=== PATIENT | male | born 1940 | race Caucasian/White ===

== ENCOUNTER 2022-09-10 19:20 | Emergency (ER) | payer OTHER, SELFPAY ==
[2022-09-10 19:28] VITALS: BP 169/88; PULSE 61; RESP 22; TEMP 37.2; O2SAT 75; BMI 25.7
--- NOTE | 2022-09-10 19:49 | ED.NURSE ---
250cc saline wound rinse per MD Taylor verbal.
--- NOTE | 2022-09-10 19:50 | ED.WOUNDLAC ---
HPI - Wound/Laceration General Chief Complaint: Laceration/Wound Stated Complaint: Laceration Time Seen by Provider: 09/10/22 19:34 History of Present Illness HPI narrative: This 82-year-old male comes in by ambulance because of an injury to his right lower extremity. He was getting out of the shower and lost his balance. He hit his leg into a pole and has a laceration on the anterior surface his right leg between the knee in ankle. He did not hit his head or have loss of consciousness. He has chronic neuropathy and large pedal edema bilaterally. He has a skin tear on his anterior right lower leg. There is a small amount of bleeding on the dressing but a fair amount of serous fluid from drainage of the edema in his lower extremity. Related Data Previous Rx's Medication Instructions Recorded furosemide 40 mg tablet 20 mg PO DAILY #30 tabs 09/10/22 Allergies Allergy/AdvReac Type Severity Reaction Status Date / Time No Known Drug Allergies Allergy Verified 09/10/22 19:35 Review of Systems Status of ROS: Reports: 10 or more systems reviewed and unremarkable except as noted in History and below Narrative: Constitutional: No fevers, no weight gain or loss. Eyes: No discharge. No vision changes. HENT: No congestion, no sore throat, no ear pain. Cardiovascular: No chest pain, no palpitations. Respiratory: No shortness of breath, no wheezes, no cough. Gastrointestinal: No abdominal pain, no vomiting, no diarrhea. Genitourinary: No dysuria, no hematuria. Musculoskeletal: Normal range of motion. Skin: No rashes, no pruritis. Large pedal edema bilaterally with skin discoloration. Neurological: No dizziness, weakness, sensory change, speech change. Endo/Heme/Allergies: No bruising or bleeding. No polydipsia. Pysch: no suicidality, no anxiety, no insomnia. All other systems reviewed and are negative. [facility] Medical History (Updated 09/10/22 @ 20:13 by Jose Ramon Taylor MD) Acute on chronic diastolic (congestive) heart failure Acute on chronic heart failure with preserved ejection fraction Bilateral edema of lower extremity Chronic diarrhea DDD (degenerative disc disease), lumbar Diabetic peripheral neuropathy Generalized weakness GERD (gastroesophageal reflux disease) Hypertension Lymphedema Morbid obesity Polymyalgia rheumatica Type 2 diabetes mellitus Surgical History (Updated 09/10/22 @ 20:06 by Robert Hay RN) History of lumbar laminectomy History of tonsillectomy and adenoidectomy Social History Smoking Status: Unknown if ever smoked How often do you have a drink containing alcohol: never AUDIT-C Alcohol total score: 0 Non-prescribed substance use: denies use Exam Narrative: Exam Narrative: Constitutional: Well-developed, well-nourished, no acute distress. HEENT: Normocephalic, atraumatic. Neck: Normal range of motion. Nontender. Supple. Heart: Intact distal pulses. Lungs: No chest discomfort. No wheezes, rhonchi, or rales. Abdomen: Nontender. Back: Normal range of motion. Extremities: Normal range of motion. Skin tear on the anterior surface of the right lower extremity about nursing home between the knee and the ankle. There is very large pedal edema bilaterally with some drainage of serous fluid from the wound. Skin: Intact. No rash. Warm. No erythema or pallor. Neurologic: No altered sensation. No weakness. Alert and oriented. Psychiatric: No suicidality. No anxiety or depression. No insomnia. Nursing notes and vitals signs are reviewed. Const: Vital Signs, click to edit/add: Vital Signs - 24 hr 09/10/22 19:28 Temperature 99.0 F Pulse Rate [Right Pulse Oximeter] 61 Respiratory Rate 22 Blood Pressure [Ri ght Upper Arm] 169/88 H Pulse Oximetry 75 L Oxygen Delivery Me thod Room Air Course Vital Signs Vital signs: Initial Vital Signs Temperature 99.0 F 09/10/22 19:28 Temperature Source Temporal Artery Scan 09/10/22 19:28 Pulse Rate 61 09/10/22 19:28 Respiratory Rate 22 09/10/22 19:28 Blood Pressure 169/88 H 09/10/22 19:28 Blood Pressure Mean 115 09/10/22 19:28 Blood Pressure Position Sitting 09/10/22 19:28 Pulse Oximetry 75 L 09/10/22 19:28 Oxygen Delivery Method 09/10/22 19:28 Vital Signs Temperature 99.0 F 09/10/22 19:28 Pulse Rate 61 09/10/22 19:28 Respiratory Rate 22 09/10/22 19:28 Blood Pressure 169/88 H 09/10/22 19:28 Pulse Oximetry 75 L 09/10/22 19:28 Oxygen Delivery Method 12/24/22 19:28 Temperature 99.0 F 09/10/22 19:28 Pulse Rate 61 09/10/22 19:28 Respiratory Rate 22 09/10/22 19:28 Blood Pressure 169/88 H 09/10/22 19:28 Pulse Oximetry 75 L 09/10/22 19:28 Oxygen Delivery Method 09/10/22 19:28 MDM - Wound/Laceration MDM Narrative Medical decision making narrative: This patient comes in for treatment of a wound to his right lower extremity. It really is more characteristic of a skin tear. There is not sufficient tissue to do a suture repair. The wound was cleansed and Dermabond was applied. A nonstick dressing was applied over this with gauze wrap around the lower extremity. Instructions were given regarding wound care. He has a follow-up appointment with his primary physician in about 1 week. The patient did arrive with oximetry decreased into the 70s% upon arrival when making a transition from the gurney to the bed. He received nasal cannula oxygen which brought immediate improvement to the low 90s%. When oxygen was removed he desaturated into the mid 80s%. He states that he does not feel short of breath. I recommended a workup in this regard and stated that the oximetry itself would typically be something where we bring a person into the hospital and make arrangements the next day for home oxygen. He states that he has plans for [place] and declines any such plans today. He has very large pedal edema bilaterally and it is noted that he is not on any kind of diuretic. I did prescribe Lasix 20 mg and encouraged him to follow-up with his primary physician. If he becomes short of breath he should return to the emergency department. I also advised him to get access to home oxygen even if not feeling short of breath because his oximetry is indicating such in need. Discharge Plan Discharge Clinical Impression: Laceration, Congestive heart failure, Pedal edema Patient Disposition: Home, Self-Care Condition: Stable Additional Instructions: Keep wound clean and dry. Change dressing every 1-2 days. Follow up with MD for further evaluation and treatment regarding the chronic pedal edema. Return if worsening. Prescriptions: New furosemide 40 mg tablet 20 mg PO DAILY Qty: 30 2RF Stand Alone Forms: Food and Beverage Info Instructions
[2022-09-10 20:22] LABS: PCR FLU A Negative PCR FLU A (Negative); PCR FLU B Negative PCR FLU B (Negative); PCR RSV Negative PCR RSV (Negative); SARS PCR* Negative SARS-CoV-2 (Negative)
[2022-09-10 20:28] VITALS: BP 154/81; PULSE 62; RESP 20; TEMP 36.7; O2SAT 86
[2022-09-10 20:30] VITALS: O2SAT 92
[2022-09-10 20:34] VITALS: O2SAT 87
--- NOTE | 2022-09-10 21:13 | ED.NURSE ---
patient oxygen saturation 81-87% throughout shift on room air, 2Lnc 92%, MD updated. pt refused admission and states he will go home regardless of breathing as long as the leg gets checked out - non stick dressing and gauze with kerlix applied.
== END 2022-09-10 21:15 | disposition home or self-care (01) ==
LOC: ED 20:13
PROVIDERS: Emergency Provider Emergency Medicine Emergency Medical Services; PCP Family Medicine
DX: S81.811A Laceration without foreign body, right lower leg, initial encounter (principal); W26.9XXA Contact with unspecified sharp object(s), initial encounter; I50.9 Heart failure, unspecified; R60.0 Localized edema
CPT/HCPCS: 12001; 87502; 87634; 87635; 94761; 99284

== ENCOUNTER 2022-09-13 10:59 | Inpatient (IN) | payer OTHER, SELFPAY ==
[2022-09-13] VITALS (28 sets, daily range): BP systolic 126–178; BP diastolic 52–111; PULSE 54–67; RESP 18–24; TEMP 36.4–36.7; O2SAT 77–99; BMI 42.4; BMI 47.8
--- NOTE | 2022-09-13 11:26 | ED.NURSE ---
patient changed to O2 at 2 liters via NC from a nonrebreather mask. patient was seen by RT and nurse suggested a neb for the audible wheezing.
--- NOTE | 2022-09-13 11:34 | CRLHL7_ITS ---
For Patients: As a result of the Cures Act, medical imaging exams and procedure reports are released immediately into your electronic medical record. You may view this report before your referring provider. If you have questions, please contact your health care provider. INDICATION: Shortness of breath TECHNIQUE: Chest 1 view. COMPARISON: 11/22/2011 FINDINGS: Cardiovascular and mediastinum: Cardiomegaly with pulmonary vascular congestive changes. Mediastinum is within normal limits. Lungs and pleural space: Lungs are clear. No sign of infiltrate or mass. No sign of pleural effusion. No pneumothorax. Bones and soft tissues: No significant findings. IMPRESSION: Cardiomegaly with pulmonary vascular congestive changes. Dictated by Srinivasa Valdes MD @ 09/13/2022 12:19:31 PM Dictated by: Srinivasa Valdes MD @ 09/13/2022 12:19:37 (Electronically Signed)
[2022-09-13] MEDS: IPRAT-ALBUT 0.5-2.5 MG/3 ML NEB 1 NEB IH ×2 (11:37→21:17)
--- NOTE | 2022-09-13 11:37 | ED.SOB ---
HPI - SOB/Dyspnea General Date Seen: 09/13/22 Chief Complaint: Shortness of Breath/Dyspnea Stated Complaint: Shortness of breath Time Seen by Provider: 09/13/22 11:03 Source: patient, RN notes reviewed and old records reviewed Mode of arrival: wheelchair History of Present Illness HPI Narrative: Patient is the 82-year-old gentleman who is seen in room 1, he comes in cousin shortness of breath, he was here in the emergency department 3 days ago, and offered admission but declined at that time because of low oxygen saturations. He does not have a history of home oxygen, he tells me that the shortness of breath his gradual over time. . 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 Sees a local physician for a primary care, history of leg swelling bilaterally with marked venous stasis changes on the legs. Pertinent past history: congestive heart failure Onset (ago): week(s) Timing: progressively worsening Severity: moderate Exacerbating factors: lying flat and movement Relieving factors: nothing Known history of: congestive heart failure Associated symptoms: denies other symptoms Treatment prior to arrival: none Related Data Home oxygen amount: none Home Medications Medication Instructions Recorded Confirmed acetaminophen 650 mg 1,300 mg PO HS 09/10/22 09/13/22 tablet,extended release (Arthritis Pain Reliever) allopurinol 100 mg tablet 100 mg PO DAILY 09/10/22 09/13/22 ammonium lactate 12 % topical cream 1 applic topical BID 09/10/22 09/13/22 aspirin 81 mg tablet,delayed 81 mg PO DAILY 09/10/22 09/13/22 release (Ecotrin Low Strength) atorvastatin 20 mg tablet 20 mg PO HS 09/10/22 09/13/22 diphenhydramine 25 1 tab PO QHS PRN 09/10/22 09/13/22 mg-acetaminophen 500 mg tablet (Tylenol PM Extra Strength) gabapentin 300 mg capsule 600 mg PO HS 09/10/22 09/13/22 insulin NPH isoph U-100 human 100 10 - 15 unit subcut BID 09/10/22 09/13/22 unit/mL subcutaneous suspension (Novolin N NPH U-100 Insulin isophane) insulin regular human 100 unit/mL 10 unit subcut BID 09/10/22 09/13/22 injection solution (Novolin R Regular U-100 Insulin) insulin syringe-needle U-100 0.3 09/10/22 09/10/22 mL 30 gauge x 1/2 (UltiCare) metoprolol succinate 100 mg 100 mg PO DAILY 09/10/22 09/13/22 tablet,extended release 24 hr nitroglycerin 0.4 mg sublingual 0.4 mg sublingual Q5-15M PRN 09/10/22 09/13/22 tablet (Nitrostat) sennosides 8.6 mg capsule (senna) 8.6 mg PO DAILY 09/10/22 09/13/22 Previous Rx's Medication Instructions Recorded furosemide 40 mg tablet 20 mg PO DAILY #30 tabs 09/10/22 Allergies Allergy/AdvReac Type Severity Reaction Status Date / Time No Known Drug Allergies Allergy Verified 09/13/22 13:31 Review of Systems Status of ROS: Reports: 10 or more systems reviewed and unremarkable except as noted in History and below [facility] [place] Medical History Acute on chronic diastolic (congestive) heart failure Acute on chronic heart failure with preserved ejection fraction Bilateral edema of lower extremity Chronic diarrhea DDD (degenerative disc disease), lumbar Diabetic peripheral neuropathy Generalized weakness GERD (gastroesophageal reflux disease) Hypertension Lymphedema Morbid obesity Polymyalgia rheumatica Type 2 diabetes mellitus Surgical History History of lumbar laminectomy History of tonsillectomy and adenoidectomy Social History Smoking Status: Never smoker Second hand tobacco smoke exposure: No How often do you have a drink containing alcohol: never AUDIT-C Alcohol total score: 0 Non-prescribed substance use: denies use service: No Exam Narrative: Exam Narrative: On examination in room 1 he is on 3 L of oxygen currently saturating 91% after a DuoNeb. He is speaking to me, appears slightly winded and short of breath. Pupils are equal round reactive to light there is no scleral icterus redness noted, TMs are normal, there is some yellowish around his harris but he swears that he does not smoke. JVP impossible see due to the size of his neck, he is audibly wheezing, respiratory to slightly increase, crackles and wheezes are noted throughout his lungs, worse on the left than the right, has a hard time sitting up for me, holding himself up, large barrel shaped chest along a large abdomen, make examination tough, he has heart sounds no clicks murmurs or gallops normal S1-S2, abdomen is soft there is no guarding there is bruising from insulin injections noted. Lower extremity shows severe lymphedema bilaterally with the redness bilaterally which seems chronic with venous stasis disease, and also xerosis. Moves all extremities independently and equal bilaterally. Const: Vital Signs, click to edit/add: Vital Signs - 24 hr 09/13/22 11:19 09/13/22 11:33 09/13/22 11:34 Temperature 98.1 F Pulse Rate 61 67 Pulse Rate [Right Pulse Oximeter] 62 Respiratory Rate 24 Blood Pressure 157/85 H Blood Pressure [Le ft Upper Arm] 156/81 H Pulse Oximetry 99 91 88 Oxygen Delivery Me thod High Flow Nasal Ca nnula Nasal Cannula Oxygen Flow Rate 2 09/13/22 11:30 09/13/22 12:19 09/13/22 12:19 Temperature Pulse Rate Pulse Rate [Right Pulse Oximeter] Respiratory Rate 22 22 Blood Pressure Blood Pressure [Le ft Upper Arm] Pulse Oximetry 94 91 91 Oxygen Delivery Me thod Nasal Cannula Nasal Cannula Nasal Cannula Oxygen Flow Rate 2 5 3 09/13/22 11:40 09/13/22 12:00 09/13/22 12:02 Temperature Pulse Rate 62 59 L 59 L Pulse Rate [Right Pulse Oximeter] Respiratory Rate Blood Pressure 126/86 Blood Pressure [Le ft Upper Arm] Pulse Oximetry 90 77 L 78 L Oxygen Delivery Me thod Oxygen Flow Rate 09/13/22 12:20 09/13/22 12:40 09/13/22 13:00 Temperature Pulse Rate 58 L 60 60 Pulse Rate [Right Pulse Oximeter] Respiratory Rate Blood Pressure Blood Pressure [Le ft Upper Arm] Pulse Oximetry 91 80 L 94 Oxygen Delivery Me thod Nasal Cannula Oxygen Flow Rate 3 09/13/22 13:03 09/13/22 13:32 09/13/22 13:40 Temperature Pulse Rate 58 L 62 58 L Pulse Rate [Right Pulse Oximeter] Respiratory Rate Blood Pressure 144/78 H Blood Pressure [Le ft Upper Arm] Pulse Oximetry 95 90 94 Oxygen Delivery Me thod Oxygen Flow Rate 09/13/22 14:00 09/13/22 14:20 09/13/22 14:32 Temperature Pulse Rate 57 L 55 L 57 L Pulse Rate [Right Pulse Oximeter] Respiratory Rate Blood Pressure 135/94 H Blood Pressure [Le ft Upper Arm] Pulse Oximetry 93 91 94 Oxygen Delivery Me thod Nasal Cannula Oxygen Flow Rate 2 09/13/22 14:40 09/13/22 15:00 Temperature Pulse Rate 58 L 54 L Pulse Rate [Right Pulse Oximeter] Respiratory Rate Blood Pressure Blood Pressure [Le ft Upper Arm] Pulse Oximetry 92 92 Oxygen Delivery Me thod Oxygen Flow Rate Documenting provider has reviewed patient's vital signs: yes Course Course Hospital Course: Patient has been stabilized on oxygen he is now on 2-3 L, feels much more comfortable, CT did not reveal any evidence of the pulmonary embolism, I do see right-sided ventricular enlargement, I believe is likely that he has pulmonary hypertension, along with likely COPD. There probably is a little bit of a component also of congestive heart failure for that reason we will try to get an echo of his heart. I spoken to Dr. Clark, she accepted him to the hospital medicine service, with the above diagnosis. Vital Signs Vital signs: Initial Vital Signs Temperature 98.1 F 09/13/22 11:19 Temperature Source Temporal Artery Scan 09/13/22 11:19 Pulse Rate 62 09/13/22 11:19 Respiratory Rate 24 09/13/22 11:19 Blood Pressure 156/81 H 09/13/22 11:19 Blood Pressure Mean 106 09/13/22 11:19 Blood Pressure Position Sitting 09/13/22 11:19 Pulse Oximetry 99 09/13/22 11:19 Oxygen Delivery Method 09/13/22 11:19 Vital Signs Temperature 98.1 F 09/13/22 11:19 Pulse Rate 62 09/13/22 11:19 Respiratory Rate 24 09/13/22 11:19 Blood Pressure 156/81 H 09/13/22 11:19 Pulse Oximetry 99 09/13/22 11:19 Oxygen Delivery Method 09/13/22 11:19 Temperature 98.1 F 09/13/22 11:19 Pulse Rate 54 L 09/13/22 15:00 Respiratory Rate 22 09/13/22 12:19 Blood Pressure 135/94 H 09/13/22 14:32 Pulse Oximetry 92 09/13/22 15:00 Oxygen Delivery Method 09/13/22 14:20 Oxygen Flow Rate 2 09/13/22 14:20 MDM - SOB/Dyspnea MDM Narrative Medical decision making narrative: Life-threatening differential diagnosis includes occluded COPD exacerbation, pulmonary edema, acute coronary syndromes, pulmonary embolism, pneumonia, and pneumothorax. Other differential diagnosis considerations include asthma, bronchitis as well as other etiologies Differential Diagnosis Differential diagnosis: Likely acute exacerbation of chronic obstructive airways disease, congestive heart failure, community acquired pneumonia, asthma with exacerbation and pulmonary embolism Medical Records Attestation: I reviewed the patient's medical records. Lab Data Attestation: I reviewed the patient's lab results. Labs: Lab Results 09/13/22 09/13/22 09/13/22 Range/Units 11:33 11:36 11:45 WBC 6.05 (4.50-11.00) K/uL RBC 5.22 (4.30-5.90) m/uL Hgb 15.1 (13.5-17.5) gm/dL Hct 51.4 (37.0-53.0) % MCV 99 (80-100) fL MCH 29 (26-34) pg MCHC 29 L (32-36) gm/dL RDW Coeff of Mindy 13.9 (11.5-15.5) % Plt Count 176 (140-440) K/uL Neut % (Auto) 79.8 H (42.0-72.0) % Lymph % (Auto) 10.4 L (20-44) % [place] % (Auto) 9.3 (0.0-11.0) % Eos % (Auto) 0.2 (0.0-7.0) % Baso % (Auto) 0.0 (0.0-3.0) % Neut # (Auto) 4.80 (1.7-7.0) K/uL Lymph # (Auto) 0.60 L (0.90-2.90) K/uL [place] # (Auto) 0.60 (0.00-0.90) K/UL Eos # (Auto) 0.01 (0.00-0.50) K/uL Baso # (Auto) 0.00 (0.00-0.30) K/uL Diff Slide Review Acceptable Review (Acceptable) INR (0.91-1.10) APTT (23-33) Seconds D-Dimer Quant (PE/DVT) (0.00-0.50) ug/ml VBG pH (7.32-7.43) VBG pCO2 (40-50) mmHG VBG pO2 (25-47) mmHG VBG HCO3 (21-28) mmol/L Sodium (135-149) mmol/L Potassium (3.6-5.1) mmol/L Chloride (96-114) mmol/L Carbon Dioxide (20-32) mmol/L BUN (7-30) mg/dL Creatinine (0.5-1.5) mg/dL Estimated Creat Clear Estimated GFR ml/min Glucose (60-115) mg/dL Calcium (8.4-10.6) mg/dL NT-Pro-B Natriuret Pep pg/mL SARS-CoV-2 (PCR) Negative SARS-CoV-2 (Negative) Influenza Type A (PCR) Negative PCR FLU A (Negative) Influenza Type B (PCR) Negative PCR FLU B (Negative) RSV (PCR) Negative PCR RSV (Negative) POC Troponin I 0.09 H (0.01-0.04) ng/ml 09/13/22 09/13/22 09/13/22 Range/Units 11:45 11:45 12:44 WBC (4.50-11.00) K/uL RBC (4.30-5.90) m/uL Hgb (13.5-17.5) gm/dL Hct (37.0-53.0) % MCV (80-100) fL MCH (26-34) pg MCHC (32-36) gm/dL RDW Coeff of Mindy (11.5-15.5) % Plt Count (140-440) K/uL Neut % (Auto) (42.0-72.0) % Lymph % (Auto) (20-44) % [place] % (Auto) (0.0-11.0) % Eos % (Auto) (0.0-7.0) % Baso % (Auto) (0.0-3.0) % Neut # (Auto) (1.7-7.0) K/uL Lymph # (Auto) (0.90-2.90) K/uL [place] # (Auto) (0.00-0.90) K/UL Eos # (Auto) (0.00-0.50) K/uL Baso # (Auto) (0.00-0.30) K/uL Diff Slide Review (Acceptable) INR 1.02 (0.91-1.10) APTT 36 H (23-33) Seconds D-Dimer Quant (PE/DVT) 1.02 H (0.00-0.50) ug/ml VBG pH 7.426 (7.32-7.43) VBG pCO2 47 (40-50) mmHG VBG pO2 51.1 H (25-47) mmHG VBG HCO3 31 H (21-28) mmol/L Sodium 141 (135-149) mmol/L Potassium 5.1 (3.6-5.1) mmol/L Chloride 102 (96-114) mmol/L Carbon Dioxide 36 H (20-32) mmol/L BUN 21 (7-30) mg/dL Creatinine 1.1 (0.5-1.5) mg/dL Estimated Creat Clear 62.27 Estimated GFR 68 ml/min Glucose 186 H (60-115) mg/dL Calcium 8.5 (8.4-10.6) mg/dL NT-Pro-B Natriuret Pep 7880 pg/mL SARS-CoV-2 (PCR) (Negative) Influenza Type A (PCR) (Negative) Influenza Type B (PCR) (Negative) RSV (PCR) (Negative) POC Troponin I (0.01-0.04) ng/ml Imaging Data CT scan - chest: Attestation: I have reviewed the pertinent imaging results. Radiologist's impression: Patient: ELYSSA DE Facility:?[facility] Patient ID:?[id number] Site Patient ID:?[id number]. Site :?[id number] Study:?CT Chest Angio W/ 95CC ISOVUE-370 PE PROTOCOL-09/13/2022 1:32:28 PM Ordering Physician:Milena Zuleta Final Report: Indication: Shortness of breath and hypoxia Technique: Volumetric multidetector CT images of the chest were obtained after the administration of IV contrast. 95 cc Isovue 370 low osmolar intravenous contrast Comparison: None available. Findings: The thoracic inlet and thyroid gland are unremarkable. The thoracic aorta is nonaneurysmal. There is no central filling defect to suggest pulmonary embolism. There are enlarged mediastinal and hilar lymph nodes. There is no axillary adenopathy. There is moderate central bronchial thickening with minimal mucoid impaction of the lower lobe bronchi. There is narrowing of the AP diameter of the proximal bronchi which may represent superimposed bronchomalacia. There is mild central bronchial thickening with minimal airspace opacity in the bilateral hemithoraces with mild interstitial thickening consistent with minimal pulmonary edema. There is no pneumothorax or pleural effusion. There is no evidence of pulmonary mass or suspicious pulmonary nodule. The partially visualized upper abdominal viscera are within normal limits. The thoracic vertebral body heights are grossly maintained with minimal endplate Schmorl`s defect. There is mild straightening of the normal thoracic kyphosis without evidence of significant spondylolisthesis. Impression: Mild central bronchial thickening and narrowing of the bronchial diameter which may represent a component of superimposed bronchomalacia. There is minimal mucoid impaction and interstitial prominence of the bilateral hemithoraces which may represent bronchitis and/or mild pulmonary edema changes. No evidence of pulmonary embolus. Please note that all CT scans at this facility use dose modulation, iterative reconstruction, and/or weight-based dosing when appropriate to reduce radiation dose to as low as reasonably achievable. Dictated by Yong Noriega MD @ 09/13/2022 2:26:28 PM (Electronic Signature) ECG Data Attestation: I personally reviewed and interpreted this ECG as follows: ECG interpretation date: 09/13/22 Interpretation: Normal sinus rhythm with no acute changes Critical Care Time Critical Care Time Critical Care Time: Yes Attestation: The patient required my highest level preparedness to intervene emergently and I personally spent this critical care time directly and personally managing the patient. This critical care time included: Obtaining a history; Examining the patient; Pulse oximetry; Ordering and reviewing of studies; Arranging urgent treatment with development of a management plan; Evaluation of patients response to treatment; Frequent reassessment discussions with other providers. This critical care time was performed to assess and manage the high probability of imminent life-threatening deterioration that could result in multiorgan failure. It was exclusive of separate billable procedures and treating other patients and teaching time. Total Critical Care Time in Minutes: 45 Discharge Plan Discharge Clinical Impression: Acute infective exacerbation of chronic obstructive airway disease, Heart failure, Congestive heart failure, Hypoxia Patient Disposition: Admitted As Inpatient Prescriptions: No Action allopurinol 100 mg tablet 100 mg PO DAILY Label Comments: TAKE ONE TABLET BY MOUTH ONCE DAILY ammonium lactate 12 % cream 1 applic topical BID atorvastatin 20 mg tablet 20 mg PO HS Label Comments: TAKE 1 TABLET (20 MG) BY MOUTH AT BEDTIME. gabapentin 300 mg capsule 600 mg PO HS Label Comments: TAKE TWO CAPSULES BY MOUTH AT BEDTIME MAY TAKE ADDITIONAL 2-3 CAPS SPACED OUT THROUGHOUT THE DAY NEEDED Novolin N NPH U-100 Insulin 100 unit/mL suspension 10 - 15 unit SUBCUT BID Label Comments: INJECT 15 UNITS UNDER THE SKIN IN THE MORNING & 10 UNITS IN THE EVENING. Novolin R Regular U-100 Insuln 100 unit/mL solution 10 unit subcut BID Label Comments: INJECT 10 UNITS SUBCUTANEOUSLY TWICE DAILY WITH MEALS metoprolol succinate 100 mg tablet extended release 24 hr 100 mg PO DAILY Label Comments: TAKE ONE TABLET BY MOUTH ONCE DAILY (DME) insulin syringe-needle U-100 [UltiCare] 0.3 mL 30 gauge x 1/2 syringe MISCELLANEOUS senna 8.6 mg capsule 8.6 mg PO DAILY nitroglycerin [Nitrostat] 0.4 mg tablet, sublingual 0.4 mg sublingual Q5-15M PRN Rx Instructions: do not exceed 3 doses per episode furosemide 40 mg tablet 20 mg PO DAILY Qty: 30 2RF acetaminophen [Arthritis Pain Reliever] 650 mg tablet extended release 1,300 mg PO HS aspirin [Ecotrin Low Strength] 81 mg tablet,delayed release (DR/EC) 81 mg PO DAILY diphenhydramine-acetaminophen [Tylenol PM Extra Strength] 25-500 mg tablet 1 tab PO QHS PRN Follow Up/Referrals: Dilcia Castorena MD [Primary Care Provider] -
--- NOTE | 2022-09-13 11:52 | RESP.RT ---
Patient found at home with SaO2 mid 60's%, was placed on non-rebreather and brought to ED, by EMS. After patient settled was placed on Nasal Cannula 2 Lpm, SaO2 92-94%. Bilateral breath sounds very diminished with expiratory wheeze. DuoNeb given with mouth piece, small volume nebulizer, and Oxygen flow meter at 8 Lpm. Post treatment BBS with improved air movement, wheeze is more prominate with more air movement, patient is able to take lareger breath.
[2022-09-13 12:02] LABS: Eosinophils Absolute Auto 0.01 K/uL (0.00-0.50); Eosinophils Percent Auto 0.2 % (0.0-7.0); Hematocrit 51.4 % (37.0-53.0); Hemoglobin* 15.1 gm/dL (13.5-17.5); Immature Granulocytes Abs Auto 0.02 K/uL (0.00-0.30); Immature Granulocytes Pct Auto 0.3 %; Lymphocytes Percent Auto 10.4 % (20-44); Mean Corpuscular HGB Conc 29 gm/dL (32-36); Mean Corpuscular Hemoglobin 29 pg (26-34); Mean Corpuscular Volume 99 fL (80-100); Monocytes Percent Auto 9.3 % (0.0-11.0); Neutrophils Percent Auto 79.8 % (42.0-72.0); Platelet Count* 176 K/uL (140-440); RDW Coefficient of Variation % 13.9 % (11.5-15.5); Red Blood Count 5.22 m/uL (4.30-5.90); White Blood Count* 6.05 K/uL (4.50-11.00)
[2022-09-13 12:03] LABS: Troponin, Point-of-Care* 0.09 ng/ml (0.01-0.04)
[2022-09-13] MEDS: ALBUTEROL SULFATE 2.5 MG/3 ML VIAL.NEB NEB (12:12)
[2022-09-13 12:17] LABS: Chloride* 102 mmol/L (96-114); Sodium* 141 mmol/L (135-149)
[2022-09-13 12:18] LABS: Potassium* 5.1 mmol/L (3.6-5.1)
[2022-09-13 12:21] LABS: Blood Urea Nitrogen* 21 mg/dL (7-30); Calcium* 8.5 mg/dL (8.4-10.6); Carbon Dioxide* 36 mmol/L (20-32); Creatinine* 1.1 mg/dL (0.5-1.5); Est. Creatinine Clearance* 62.27; Estimated Glomerular Filt Rate 68 ml/min; Glucose* 186 mg/dL (60-115)
[2022-09-13 12:22] LABS: INR 1.02 (0.91-1.10)
[2022-09-13 12:23] LABS: Partial Thromboplastin Time* 36 Seconds (23-33)
[2022-09-13 12:25] LABS: D Dimer Quantitative* 1.02 ug/ml (0.00-0.50)
[2022-09-13 12:31] LABS: PCR FLU A Negative PCR FLU A (Negative); PCR FLU B Negative PCR FLU B (Negative); PCR RSV Negative PCR RSV (Negative); SARS PCR* Negative SARS-CoV-2 (Negative)
[2022-09-13 12:32] LABS: NT Pro B Type NatriureticPept* 7880 pg/mL
--- NOTE | 2022-09-13 12:34 | RESP.RT ---
Nurse placed second nebulizer treatment of Albuterol on patient, used well. Post treatment no wheeze noted, patient able to take larger breath. Patient placed on Nasal cannula 2 Lpm, SaO2 decreased to 81%, increased to 3 Lpm, SaO2 82%,
[2022-09-13 12:42] LABS: Slide Review Reflex Yes
[2022-09-13 12:43] LABS: Slide Review Acceptable Review (Acceptable)
[2022-09-13 12:48] LABS: HCO3 VBG 31 mmol/L (21-28); PCO2 VBG 47 mmHG (40-50); PO2 VBG 51.1 mmHG (25-47); pH VBG 7.426 (7.32-7.43)
--- NOTE | 2022-09-13 12:48 | CRLHL7_ITS ---
For Patients: As a result of the Century Cures Act, medical imaging exams and procedure reports are released immediately into your electronic medical record. You may view this report before your referring provider. If you have questions, please contact your health care provider. Indication: Shortness of breath and hypoxia Technique: Volumetric multidetector CT images of the chest were obtained after the administration of IV contrast. 95 cc Isovue 370 low osmolar intravenous contrast Comparison: None available. Findings: The thoracic inlet and thyroid gland are unremarkable. The thoracic aorta is nonaneurysmal. There is no central filling defect to suggest pulmonary embolism. There are enlarged mediastinal and hilar lymph nodes. There is no axillary adenopathy. There is moderate central bronchial thickening with minimal mucoid impaction of the lower lobe bronchi. There is narrowing of the AP diameter of the proximal bronchi which may represent superimposed bronchomalacia. There is mild central bronchial thickening with minimal airspace opacity in the bilateral hemithoraces with mild interstitial thickening consistent with minimal pulmonary edema. There is no pneumothorax or pleural effusion. There is no evidence of pulmonary mass or suspicious pulmonary nodule. The partially visualized upper abdominal viscera are within normal limits. The thoracic vertebral body heights are grossly maintained with minimal endplate Schmorl`s defect. There is mild straightening of the normal thoracic kyphosis without evidence of significant spondylolisthesis. Impression: Mild central bronchial thickening and narrowing of the bronchial diameter which may represent a component of superimposed bronchomalacia. There is minimal mucoid impaction and interstitial prominence of the bilateral hemithoraces which may represent bronchitis and/or mild pulmonary edema changes. No evidence of pulmonary embolus. Please note that all CT scans at this facility use dose modulation, iterative reconstruction, and/or weight-based dosing when appropriate to reduce radiation dose to as low as reasonably achievable. Dictated by Yong Noriega MD @ 09/13/2022 2:26:28 PM (Electronically Signed)
--- NOTE | 2022-09-13 13:07 | RESP.RT ---
Oxymizer Nasal Cannula; Patient SaO2 82% on 5 Lpm Nasal Cannula, placed patient on Oxymizer Nasal Cannula and titrated Lpm to 2 Lpm keeping SaO2 >85%
--- NOTE | 2022-09-13 14:00 | ED.NURSE ---
wounds on right lower extremities were cleaned and dressed with telfa, ABD and kerlix.
[2022-09-13] MEDS: FUROSEMIDE 10 MG/ML inj 80 MG IVP (14:07)
--- NOTE | 2022-09-13 14:10 | PC.NURSE ---
placed 16fr pérez catheter. Some difficulty inserting catheter and a little blood at first. Clearing now. notified.
--- NOTE | 2022-09-13 14:56 | PC.NURSE ---
Emptied 1000cc of dark, clear, red tinged urine from pérez.
[2022-09-13] MEDS: METHYLPREDNISOLONE SOD SUCC 62.5 MG/ML (125) 125 MG IVP ×2 (15:14→21:19)
[2022-09-13] MEDS: cefTRIAXone 1 GM in 0.9 % SODIUM CHLORIDE Mini-bag 100 ML IVPB ×2 (15:14→21:16)
--- NOTE | 2022-09-13 15:56 | PC.NURSE ---
Patient was taken up to med surg room 256. All belongings sent with. Report given to VICKIE Tipton. All questions answered. Emptied a total of 1825cc out of catheter. patient was also incontinent when catheter was placed.
--- NOTE | 2022-09-13 16:05 | RESP.RT ---
Goal tonight to keep patient SaO2 >85%, adjusting Oxymizer as needed.
[2022-09-13] MEDS: PERFLUTREN LIPID MICROSPHERES 2 ML VIAL IV (16:30)
--- NOTE | 2022-09-13 17:48 | PC.NURSE ---
Shift Summary: Patient arrived to room 256 around 1600. O2 @ 2L/oxymizer to maintain o2 sats >86%. Extremities cool which patient and state is baseline. Left lower extremity red and dry with edema. Right leg weeping with lesion on sol, covered in gauze and kirlex, absorbant pad under right leg as well. Denies pain. SOB with movement from stretcher to bed. Partida cath in place and patent draining clear yellow urine. Blood glucose @ 1745 was 142. Lung sounds with expiratory wheeze.
[2022-09-13 19:20] LABS: HCO3 VBG 38 mmol/L (21-28); PO2 VBG 38.6 mmHG (25-47); pH VBG 7.345 (7.32-7.43)
[2022-09-13 19:22] LABS: PCO2 VBG 70 mmHG (40-50)
--- NOTE | 2022-09-13 19:44 | PM.IMHP1 ---
Hospitalist- H&P: HPI History of Present Illness Time Seen by Provider: 18:20 Date Seen: 09/13/22 Chief complaint: Shortness of breath Narrative: Adriano Ball is a 82 year old male with a history of heart failure who is here for weakness and confusion. His , Shayy, is here with him and gives history because Adriano got short of breath just saying 1 or 2 words. Shayy tells me that Adriano's legs have been getting larger. His legs have also been getting more wobbly and feeling weaker. Fell about a month and half ago and then again on [place]. When he fell on [place], it was as he was coming out of the shower and he slipped and cut his right leg. He could not get up and so his called the EMS and they brought him to the emergency department where the laceration was glued; his legs were to edematous to suture. It was recommended that he come in for admission for probable heart failure, but he declined at the time. He was given a prescription for furosemide, which he filled a day ago but did not start taking until today. He has had a great deal of difficulty moving over the last few days. On [place] his helped him into the car so that they could go for a drive and see [employer] lights. He had a great deal of difficulty getting into the car which is unusual for him. He wanted pizza, but nothing was open so they ended up eating [employer]. When they got home he felt very weak getting out of the car and his helped him lower himself to the ground and he sat down on the garage floor. This morning his noticed that he seemed confused and dumped orange juice all over. His took his blood pressure which seemed okay, but called EMS because she was worried there is something more going on. Shayy tells me that when EMS arrived his oxygen level was 63% on room air. According to his chart he has a history of heart failure with preserved ejection fraction. He has no history of COPD. He has never smoked or used tobacco. 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 He notes that even with a great deal of ventilation in the sheds, he ?knew he would have to pay for it some day. ? He has had profuse watery diarrhea for the last 1-2 months. He spoke with his doctor about this mid month and she ordered stool samples and a probiotic. He has not quite finished all the probiotic so he has not yet done the stool samples. The diarrhea has been so bad at times that he has been incontinent of stool. Review of Systems Status of ROS: Reports: 10 or more systems reviewed and unremarkable except as noted in History and below [facility] Medical History (Updated 09/13/22 @ 20:14 by Socorro Clark MD) Acute on chronic diastolic (congestive) heart failure Acute on chronic heart failure with preserved ejection fraction Bilateral edema of lower extremity Chronic diarrhea DDD (degenerative disc disease), lumbar Diabetic peripheral neuropathy Generalized weakness GERD (gastroesophageal reflux disease) Hypertension Lymphedema Morbid obesity Polymyalgia rheumatica Type 2 diabetes mellitus Surgical History (Updated 09/13/22 @ 20:00 by Socorro Clark MD) H/O cataract removal with insertion of prosthetic lens History of lumbar laminectomy History of tonsillectomy and adenoidectomy Hx of colonoscopy Family History Mother Lymph node cancer Father Colon cancer Brother High cholesterol High blood pressure Brother High blood pressure Sister High blood pressure Social History (Updated 09/13/22 @ 20:02 by Socorro Clark MD) Narrative: . Lives with . Denies tobacco use, lifelong nonsmoker. Alcohol use 1 drink per month. Denies recreational drug use. DNI. Smoking Status: Never smoker Second hand tobacco smoke exposure: No How often do you have a drink containing alcohol: never AUDIT-C Alcohol total score: 0 Non-prescribed substance use: denies use service: No Meds Home Medications and Allergies Home Medications Medication Instructions Recorded Confirmed Type acetaminophen 650 mg 1,300 mg PO HS 09/10/22 09/13/22 History tablet,extended release (Arthritis Pain Reliever) allopurinol 100 mg tablet 100 mg PO DAILY 09/10/22 09/13/22 History ammonium lactate 12 % topical cream 1 applic topical BID 09/10/22 09/13/22 History aspirin 81 mg tablet,delayed 81 mg PO DAILY 09/10/22 09/13/22 History release (Ecotrin Low Strength) atorvastatin 20 mg tablet 20 mg PO HS 09/10/22 09/13/22 History diphenhydramine 25 1 tab PO QHS PRN 09/10/22 09/13/22 History mg-acetaminophen 500 mg tablet (Tylenol PM Extra Strength) gabapentin 300 mg capsule 600 mg PO HS 09/10/22 09/13/22 History insulin NPH isoph U-100 human 100 10 - 15 unit subcut BID 09/10/22 09/13/22 History unit/mL subcutaneous suspension (Novolin N NPH U-100 Insulin isophane) insulin regular human 100 unit/mL 10 unit subcut BID 09/10/22 09/13/22 History injection solution (Novolin R Regular U-100 Insulin) insulin syringe-needle U-100 0.3 09/10/22 09/10/22 History mL 30 gauge x 1/2 (UltiCare) metoprolol succinate 100 mg 100 mg PO DAILY 09/10/22 09/13/22 History tablet,extended release 24 hr nitroglycerin 0.4 mg sublingual 0.4 mg sublingual Q5-15M PRN 09/10/22 09/13/22 History tablet (Nitrostat) sennosides 8.6 mg capsule (senna) 8.6 mg PO DAILY 09/10/22 09/13/22 History Allergies Allergy/AdvReac Type Severity Reaction Status Date / Time No Known Drug Allergies Allergy Verified 09/13/22 13:31 Exam Narrative: Exam Narrative: General: Moderate respiratory distress. Speaking just 1 or 2 words causes worsening dyspnea. Awake alert oriented x3. HEENT: Normocephalic atraumatic, pupils equally round and reactive to light and accommodation. Oropharynx clear. Mucous membranes are moist. No cervical lymphadenopathy, thyromegaly or carotid bruits. JVD present with head of bed at 70?. Cardiovascular: Regular rate and rhythm. No murmurs, gallops, or rubs. Chest: Not using accessory muscles. Tight. Crackles throughout. No wheezes. Abdomen: Bowel sounds present. Obese. Soft, nondistended, nontender. No hepatosplenomegaly or masses. No erythema of skin folds. Genitourinary: Edema of foreskin and scrotum with some mild erythema and candidiasis of scrotum. Partida catheter in place draining to gravity. Extremities: Massive bilateral lower extremity edema to hips and buttocks. Both lower extremities have chronically thickened purplish skin consistent with chronic massive edema, elephantitis. Right lower extremity was wrapped with Kerlix which I removed. Multiple quarter to a 50 cent sized superficial ulcers on the lateral and posterior right lower leg. These are draining serosanguineous fluid, no purulence. There is a large superficial hemostatic cut on his upper sol. There is no drainage from this. Skin: No jaundice, no pallor, rashes and ulcers as above. Neuro: Grossly intact. No focal deficits. Const: Vital Signs, click to edit/add: Vital Signs - 24 hr 09/13/22 11:19 09/13/22 11:33 09/13/22 11:34 Temperature 98.1 F Pulse Rate 61 67 Pulse Rate [Left P ulse Oximeter] Pulse Rate [Right Pulse Oximeter] 62 Respiratory Rate 24 Blood Pressure 157/85 H Blood Pressure [Le ft Arm] Blood Pressure [Le ft Upper Arm] 156/81 H Pulse Oximetry 99 91 88 Oxygen Delivery Me thod High Flow Nasal Ca nnula Nasal Cannula Oxygen Flow Rate 2 09/13/22 11:30 09/13/22 12:19 09/13/22 12:19 Temperature Pulse Rate Pulse Rate [Left P ulse Oximeter] Pulse Rate [Right Pulse Oximeter] Respiratory Rate 22 22 Blood Pressure Blood Pressure [Le ft Arm] Blood Pressure [Le ft Upper Arm] Pulse Oximetry 94 91 91 Oxygen Delivery Me thod Nasal Cannula Nasal Cannula Nasal Cannula Oxygen Flow Rate 2 5 3 09/13/22 11:40 09/13/22 12:00 09/13/22 12:02 Temperature Pulse Rate 62 59 L 59 L Pulse Rate [Left P ulse Oximeter] Pulse Rate [Right Pulse Oximeter] Respiratory Rate Blood Pressure 126/86 Blood Pressure [Le ft Arm] Blood Pressure [Le ft Upper Arm] Pulse Oximetry 90 77 L 78 L Oxygen Delivery Me thod Oxygen Flow Rate 09/13/22 12:20 09/13/22 12:40 09/13/22 13:00 Temperature Pulse Rate 58 L 60 60 Pulse Rate [Left P ulse Oximeter] Pulse Rate [Right Pulse Oximeter] Respiratory Rate Blood Pressure Blood Pressure [Le ft Arm] Blood Pressure [Le ft Upper Arm] Pulse Oximetry 91 80 L 94 Oxygen Delivery Me thod Nasal Cannula Oxygen Flow Rate 3 09/13/22 13:03 09/13/22 13:32 09/13/22 13:40 Temperature Pulse Rate 58 L 62 58 L Pulse Rate [Left P ulse Oximeter] Pulse Rate [Right Pulse Oximeter] Respiratory Rate Blood Pressure 144/78 H Blood Pressure [Le ft Arm] Blood Pressure [Le ft Upper Arm] Pulse Oximetry 95 90 94 Oxygen Delivery Me thod Oxygen Flow Rate 09/13/22 14:00 09/13/22 14:20 09/13/22 14:32 Temperature Pulse Rate 57 L 55 L 57 L Pulse Rate [Left P ulse Oximeter] Pulse Rate [Right Pulse Oximeter] Respiratory Rate Blood Pressure 135/94 H Blood Pressure [Le ft Arm] Blood Pressure [Le ft Upper Arm] Pulse Oximetry 93 91 94 Oxygen Delivery Me thod Nasal Cannula Oxygen Flow Rate 2 09/13/22 14:40 09/13/22 15:00 09/13/22 15:02 Temperature 97.8 F Pulse Rate 58 L 54 L 55 L Pulse Rate [Left P ulse Oximeter] Pulse Rate [Right Pulse Oximeter] Respiratory Rate 20 Blood Pressure 130/111 H Blood Pressure [Le ft Arm] Blood Pressure [Le ft Upper Arm] Pulse Oximetry 92 92 93 Oxygen Delivery Me thod OxyMask Oxygen Flow Rate 2 09/13/22 15:20 09/13/22 16:06 09/13/22 16:41 Temperature 97.6 F Pulse Rate 55 L Pulse Rate [Left P ulse Oximeter] 56 L Pulse Rate [Right Pulse Oximeter] Respiratory Rate 20 20 Blood Pressure Blood Pressure [Le ft Arm] 178/96 H Blood Pressure [Le ft Upper Arm] Pulse Oximetry 93 91 93 Oxygen Delivery Me thod Nasal Cannula Nasal Cannula Oxygen Flow Rate 2 2 Hospitalist - H&P: Result Labs Labs: Short CBC 09/13/22 Range/Units 11:45 WBC 6.05 (4.50-11.00) K/uL Hgb 15.1 (13.5-17.5) gm/dL Hct 51.4 (37.0-53.0) % Plt Count 176 (140-440) K/uL BMP 09/13/22 11:45 Sodium 141 Potassium 5.1 Chloride 102 Carbon Dioxide 36 H BUN 21 Creatinine 1.1 Glucose 186 H Calcium 8.5 Ordering Physician: Song Foster M.D. Date of Service: 09/13/22 Procedure(s): XR chest 1V portable Accession Number(s): [id number] cc: Dilcia Castorena M.D.; Song Foster M.D.~ For Patients: As a result of the Cures Act, medical imaging exams and procedure reports are released immediately into your electronic medical record. You may view this report before your referring provider. If you have questions, please contact your health care provider. INDICATION: Shortness of breath TECHNIQUE: Chest 1 view. COMPARISON: 11/22/2011 FINDINGS: Cardiovascular and mediastinum: Cardiomegaly with pulmonary vascular congestive changes. Mediastinum is within normal limits. Lungs and pleural space: Lungs are clear. No sign of infiltrate or mass. No sign of pleural effusion. No pneumothorax. Bones and soft tissues: No significant findings. IMPRESSION: Cardiomegaly with pulmonary vascular congestive changes. Dictated by Srinivasa Valdes MD @ 09/13/2022 12:19:31 PM Dictated by: Srinivasa Valdes MD @ 09/13/2022 12:19:37 (Electronically Signed) Ordering Physician: Song Foster M.D. Date of Service: 09/13/22 Procedure(s): CT angio chest PE protocol Accession Number(s): [id number] cc: Dilcia Castorena M.D.; Song Foster M.D.~ For Patients: As a result of the Cures Act, medical imaging exams and procedure reports are released immediately into your electronic medical record. You may view this report before your referring provider. If you have questions, please contact your health care provider. Indication: Shortness of breath and hypoxia Technique: Volumetric multidetector CT images of the chest were obtained after the administration of IV contrast. 95 cc Isovue 370 low osmolar intravenous contrast Comparison: None available. Findings: The thoracic inlet and thyroid gland are unremarkable. The thoracic aorta is nonaneurysmal. There is no central filling defect to suggest pulmonary embolism. There are enlarged mediastinal and hilar lymph nodes. There is no axillary adenopathy. There is moderate central bronchial thickening with minimal mucoid impaction of the lower lobe bronchi. There is narrowing of the AP diameter of the proximal bronchi which may represent superimposed bronchomalacia. There is mild central bronchial thickening with minimal airspace opacity in the bilateral hemithoraces with mild interstitial thickening consistent with minimal pulmonary edema. There is no pneumothorax or pleural effusion. There is no evidence of pulmonary mass or suspicious pulmonary nodule. The partially visualized upper abdominal viscera are within normal limits. The thoracic vertebral body heights are grossly maintained with minimal endplate Schmorl`s defect. There is mild straightening of the normal thoracic kyphosis without evidence of significant spondylolisthesis. Impression: Mild central bronchial thickening and narrowing of the bronchial diameter which may represent a component of superimposed bronchomalacia. There is minimal mucoid impaction and interstitial prominence of the bilateral hemithoraces which may represent bronchitis and/or mild pulmonary edema changes. No evidence of pulmonary embolus. Please note that all CT scans at this facility use dose modulation, iterative reconstruction, and/or weight-based dosing when appropriate to reduce radiation dose to as low as reasonably achievable. Dictated by Yong Noriega MD @ 09/13/2022 2:26:28 PM (Electronically Signed) 09/13/2022 12:36 p.m. EKG: Sinus rhythm with first-degree AV block. Heart rate 61 beats per minute. Nonspecific T-wave abnormality. Assessment and Plan Assessment and plan (1) Acute respiratory failure: Status: Acute (2) Hypoxia: Status: Acute (3) Hypercapnia: Status: Acute (4) Acute on chronic heart failure with preserved ejection fraction: Problem comment: Echocardiogram 09/13/2022 EF 55%. Status: Acute (5) Elevated troponin: Status: Acute (6) Laceration: Problem comment: Right lower extremity, just below anterior knee Status: Chronic (7) Dilatation of aortic sinus of Valsalva: Problem comment: 4.7 cm on echo 09/13/2022 Status: Acute (8) Ascending aorta dilation: Problem comment: 5 cm on echo 09/13/2022 Status: Acute (9) Left ventricular hypertrophy: Problem comment: On echo 09/13/2022 Status: Acute (10) Hypertension: Status: Acute Plan This is an 82-year-old male with a history of heart failure with preserved ejection fraction and worsening lower extremity edema who now developed weakness and has been falling frequently. His proBNP is elevated as is his troponin. CT was negative for PE and showed bronchial thickening, probable pulmonary edema. He is in acute respiratory failure with hypercapnia which I suspect is secondary to CHF exacerbation. He was given IV furosemide in the emergency department and I will continue diuresis with furosemide. Will be obtaining daily weights and strict I's and O's; he has a Partida that was placed in the emergency department. Due to worsening hypercapnia despite starting diuresis, I will start him on BiPAP. His troponin is also rising for which I will obtain another EKG and talk with Cardiology at [facility]. He is not having any chest pain. Echo done today did not show any wall motion abnormalities. Is suspect elevated troponin is secondary to heart failure. He is currently on aspirin, metoprolol, and atorvastatin. Due to left ventricular hypertrophy and elevated blood pressures, I will also start him on lisinopril. For diabetes so continue him on his usual insulin dosing and add an insulin sliding scale. Due to month long diarrhea, check stool for C difficile. Today I spent 70 minutes critical care time interviewing and examining patient, reviewing labs, radiology studies, [facility] medical record, discussion with patient and , starting BiPAP.
[2022-09-13 20:13] LABS: Troponin I* 0.45 ng/mL (0.01-0.04)
[2022-09-13] MEDS: ATORVASTATIN 10 MG TABLET 20 MG PO (21:19)
[2022-09-13] MEDS: GABAPENTIN 300 MG CAPSULE 600 MG PO (21:19)
[2022-09-13] MEDS: ENOXAPARIN 40 MG/0.4 ML INJ SUBCUT (21:19)
[2022-09-13 21:24] LABS: HCO3 VBG 37 mmol/L (21-28); PO2 VBG 47.4 mmHG (25-47); pH VBG 7.387 (7.32-7.43)
[2022-09-13 21:28] LABS: PCO2 VBG 62 mmHG (40-50)
[2022-09-13] MEDS: SODIUM CHLORIDE 0.9 % (FLUSH) 10 ML SYRINGE 5 ML IVF (21:28)
[2022-09-13 22:11] LABS: Troponin I* 0.44 ng/mL (0.01-0.04)
[2022-09-13] MEDS: INSULIN NPH 100 UNIT/ML 10 UNIT SUBCUT (23:56)
[2022-09-14] VITALS (13 sets, daily range): BP systolic 144–168; BP diastolic 48–84; PULSE 61–77; RESP 16–24; TEMP 36.4–37.1; O2SAT 86–90
[2022-09-14] MEDS: ACETAMINOPHEN 325 MG TABLET 650 MG PO ×2 (00:08→20:03)
[2022-09-14] MEDS: METHYLPREDNISOLONE SOD SUCC 62.5 MG/ML (125) 125 MG IVP ×2 (02:47→10:08)
--- NOTE | 2022-09-14 05:25 | PC.NURSE ---
Addendum entered by Noelle Donovan RN 09/14/22 06:12: wound on LE dressed per order, bilateral LE elevated on pillows, patient 2 assist to repo in bed, has not been out of the bed this shift. no stools this shift, tele has shown 1st degree AV block rate in 60s occasional yecenia to low 50s. some redness noted on patient face from BIPAP mask, skin care done and aloe applied, breaks from BIPAP given to alleviate skin pressure, when off BIPAP 2L Oxymizer used and patient tolerates well. Original Note: [id number]: patient moved from 256 to CCU2, placed on BIPAP at begining of the shiftt, patent tolerates well, sats 87-89%.. patient sleeps soundly between cares.
[2022-09-14 06:47] LABS: Basophils Absolute Auto 0.01 K/uL (0.00-0.30); Basophils Percent Auto 0.2 % (0.0-3.0); Hematocrit 50.1 % (37.0-53.0); Hemoglobin* 15.2 gm/dL (13.5-17.5); Immature Granulocytes Abs Auto 0.02 K/uL (0.00-0.30); Immature Granulocytes Pct Auto 0.4 %; Lymphocytes Percent Auto 9.9 % (20-44); Mean Corpuscular HGB Conc 30 gm/dL (32-36); Mean Corpuscular Hemoglobin 29 pg (26-34); Mean Corpuscular Volume 96 fL (80-100); Monocytes Percent Auto 2.3 % (0.0-11.0); Neutrophils Percent Auto 87.2 % (42.0-72.0); Platelet Count* 194 K/uL (140-440); Red Blood Count 5.23 m/uL (4.30-5.90); White Blood Count* 5.13 K/uL (4.50-11.00)
[2022-09-14 06:58] LABS: Slide Review Reflex No
[2022-09-14 07:04] LABS: Chloride* 100 mmol/L (96-114); Potassium* 4.6 mmol/L (3.6-5.1); Sodium* 141 mmol/L (135-149)
[2022-09-14 07:07] LABS: Blood Urea Nitrogen* 24 mg/dL (7-30); Carbon Dioxide* 37 mmol/L (20-32); Estimated Glomerular Filt Rate 76 ml/min; Glucose* 238 mg/dL (60-115)
[2022-09-14 07:08] LABS: Calcium* 8.6 mg/dL (8.4-10.6)
[2022-09-14 07:18] LABS: Troponin I* 0.32 ng/mL (0.01-0.04)
--- NOTE | 2022-09-14 07:33 | P.IMPN_ITS ---
Progress Note: A&P Assessment and plan (1) Acute respiratory failure with hypoxia and hypercapnia: Problem details: CHF - diastolic. Acute on chronic. Preserved EF, 55%. Echo reviewed from yesterday. 09/13/2022. reviewed CT chest - pulmonary edema. less COPD. Continue IV diuresis with 40 of Lasix IV b.i.d. Partida placed. Trend labs, oxygen requirement and daily weights Likely a component Pickwickian, restrictive lung disease from undiagnosed or untreated REGIS Chronic hypercapnia given normal pH. RT involved. [place] nasal O2 with BiPAP while sleeping. Keep oxygen saturations between 88 and 90%. Status: Acute (2) Acute on chronic heart failure with preserved ejection fraction: Problem details: Echocardiogram 09/13/2022 EF 55%. diastolic. LVH with normal global systolic function. Status: Acute (3) Cellulitis of right leg: Problem details: Wound care consult. Lymphedema pumps are likely needed. 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 Likely is cellulitis on the right side. Patient will need lymphedema pumps - edema wear. Status: Acute (5) Elevated troponin: Problem details: peaked and downtrending. Status: Acute (6) Ascending aorta dilation: Problem details: 5 cm on echo 09/13/2022 CT aortogram is reassuring Status: Deleted (7) Hypertension: Problem details: continue home lisinopril 20mg and metoprolol xl 100mg daily Status: Acute (8) Type 2 diabetes mellitus: Problem details: SSI/accuchecks [phone] - takes NPH 15 am, 10 pm - increasing to 20 am, 15 pm. stopping iv s teroid. Status: Chronic Subjective Date Seen: 09/14/22 Interval history: Daily Progress Note - Hospital Medicine Day #: 2 CC: Acute hypoxic and hypercapnic respiratory failure secondary to acute on chronic diastolic heart failure OVERNIGHT UPDATES FROM STAFF & MED, LAB, IMAGING UPDATES Weight is down to 167.4 kilos from 168.7, delta is 1.3 kilos Blood pressure 155/76, 142/52 Pulses in the 60s Respiratory rate 18 Pulse ox high 80s - patient has been BiPAP throughout the night. 2 L by OxyMask CBC remains unremarkable I need update the VBG this morning however, it went from 70-60 to with the initiation of BiPAP at approximately 7:00 p.m. BMP is unremarkable, in fact the creatinine is actually down despite IV diuresis Troponin has peaked at 0.45, this morning is 0.3 BNP was 7800 upon arrival to the ED yesterday CT dissection protocol IMPRESSION : 1. Dilated ascending aorta measuring up to 5.8 x 5.1 cm, stable or minimally increased from the examination in 2019. No dissection. No mediastinal hematoma. 2. The aortic arch, descending thoracic aorta, and abdominal aorta are normal in caliber. Review of Systems: See subjective Cardiac: No new chest pain/pressure/palpitations. Respiratory: no new dyspnea. GI: No abdominal bloating Objective: Obese, deconditioned. BMI 47. Mild respiratory distress. Vitals: see above Lungs: Poor inspiratory effort. No obvious wheezes. Cardiac: No harsh murmurs. Extremities, lower: Bilateral lymphedema, severe. Severe venous stasis changes. Weeping and abrasion noted on the right anterior tibia. Disposition/Potential discharge - 2-3 days for acute heart failure and IV diuresis, likely will need assisted Secondary to need for BiPAP and hypercapnia, fragile status in regards to his pH and deconditioning we will keep him CCU status. Total time is 35 minutes with greater than 50% spent in counseling and coordination of care. Exam Const: Vital Signs, click to edit/add: Vital Signs - 24 hr 09/13/22 11:19 09/13/22 11:33 09/13/22 11:34 Temperature 98.1 F Pulse Rate 61 67 Pulse Rate [Left P ulse Oximeter] Pulse Rate [Right Pulse Oximeter] 62 Respiratory Rate 24 Blood Pressure 157/85 H Blood Pressure [Le ft Arm] Blood Pressure [Le ft Upper Arm] 156/81 H Pulse Oximetry 99 91 88 Oxygen Delivery Me thod High Flow Nasal Ca nnula Nasal Cannula Oxygen Flow Rate 2 Fraction of Inspir ed Oxygen 09/13/22 11:30 09/13/22 12:19 09/13/22 12:19 Temperature Pulse Rate Pulse Rate [Left P ulse Oximeter] Pulse Rate [Right Pulse Oximeter] Respiratory Rate 22 22 Blood Pressure Blood Pressure [Le ft Arm] Blood Pressure [Le ft Upper Arm] Pulse Oximetry 94 91 91 Oxygen Delivery Me thod Nasal Cannula Nasal Cannula Nasal Cannula Oxygen Flow Rate 2 5 3 Fraction of Inspir ed Oxygen 09/13/22 11:40 09/13/22 12:00 09/13/22 12:02 Temperature Pulse Rate 62 59 L 59 L Pulse Rate [Left P ulse Oximeter] Pulse Rate [Right Pulse Oximeter] Respiratory Rate Blood Pressure 126/86 Blood Pressure [Le ft Arm] Blood Pressure [Le ft Upper Arm] Pulse Oximetry 90 77 L 78 L Oxygen Delivery Me thod Oxygen Flow Rate Fraction of Inspir ed Oxygen 09/13/22 12:20 09/13/22 12:40 09/13/22 13:00 Temperature Pulse Rate 58 L 60 60 Pulse Rate [Left P ulse Oximeter] Pulse Rate [Right Pulse Oximeter] Respiratory Rate Blood Pressure Blood Pressure [Le ft Arm] Blood Pressure [Le ft Upper Arm] Pulse Oximetry 91 80 L 94 Oxygen Delivery Me thod Nasal Cannula Oxygen Flow Rate 3 Fraction of Inspir ed Oxygen 09/13/22 13:03 09/13/22 13:32 09/13/22 13:40 Temperature Pulse Rate 58 L 62 58 L Pulse Rate [Left P ulse Oximeter] Pulse Rate [Right Pulse Oximeter] Respiratory Rate Blood Pressure 144/78 H Blood Pressure [Le ft Arm] Blood Pressure [Le ft Upper Arm] Pulse Oximetry 95 90 94 Oxygen Delivery Me thod Oxygen Flow Rate Fraction of Inspir ed Oxygen 09/13/22 14:00 09/13/22 14:20 09/13/22 14:32 Temperature Pulse Rate 57 L 55 L 57 L Pulse Rate [Left P ulse Oximeter] Pulse Rate [Right Pulse Oximeter] Respiratory Rate Blood Pressure 135/94 H Blood Pressure [Le ft Arm] Blood Pressure [Le ft Upper Arm] Pulse Oximetry 93 91 94 Oxygen Delivery Me thod Nasal Cannula Oxygen Flow Rate 2 Fraction of Inspir ed Oxygen 09/13/22 14:40 09/13/22 15:00 09/13/22 15:02 Temperature 97.8 F Pulse Rate 58 L 54 L 55 L Pulse Rate [Left P ulse Oximeter] Pulse Rate [Right Pulse Oximeter] Respiratory Rate 20 Blood Pressure 130/111 H Blood Pressure [Le ft Arm] Blood Pressure [Le ft Upper Arm] Pulse Oximetry 92 92 93 Oxygen Delivery Me thod OxyMask Oxygen Flow Rate 2 Fraction of Inspir ed Oxygen 09/13/22 15:20 09/13/22 16:06 09/13/22 16:41 Temperature 97.6 F Pulse Rate 55 L Pulse Rate [Left P ulse Oximeter] 56 L Pulse Rate [Right Pulse Oximeter] Respiratory Rate 20 20 Blood Pressure Blood Pressure [Le ft Arm] 178/96 H Blood Pressure [Le ft Upper Arm] Pulse Oximetry 93 91 93 Oxygen Delivery Me thod Nasal Cannula Nasal Cannula Oxygen Flow Rate 2 2 Fraction of Inspir ed Oxygen 09/13/22 19:23 09/13/22 22:43 09/13/22 22:52 Temperature Pulse Rate 63 63 Pulse Rate [Left P ulse Oximeter] Pulse Rate [Right Pulse Oximeter] Respiratory Rate Blood Pressure Blood Pressure [Le ft Arm] Blood Pressure [Le ft Upper Arm] Pulse Oximetry 87 L Oxygen Delivery Me thod Oxygen Flow Rate Fraction of Inspir ed Oxygen 09/13/22 22:56 09/13/22 23:00 09/13/22 23:00 Temperature 97.6 F Pulse Rate Pulse Rate [Left P ulse Oximeter] 61 61 Pulse Rate [Right Pulse Oximeter] Respiratory Rate 18 18 18 Blood Pressure Blood Pressure [Le ft Arm] 142/52 H Blood Pressure [Le ft Upper Arm] Pulse Oximetry 88 88 Oxygen Delivery Me thod BiPAP BiPAP Oxygen Flow Rate Fraction of Inspir ed Oxygen 35 35 09/14/22 02:50 Temperature 97.6 F Pulse Rate Pulse Rate [Left P ulse Oximeter] 63 Pulse Rate [Right Pulse Oximeter] Respiratory Rate 18 Blood Pressure Blood Pressure [Le ft Arm] 155/76 H Blood Pressure [Le ft Upper Arm] Pulse Oximetry 87 L Oxygen Delivery Me thod Nasal Cannula Oxygen Flow Rate 2 Fraction of Inspir ed Oxygen Labs Labs: Laboratory Results - last 24 hr 09/13/22 09/13/22 09/13/22 11:33 11:36 11:45 WBC 6.05 RBC 5.22 Hgb 15.1 Hct 51.4 MCV 99 MCH 29 MCHC 29 L RDW Coeff of Mindy 13.9 Plt Count 176 Neut % (Auto) 79.8 H Lymph % (Auto) 10.4 L [place] % (Auto) 9.3 Eos % (Auto) 0.2 Baso % (Auto) 0.0 Neut # (Auto) 4.80 Lymph # (Auto) 0.60 L [place] # (Auto) 0.60 Eos # (Auto) 0.01 Baso # (Auto) 0.00 Diff Slide Review Acceptable Review INR APTT D-Dimer Quant (PE/DVT) VBG pH VBG pCO2 VBG pO2 VBG HCO3 Sodium Potassium Chloride Carbon Dioxide BUN Creatinine Estimated Creat Clear Estimated GFR Glucose Calcium Troponin I NT-Pro-B Natriuret Pep SARS-CoV-2 (PCR) Negative SARS-CoV-2 Influenza Type A (PCR) Negative PCR FLU A Influenza Type B (PCR) Negative PCR FLU B RSV (PCR) Negative PCR RSV POC Troponin I 0.09 H 09/13/22 09/13/22 09/13/22 11:45 11:45 12:44 WBC RBC Hgb Hct MCV MCH MCHC RDW Coeff of Mindy Plt Count Neut % (Auto) Lymph % (Auto) [place] % (Auto) Eos % (Auto) Baso % (Auto) Neut # (Auto) Lymph # (Auto) [place] # (Auto) Eos # (Auto) Baso # (Auto) Diff Slide Review INR 1.02 APTT 36 H D-Dimer Quant (PE/DVT) 1.02 H VBG pH 7.426 VBG pCO2 47 VBG pO2 51.1 H VBG HCO3 31 H Sodium 141 Potassium 5.1 Chloride 102 Carbon Dioxide 36 H BUN 21 Creatinine 1.1 Estimated Creat Clear 62.27 Estimated GFR 68 Glucose 186 H Calcium 8.5 Troponin I NT-Pro-B Natriuret Pep 7880 SARS-CoV-2 (PCR) Influenza Type A (PCR) Influenza Type B (PCR) RSV (PCR) POC Troponin I 09/13/22 09/13/22 09/13/22 19:16 19:17 21:23 WBC RBC Hgb Hct MCV MCH MCHC RDW Coeff of Mindy Plt Count Neut % (Auto) Lymph % (Auto) [place] % (Auto) Eos % (Auto) Baso % (Auto) Neut # (Auto) Lymph # (Auto) [place] # (Auto) Eos # (Auto) Baso # (Auto) Diff Slide Review INR APTT D-Dimer Quant (PE/DVT) VBG pH 7.345 VBG pCO2 70 H* VBG pO2 38.6 VBG HCO3 38 H Sodium Potassium Chloride Carbon Dioxide BUN Creatinine Estimated Creat Clear Estimated GFR Glucose Calcium Troponin I 0.45 H* 0.44 H* NT-Pro-B Natriuret Pep SARS-CoV-2 (PCR) Influenza Type A (PCR) Influenza Type B (PCR) RSV (PCR) POC Troponin I 09/13/22 09/14/22 09/14/22 21:23 05:54 05:54 WBC 5.13 RBC 5.23 Hgb 15.2 Hct 50.1 MCV 96 MCH 29 MCHC 30 L RDW Coeff of Mindy 14.0 Plt Count 194 Neut % (Auto) 87.2 H Lymph % (Auto) 9.9 L [place] % (Auto) 2.3 Eos % (Auto) 0.0 Baso % (Auto) 0.2 Neut # (Auto) 4.50 Lymph # (Auto) 0.50 L [place] # (Auto) 0.10 Eos # (Auto) 0.00 Baso # (Auto) 0.01 Diff Slide Review INR APTT D-Dimer Quant (PE/DVT) VBG pH 7.387 VBG pCO2 62 H* VBG pO2 47.4 H VBG HCO3 37 H Sodium 141 Potassium 4.6 Chloride 100 Carbon Dioxide 37 H BUN 24 Creatinine 1.0 Estimated Creat Clear 68.50 Estimated GFR 76 Glucose 238 H Calcium 8.6 Troponin I 0.32 H* NT-Pro-B Natriuret Pep SARS-CoV-2 (PCR) Influenza Type A (PCR) Influenza Type B (PCR) RSV (PCR) POC Troponin I
[2022-09-14 07:55] LABS: Albumin* 3.8 g/dL (3.3-5.0)
[2022-09-14 07:58] LABS: Alanine Aminotransferase* 12 U/L (4-50); Alkaline Phosphatase* 94 U/L (40-150); Aspartate Amino Transferase* 20 U/L (12-35); Bilirubin Direct* 0.3 mg/dL (0.0-0.5); Bilirubin Total* 0.6 mg/dL (0.1-1.5); Magnesium* 2.3 mg/dL (1.5-2.6); Total Protein* 7.2 g/dL (6.0-8.3)
[2022-09-14 07:59] LABS: Hemoglobin A1C* 6.64 % (0-5.6)
--- NOTE | 2022-09-14 08:00 | CRLHL7_ITS ---
For Patients: As a result of the 21st Century Cures Act, medical imaging exams and procedure reports are released immediately into your electronic medical record. You may view this report before your referring provider. If you have questions, please contact your health care provider. INDICATION: Aortic aneurysm. TECHNIQUE: CTA chest/abdomen/pelvis with coronal and sagittal reformations. 95 mL [id number]. Coronal and sagittal reformations. DLP = 2351 mGy centimeter. COMPARISON: CT 09/13/2022, 04/23/2019. FINDINGS: Difficult exam due to body habitus and inability to hold breath. Difficulty assessing timing bolus. Images obtained in venous phase rather than arterial. Aortic dimensions are acquired using double angle technique in 3D software and the aorta is remeasured on the prior exam using similar angles to eliminate interobserver variability. At the sinotubular junction, the ascending aorta measures 5.2 x 4.8 cm (previously 5.1 x 4.6 cm in 2019). At the level of the mid ascending aorta, right pulmonary artery the aorta measures up to 5.8 x 5.1 cm (previously 5.7 x 5.0 cm). It measures 4.4 x 4.1 cm in the aortic arch just before the origin of the innominate artery, unchanged. The descending thoracic aorta is normal in caliber. Proximal aspect of carotid and subclavian arteries are patent. The celiac trunk, SMA, and GIANNA are patent. There is some atherosclerosis without significant stenosis of bilateral renal artery origins. No abdominal aortic aneurysm. Common, internal, and external iliac arteries demonstrate no aneurysm. Normal heart size with mild coronary artery calcification. Normal caliber of the main pulmonary artery. The thyroid is normal. No pericardial effusion. Normal esophagus. Assessment of lung parenchyma limited by poor inspiratory volume and respiratory motion artifact. Scattered patchy atelectasis. No additional pulmonary opacity. No definite pulmonary nodules. Pleural spaces clear. No liver lesion. No biliary dilation. Normal gallbladder. Spleen, adrenal glands, pancreas are unremarkable. Symmetric renal enhancement without hydronephrosis. There are dependent densities in the right kidney which likely represent excreted contrast rather than stones. No hydronephrosis bilaterally. Due to body habitus, some portions of the abdominal wall or in contact with the gantry which created streak artifact and limits evaluation, primarily of the left flank and left anterior abdominal wall. Visualized bowel is unremarkable with no wall thickening or evidence of obstruction/ileus. Normal appendix. Urinary bladder is decompressed by Partida catheter. Prostate size is within normal limits. There are no acute or aggressive osseous abnormalities identified. Multilevel degenerative changes of the lumbar spine. IMPRESSION : 1. Dilated ascending aorta measuring up to 5.8 x 5.1 cm, stable or minimally increased from the examination in 2019. No dissection. No mediastinal hematoma. 2. The aortic arch, descending thoracic aorta, and abdominal aorta are normal in caliber. Please note that all CT scans at this facility use dose modulation, iterative reconstruction, and/or weight-based dosing when appropriate to reduce radiation dose to as low as reasonably achievable. Dictated by Sung Barnes MD @ 09/14/2022 11:10:14 AM (Electronically Signed)
[2022-09-14 08:01] LABS: C Reactive Protein* 5.2 mg/dL (0.5-1.0)
[2022-09-14 08:18] LABS: NT Pro B Type NatriureticPept* 9030 pg/mL; Procalcitonin* 0.12 ng/mL (<0.50)
[2022-09-14 09:23] LABS: HCO3 VBG 38 mmol/L (21-28); Ionized Calcium* 1.08 mmol/L (1.11-1.30); PO2 VBG 47.5 mmHG (25-47); pH VBG 7.389 (7.32-7.43)
[2022-09-14 09:27] LABS: PCO2 VBG 63 mmHG (40-50)
[2022-09-14 09:42] LABS: C.Difficile Negative (Negative); CDIFFEPI 027 PRESUMPTIVE NEGATIVE (Negative)
[2022-09-14] MEDS: lisinopriL 10 MG TABLET 20 MG PO (10:07)
[2022-09-14] MEDS: ASPIRIN 81 MG TABLET EC PO (10:07)
[2022-09-14] MEDS: IPRAT-ALBUT 0.5-2.5 MG/3 ML NEB 1 NEB IH ×3 (10:07→22:03)
[2022-09-14] MEDS: allopurinoL 100 MG TABLET PO (10:07)
[2022-09-14] MEDS: METOPROLOL SUCCINATE (XL) 100 MG TAB PO (10:08)
[2022-09-14] MEDS: SODIUM CHLORIDE 0.9 % (FLUSH) 10 ML SYRINGE 5 ML IVF ×2 (10:09→22:09)
[2022-09-14 10:29] LABS: Carboxyhemoglobin* 1.8 % (0.0-5.0); HCO3 ABG 38 mmol/L (21-28); Oxygen Saturation ABG 92 % (92-100); PO2 ABG 62.3 mmHG (80-105); TCO2 ABG 34 mmol/l (21-30); pH ABG 7.37 (7.35-7.45)
[2022-09-14 10:32] LABS: ABG PCO2 66 mmHG (35-45)
[2022-09-14] MEDS: FUROSEMIDE 10 MG/ML inj 40 MG IVP ×2 (10:37→16:04)
[2022-09-14] MEDS: NYSTATIN POWDER 1 APPLIC TOPICAL ×2 (12:09→22:03)
[2022-09-14] MEDS: INSULIN NPH 100 UNIT/ML 15 UNIT SUBCUT ×2 (12:10→23:45)
[2022-09-14] MEDS: BACITRACIN OINTMENT BULK TUBE 1 APPLIC TOPICAL (13:39)
[2022-09-14] MEDS: cefTRIAXone 1 GM in 0.9 % SODIUM CHLORIDE Mini-bag 100 ML IVPB (16:04)
[2022-09-14 16:54] LABS: HCO3 VBG 38 mmol/L (21-28); PCO2 VBG 57 mmHG (40-50); PO2 VBG 75.1 mmHG (25-47); pH VBG 7.436 (7.32-7.43)
--- NOTE | 2022-09-14 20:00 | PC.NURSE ---
End of shift-- Very pleasant and cooperative, alert and oriented patient. VSS, though mildly hypertensive and pt is afebrile. SPO2 maintained >87% on 2L per oxygen reservoir cannula. Pt becomes dusky in color quickly while lying flat. He denied pain today. Telemetry shows NSR with occasional PACs. [place] edema noted in bilateral LE. Wound on right sol was redressed with bacitracin, Telfa and Kerlix and is C/D/I. Crackles auscultated in bilateral bases of lungs and an occasional expiratory wheeze noted as well. No coughing noted. He denied nausea and ate 75-100% of a heart healthy diet today without difficulty. BS+ x4 and pt had a large incontinent BM this morning. Sample was sent to lab and was negative for c.diff. He was up to the chair via ceiling lift and tolerated it well. Backside was purple and cream and mepilex were applied to protect. Partida is patent and drained approximately 1900ml of clear, dark claudia urine today. was at bedside and appears loving and supportive. Report to VICKIE Zamora.
[2022-09-14] MEDS: ENOXAPARIN 40 MG/0.4 ML INJ SUBCUT (20:01)
[2022-09-14] MEDS: ATORVASTATIN 10 MG TABLET 20 MG PO (20:02)
[2022-09-14] MEDS: GABAPENTIN 300 MG CAPSULE 600 MG PO ×2 (20:03→22:02)
[2022-09-15] VITALS (13 sets, daily range): BP systolic 133–169; BP diastolic 64–88; PULSE 52–62; RESP 13–22; TEMP 36.4–37.1; O2SAT 85–95
[2022-09-15] MEDS: FUROSEMIDE 10 MG/ML inj 40 MG IVP ×2 (03:54→16:15)
--- NOTE | 2022-09-15 05:37 | PC.NURSE ---
[id number]: patient on BIPAP overnight per RT recommendation, patient reports no pain and tolerates BIPAP well, appears to have slept soundly all night, LE elevated on pillows, dressing done per order instruction, meds per EMAR, Partida patent and draining. assist of 2 staff for repo with ceiling lift.
--- NOTE | 2022-09-15 05:46 | PC.NURSE ---
pateint weened to room air
[2022-09-15 08:03] LABS: Hematocrit 49.8 % (37.0-53.0); Mean Corpuscular HGB Conc 30 gm/dL (32-36); Mean Corpuscular Hemoglobin 28 pg (26-34); Mean Corpuscular Volume 94 fL (80-100); Platelet Count* 228 K/uL (140-440); Red Blood Count 5.28 m/uL (4.30-5.90); White Blood Count* 9.48 K/uL (4.50-11.00)
[2022-09-15 08:08] LABS: Slide Review Reflex No
[2022-09-15 08:09] LABS: HCO3 VBG 40 mmol/L (21-28); Ionized Calcium* 1.03 mmol/L (1.11-1.30); PO2 VBG 74.2 mmHG (25-47)
[2022-09-15 08:13] LABS: PCO2 VBG 61 mmHG (40-50)
[2022-09-15 08:30] LABS: Hemoglobin A1C* 6.66 % (0-5.6)
[2022-09-15 08:40] LABS: Chloride* 97 mmol/L (96-114)
[2022-09-15 08:41] LABS: Albumin* 3.7 g/dL (3.3-5.0); Sodium* 139 mmol/L (135-149)
[2022-09-15 08:42] LABS: Potassium* 4.7 mmol/L (3.6-5.1)
[2022-09-15 08:44] LABS: Alkaline Phosphatase* 68 U/L (40-150); Aspartate Amino Transferase* 36 U/L (12-35); Bilirubin Total* 0.8 mg/dL (0.1-1.5); Blood Urea Nitrogen* 32 mg/dL (7-30); Carbon Dioxide* 37 mmol/L (20-32); Cholesterol* 111 mg/dL (90-199); Creatinine* 0.9 mg/dL (0.5-1.5); Estimated Glomerular Filt Rate 86 ml/min; Total Protein* 7.2 g/dL (6.0-8.3)
[2022-09-15 08:45] LABS: Alanine Aminotransferase* 13 U/L (4-50); Calcium* 8.5 mg/dL (8.4-10.6); Glucose* 237 mg/dL (60-115); HDL Cholesterol* 43 mg/dL (>=40); LDL Cholesterol Calculated 48 mg/dL (<100); Magnesium* 2.1 mg/dL (1.5-2.6); Triglycerides* 101 mg/dL (40-149); Uric Acid* 6.8 mg/dL (2.2-8.4)
[2022-09-15 08:47] LABS: C Reactive Protein* 3.3 mg/dL (0.5-1.0)
[2022-09-15 09:01] LABS: Procalcitonin* 0.07 ng/mL (<0.50)
[2022-09-15] MEDS: SODIUM CHLORIDE 0.9 % (FLUSH) 10 ML SYRINGE 5 ML IVF ×2 (09:07→21:08)
[2022-09-15] MEDS: METOPROLOL SUCCINATE (XL) 100 MG TAB PO (09:08)
[2022-09-15] MEDS: allopurinoL 100 MG TABLET PO (09:08)
[2022-09-15] MEDS: lisinopriL 10 MG TABLET 20 MG PO (09:08)
[2022-09-15] MEDS: ASPIRIN 81 MG TABLET EC PO (09:08)
[2022-09-15 09:13] LABS: NT Pro B Type NatriureticPept* 3770 pg/mL; Troponin I* 0.17 ng/mL (0.01-0.04)
[2022-09-15 09:16] LABS: Thyroid Stimulating Hormone* 0.394 uIU/mL (0.270-4.20)
[2022-09-15] MEDS: NYSTATIN POWDER 1 APPLIC TOPICAL ×2 (09:27→21:08)
[2022-09-15] MEDS: INSULIN NPH 100 UNIT/ML 20 UNIT SUBCUT (12:27)
[2022-09-15] MEDS: IPRAT-ALBUT 0.5-2.5 MG/3 ML NEB 1 NEB IH ×2 (13:13→21:06)
--- NOTE | 2022-09-15 14:19 | PM.IMPN1 ---
Progress Note: A&P Assessment and plan (1) Acute respiratory failure with hypoxia and hypercapnia: Problem details: CHF - diastolic. Acute on chronic. Preserved EF, 55%. Echo reviewed from yesterday. 09/13/2022. reviewed CT chest - pulmonary edema. less COPD. has pérez - change to torsemide in am Trend labs, oxygen requirement and daily weights. bipap while sleeping. Likely a component [place], restrictive lung disease from undiagnosed or untreated REGIS Chronic hypercapnia given normal pH. RT involved. [place] nasal O2 with BiPAP while sleeping. Keep oxygen saturations between 88 and 90%. would like to try a few hours (maybe the entire night) off bipap and see if this effects his CO2 on his gas. Status: Acute (2) Acute on chronic heart failure with preserved ejection fraction: Problem details: Echocardiogram 09/13/2022 EF 55%. diastolic. LVH with normal global systolic function. Status: Acute (3) Cellulitis of right leg: Problem details: Wound care consult. Lymphedema pumps are likely needed. Compression wraps, diuretics, antibiotics. going to oral abx tomorrow (KEFLEX 1 GRAM TID). crp and procalcitonin normal. 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 Likely is cellulitis on the right side. Patient will need lymphedema pumps - edema wear. Status: Acute (5) Elevated troponin: Problem details: peaked and downtrending. Status: Acute (6) Hypertension: Problem details: continue home lisinopril 20mg and metoprolol xl 100mg daily (INCREASING TO 150MG TODAY) Status: Acute (7) Type 2 diabetes mellitus: Problem details: SSI/accuchecks [phone] - takes NPH 15 am, 10 pm - increasing to 20 am, 15 pm. stopping iv steroid. Status: Chronic Subjective Date Seen: 09/15/22 Interval history: Daily Progress Note - Hospital Medicine Day #: 4 CC: Acute hypoxic and hypercapnic respiratory failure secondary to acute on chronic diastolic heart failure - lymphedema with mild cellulitis Patient is a little grouchy this morning. He has had people are always bothering him and he can not sleep here. He did not tolerate the BiPAP as well as he had previously. Otherwise he is eating well and appears motivated to get up and walk and get stronger. I appreciate Jazmin from wound clinic helping me manage his legs. She is happy with how they have decreased in size and will increase the compression tomorrow. Vitals reviewed Overnight he was on BiPAP. Has been mildly hypertensive over the last 24 hours. Afebrile. His weight is down to 162 kg from 168.7 kilos - DELTA IS 14.5 LB CBC unremarkable today. Blood gas shows he has a persistent elevation is CO2, normal pH. This is most particular blood gas showed a pCO2 of 72 and this was in the morning after being on BiPAP most of the night. CMP reflects hypochloremia with retained carbon dioxide, mixed acid-base balance. Troponin has been down trending, CRP down trending BNP is down from 9000 - 1700 Procalcitonin is reassuring Review of Systems: See subjective Cardiac: No new chest pain/pressure/palpitations. Respiratory: no new dyspnea. GI: No abdominal bloating Objective: Obese, deconditioned. BMI 47. dyspneic with any movement Vitals: see above Lungs: Poor inspiratory effort. No obvious wheezes. Cardiac: No harsh murmurs. Extremities, lower: Bilateral lymphedema, severe. Severe venous stasis changes. Weeping and abrasion noted on the right anterior tibia. Disposition/Potential discharge - not sure how he would manage currently at home given his weight Total time is 35 minutes with greater than 50% spent in counseling and coordination of care. Exam Const: Vital Signs, click to edit/add: Vital Signs - 24 hr 09/14/22 15:00 09/14/22 16:10 09/14/22 17:20 Temperature 98.0 F Pulse Rate 66 Pulse Rate [Left P ulse Oximeter] 68 Respiratory Rate 18 24 Blood Pressure [Le ft Arm] 168/84 H Blood Pressure [Ri ght Arm] Pulse Oximetry 89 90 Oxygen Delivery Me thod [place] Nasal Ca nnula [place] Nasal Ca nnula Oxygen Flow Rate 2 2 Fraction of Inspir ed Oxygen 0.30 09/14/22 17:00 09/14/22 20:31 09/14/22 20:31 Temperature 98.7 F Pulse Rate Pulse Rate [Left P ulse Oximeter] 68 65 Respiratory Rate 18 20 Blood Pressure [Le ft Arm] Blood Pressure [Ri ght Arm] 144/48 H Pulse Oximetry 90 90 Oxygen Delivery Me thod [place] Nasal Ca nnula Oxygen Flow Rate 2 Fraction of Inspir ed Oxygen 09/14/22 21:00 09/14/22 23:00 09/14/22 23:00 Temperature 98.7 F Pulse Rate Pulse Rate [Left P ulse Oximeter] 65 61 Respiratory Rate 20 16 16 Blood Pressure [Le ft Arm] Blood Pressure [Ri ght Arm] 145/78 H Pulse Oximetry 88 88 Oxygen Delivery Me thod BiPAP BiPAP Oxygen Flow Rate Fraction of Inspir ed Oxygen 30 30 09/15/22 02:55 09/15/22 03:00 09/15/22 01:00 Temperature Pulse Rate 52 L Pulse Rate [Left P ulse Oximeter] 54 L 60 Respiratory Rate 16 13 Blood Pressure [Le ft Arm] Blood Pressure [Ri ght Arm] 133/64 133/64 Pulse Oximetry 89 89 Oxygen Delivery Me thod BiPAP BiPAP Oxygen Flow Rate Fraction of Inspir ed Oxygen 30 30 09/15/22 04:09 09/15/22 08:02 09/15/22 08:00 Temperature 98.2 F Pulse Rate Pulse Rate [Left P ulse Oximeter] 52 L Respiratory Rate 14 16 Blood Pressure [Le ft Arm] Blood Pressure [Ri ght Arm] 150/78 H Pulse Oximetry 88 85 L Oxygen Delivery Me thod BiPAP Nasal Cannula Oxygen Flow Rate 1 Fraction of Inspir ed Oxygen 30 0.30 09/15/22 08:00 Temperature 97.6 F Pulse Rate Pulse Rate [Left P ulse Oximeter] 60 Respiratory Rate 16 Blood Pressure [Le ft Arm] 153/75 H Blood Pressure [Ri ght Arm] Pulse Oximetry 85 L Oxygen Delivery Me thod Nasal Cannula Oxygen Flow Rate 1 Fraction of Inspir ed Oxygen Labs Labs: Laboratory Results - last 24 hr 09/14/22 09/15/22 09/15/22 16:48 07:07 07:07 WBC 9.48 RBC 5.28 Hgb 15.0 Hct 49.8 MCV 94 MCH 28 MCHC 30 L Plt Count 228 VBG pH 7.436 H VBG pCO2 57 H VBG pO2 75.1 H VBG HCO3 38 H Sodium 139 Potassium 4.7 Chloride 97 Carbon Dioxide 37 H BUN 32 H Creatinine 0.9 Estimated Creat Clear 68.50 Estimated GFR 86 Glucose 237 H Hemoglobin A1c Uric Acid 6.8 Calcium 8.5 Ionized Calcium Laura Magnesium 2.1 Total Bilirubin 0.8 AST 36 H ALT 13 Alkaline Phosphatase 68 Troponin I 0.17 H* C-Reactive Protein 3.3 H NT-Pro-B Natriuret Pep 3770 Total Protein 7.2 Albumin 3.7 Triglycerides 101 Cholesterol 111 LDL Cholesterol, Calc 48 HDL Cholesterol 43 Procalcitonin 0.07 TSH 09/15/22 09/15/22 09/15/22 07:07 07:07 07:07 WBC RBC Hgb Hct MCV MCH MCHC Plt Count VBG pH 7.430 VBG pCO2 61 H* VBG pO2 74.2 H VBG HCO3 40 H Sodium Potassium Chloride Carbon Dioxide BUN Creatinine Estimated Creat Clear Estimated GFR Glucose Hemoglobin A1c 6.66 H Uric Acid Calcium Ionized Calcium Laura 1.03 L Magnesium Total Bilirubin AST ALT Alkaline Phosphatase Troponin I C-Reactive Protein NT-Pro-B Natriuret Pep Total Protein Albumin Triglycerides Cholesterol LDL Cholesterol, Calc HDL Cholesterol Procalcitonin TSH 0.394
--- NOTE | 2022-09-15 14:47 | PC.NURSE ---
Pt up to chair from bed with assist of 2 and walker. 1L nc to maintain sat's in mid 80's per Dr. Chaidez.
--- NOTE | 2022-09-15 15:44 | PC.NURSE ---
PATIENT PLEASANT AND COOPERATIVE, UP WITH A1/A2, IS TOLERATING MARCHING IN PLACE/PIVOT ASSIST ALTHOUGH SATURATIONS DO DROP WITH ACTIVITY TO HIGH 70S/LOW 80S, PATIENT EXPRESSES ONLY A LITTLE BIT OF SOB WITH ACTIVITY, DECLINES SOB AT REST, ON 1L OF VIA NC, TOLERATING DIET ALTHOUGH DOES NOT ADHERE TO DIABETIC ORDERING PIZZA AND DIET COKE FOR LUNCH, JUDITH PRESENT THIS AFTERNOON FOR A WOUND DRESSING CHANGED, PRESENT FOR DRESSING CHANGE WELL.
[2022-09-15] MEDS: cefTRIAXone 1 GM in 0.9 % SODIUM CHLORIDE Mini-bag 100 ML IVPB (16:14)
[2022-09-15] MEDS: 0.9 % SODIUM CHLORIDE 250 ml IV (16:27)
[2022-09-15] MEDS: ACETAMINOPHEN 325 MG TABLET 650 MG PO (17:47)
--- NOTE | 2022-09-15 19:20 | PC.NURSE ---
Shift note: Pt is doing well, able move from bed to recliner with assist of 2, walker and GB. Pt able to maintain standing position independently but not able get up without assist. Complained of pain in the feet and Tylenol was given. Insisted on Gabapentin which was scheduled for 2100 but accepted Tylenol after explanation. O2 has been between 85 and 90% with the NC. Dressing to the right leg changed by the wound care nurse.
[2022-09-15] MEDS: ENOXAPARIN 40 MG/0.4 ML INJ SUBCUT (21:06)
[2022-09-15] MEDS: ATORVASTATIN 10 MG TABLET 20 MG PO (21:07)
[2022-09-15] MEDS: GABAPENTIN 300 MG CAPSULE 600 MG PO (21:07)
--- NOTE | 2022-09-15 22:18 | PC.NURSE ---
Pt up in chair this afternoon and tolerated well. Back to bed with assist of 2 and walker a nd gait belt. He did well. VSS. Maintaining sats on on 1L O2 with O2 reserve NC.
[2022-09-16] VITALS (11 sets, daily range): BP systolic 148–186; BP diastolic 70–112; PULSE 48–62; RESP 16–18; TEMP 36.2–36.9; O2SAT 90–94
[2022-09-16] MEDS: INSULIN NPH 100 UNIT/ML 15 UNIT SUBCUT ×2 (01:15→23:30)
[2022-09-16] MEDS: IPRAT-ALBUT 0.5-2.5 MG/3 ML NEB 1 NEB IH ×4 (01:20→19:52)
[2022-09-16 07:33] LABS: Hematocrit 50.1 % (37.0-53.0); Hemoglobin* 15.2 gm/dL (13.5-17.5); Mean Corpuscular HGB Conc 30 gm/dL (32-36); Mean Corpuscular Hemoglobin 29 pg (26-34); Mean Corpuscular Volume 94 fL (80-100); Platelet Count* 218 K/uL (140-440); Red Blood Count 5.32 m/uL (4.30-5.90); White Blood Count* 8.48 K/uL (4.50-11.00)
[2022-09-16 07:34] LABS: HCO3 VBG 43 mmol/L (21-28); Ionized Calcium* 1.13 mmol/L (1.11-1.30); PO2 VBG 52.5 mmHG (25-47); pH VBG 7.385 (7.32-7.43)
[2022-09-16 07:37] LABS: PCO2 VBG 72 mmHG (40-50)
[2022-09-16 07:38] LABS: Slide Review Reflex No
--- NOTE | 2022-09-16 07:38 | PC.NURSE ---
Addendum entered by Katie Morillo 09/16/22 07:43: Pt has Telfa dressing applied to open sores, wound care nurse providing dressing changes. Original Note: Pt is alert and oriented x3, denies pain, N/V, SOB, or chest pain. Pt on Bipap at 30 Fi02 on 10L while pt is sleeping, while awake pt is on 1L with nasal oximizer. Pt made comments of being frustrated with lack of sleep due to cares being preformed at night. Provided education on why cares need to be done. Pt is up with A2 with walker and gait belt.
[2022-09-16 07:53] LABS: Chloride* 95 mmol/L (96-114); Sodium* 140 mmol/L (135-149)
[2022-09-16 07:54] LABS: Potassium* 3.8 mmol/L (3.6-5.1)
[2022-09-16 07:56] LABS: Creatinine* 0.8 mg/dL (0.5-1.5); Estimated Glomerular Filt Rate 89 ml/min
[2022-09-16 07:57] LABS: Blood Urea Nitrogen* 34 mg/dL (7-30); Calcium* 8.8 mg/dL (8.4-10.6); Glucose* 138 mg/dL (60-115)
[2022-09-16 08:00] LABS: C Reactive Protein* 2.6 mg/dL (0.5-1.0)
[2022-09-16 08:12] LABS: Carbon Dioxide* 42 mmol/L (20-32); NT Pro B Type NatriureticPept* 1710 pg/mL; Procalcitonin* 0.07 ng/mL (<0.50)
[2022-09-16] MEDS: TORSEMIDE 20 MG TABLET 40 MG PO (08:16)
[2022-09-16] MEDS: allopurinoL 100 MG TABLET PO (08:40)
[2022-09-16] MEDS: lisinopriL 10 MG TABLET 20 MG PO (08:40)
[2022-09-16] MEDS: ASPIRIN 81 MG TABLET EC PO (08:41)
[2022-09-16] MEDS: METOPROLOL SUCCINATE (XL) 100 MG TAB 150 MG PO (08:41)
[2022-09-16] MEDS: cephALEXin 500 MG CAPSULE 1000 MG PO ×2 (08:41→20:09)
[2022-09-16] MEDS: NYSTATIN POWDER 1 APPLIC TOPICAL ×2 (08:45→20:06)
[2022-09-16] MEDS: SODIUM CHLORIDE 0.9 % (FLUSH) 10 ML SYRINGE 5 ML IVF ×2 (08:52→21:15)
--- NOTE | 2022-09-16 10:01 | CRLHL7_ITS ---
For Patients: As a result of the Century Cures Act, medical imaging exams and procedure reports are released immediately into your electronic medical record. You may view this report before your referring provider. If you have questions, please contact your health care provider. INDICATION: Follow up congestive failure. COMPARISON: CT 14 September 2022 and plain film 13 September 2022. IMPRESSION: One view chest. Significantly improved pulmonary vascular congestion with persistent upper normal caliber. Mild cardiomegaly. No pleural effusion. Dictated by Jesse Hollis MD @ 09/16/2022 11:59:48 AM (Electronically Signed)
--- NOTE | 2022-09-16 10:36 | P.IMCN_ITS ---
Date of Consult Consult date: 09/15/22 Requesting Physician: Hospitalist Primary Care Provider: Dilcia Castorena MD Consult Narrative Reason for consult: BLE lymphedema and open wound to RLE. Narrative: Adriano Ball is a 82 year old male in critical care being seen by wound services. PMH significant for chronic lymphedema, right greater than left, type 2 diabetes, morbid obesity, seen in ER on 09/10/22 after a fall occurred in shower. During ER visit laceration to RLE anterior proximal pre-tibal area was noted, d/t lower extremity edema glue was utilized as sutures likely would not hold. Current admission suspected cellulitis to RLE, currently managed with IV abx- medical plans to transition to PO abx in the next few days. reports frequent bouts of cellulits to RLE, likely d/t chronic poorly managed lymphedema. and reported patients legs have been getting larger, he has become more unsteady in his gait and feeling weaker for the past 3ish months. He also fell about 1.5 months ago. while in ER SOB noted d/t acute on chronic CHF exacerbation, but patient declined admission to hospital at that time. Presented again to ER on 09/13/22 with worsening SOB and low oxygen sats, elevated trop. Admitted to med/surg when it was noted patient had open ulceration to RLE and severe lymphedema. Currently awake, alert, sitting comfortably in chair with reservoir nasal cannula in use. Using BiPAP overnight. Patient reports he does not regularly check his blood glucose levels as he knows when my numbers are high. I can feel it. Patient and share they recently bought a RV and have hopes to travel soon. Patient overindulges in carbohydrates, lives a relatively sedentary life. In the past when patient would have venous ulcers open or experience worsening lymphedema would apply compression short term to get the wound to heal, but then patient would forgo compression. He have never consistently used compression in the past. ? 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 Lives with . Denies tobacco use, lifelong nonsmoker. Alcohol use 1 drink per month. Denies recreational drug use. DNI. Smoking Status: Never smoker Second hand tobacco smoke exposure: No How often do you have a drink containing alcohol: never AUDIT-C Alcohol total score: 0 Non-prescribed substance use: denies use service: No Meds Home Medications and Allergies Home Medications Medication Instructions Recorded Confirmed Type acetaminophen 650 mg 1,300 mg PO HS 09/10/22 09/13/22 History tablet,extended release (Arthritis Pain Reliever) allopurinol 100 mg tablet 100 mg PO DAILY 09/10/22 09/13/22 History ammonium lactate 12 % topical cream 1 applic topical BID 09/10/22 09/13/22 History aspirin 81 mg tablet,delayed 81 mg PO DAILY 09/10/22 09/13/22 History release (Ecotrin Low Strength) atorvastatin 20 mg tablet 20 mg PO HS 09/10/22 09/13/22 History diphenhydramine 25 1 tab PO QHS PRN 09/10/22 09/13/22 History mg-acetaminophen 500 mg tablet (Tylenol PM Extra Strength) gabapentin 300 mg capsule 600 mg PO HS 09/10/22 09/13/22 History insulin NPH isoph U-100 human 100 10 - 15 unit subcut BID 09/10/22 09/13/22 History unit/mL subcutaneous suspension (Novolin N NPH U-100 Insulin isophane) insulin regular human 100 unit/mL 10 unit subcut BID 09/10/22 09/13/22 History injection solution (Novolin R Regular U-100 Insulin) insulin syringe-needle U-100 0.3 09/10/22 09/10/22 History mL 30 gauge x 1/2 (UltiCare) metoprolol succinate 100 mg 100 mg PO DAILY 09/10/22 09/13/22 History tablet,extended release 24 hr nitroglycerin 0.4 mg sublingual 0.4 mg sublingual Q5-15M PRN 09/10/22 09/13/22 History tablet (Nitrostat) sennosides 8.6 mg capsule (senna) 8.6 mg PO DAILY 09/10/22 09/13/22 History Allergies Allergy/AdvReac Type Severity Reaction Status Date / Time No Known Drug Allergies Allergy Verified 09/13/22 13:31 Exam Narrative: Exam Narrative: General: NAD, sitting comfortable in recliner, alert HEENT: atraumatic, conjunctiva clear without drainage, well fitted reservoir nasal cannula Respiratory: symmetrical rise, unlabored, speaking in full sentences Cardiac: Pedal pulses diminished, but easily palpable. Cap refill less than 4 seconds, Feet warm. BLE: stage 3+ lymphedema right greater than left. hemosiderin staining, positive stemmers sign, hyperkeratosis, lymphangiectasia, and papillomatosis. Skin: right proximal anterior pre-tibal open ulceration. full-thickness. Friable. 25%eschar 25% friable hypergranulation 50% slough and biofilm Measuring [id number]. No surrounding erythema or induration. Psych: normal affect Const: Vital Signs, click to edit/add: Vital Signs - 24 hr 09/15/22 12:00 09/15/22 11:00 09/15/22 15:00 Temperature 97.6 F Pulse Rate Pulse Rate [Left A pical] Pulse Rate [Left P ulse Oximeter] 59 L Respiratory Rate 16 16 16 Blood Pressure [Ri ght Arm] Pulse Oximetry 95 88 Oxygen Delivery Me thod Nasal Cannula Nasal Cannula Oxygen Flow Rate 1 1 Fraction of Inspir ed Oxygen 0.30 09/15/22 15:00 09/15/22 15:00 09/15/22 17:00 Temperature 98 F Pulse Rate 54 L Pulse Rate [Left A pical] 62 Pulse Rate [Left P ulse Oximeter] Respiratory Rate 16 16 Blood Pressure [Ri ght Arm] 150/77 H Pulse Oximetry 86 L 86 L Oxygen Delivery Me thod Nasal Cannula Nasal Cannula Oxygen Flow Rate 1 1 Fraction of Inspir ed Oxygen 09/15/22 19:00 09/15/22 20:00 09/15/22 23:00 Temperature 97.6 F Pulse Rate Pulse Rate [Left A pical] 56 L Pulse Rate [Left P ulse Oximeter] Respiratory Rate 20 22 Blood Pressure [Ri ght Arm] 150/79 H Pulse Oximetry 91 91 Oxygen Delivery Me thod [place] Nasal Ca nnula Oxygen Flow Rate 1 Fraction of Inspir ed Oxygen 09/15/22 23:00 09/15/22 23:00 09/16/22 05:00 Temperature 98.7 F 98.5 F Pulse Rate Pulse Rate [Left A pical] Pulse Rate [Left P ulse Oximeter] 53 L 55 L Respiratory Rate 20 20 18 Blood Pressure [Ri ght Arm] 169/88 H 186/87 H Pulse Oximetry 90 90 92 Oxygen Delivery Me thod [place] Nasal Ca nnula [place] Nasal Ca nnula BiPAP Oxygen Flow Rate 1 1 10 Fraction of Inspir ed Oxygen 0.30 0.30 30 09/16/22 05:30 09/16/22 09:17 09/16/22 07:00 Temperature Pulse Rate 54 L Pulse Rate [Left A pical] Pulse Rate [Left P ulse Oximeter] 58 L Respiratory Rate 18 Blood Pressure [Ri ght Arm] Pulse Oximetry Oxygen Delivery Me thod Oxygen Flow Rate Fraction of Inspir ed Oxygen 30 09/16/22 07:00 09/16/22 07:00 Temperature 97.9 F Pulse Rate Pulse Rate [Left A pical] Pulse Rate [Left P ulse Oximeter] 58 L Respiratory Rate 18 18 Blood Pressure [Ri ght Arm] 178/112 H Pulse Oximetry 93 94 Oxygen Delivery Me thod Nasal Cannula BiPA P Nasal Cannula BiPA P Oxygen Flow Rate 10 10 Fraction of Inspir ed Oxygen 30 30 Skin: Skin images (male): 1. wound Labs Labs: Short CBC 09/16/22 Range/Units 07:19 WBC 8.48 (4.50-11.00) K/uL Hgb 15.2 (13.5-17.5) gm/dL Hct 50.1 (37.0-53.0) % Plt Count 218 (140-440) K/uL BMP 09/16/22 07:19 Sodium 140 Potassium 3.8 Chloride 95 L Carbon Dioxide 42 H* BUN 34 H Creatinine 0.8 Glucose 138 H Calcium 8.8 Assessment and Plan Assessment and plan (1) Cellulitis of right leg: Problem comment: Wound care consult. Lymphedema pumps are likely needed. Compression wraps, diuretics, antibiotics. going to oral abx tomorrow. crp and procalcitonin normal. Status: Acute (2) Type 2 diabetes mellitus: Problem comment: SSI/accuchecks [id number] - takes NPH 15 am, 10 pm - increasing to 20 am, 15 pm. stopping iv steroid. Status: Chronic (3) Acute on chronic heart failure with preserved ejection fraction: Problem comment: Echocardiogram 09/13/2022 EF 55%. diastolic. LVH with normal global systolic function. Status: Acute (4) Hypoxia: Problem comment: Currently on nasal cannula with reservoir at 2 liters/minute FiO2 30% with sats in the high 80s. This is our goal. As he is a CO2 retainer. Status: Acute (5) Acute respiratory failure with hypoxia and hypercapnia: Problem comment: CHF - diastolic. Acute on chronic. Preserved EF, 55%. Echo reviewed from yesterday. 09/13/2022. reviewed CT chest - pulmonary edema. less COPD. has pérez - change to torsemide in am Trend labs, oxygen requirement and daily weights. bipap while sleeping. Likely a component Pickwickian, restrictive lung disease from undiagnosed or untreated REGIS Chronic hypercapnia given normal pH. RT involved. [place] nasal O2 with BiPAP while sleeping. Keep oxygen saturations between 88 and 90%. 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 Likely is cellulitis on the right side. Patient will need lymphedema pumps - edema wear. 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 DM2 & Morbid Obesity: Keep blood sugars below 170 at all times, ideally 150 to help with wound healing. Increase dietary lean protein consumption. Start multi- vitamin with iron and zinc. Will order for Nutritionals consult as would like help in planning patients meals to help him with losing weight and keeping his blood sugars well controlled. Focus will be on sustainable weightloss while supporting his nutritional needs. Recommended patient speak with his medical provider to see if he is eligible to start mounjaro to help with management of his diabetes and facilitate weightloss. CHF: Managed by hospitalist team Lyhmphedema: coban 2-layer lite wraps applied to BLE. These can remain in place for 2 days, wearing 24/7. Nursing to check cap refill to exposed toes to ensure compression is not patient to keep legs elevated when sitting up in chair. Advised he needs to walk minimum of 4x a day for 5-10min. Continue with hospitalist plan for diuresis RLE wound: cleanse with vashe, apply medihoney to xeroform and place on RLE wo und. Cover with ABD-secure with the 2-layer wrap. Change EOD & PRN Referral to wound center upon hospital discharge to assist patient in getting velcro wraps and lymphedema pumps. and verbalized an understanding, were open and receptive to our discussion topics and care plan. Procedures Additional Procedures Additional Procedure Details: verbal consent obtained Application of multi-layer compression system; leg (below knee), including ankle and foot performed to BLE. Wound dressing performed to RLE wound. mechanical debridement performed, patient tolerated well.
[2022-09-16] MEDS: INSULIN NPH 100 UNIT/ML 20 UNIT SUBCUT (11:34)
--- NOTE | 2022-09-16 13:04 | PM.WSPN ---
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 Wound dressing orders to remain the same. Continue to work with PT and nursing to get scheduled walks. Wound services to continue to follow patient while in hospital. Time Spent With Patient Total time spent: 20 Subjective Date Seen: 09/16/22 Interval history: f/u to yesterdays wound care initial consult. RLE venous ulcer dressed with xeroform. Initial application of 2-layer coban lite yesterday. walking with nursing following with wheelchair. Patient motivated. BLE edema improved. Today measured LLE 50.5cm RLE 52cm circumferentially. Coban 2-layer lite intact, no drainage shadowing noted. CMS checked WNL. Exam Narrative: Exam Narrative: General: NAD, alert, sitting comfortably in recliner. Cardiac: pedal pulses palable. Respiratory: unabored. BLE: coban-2 layer wraps CDI. Const: Vital Signs, click to edit/add: Vital Signs - 24 hr 09/15/22 15:00 09/15/22 15:00 09/15/22 15:00 Temperature 98 F Pulse Rate Pulse Rate [Left A pical] 62 Pulse Rate [Left P ulse Oximeter] Respiratory Rate 16 16 16 Blood Pressure [Ri ght Arm] 150/77 H Pulse Oximetry 86 L 86 L Oxygen Delivery Me thod Nasal Cannula Nasal Cannula Oxygen Flow Rate 1 1 Fraction of Inspir ed Oxygen 09/15/22 17:00 09/15/22 19:00 09/15/22 20:00 Temperature 97.6 F Pulse Rate 54 L Pulse Rate [Left A pical] 56 L Pulse Rate [Left P ulse Oximeter] Respiratory Rate 20 Blood Pressure [Ri ght Arm] 150/79 H Pulse Oximetry 91 91 Oxygen Delivery Me thod [place] Nasal Ca nnula Oxygen Flow Rate 1 Fraction of Inspir ed Oxygen 12/29/22 23:00 09/15/22 23:00 09/15/22 23:00 Temperature 98.7 F Pulse Rate Pulse Rate [Left A pical] Pulse Rate [Left P ulse Oximeter] 53 L Respiratory Rate 22 20 20 Blood Pressure [Ri ght Arm] 169/88 H Pulse Oximetry 90 90 Oxygen Delivery Me thod [place] Nasal Ca nnula [place] Nasal Ca nnula Oxygen Flow Rate 1 1 Fraction of Inspir ed Oxygen 0.30 0.30 09/16/22 05:00 09/16/22 05:30 09/16/22 09:17 Temperature 98.5 F Pulse Rate 54 L Pulse Rate [Left A pical] Pulse Rate [Left P ulse Oximeter] 55 L Respiratory Rate 18 Blood Pressure [Ri ght Arm] 186/87 H Pulse Oximetry 92 Oxygen Delivery Me thod BiPAP Oxygen Flow Rate 10 Fraction of Inspir ed Oxygen 30 30 09/16/22 07:00 09/16/22 07:00 09/16/22 07:00 Temperature 97.9 F Pulse Rate Pulse Rate [Left A pical] Pulse Rate [Left P ulse Oximeter] 58 L 58 L Respiratory Rate 18 18 18 Blood Pressure [Ri ght Arm] 178/112 H Pulse Oximetry 93 94 Oxygen Delivery Me thod Nasal Cannula BiPA P Nasal Cannula BiPA P Oxygen Flow Rate 10 10 Fraction of Inspir ed Oxygen 30 30 09/16/22 11:00 Temperature 97.9 F Pulse Rate Pulse Rate [Left A pical] Pulse Rate [Left P ulse Oximeter] 62 Respiratory Rate 18 Blood Pressure [Ri ght Arm] 167/81 H Pulse Oximetry 92 Oxygen Delivery Me thod Nasal Cannula BiPA P Oxygen Flow Rate 10 Fraction of Inspir ed Oxygen 30 Labs Labs: Laboratory Results - last 24 hr 09/16/22 09/16/22 09/16/22 07:19 07:19 07:19 WBC 8.48 RBC 5.32 Hgb 15.2 Hct 50.1 MCV 94 MCH 29 MCHC 30 L Plt Count 218 VBG pH 7.385 VBG pCO2 72 H* VBG pO2 52.5 H VBG HCO3 43 H Sodium 140 Potassium 3.8 Chloride 95 L Carbon Dioxide 42 H* BUN 34 H Creatinine 0.8 Estimated Creat Clear 68.50 Estimated GFR 89 Glucose 138 H Calcium 8.8 Ionized Calcium Laura 1.13 C-Reactive Protein 2.6 H NT-Pro-B Natriuret Pep 1710 Procalcitonin 0.07
--- NOTE | 2022-09-16 14:11 | PC.SOCIAL ---
Discharge planning: Met with pt and regarding d/c plan. Pt and are hoping he can return home. states pt had a negative experience at [facility] years ago and does not want to got there again. tension worker shared the list of [employer] Contracted facilities with pt and . Pt states he will not go as far as [place] or [facility] and refused for social services specialist to contact those facilities. After further discussion, requested social services specialist contact [facility] to find out if they are [employer] Contracted. They are not on the resource list as contracted but remembers they were last time pt was placed. states that if [place] is not an option, then [facility] is their first choice. tension worker to follow up as needed. Called [facility] and left message with public information coordinator. Called [facility] and spoke with admission coordinator, Kylah, who states they can evaluate pt for admission next week. Shared with Kylah, that pt has [employer] insurance, weight is 357 pounds and that pt is currently on a bipap. Kylah states none of these needs would prevent them from accepting pt. Faxed information to [facility] and awaiting call back with decision on admit. If [facility] is [employer] contracted and able to meet pt's needs, inforamtion will also be faxed to that facility for evaluation for admission.
--- NOTE | 2022-09-16 18:19 | PC.NURSE ---
End of shift: Pt is alert and oriented x3, denies pain, N/V, SOB, or chest pain. Pt. is on 1L with nasal oximizer. Pt is up with heavy A2 with walker and gait belt, pt. ambulated in hallway and tolerated well, needed wheelchair breaks. Pt. pérez is patent and pt. tolerates reg. diet. Pt. on tele, Bradycardic. Wound dressing completed by wound care nurse today. Dressing will be changed tomorrow with 2 layers of regular Coban. Pt. needs to walk 4x 5-10 min per day per Wound care nurse.
[2022-09-16] MEDS: ATORVASTATIN 10 MG TABLET 20 MG PO (20:05)
[2022-09-16] MEDS: ENOXAPARIN 40 MG/0.4 ML INJ SUBCUT (20:06)
[2022-09-16] MEDS: GABAPENTIN 300 MG CAPSULE 600 MG PO (20:06)
[2022-09-16] MEDS: ACETAMINOPHEN 325 MG TABLET 650 MG PO (22:44)
[2022-09-17] VITALS (12 sets, daily range): BP systolic 112–153; BP diastolic 69–81; PULSE 52–98; RESP 16–30; TEMP 36.2–37.2; O2SAT 88–94
[2022-09-17 06:53] LABS: HCO3 VBG 47 mmol/L (21-28); PO2 VBG 31.8 mmHG (25-47); pH VBG 7.375 (7.32-7.43)
[2022-09-17 06:58] LABS: PCO2 VBG 81 mmHG (40-50)
[2022-09-17 07:20] LABS: Chloride* 94 mmol/L (96-114); Sodium* 142 mmol/L (135-149)
[2022-09-17 07:21] LABS: Potassium* 3.9 mmol/L (3.6-5.1)
[2022-09-17 07:23] LABS: Estimated Glomerular Filt Rate 76 ml/min
[2022-09-17 07:24] LABS: Blood Urea Nitrogen* 31 mg/dL (7-30); Calcium* 8.7 mg/dL (8.4-10.6); Glucose* 96 mg/dL (60-115)
--- NOTE | 2022-09-17 07:24 | PC.NURSE ---
19-: walks halls with 2 Assist, gb, and walker. ? Per MD note and Charge ? pt to sleep without BiPAP to assess blood gases in the am. Pt O2 dropped into 70s while sleeping & on 1L O2, titrated to 2L, and then to 3L O2 to maintain O2 sats >88% (pt mouth breather). HR 50s-60s. BLE wrapped in Coban, CDI. Partida patent and draining red/pink urine. ?
[2022-09-17 07:37] LABS: Carbon Dioxide* 45 mmol/L (20-32)
[2022-09-17] MEDS: IPRAT-ALBUT 0.5-2.5 MG/3 ML NEB 1 NEB IH ×3 (10:21→19:44)
[2022-09-17] MEDS: NYSTATIN POWDER 1 APPLIC TOPICAL ×2 (10:22→20:28)
[2022-09-17] MEDS: lisinopriL 10 MG TABLET 20 MG PO (10:23)
[2022-09-17] MEDS: cephALEXin 500 MG CAPSULE 1000 MG PO ×2 (10:24→20:27)
[2022-09-17] MEDS: allopurinoL 100 MG TABLET PO (10:24)
[2022-09-17] MEDS: ASPIRIN 81 MG TABLET EC PO (10:24)
[2022-09-17] MEDS: METOPROLOL SUCCINATE (XL) 100 MG TAB 150 MG PO (10:25)
[2022-09-17] MEDS: SODIUM CHLORIDE 0.9 % (FLUSH) 10 ML SYRINGE 5 ML IVF ×2 (10:26→20:29)
[2022-09-17] MEDS: TORSEMIDE 20 MG TABLET 40 MG PO (10:26)
[2022-09-17] MEDS: ACETAMINOPHEN 325 MG TABLET 650 MG PO (10:28)
--- NOTE | 2022-09-17 11:37 | RESP.RT ---
BiPAP not used last night, remained on Oxymizer Nasal cannula titrating Lpm to keep SaO2 >85%.
[2022-09-17] MEDS: INSULIN NPH 100 UNIT/ML 20 UNIT SUBCUT (12:37)
--- NOTE | 2022-09-17 14:05 | P.IMPN_ITS ---
Progress Note: A&P Assessment and plan (1) Acute respiratory failure with hypoxia and hypercapnia: Problem details: CHF - diastolic. Acute on chronic. Preserved EF, 55%. Echo reviewed from yesterday. 09/13/2022. reviewed CT chest - pulmonary edema. less COPD. has pérez - change to torsemide in am Trend labs, oxygen requirement and daily weights. bipap while sleeping. Likely a component Pickwickian, restrictive lung disease from undiagnosed or untreated REGIS Chronic hypercapnia given normal pH. RT involved. [place] nasal O2 with BiPAP while sleeping. Keep oxygen saturations between 88 and 90%. would like to try a few hours (maybe the entire night) off bipap and see if this effects his CO2 on his gas. Status: Acute (2) Acute on chronic heart failure with preserved ejection fraction: Problem details: Echocardiogram 09/13/2022 EF 55%. diastolic. LVH with normal global systolic function. Status: Acute (3) Cellulitis of right leg: Problem details: Wound care consult. Lymphedema pumps are likely needed. Compression wraps, diuretics, antibiotics. going to oral abx tomorrow (KEFLEX 1 GRAM TID). crp and procalcitonin normal. 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 Likely is cellulitis on the right side. Patient will need lymphedema pumps - edema wear. Status: Acute (5) Elevated troponin: Problem details: peaked and downtrending. Status: Acute (6) Hypertension: Problem details: continue home lisinopril 20mg and metoprolol xl 100mg daily (INCREASING TO 150MG TODAY) Status: Acute (7) Type 2 diabetes mellitus: Problem details: SSI/accuchecks [phone] - takes NPH 15 am, 10 pm - increasing to 20 am, 15 pm. stopping iv steroid. Status: Chronic Subjective Date Seen: 09/16/22 Interval history: improving. stronger. weight is decreasing. CO2 is high. Exam Const: Vital Signs, click to edit/add: Vital Signs - 24 hr 09/16/22 15:00 09/16/22 15:00 09/16/22 15:00 Temperature 97.8 F Pulse Rate Pulse Rate [Left P ulse Oximeter] 61 61 Respiratory Rate 18 18 18 Blood Pressure [Le ft Arm] 149/84 H Blood Pressure [Ri ght Arm] Pulse Oximetry 93 93 Oxygen Delivery Me thod Nasal Cannula Nasal Cannula Oxygen Flow Rate 1.5 1.5 Fraction of Inspir ed Oxygen 30 30 09/16/22 19:00 09/16/22 20:00 09/16/22 21:00 Temperature 97.7 F Pulse Rate 58 L Pulse Rate [Left P ulse Oximeter] 62 Respiratory Rate 16 Blood Pressure [Le ft Arm] Blood Pressure [Ri ght Arm] 164/86 H Pulse Oximetry 92 92 Oxygen Delivery Me thod Nasal Cannula Oxygen Flow Rate 1 Fraction of Inspir ed Oxygen 09/16/22 23:00 09/16/22 23:00 09/16/22 23:00 Temperature 97.2 F L Pulse Rate Pulse Rate [Left P ulse Oximeter] 48 L 48 L Respiratory Rate 18 18 Blood Pressure [Le ft Arm] Blood Pressure [Ri ght Arm] 148/70 H Pulse Oximetry 91 91 Oxygen Delivery Me thod Nasal Cannula Nasal Cannula Oxygen Flow Rate 1 1 Fraction of Inspir ed Oxygen 09/17/22 03:00 09/17/22 07:20 09/17/22 11:27 Temperature 97.1 F L Pulse Rate 53 L Pulse Rate [Left P ulse Oximeter] 52 L Respiratory Rate 16 30 H Blood Pressure [Le ft Arm] Blood Pressure [Ri ght Arm] Pulse Oximetry 88 91 Oxygen Delivery Me thod Nasal Cannula Nasal Cannula Oxygen Flow Rate 1 1.5 Fraction of Inspir ed Oxygen Labs Labs: Laboratory Results - last 24 hr 09/17/22 09/17/22 06:35 06:35 VBG pH 7.375 VBG pCO2 81 H* VBG pO2 31.8 VBG HCO3 47 H Sodium 142 Potassium 3.9 Chloride 94 L Carbon Dioxide 45 H* BUN 31 H Creatinine 1.0 Estimated Creat Clear 68.50 Estimated GFR 76 Glucose 96 Calcium 8.7
--- NOTE | 2022-09-17 14:06 | P.IMPN_ITS ---
Progress Note: A&P Assessment and plan (1) Acute respiratory failure with hypoxia and hypercapnia: Problem details: CHF - diastolic. Acute on chronic. Preserved EF, 55%. Echo reviewed from 09/13/2022. reviewed CT chest from admission pulmonary edema. less COPD. cxr yesterday significantly better d/c pérez. now on oral diuretics. we tried no bipap last night and there was a significant jump in his CO2. will return to using this at night. Trend labs, oxygen requirement and daily weights. bipap while sleeping. Likely a component [place], restrictive lung disease from undiagnosed or untreated REGIS Chronic hypercapnia given normal pH. RT involved. [place] nasal O2 with BiPAP while sleeping. Keep oxygen saturations between 88 and 90%. Status: Acute (2) Acute on chronic heart failure with preserved ejection fraction: Problem details: Echocardiogram 09/13/2022 EF 55%. diastolic. LVH with normal global systolic function. Status: Acute (3) Cellulitis of right leg: Problem details: Wound care consult. Lymphedema pumps are likely needed. Compression wraps, diuretics, antibiotics. going to oral abx tomorrow (KEFLEX 1 GRAM TID). crp and procalcitonin normal. 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 Likely is cellulitis on the right side. Patient will need lymphedema pumps - edema wear. Status: Acute (5) Elevated troponin: Problem details: peaked and downtrending. Status: Acute (6) Hypertension: Problem details: continue home lisinopril 20mg and metoprolol xl 100mg daily (INCREASING TO 150MG 09/16/22) Status: Acute (7) Type 2 diabetes mellitus: Problem details: SSI/accuchecks [id number] - takes NPH 15 am, 10 pm - increasing to 20 am, 15 pm. stopping iv steroid. Status: Chronic Subjective Date Seen: 09/17/22 Interval history: Daily Progress Note - Hospital Medicine Day #: 5 CC:? Acute hypoxic and hypercapnic respiratory failure secondary to acute on chronic diastolic heart failure - lymphedema with mild cellulitis OVERNIGHT UPDATES FROM STAFF & MED, LAB, IMAGING UPDATES Remains afebrile and mildly hypertensive. We increased his metoprolol to 150 mg yesterday. Holding his sats with oxygen reservoir at 1.5 L. His weight continues to go down 161.7 kilos down to 158.9 overnight. This morning his CO2 was as high as it has been despite he has not normal pH. He remains hypochloremic with an elevated carbon dioxide and BUN. His creatinine is 1.0 single view chest xray done yesterday: One view chest. Significantly improved pulmonary vascular congestion with persistent upper normal caliber. Mild cardiomegaly. No pleural effusion. Review of Systems: See subjective Cardiac: No new chest pain/pressure/palpitations. Respiratory: no new dyspnea. GI: No abdominal bloating Objective: alert. Vitals: see above I observed his gait and he was walking fairly steady with walker and standby assist. Lungs: diminished bases but much improved. Cardiac: S1S2. legs continue to improve: diameter; weepiness Disposition/Potential discharge - short term rehab likely Total time is 35 minutes with greater than 50% spent in counseling and coordination of care. Exam Const: Vital Signs, click to edit/add: Vital Signs - 24 hr 09/16/22 15:00 09/16/22 15:00 09/16/22 15:00 Temperature 97.8 F Pulse Rate Pulse Rate [Left P ulse Oximeter] 61 61 Respiratory Rate 18 18 18 Blood Pressure [Le ft Arm] 149/84 H Blood Pressure [Ri ght Arm] Pulse Oximetry 93 93 Oxygen Delivery Me thod Nasal Cannula Nasal Cannula Oxygen Flow Rate 1.5 1.5 Fraction of Inspir ed Oxygen 30 30 09/16/22 19:00 09/16/22 20:00 09/16/22 21:00 Temperature 97.7 F Pulse Rate 58 L Pulse Rate [Left P ulse Oximeter] 62 Respiratory Rate 16 Blood Pressure [Le ft Arm] Blood Pressure [Ri ght Arm] 164/86 H Pulse Oximetry 92 92 Oxygen Delivery Me thod Nasal Cannula Oxygen Flow Rate 1 Fraction of Inspir ed Oxygen 09/16/22 23:00 09/16/22 23:00 09/16/22 23:00 Temperature 97.2 F L Pulse Rate Pulse Rate [Left P ulse Oximeter] 48 L 48 L Respiratory Rate 18 18 Blood Pressure [Le ft Arm] Blood Pressure [Ri ght Arm] 148/70 H Pulse Oximetry 91 91 Oxygen Delivery Me thod Nasal Cannula Nasal Cannula Oxygen Flow Rate 1 1 Fraction of Inspir ed Oxygen 09/17/22 03:00 09/17/22 07:20 09/17/22 11:27 Temperature 97.1 F L Pulse Rate 53 L Pulse Rate [Left P ulse Oximeter] 52 L Respiratory Rate 16 30 H Blood Pressure [Le ft Arm] Blood Pressure [Ri ght Arm] Pulse Oximetry 88 91 Oxygen Delivery Me thod Nasal Cannula Nasal Cannula Oxygen Flow Rate 1 1.5 Fraction of Inspir ed Oxygen Labs Labs: Laboratory Results - last 24 hr 09/17/22 09/17/22 06:35 06:35 VBG pH 7.375 VBG pCO2 81 H* VBG pO2 31.8 VBG HCO3 47 H Sodium 142 Potassium 3.9 Chloride 94 L Carbon Dioxide 45 H* BUN 31 H Creatinine 1.0 Estimated Creat Clear 68.50 Estimated GFR 76 Glucose 96 Calcium 8.7
--- NOTE | 2022-09-17 19:38 | PC.NURSE ---
Oxygen sats maintained on 1.5 to 2 L/oximizer. Shayy present for drsg change to RLE. Please see eMar for meds provided, BG results and SS insulin given. Pt walked 3 times in hallway w/oxygen and 2 assist. Excellent intake and output. [place] catheter discontinued at 1412 pm. Light pink urine 1725 cc emptied from catheter on day shift. Pt has voided once since catheter d/c'ed in his brief. Report to oncoming shift VICKIE White. Pt to wear BIPAP overnight at current settings.
[2022-09-17] MEDS: GABAPENTIN 300 MG CAPSULE 600 MG PO (20:26)
[2022-09-17] MEDS: ATORVASTATIN 10 MG TABLET 20 MG PO (20:26)
[2022-09-17] MEDS: ENOXAPARIN 40 MG/0.4 ML INJ SUBCUT (20:27)
[2022-09-17] MEDS: INSULIN NPH 100 UNIT/ML 15 UNIT SUBCUT (23:50)
[2022-09-18] VITALS (14 sets, daily range): BP systolic 112–158; BP diastolic 59–80; PULSE 50–67; RESP 18–20; TEMP 36.7–37.2; O2SAT 90–95
[2022-09-18] MEDS: IPRAT-ALBUT 0.5-2.5 MG/3 ML NEB 1 NEB IH ×4 (01:38→20:16)
--- NOTE | 2022-09-18 07:00 | PC.NURSE ---
VSS on 2L of O2 via NC. Patient is alert and oriented x 3, able to verbalize needs to staff. Patient denies pain on assessment. Pt is incontinent of bladder, bladder scanned with small amount, voiding adequately. Wound dressing changed per order. Patient is stable, call light within reach.
[2022-09-18 07:16] LABS: HCO3 VBG 44 mmol/L (21-28); PO2 VBG 63.1 mmHG (25-47); pH VBG 7.465 (7.32-7.43)
[2022-09-18 07:19] LABS: PCO2 VBG 62 mmHG (40-50)
[2022-09-18 08:05] LABS: Chloride* 95 mmol/L (96-114); Potassium* 3.6 mmol/L (3.6-5.1); Sodium* 140 mmol/L (135-149)
[2022-09-18 08:08] LABS: Blood Urea Nitrogen* 30 mg/dL (7-30); Estimated Glomerular Filt Rate 76 ml/min
[2022-09-18 08:09] LABS: Calcium* 8.8 mg/dL (8.4-10.6); Glucose* 118 mg/dL (60-115)
[2022-09-18 08:17] LABS: Carbon Dioxide* 41 mmol/L (20-32)
[2022-09-18] MEDS: TORSEMIDE 20 MG TABLET 40 MG PO (08:40)
[2022-09-18] MEDS: cephALEXin 500 MG CAPSULE 1000 MG PO ×2 (09:58→20:16)
[2022-09-18] MEDS: ASPIRIN 81 MG TABLET EC PO (09:59)
[2022-09-18] MEDS: METOPROLOL SUCCINATE (XL) 100 MG TAB 150 MG PO (09:59)
[2022-09-18] MEDS: ACETAMINOPHEN 325 MG TABLET 650 MG PO (10:00)
[2022-09-18] MEDS: allopurinoL 100 MG TABLET PO (10:00)
[2022-09-18] MEDS: lisinopriL 10 MG TABLET 20 MG PO (10:00)
[2022-09-18] MEDS: NYSTATIN POWDER 1 APPLIC TOPICAL ×2 (10:04→20:19)
[2022-09-18] MEDS: SODIUM CHLORIDE 0.9 % (FLUSH) 10 ML SYRINGE 5 ML IVF ×2 (10:04→23:59)
--- NOTE | 2022-09-18 10:25 | P.IMPN_ITS ---
Progress Note: A&P Assessment and plan (1) Acute respiratory failure with hypoxia and hypercapnia: Problem details: CHF - diastolic. Acute on chronic. Preserved EF, 55%. Echo reviewed from 09/13/2022. reviewed CT chest from admission pulmonary edema. less COPD. cxr 09/16 significantly better d/c pérez. now on oral diuretics. incontinent we tried no bipap last night and there was a significant jump in his CO2. will return to using this at night. Trend labs, oxygen requirement and daily weights. bipap while sleeping. Likely a component [place], restrictive lung disease from undiagnosed or untreated REGIS Chronic hypercapnia given normal pH. RT involved. [place] nasal O2 with Bi PAP while sleeping. Keep oxygen saturations between 88 and 90%. Status: Acute (2) Acute on chronic heart failure with preserved ejection fraction: Problem details: Echocardiogram 09/13/2022 EF 55%. diastolic. LVH with normal global systolic function. Status: Acute (3) Cellulitis of right leg: Problem details: Wound care consult. Lymphedema pumps are likely needed. Compression wraps, diuretics, antibiotics. going to oral abx tomorrow (KEFLEX 1 GRAM TID). crp and procalcitonin normal. 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 Likely is cellulitis on the right side. Patient will need lymphedema pumps - edema wear. Status: Acute (5) Elevated troponin: Problem details: peaked and downtrending. Status: Acute (6) Hypertension: Problem details: continue home lisinopril 20mg and metoprolol xl 100mg daily (INCREASING TO 150MG 09/16/22) Status: Acute (7) Type 2 diabetes mellitus: Problem details: SSI/accuchecks [id number] - takes NPH 15 am, 10 pm - increasing to 20 am, 15 pm. stopping iv steroid. Status: Chronic Subjective Date Seen: 09/18/22 Interval history: Daily Progress Note - Hospital Medicine #: 6 CC:? Acute hypoxic and hypercapnic respiratory failure secondary to acute on chronic diastolic heart failure - lymphedema with mild cellulitis OVERNIGHT UPDATES FROM STAFF & MED, LAB, IMAGING UPDATES Remains afebrile and hypertension improved. We increased his metoprolol to 150 mg yesterday. Holding his sats with oxygen reservoir at 1.5 L. His weight continues to go down! total delta loss: 21.5 lbs After wearing BiPAP last night as compared to the night before his CO2 was 62. Yesterday morning it was 81. BMP looks good, mild increase in the carbon dioxide which is expected. single view chest xray done 08/20- One view chest. Significantly improved pulmonary vascular congestion with persistent upper normal caliber. Mild cardiomegaly. No pleural effusion. Review of Systems: See subjective Cardiac: No new chest pain/pressure/palpitations. Respiratory: chronic dyspnea with exertion GI: No abdominal bloating Objective: alert. making jokes, trying hard with therapy. Vitals: see above I observed his gait and he was walking fairly steady with walker and standby assist. Lungs: diminished bases but much improved. Cardiac: S1S2. legs continue to improve: diameter; weepiness Disposition/Potential discharge - short term rehab likely - will need PT/OT and bipap with no adjusting needed (auto) at discharge to SNF Total time is 35 minutes with greater than 50% spent in counseling and coordination of care. Exam Const: Vital Signs, click to edit/add: Vital Signs - 24 hr 09/17/22 11:27 09/17/22 11:57 09/17/22 12:00 Temperature 99 F Pulse Rate Pulse Rate [Left A pical] 70 Pulse Rate [Left P ulse Oximeter] Respiratory Rate 30 H 20 20 Blood Pressure [Ri ght Arm] 144/73 H Pulse Oximetry 91 90 90 Oxygen Delivery Me thod Nasal Cannula [place] Nasal Ca nnula [place] Nasal Ca nnula Oxygen Flow Rate 1.5 2 2.0 Fraction of Inspir ed Oxygen 09/17/22 15:00 09/17/22 16:45 09/17/22 18:55 Temperature 98 F Pulse Rate 61 Pulse Rate [Left A pical] 92 Pulse Rate [Left P ulse Oximeter] 98 Respiratory Rate 20 18 Blood Pressure [Ri ght Arm] 112/71 Pulse Oximetry 92 94 Oxygen Delivery Me thod Room Air [place] Nasal Cannula [place] Nasal Ca nnula Oxygen Flow Rate 2.0 Fraction of Inspir ed Oxygen 09/17/22 19:00 09/17/22 23:00 09/17/22 23:00 Temperature 98.8 F Pulse Rate Pulse Rate [Left A pical] 62 60 Pulse Rate [Left P ulse Oximeter] 60 Respiratory Rate 18 18 18 Blood Pressure [Ri ght Arm] 130/70 Pulse Oximetry 90 90 Oxygen Delivery Me thod Room Air High Flow Nasal Ca nnula Oxygen Flow Rate 2.0 Fraction of Inspir ed Oxygen 30 09/17/22 23:00 09/18/22 03:00 09/18/22 02:00 Temperature 97.6 F 98.1 F Pulse Rate 50 L Pulse Rate [Left A pical] 60 Pulse Rate [Left P ulse Oximeter] 60 Respiratory Rate 18 18 Blood Pressure [Ri t Arm] 153/81 H 122/65 Pulse Oximetry 92 92 Oxygen Delivery Me thod Nasal Cannula High Flow Nasal Ca nnula Oxygen Flow Rate 2 2 Fraction of Inspir ed Oxygen 09/18/22 08:27 09/18/22 09:51 09/18/22 10:00 Temperature 99 F Pulse Rate Pulse Rate [Left A pical] Pulse Rate [Left P ulse Oximeter] Respiratory Rate 20 Blood Pressure [[facility] Arm] Pulse Oximetry 92 Oxygen Delivery Me thod [place] Nasal Ca nnula Oxygen Flow Rate Fraction of Inspir ed Oxygen 0.30 Labs Labs: Laboratory Results - last 24 hr 09/18/22 09/18/22 06:58 06:58 VBG pH 7.465 H VBG pCO2 62 H* VBG pO2 63.1 H VBG HCO3 44 H Sodium 140 Potassium 3.6 Chloride 95 L Carbon Dioxide 41 H* BUN 30 Creatinine 1.0 Estimated Creat Clear 68.50 Estimated GFR 76 Glucose 118 H Calcium 8.8
[2022-09-18] MEDS: INSULIN NPH 100 UNIT/ML 20 UNIT SUBCUT (13:41)
--- NOTE | 2022-09-18 19:50 | PC.NURSE ---
PT IRRITABLE WITH NURSING INTERVENTIONS. WALKED ONCE WITH OT/PT, AND TWICE WITH RN & LABORER [employer], NEEDS GB, LARGE WALKER, OXYGEN VIA OXIMIZER. STRENGTH/STAMINA IMPROVING SINCE ADMISSION. PLEASE SEE EMAR FOR MEDS GIVEN ON DAY SHIFT, BLOOD SUGARS AND INSULIN COVERAGE. BILATERAL LE DRESSINGS CHANGED. PT TOLERATED WELL. REPORT TO FÁTIMA JOHNSTON FOR [employer].
[2022-09-18] MEDS: ENOXAPARIN 40 MG/0.4 ML INJ SUBCUT (20:14)
[2022-09-18] MEDS: ATORVASTATIN 10 MG TABLET 20 MG PO (20:15)
[2022-09-18] MEDS: GABAPENTIN 300 MG CAPSULE 600 MG PO (20:18)
[2022-09-18] MEDS: TRIAMCINOLONE ACETONIDE CREAM 0.1 % 1 APPLIC TOPICAL (20:19)
[2022-09-19] VITALS (9 sets, daily range): BP systolic 134–195; BP diastolic 68–104; PULSE 60–67; RESP 18–24; TEMP 36.2–37.2; O2SAT 89–94
[2022-09-19] MEDS: IPRAT-ALBUT 0.5-2.5 MG/3 ML NEB 1 NEB IH ×4 (06:27→19:39)
--- NOTE | 2022-09-19 07:19 | PC.NURSE ---
Patient is alert and oriented x3. Denies pain on assessment. Ambulated in [place] with 2 staff assist. VSS on 2L of O2 via NC. Patient changed and repo. Wound dressing completed.
[2022-09-19] MEDS: TORSEMIDE 20 MG TABLET 40 MG PO (07:36)
[2022-09-19 08:31] LABS: HCO3 VBG 45 mmol/L (21-28); Ionized Calcium* 1.13 mmol/L (1.11-1.30); PO2 VBG 51.9 mmHG (25-47); pH VBG 7.423 (7.32-7.43)
[2022-09-19 08:34] LABS: Hematocrit 51.4 % (37.0-53.0); Hemoglobin* 15.6 gm/dL (13.5-17.5); Mean Corpuscular HGB Conc 30 gm/dL (32-36); Mean Corpuscular Hemoglobin 29 pg (26-34); Mean Corpuscular Volume 94 fL (80-100); Platelet Count* 194 K/uL (140-440); Red Blood Count 5.48 m/uL (4.30-5.90); White Blood Count* 9.67 K/uL (4.50-11.00)
[2022-09-19 08:37] LABS: PCO2 VBG 69 mmHG (40-50)
[2022-09-19 08:38] LABS: Slide Review Reflex No
[2022-09-19 08:45] LABS: Albumin* 3.6 g/dL (3.3-5.0); Chloride* 95 mmol/L (96-114)
[2022-09-19 08:46] LABS: Potassium* 3.9 mmol/L (3.6-5.1); Sodium* 140 mmol/L (135-149)
[2022-09-19 08:48] LABS: Bilirubin Total* 1.2 mg/dL (0.1-1.5); Estimated Glomerular Filt Rate 76 ml/min
[2022-09-19 08:49] LABS: Alanine Aminotransferase* 16 U/L (4-50); Alkaline Phosphatase* 73 U/L (40-150); Aspartate Amino Transferase* 18 U/L (12-35); Blood Urea Nitrogen* 35 mg/dL (7-30); Glucose* 135 mg/dL (60-115); Total Protein* 6.8 g/dL (6.0-8.3)
[2022-09-19 08:50] LABS: Magnesium* 2.3 mg/dL (1.5-2.6)
[2022-09-19 08:52] LABS: C Reactive Protein* 4.4 mg/dL (0.5-1.0)
[2022-09-19] MEDS: cephALEXin 500 MG CAPSULE 1000 MG PO (08:53)
[2022-09-19] MEDS: lisinopriL 10 MG TABLET 20 MG PO (08:53)
[2022-09-19] MEDS: METOPROLOL SUCCINATE (XL) 100 MG TAB 150 MG PO (08:53)
[2022-09-19] MEDS: ASPIRIN 81 MG TABLET EC PO (08:53)
[2022-09-19] MEDS: allopurinoL 100 MG TABLET PO (08:54)
[2022-09-19] MEDS: NYSTATIN POWDER 1 APPLIC TOPICAL ×2 (08:55→20:58)
[2022-09-19] MEDS: TRIAMCINOLONE ACETONIDE CREAM 0.1 % 1 APPLIC TOPICAL ×2 (08:55→20:58)
[2022-09-19 08:56] LABS: Carbon Dioxide* 40 mmol/L (20-32)
[2022-09-19] MEDS: SODIUM CHLORIDE 0.9 % (FLUSH) 10 ML SYRINGE 5 ML IVF ×2 (08:56→20:58)
[2022-09-19 09:01] LABS: NT Pro B Type NatriureticPept* 882 pg/mL
[2022-09-19] MEDS: ACETAMINOPHEN 325 MG TABLET 650 MG PO ×2 (09:38→20:56)
--- NOTE | 2022-09-19 11:01 | P.IMPN_ITS ---
Progress Note: A&P Assessment and plan (1) Acute respiratory failure with hypoxia and hypercapnia: Problem details: - multifactorial: diastolic CHF, acute on chronic, OHS, restrictive lung disease - CT chest from admission: pulmonary edema, improved on 09/16 CXR - tolerating Torsemide 40mg daily (on 20mg Furosemide as an outpatient), pérez d/c'd 09/16 - Appreciate input from RT. Continue reservoir nasal O2 with BiPAP while sleeping, keep oxygen saturations between 88 and 90% - will need BIPAP upon d/c given severe Co2 retention Status: Acute (2) Acute on chronic heart failure with preserved ejection fraction: Problem details: - TTE obtained 09/13 Final Impressions: 1. Mildly increased LV size, severely increased wall thickness, normal global systolic function with an estimated EF of 55%. 2. Moderately enlarged left atrium. 3. Right ventricular cavity size is not well visualized, global systolic RV function is not well visualized. 4. Echo contrast was administrered to rule out left ventricular mass. 5. The ascending aorta is dilated with a maximal diameter of 5.0 cm. 6. The aortic sinus is dilated with a maximal diameter of 4.7 cm. 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: Problem details: - Acute on chronic with concern for RLE cellulitis Status: Acute (5) Elevated troponin: Problem details: - peaked at 0.45, downtrending - no chest pain Status: Acute (6) Hypertension: Problem details: - continue home lisinopril 20mg and metoprolol xl 100mg daily (increased to 150mg 09/16/22) Status: Acute (7) Type 2 diabetes mellitus: Problem details: - SSI/accuchecks, increased home NPH from 15U Qam and 10U pm to 20U Qam, 15U Qpm - blood sugars 122-251 over past 24 hours Status: Chronic (8) Rash: Problem details: - ddx: Drug reaction vs heat/positional related - mild elevation of eosinophils, no pruritus. No GI symptoms - for now, will hold Keflex monitor closely. Kathyryl available if needed, follow CBC with diff - consider restarting antibiotics tomorrow pending clinical course Status: Acute Plan - per above - Lovenox for prophylaxis - Appreciate input from RT, PT, OT, and social work for discharge planning Subjective Date Seen: 09/19/22 Interval history: 82-year-old male, admitted to the hospital for acute on chronic hypoxic and hypercapnic respiratory failure, acute on chronic diastolic heart failure. Patient also has venous stasis with current cellulitis, currently on Keflex. Patient is being followed by wound care, respiratory therapy, OT, and PT. He is an appropriate SNF candidate, but is hoping to go home when medically stable. Adriano continues to require BiPAP at night, + Co2 retention. Today, patient notes feeling tired. He also notes persistent dysuria since removal of the Pérez catheter 2 days ago. UA and culture have been ordered. He has no GI distress, no tongue swelling, no wheezing, no pruritus. Exam Narrative: Exam Narrative: GEN: Alert and oriented, laying comfortably in bed HEENT: Normal external ears, EOMIs bilaterally CV: RRR, No concerning murmurs, rubs, or gallops R: Decreased bilateral bases Ext: Edema of lower extremities, not formally examined as patient is wearing Dmitriy hose Skin: Confluent, blanching erythema over trunk Neuro: No focal deficits Psych: Appropriate, mildly frustrated regarding hospital stay Const: Vital Signs, click to edit/add: Vital Signs - 24 hr 09/18/22 12:00 09/18/22 15:00 09/18/22 15:20 Temperature Pulse Rate 65 Pulse Rate [Left A pical] Pulse Rate [Left P ulse Oximeter] Respiratory Rate 20 20 Blood Pressure [Le ft Arm] Blood Pressure [Ri ght Arm] Pulse Oximetry 93 93 Oxygen Delivery Me thod [place] Nasal Ca nnula [place] Nasal Ca nnula Oxygen Flow Rate 2 2 Fraction of Inspir ed Oxygen 09/18/22 16:30 09/18/22 19:00 09/18/22 20:00 Temperature 98.2 F Pulse Rate Pulse Rate [Left A pical] 67 Pulse Rate [Left P ulse Oximeter] 64 Respiratory Rate 20 18 Blood Pressure [Le ft Arm] Blood Pressure [Ri ght Arm] 148/76 H Pulse Oximetry 92 95 95 Oxygen Delivery Me thod [place] Nasal Ca nnula Nasal Cannula Oxygen Flow Rate Fraction of Inspir ed Oxygen 09/18/22 23:00 09/18/22 23:00 09/18/22 23:00 Temperature 98.1 F Pulse Rate Pulse Rate [Left A pical] 67 62 Pulse Rate [Left P ulse Oximeter] 64 Respiratory Rate 18 18 18 Blood Pressure [Le ft Arm] Blood Pressure [Ri ght Arm] 158/80 H Pulse Oximetry 94 Oxygen Delivery Me thod Nasal Cannula Nasal Cannula Oxygen Flow Rate 2 2 Fraction of Inspir ed Oxygen 09/19/22 03:38 09/19/22 03:00 09/19/22 07:00 Temperature 98 F 97.7 F Pulse Rate 67 Pulse Rate [Left A pical] 65 Pulse Rate [Left P ulse Oximeter] 61 Respiratory Rate 18 18 Blood Pressure [Le ft Arm] 134/70 Blood Pressure [Ri ght Arm] 136/73 Pulse Oximetry 93 89 Oxygen Delivery Me thod Nasal Cannula Nasal Cannula Oxygen Flow Rate 2 2.5 Fraction of Inspir ed Oxygen 09/19/22 07:00 09/19/22 07:00 09/19/22 07:00 Temperature Pulse Rate 62 Pulse Rate [Left A pical] Pulse Rate [Left P ulse Oximeter] 61 Respiratory Rate 18 18 Blood Pressure [Le ft Arm] Blood Pressure [Ri ght Arm] Pulse Oximetry 89 Oxygen Delivery Me thod Nasal Cannula Oxygen Flow Rate 2.5 Fraction of Inspir ed Oxygen 09/19/22 10:14 Temperature Pulse Rate Pulse Rate [Left A pical] Pulse Rate [Left P ulse Oximeter] Respiratory Rate Blood Pressure [Le ft Arm] Blood Pressure [Ri ght Arm] Pulse Oximetry Oxygen Delivery Me thod Oxygen Flow Rate Fraction of Inspir ed Oxygen 0.30 Labs Labs: Laboratory Results - last 24 hr 09/19/22 09/19/22 09/19/22 04:00 04:00 07:57 WBC 9.67 RBC 5.48 Hgb 15.6 Hct 51.4 MCV 94 MCH 29 MCHC 30 L Plt Count 194 VBG pH 7.423 VBG pCO2 69 H* VBG pO2 51.9 H VBG HCO3 45 H Sodium 140 Potassium 3.9 Chloride 95 L Carbon Dioxide 40 H BUN 35 H Creatinine 1.0 Estimated Creat Clear 68.50 Estimated GFR 76 Glucose 135 H Calcium 9.0 Ionized Calcium Laura 1.13 Magnesium 2.3 Total Bilirubin 1.2 AST 18 ALT 16 Alkaline Phosphatase 73 C-Reactive Protein 4.4 H NT-Pro-B Natriuret Pep 882 Total Protein 6.8 Albumin 3.6
[2022-09-19] MEDS: INSULIN NPH 100 UNIT/ML 20 UNIT SUBCUT (11:25)
--- NOTE | 2022-09-19 12:43 | CRLHL7_ITS ---
For Patients: As a result of the Century Cures Act, medical imaging exams and procedure reports are released immediately into your electronic medical record. You may view this report before your referring provider. If you have questions, please contact your health care provider. INDICATION: Illness TECHNIQUE: Single-view chest. FINDINGS: Enlarged cardiac silhouette. Low lung volumes. Lungs appear clear. Dictated by Sunita oKenig MD @ 09/19/2022 1:18:56 PM (Electronically Signed)
[2022-09-19 13:00] LABS: Basophils Absolute Auto 0.02 K/uL (0.00-0.30); Basophils Percent Auto 0.2 % (0.0-3.0); Eosinophils Absolute Auto 0.59 K/uL (0.00-0.50); Eosinophils Percent Auto 5.9 % (0.0-7.0); Immature Granulocytes Abs Auto 0.01 K/uL (0.00-0.30); Immature Granulocytes Pct Auto 0.1 %; Lymphocytes Percent Auto 7.7 % (20-44); Monocytes Percent Auto 10.4 % (0.0-11.0); Neutrophils Percent Auto 75.7 % (42.0-72.0); RDW Coefficient of Variation % 13.6 % (11.5-15.5)
[2022-09-19 13:24] LABS: Appearance Urine Cloudy (Clear); Bilirubin Urine Negative (Negative); Blood Urine 3+ (Negative); Color Urine Yellow (Yellow); Glucose Urine Negative (Negative); Ketones Urine Negative (Negative); Leukocyte Esterase Urine Trace (Negative); Nitrite Urine Negative (Negative); Protein Urine Negative (Negative); Specific Gravity Urine 1.015 (1.000-1.030); Urobilinogen Urine 0.2 (0.2-1.0); pH Urine 7.5 (5.0-8.5)
[2022-09-19 14:15] LABS: RBC Urine 50-100 (0-2); Squamous Epithelial Cell Urine Few (None-Few); WBC Urine 0-2 (0-5)
--- NOTE | 2022-09-19 14:29 | PC.SOCIAL ---
SW followed up today with facility conversation from Monday. SNF at [place] reported that they do not accept [employer] insurance. [facility] [place] stated that they will have beds available this week and will know more tomorrow after management returns. SW to continue d/c planning tomorrow and will follow up with [facility] admissions at that time. RN and OT aware of this update.
[2022-09-19] MEDS: BACITRACIN OINTMENT BULK TUBE 1 APPLIC TOPICAL (17:05)
--- NOTE | 2022-09-19 18:18 | PC.NURSE ---
Addendum entered by Tisha Hills RN 09/19/22 18:40: Wound care completed. Original Note: End of Shift: Patient pleasant and cooperative. Patient hypertensive with later vitals but vitally stable, lungs clear, BS WNL, IV intact. Patient reports pain with urination, MD notified, urinalysis and labs ordered. With one brief change patient hand bloody clots, charge nurse notified. Patient incontinent of urine and used toilet once to attempted to have BM, no success. Patient reports back pain at most /10, tylenol given. Patient 1-2 assist, walker, gb. Patient tolerating regular diet but not with much appetite today, patient reported not feeling as well as he did yesterday. Patient BS's 149, 251, and 129.
[2022-09-19] MEDS: ENOXAPARIN 40 MG/0.4 ML INJ SUBCUT (20:56)
[2022-09-19] MEDS: GABAPENTIN 300 MG CAPSULE 600 MG PO (20:56)
[2022-09-19] MEDS: ATORVASTATIN 10 MG TABLET 20 MG PO (20:57)
--- NOTE | 2022-09-19 22:07 | PC.NURSE ---
Per primary nurse patient has had several pencil sized or smaller clots in amongst urine in incontinent pad. Dr. Lozano notified. No new orders.
[2022-09-19] MEDS: INSULIN NPH 100 UNIT/ML 15 UNIT SUBCUT ×2 (22:45)
[2022-09-20] VITALS (8 sets, daily range): BP systolic 118–139; BP diastolic 53–107; PULSE 65–79; RESP 18–22; TEMP 36.6–37.3; O2SAT 88–93
[2022-09-20 07:00] LABS: Basophils Percent Auto 0.1 % (0.0-3.0); Eosinophils Percent Auto 0.4 % (0.0-7.0); Hematocrit 55.5 % (37.0-53.0); Hemoglobin* 16.9 gm/dL (13.5-17.5); Immature Granulocytes Pct Auto 0.3 %; Lymphocytes Percent Auto 2.2 % (20-44); Mean Corpuscular HGB Conc 31 gm/dL (32-36); Mean Corpuscular Hemoglobin 28 pg (26-34); Mean Corpuscular Volume 92 fL (80-100); Monocytes Percent Auto 9.6 % (0.0-11.0); Neutrophils Percent Auto 87.4 % (42.0-72.0); Platelet Count* 202 K/uL (140-440); RDW Coefficient of Variation % 13.5 % (11.5-15.5); Red Blood Count 6.01 m/uL (4.30-5.90)
[2022-09-20 07:03] LABS: Slide Review Reflex No
[2022-09-20 07:15] LABS: Albumin* 3.9 g/dL (3.3-5.0); Chloride* 94 mmol/L (96-114)
[2022-09-20 07:16] LABS: Potassium* 4.1 mmol/L (3.6-5.1); Sodium* 141 mmol/L (135-149)
[2022-09-20 07:18] LABS: Alkaline Phosphatase* 88 U/L (40-150); Aspartate Amino Transferase* 20 U/L (12-35); Bilirubin Total* 1.4 mg/dL (0.1-1.5); Blood Urea Nitrogen* 49 mg/dL (7-30); Creatinine* 1.9 mg/dL (0.5-1.5); Est. Creatinine Clearance* 36.05; Estimated Glomerular Filt Rate 35 ml/min; Total Protein* 7.4 g/dL (6.0-8.3)
[2022-09-20 07:19] LABS: Alanine Aminotransferase* 17 U/L (4-50); Calcium* 9.7 mg/dL (8.4-10.6); Glucose* 170 mg/dL (60-115)
--- NOTE | 2022-09-20 07:23 | PC.NURSE ---
: A x 1-2 with gb and walker. 2x wet briefs. c/o achy back, Tylenol given with relief. ? BiPAP on , 0-end of shift. When not on BiPAP pt on 1-1.5L Oxymizer to maintain >88%. O2 fell off when pt was sleeping and he desated into the 70s, quickly rebounded by reapplying O2 and waking the pt. ? Dressing change to BLE completed this AM. Reddened rash to back, no c/o itching or any discomfort.
[2022-09-20 07:25] LABS: Carbon Dioxide* 37 mmol/L (20-32)
[2022-09-20 07:25] LABS: HCO3 VBG 43 mmol/L (21-28); PO2 VBG 42.9 mmHG (25-47); pH VBG 7.428 (7.32-7.43)
[2022-09-20 07:27] LABS: PCO2 VBG 65 mmHG (40-50)
[2022-09-20 07:33] LABS: Procalcitonin* 0.25 ng/mL (<0.50)
[2022-09-20] MEDS: IPRAT-ALBUT 0.5-2.5 MG/3 ML NEB 1 NEB IH ×3 (08:24→19:42)
--- NOTE | 2022-09-20 09:09 | CRLHL7_ITS ---
For Patients: As a result of the Century Cures Act, medical imaging exams and procedure reports are released immediately into your electronic medical record. You may view this report before your referring provider. If you have questions, please contact your health care provider. INDICATION: Follow-up evaluation. COMPARISON: September 19, 2022 TECHNIQUE: Portable supine single view study FINDINGS: TUBES AND LINES: None. HEART AND MEDIASTINUM: Enlarged heart. LUNGS AND PLEURAL SPACES: The lungs appear normal.The pleural spaces are unremarkable. OSSEOUS STRUCTURES: Age-appropriate appearance. No acute focal finding. IMPRESSION: Enlarged heart. Lungs and pleural spaces appear normal. Dictated by Bull Powell MD @ 09/20/2022 11:01:03 AM (Electronically Signed)
--- NOTE | 2022-09-20 09:09 | CRLHL7_ITS ---
For Patients: As a result of the Century Cures Act, medical imaging exams and procedure reports are released immediately into your electronic medical record. You may view this report before your referring provider. If you have questions, please contact your health care provider. INDICATION: Hematuria COMPARISON: Portions of a September 14, 2022 examination TECHNIQUE: CT examination of the abdomen and pelvis was performed without intravenous contrast. Thin section axial images were obtained from the lung bases through the pubic symphysis. Oral contrast was not administered. Please note that all CT scans at this facility use dose modulation, iterative reconstruction, and/or weight-based dosing when appropriate to reduce radiation dose to as low as reasonably achievable. FINDINGS: LUNG BASES: Bibasal airspace process probably atelectasis.Enlarged heart at the lung bases. Incidental gynecomastia. LIVER/BILIARY SYSTEM:The liver is normal in size and configuration given the lack of intravenous contrast. There is no visible focal mass and there is no intra- or extra hepatic biliary ductal dilatation.The gall bladder appears normal. ADRENALS: Normal non-contrast appearance KIDNEYS, URETERS and BLADDER:The kidneys are normal in size. There is perinephric stranding and periureteric stranding. There are also moderately dilated ureters, a very significantly distended bladder and an enlarged prostate. There are also perivesicular inflammatory changes. All the above mentioned findings are new other than the enlarged prostate. The findings are probably all due to obstructive uropathy at the level of the bladder outlet and probably due to an enlarged prostate. The possibility that the urinary tract being infected should also be considered clinically. There are no stones or visible mechanical obstruction although the prostate SPLEEN:Normal non-contrast appearance. PANCREAS: Normal non-contrast appearance. RETROPERITONEUM and MESENTERY: There is no mass, adenopathy or aortic aneurysm. Atherosclerotic vascular calcifications GASTROINTESTINAL SYSTEM: There is no evidence of diverticulitis, colitis, mechanical obstruction, or appendicitis. The small bowel as visualized appears normal.Thick retention. Scattered diverticulosis. PELVIS: No adenopathy.. OSSEOUS STRUCTURES and ABDOMINAL WALL: Demineralization, degenerative changes and scoliosis. No acute osseous findings.No significant abdominal wall defect. OTHER: No free fluid or free air. IMPRESSION: 1. Perinephric, periureteric and perivesicular inflammatory change and mildly dilated ureters. Although these findings are new when compared to September 14, 2022 and are likely due to bladder outlet obstruction at the level of the enlarged prostate. Infection of the urinary system should also be considered. 2. Other incidental nonacute appearing findings as above Please note that all CT scans at this facility use dose modulation, iterative reconstruction, and/or weight-based dosing when appropriate to reduce radiation dose to as low as reasonably achievable. Dictated by Bull Powell MD @ 09/20/2022 10:52:20 AM (Electronically Signed)
--- NOTE | 2022-09-20 09:13 | PM.IMPN1 ---
Progress Note: A&P Assessment and plan (1) Acute respiratory failure with hypoxia and hypercapnia: Problem details: - multifactorial: diastolic CHF, acute on chronic, OHS, restrictive lung disease - CT chest from admission: pulmonary edema, improved on 09/16 CXR - tolerating Torsemide 40mg daily (on 20mg Furosemide as an outpatient), pérez d/c'd 09/16 - Appreciate input from RT. Continue reservoir nasal O2 with BiPAP while sleeping, keep oxygen saturations between 88 and 90% - will need BIPAP upon d/c given severe Co2 retention Status: Acute (2) Acute on chronic heart failure with preserved ejection fraction: Problem details: - TTE obtained 09/13 Final Impressions: 1. Mildly increased LV size, severely increased wall thickness, normal global systolic function with an estimated EF of 55%. 2. Moderately enlarged left atrium. 3. Right ventricular cavity size is not well visualized, global systolic RV function is not well visualized. 4. Echo contrast was administrered to rule out left ventricular mass. 5. The ascending aorta is dilated with a maximal diameter of 5.0 cm. 6. The aortic sinus is dilated with a maximal diameter of 4.7 cm. Status: Acute (3) Leukocytosis: Problem details: - WBC increased from 9-19 09/20. Cellulitis (LE and/or back) vs UTI vs PNA - patient afebrile - urine culture growing Gram-positive mixed aries (was on Keflex when this was obtained) - chest x-ray reassuring, CT scan results noted above - blood cultures obtained (09/20) - initiate Ertapenem 09/20, close clinical followup Status: Acute (4) Acute kidney injury: Problem details: - creatinine from 1.0 --> 1.9 on 09/20 - decrease dose of Lovenox, hold Lisinopril (add Amlodipine) - source: iatrogenic vs obstructive (recent pérez with hematuria post removal), less likely prerenal but will monitor closely with gentle IVF boluses if needed Status: Acute (5) Cellulitis of right leg: Problem details: - appreciate wound care input - compression wraps, diuretics, antibiotics - crp and procalcitonin reassuring - transitioned to oral Keflex 09/16, this was stopped 09/19, transitioned to Ertapenem 09/20 Status: Acute (6) 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: Problem details: - Acute on chronic with concern for RLE cellulitis Status: Acute (7) Elevated troponin: Problem details: - peaked at 0.45, downtrending - no chest pain Status: Acute (8) Hypertension: Problem details: - continue home lisinopril 20mg and metoprolol xl 100mg daily (increased to 150mg 09/16/22) - add Amlodipine 1/3 for suboptimal control of BP (stopping Lisinopril 1/3 for SHANE) Status: Acute (9) Type 2 diabetes mellitus: Problem details: - SSI/accuchecks, increased home NPH from 15U Qam and 10U pm to 20U Qam, 15U Qpm - blood sugars 129-251 over past 24 hours Status: Chronic (10) Rash: Problem details: - ddx: Drug reaction vs heat/positional related vs infectious - mild elevation of eosinophils, no pruritus Status: Acute Plan - follow urinary symptoms closely - initiate Ertapenem 1/3 - hold Lisinopril, decrase dose of Lovenox for SHANE - continue treatments for CHF, OHS, hypoxic + hypercarbic respiratory failure - Shayy updated by phone, questions answered Subjective Date Seen: 09/20/22 Interval history: 82-year-old male, admitted to the hospital 09/13 for weakness and falls in the setting of acute on chronic hypoxic and hypercapnic respiratory failure, in addition to acute on chronic diastolic heart failure and chronic venous stasis with RLE cellulitis. Adriano continues to work with wound care, respiratory therapy, OT, and PT. He requires BiPAP at night, + Co2 retention. Today, patient notes feeling weak, thinks he'll feel better after eating breakfast. His dysuria from 09/19 has improved (noted to pass quite a few clots overnight, still having mild hematuria). Specifically denies back pain, abdominal pain, and chest pain. Urine culture is growing >100,000 mixed G+ aries. This morning his WBC increased from 9 --> 19 and his Cr increased from 1 --> 1.9 CT obtained with findings below: FINDINGS: LUNG BASES: Bibasal airspace process probably atelectasis.Enlarged heart at the lung bases. Incidental gynecomastia. LIVER/BILIARY SYSTEM:The liver is normal in size and configuration given the lack of intravenous contrast. There is no visible focal mass and there is no intra- or extra hepatic biliary ductal dilatation.The gall bladder appears normal. ADRENALS: Normal non-contrast appearance KIDNEYS, URETERS and BLADDER:The kidneys are normal in size. There is perinephric stranding and periureteric stranding. There are also moderately dilated ureters, a very significantly distended bladder and an enlarged prostate. There are also perivesicular inflammatory changes. All the above mentioned findings are new other than the enlarged prostate. The findings are probably all due to obstructive uropathy at the level of the bladder outlet and probably due to an enlarged prostate. The possibility that the urinary tract being infected should also be considered clinically. There are no stones or visible mechanical obstruction although the prostate SPLEEN:Normal non-contrast appearance. PANCREAS: Normal non-contrast appearance. RETROPERITONEUM and MESENTERY: There is no mass, adenopathy or aortic aneurysm. Atherosclerotic vascular calcifications GASTROINTESTINAL SYSTEM: There is no evidence of diverticulitis, colitis, mechanical obstruction, or appendicitis. The small bowel as visualized appears normal.Thick retention. Scattered diverticulosis. PELVIS: No adenopathy.. OSSEOUS STRUCTURES and ABDOMINAL WALL: Demineralization, degenerative changes and scoliosis. No acute osseous findings.No significant abdominal wall defect. OTHER: No free fluid or free air. IMPRESSION: 1. Perinephric, periureteric and perivesicular inflammatory change and mildly dilated ureters. Although these findings are new when compared to September 14, 2022 and are likely due to bladder outlet obstruction at the level of the enlarged prostate. Infection of the urinary system should also be considered. 2. Other incidental nonacute appearing findings as above Exam Narrative: Exam Narrative: GEN: Alert and sitting comfortably in bedside chair, answering questions appropriately HEENT: Normal external ears, EOMIs bilaterally CV: RRR, No concerning murmurs, rubs, or gallops R: Fine rales bilateral bases, air movement adequate Ext: Wearing Dmitriy hose bilateral lower extremities. RLE wound not formally examined (seen by Wound Care and nursing earlier today with noted improvement) Skin: Blanching confluent erythema over trunk persists, stable Neuro: Intermittent coarse tremor of bilateral upper extremities, R>L Psych: Appropriate Const: Vital Signs, click to edit/add: Vital Signs - 24 hr 09/19/22 10:14 09/19/22 11:00 09/19/22 12:00 Temperature 98.9 F Pulse Rate Pulse Rate [Left P ulse Oximeter] 64 Respiratory Rate 24 24 Blood Pressure [Le ft Arm] 167/83 H Pulse Oximetry 89 89 Oxygen Delivery Me thod Nasal Cannula Nasal Cannula Oxygen Flow Rate 2 2 Fraction of Inspir ed Oxygen 0.30 09/19/22 15:00 09/19/22 15:00 09/19/22 15:00 Temperature 98.8 F Pulse Rate Pulse Rate [Left P ulse Oximeter] 63 63 Respiratory Rate 20 20 20 Blood Pressure [Le ft Arm] 188/87 H Pulse Oximetry 90 90 Oxygen Delivery Me thod Nasal Cannula Nasal Cannula Oxygen Flow Rate 1.5 1.5 Fraction of Inspir ed Oxygen 09/19/22 15:00 09/19/22 19:00 09/19/22 20:00 Temperature 98.1 F Pulse Rate 61 Pulse Rate [Left P ulse Oximeter] 63 Respiratory Rate 18 Blood Pressure [Le ft Arm] 151/68 H Pulse Oximetry 94 93 Oxygen Delivery Me thod Nasal Cannula Oxygen Flow Rate 1.5 Fraction of Inspir ed Oxygen 09/19/22 23:00 09/19/22 23:00 09/19/22 23:00 Temperature 97.1 F L Pulse Rate Pulse Rate [Left P ulse Oximeter] 63 64 Respiratory Rate 18 18 Blood Pressure [Le ft Arm] 195/104 H Pulse Oximetry 93 94 Oxygen Delivery Me thod BiPAP BiPAP Oxygen Flow Rate Fraction of Inspir ed Oxygen 09/19/22 23:00 09/20/22 02:43 09/20/22 07:00 Temperature Pulse Rate 60 70 Pulse Rate [Left P ulse Oximeter] 68 Respiratory Rate 18 Blood Pressure [Le ft Arm] Pulse Oximetry 90 Oxygen Delivery Me thod Nasal Cannula Oxygen Flow Rate 1.5 Fraction of Inspir ed Oxygen Labs Labs: Laboratory Results - last 24 hr 09/19/22 09/19/22 09/20/22 04:00 11:06 06:29 WBC 19.80 H RBC 6.01 H Hgb 16.9 Hct 55.5 H MCV 92 MCH 28 MCHC 31 L RDW Coeff of Mindy 13.6 13.5 Plt Count 202 Neut % (Auto) 75.7 H 87.4 H Lymph % (Auto) 7.7 L 2.2 L Bertie % (Auto) 10.4 9.6 Eos % (Auto) 5.9 0.4 Baso % (Auto) 0.2 0.1 Neut # (Auto) 7.30 H 17.30 H Lymph # (Auto) 0.70 L 0.40 L Bertie # (Auto) 1.00 H 1.90 H Eos # (Auto) 0.59 H 0.10 Baso # (Auto) 0.02 0.00 VBG pH VBG pCO2 VBG pO2 VBG HCO3 Sodium Potassium Chloride Carbon Dioxide BUN Creatinine Estimated Creat Clear Estimated GFR Glucose Calcium Total Bilirubin AST ALT Alkaline Phosphatase Total Protein Albumin Procalcitonin Urine Color Yellow Urine Appearance Cloudy A Urine pH 7.5 Ur Specific [place] 1.015 Urine Protein Negative Urine Glucose (UA) Negative Urine Ketones Negative Urine Blood 3+ A Urine Nitrite Negative Urine Bilirubin Negative Urine Urobilinogen 0.2 Ur Leukocyte Esterase Trace A Urine RBC 50-100 A Urine WBC 0-2 Ur Squamous Epith Cells Few Urine Bacteria None 09/20/22 09/20/22 06:29 07:19 WBC RBC Hgb Hct MCV MCH MCHC RDW Coeff of Mindy Plt Count Neut % (Auto) Lymph % (Auto) Bertie % (Auto) Eos % (Auto) Baso % (Auto) Neut # (Auto) Lymph # (Auto) Bertie # (Auto) Eos # (Auto) Baso # (Auto) VBG pH 7.428 VBG pCO2 65 H* VBG pO2 42.9 VBG HCO3 43 H Sodium 141 Potassium 4.1 Chloride 94 L Carbon Dioxide 37 H BUN 49 H Creatinine 1.9 H Estimated Creat Clear 36.05 Estimated GFR 35 Glucose 170 H Calcium 9.7 Total Bilirubin 1.4 AST 20 ALT 17 Alkaline Phosphatase 88 Total Protein 7.4 Albumin 3.9 Procalcitonin 0.25 Urine Color Urine Appearance Urine pH Ur Specific [place] Urine Protein Urine Glucose (UA) Urine Ketones Urine Blood Urine Nitrite Urine Bilirubin Urine Urobilinogen Ur Leukocyte Esterase Urine RBC Urine WBC Ur Squamous Epith Cells Urine Bacteria
[2022-09-20] MEDS: TRIAMCINOLONE ACETONIDE CREAM 0.1 % 1 APPLIC TOPICAL ×2 (09:14→20:58)
[2022-09-20] MEDS: NYSTATIN POWDER 1 APPLIC TOPICAL ×2 (09:14→20:58)
[2022-09-20] MEDS: TORSEMIDE 20 MG TABLET 40 MG PO (09:17)
[2022-09-20] MEDS: METOPROLOL SUCCINATE (XL) 100 MG TAB 150 MG PO (09:17)
[2022-09-20] MEDS: allopurinoL 100 MG TABLET PO (09:17)
[2022-09-20] MEDS: ASPIRIN 81 MG TABLET EC PO (09:17)
[2022-09-20] MEDS: lisinopriL 10 MG TABLET 20 MG PO (09:17)
[2022-09-20] MEDS: SODIUM CHLORIDE 0.9 % (FLUSH) 10 ML SYRINGE 5 ML IVF ×3 (09:18→21:04)
[2022-09-20] MEDS: AMLODIPINE 10 MG TABLET PO (09:27)
--- NOTE | 2022-09-20 09:34 | P.IMPN_ITS ---
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 Wounds stable, minimal eschar noted to RLE wound. No concerns for infection to BLE. wound care orders: cleanse wound with wound cleanser. Cover with cut-to-fit wound xeroform and abd. Secure with 2-layer coban compression system change EOD and PRN. Next change to occur 09/22/22 by wound services. See previous recommendations regarding physical activity and nutrition recommendations as they pertain to wound care. Time Spent With Patient Total time spent: 25 Subjective Date Seen: 09/20/22 Interval history: f/u. on BLE lymphedema, venous insufficiency ulcerations to BLE. Wounds impr jose antonio, no concern for infection. Edema improved. Exam Narrative: Exam Narrative: General: awake. NAD. Laying in bed comfortably. HEENT: bipap mask on, patient appears comfortable. Respiratory: symmetrical rise, unlabored. Cardiac: pedal pulses palpable. Feet warm. Cap refill less than 5 seconds. BLE: chronic uncontrolled lymphedema cutaneous manifestations as previously mentioned. 2+ non-pitting edema. Skin: RLE wound measuring 10% eschar 15% healthy granulation 75% slough and biofilm. Moderate serosang drainage. Measuring 3cmX8.5cmX0.3. Tejal-wound WNL and free of s/s of infection. LLE wound measuring 1.5cmX1.5cmX0.1cm 50% healthy red/pink granulation 50% slough. Small serosang drainage. Tejal-wound WNL, no concern for infection. Psych: normal affect Const: Vital Signs, click to edit/add: Vital Signs - 24 hr 09/19/22 10:14 09/19/22 11:00 09/19/22 12:00 Temperature 98.9 F Pulse Rate Pulse Rate [Left P ulse Oximeter] 64 Respiratory Rate 24 24 Blood Pressure [Le ft Arm] 167/83 H Pulse Oximetry 89 89 Oxygen Delivery Me thod Nasal Cannula Nasal Cannula Oxygen Flow Rate 2 2 Fraction of Inspir ed Oxygen 0.30 09/19/22 15:00 09/19/22 15:00 09/19/22 15:00 Temperature 98.8 F Pulse Rate Pulse Rate [Left P ulse Oximeter] 63 63 Respiratory Rate 20 20 20 Blood Pressure [Le ft Arm] 188/87 H Pulse Oximetry 90 90 Oxygen Delivery Me thod Nasal Cannula Nasal Cannula Oxygen Flow Rate 1.5 1.5 Fraction of Inspir ed Oxygen 09/19/22 15:00 09/19/22 19:00 09/19/22 20:00 Temperature 98.1 F Pulse Rate 61 Pulse Rate [Left P ulse Oximeter] 63 Respiratory Rate 18 Blood Pressure [Le ft Arm] 151/68 H Pulse Oximetry 94 93 Oxygen Delivery Me thod Nasal Cannula Oxygen Flow Rate 1.5 Fraction of Inspir ed Oxygen 09/19/22 23:00 09/19/22 23:00 09/19/22 23:00 Temperature 97.1 F L Pulse Rate Pulse Rate [Left P ulse Oximeter] 63 64 Respiratory Rate 18 18 Blood Pressure [Le ft Arm] 195/104 H Pulse Oximetry 93 94 Oxygen Delivery Me thod BiPAP BiPAP Oxygen Flow Rate Fraction of Inspir ed Oxygen 09/19/22 23:00 09/20/22 02:43 09/20/22 07:00 Temperature Pulse Rate 60 70 Pulse Rate [Left P ulse Oximeter] 68 Respiratory Rate 18 Blood Pressure [Le ft Arm] Pulse Oximetry 90 Oxygen Delivery Me thod Nasal Cannula Oxygen Flow Rate 1.5 Fraction of Inspir ed Oxygen Documenting provider has reviewed patient's vital signs: yes Skin: Skin images (male): 1. RLE wound-etiology venous. see narrative for wound description/examination. 2. LLE wound etiology venous. see narrative for wound description/examination. Labs Labs: Laboratory Results - last 24 hr 09/19/22 09/19/22 09/20/22 04:00 11:06 06:29 WBC 19.80 H RBC 6.01 H Hgb 16.9 Hct 55.5 H MCV 92 MCH 28 MCHC 31 L RDW Coeff of Mindy 13.6 13.5 Plt Count 202 Neut % (Auto) 75.7 H 87.4 H Lymph % (Auto) 7.7 L 2.2 L Morgan % (Auto) 10.4 9.6 Eos % (Auto) 5.9 0.4 Baso % (Auto) 0.2 0.1 Neut # (Auto) 7.30 H 17.30 H Lymph # (Auto) 0.70 L 0.40 L Morgan # (Auto) 1.00 H 1.90 H Eos # (Auto) 0.59 H 0.10 Baso # (Auto) 0.02 0.00 VBG pH VBG pCO2 VBG pO2 VBG HCO3 Sodium Potassium Chloride Carbon Dioxide BUN Creatinine Estimated Creat Clear Estimated GFR Glucose Calcium Total Bilirubin AST ALT Alkaline Phosphatase Total Protein Albumin Procalcitonin Urine Color Yellow Urine Appearance Cloudy A Urine pH 7.5 Ur Specific [place] 1.015 Urine Protein Negative Urine Glucose (UA) Negative Urine Ketones Negative Urine Blood 3+ A Urine Nitrite Negative Urine Bilirubin Negative Urine Urobilinogen 0.2 Ur Leukocyte Esterase Trace A Urine RBC 50-100 A Urine WBC 0-2 Ur Squamous Epith Cells Few Urine Bacteria None 09/20/22 09/20/22 06:29 07:19 WBC RBC Hgb Hct MCV MCH MCHC RDW Coeff of Mindy Plt Count Neut % (Auto) Lymph % (Auto) Morgan % (Auto) Eos % (Auto) Baso % (Auto) Neut # (Auto) Lymph # (Auto) Morgan # (Auto) Eos # (Auto) Baso # (Auto) VBG pH 7.428 VBG pCO2 65 H* VBG pO2 42.9 VBG HCO3 43 H Sodium 141 Potassium 4.1 Chloride 94 L Carbon Dioxide 37 H BUN 49 H Creatinine 1.9 H Estimated Creat Clear 36.05 Estimated GFR 35 Glucose 170 H Calcium 9.7 Total Bilirubin 1.4 AST 20 ALT 17 Alkaline Phosphatase 88 Total Protein 7.4 Albumin 3.9 Procalcitonin 0.25 Urine Color Urine Appearance Urine pH Ur Specific [place] Urine Protein Urine Glucose (UA) Urine Ketones Urine Blood Urine Nitrite Urine Bilirubin Urine Urobilinogen Ur Leukocyte Esterase Urine RBC Urine WBC Ur Squamous Epith Cells Urine Bacteria Procedures Additional Procedures Additional Procedure Details: wound care dressing change by provider. Mechanical derbidement performed, patient tolerated well. 2-layer coban applied to BLE by provider
[2022-09-20] MEDS: INSULIN NPH 100 UNIT/ML 20 UNIT SUBCUT (11:28)
[2022-09-20] MEDS: 0.9 % SODIUM CHLORIDE 250 ml IV (13:13)
[2022-09-20] MEDS: ERTAPENEM 1 GM in 0.9 % SODIUM CHLORIDE Mini-bag 100 ML IVPB (13:13)
--- NOTE | 2022-09-20 13:48 | RESP.RT ---
Pt continuing t use BIPAP at night for CO 2 retention. Pt will need to qualify for a BIPAP here, after failing CPAP. Proper documentation will be required. BBS with Rales in bases. Using oxymizer for oxygen during day. If pt goes home he will also need to qualify for home oxygen.
--- NOTE | 2022-09-20 16:26 | PC.SOCIAL ---
The [facility] is checking into bariatric equipment, their review team is assessing the referral and the need for bipap , and checking on pt.'s [employer] insurance.
--- NOTE | 2022-09-20 18:52 | PC.NURSE ---
End of Shift: Patient pleasant and cooperative. Patient vitally stable, lung diminished, BS WNL, IV's intact. Patient denies pain. Patient went from 2 assist to EZ stand today, patient is much weaker and sleepier today. Patient tolerating regular diet, BS 161, 232, and 151. Patient with pérez draining bloody urine, strawberry in color, with clots. Patient given bed bath today. Dressing change performed today by wound clinic nurse Candelaria. Dressing change every 2 days. Wounds cleaned with sodium chloride, one on right leg and very small one on left leg. Both LE's wrapped with coban-2 layer regular. Patient on 2L of NC with sats 88-90%.
[2022-09-20] MEDS: ATORVASTATIN 10 MG TABLET 20 MG PO (20:55)
[2022-09-20] MEDS: GABAPENTIN 300 MG CAPSULE 600 MG PO (20:56)
[2022-09-20] MEDS: ENOXAPARIN 30 MG/0.3ML INJ SUBCUT (21:03)
[2022-09-20] MEDS: INSULIN NPH 100 UNIT/ML 15 UNIT SUBCUT (22:55)
[2022-09-21] VITALS (10 sets, daily range): BP systolic 64–129; BP diastolic 49–77; PULSE 61–79; RESP 15–22; TEMP 36.3–36.8; O2SAT 89–95; BMI 44.4
--- NOTE | 2022-09-21 05:16 | PC.NURSE ---
[id number] Pt alert and oriented x3 with some forgetfulness. Pt denies pain, N/V, Chest pain and SOB. Pt is on 2.5 L reservoir nasal cannula while awake and Bi pap during sleep. Pts O2 sats range between 84-92 on bi pap titrated 02 as needed. Pt is up with heavy 2 assist with walker and gait belt. Tolerating?a regular diet fairly. Pt has pérez catheter, patent and draining, light red urine aware. ? ??
[2022-09-21 06:50] LABS: HCO3 VBG 44 mmol/L (21-28); PO2 VBG 46.3 mmHG (25-47); pH VBG 7.404 (7.32-7.43)
[2022-09-21 06:54] LABS: PCO2 VBG 71 mmHG (40-50)
[2022-09-21 06:57] LABS: Basophils Percent Auto 0.1 % (0.0-3.0); Eosinophils Percent Auto 3.2 % (0.0-7.0); Hematocrit 48.4 % (37.0-53.0); Hemoglobin* 14.7 gm/dL (13.5-17.5); Immature Granulocytes Pct Auto 0.2 %; Lymphocytes Percent Auto 6.1 % (20-44); Mean Corpuscular HGB Conc 30 gm/dL (32-36); Mean Corpuscular Hemoglobin 28 pg (26-34); Mean Corpuscular Volume 94 fL (80-100); Monocytes Percent Auto 10.5 % (0.0-11.0); Neutrophils Percent Auto 79.9 % (42.0-72.0); Platelet Count* 196 K/uL (140-440); RDW Coefficient of Variation % 13.9 % (11.5-15.5); Red Blood Count 5.17 m/uL (4.30-5.90); White Blood Count* 16.02 K/uL (4.50-11.00)
[2022-09-21 07:12] LABS: Slide Review Reflex No
[2022-09-21 07:23] LABS: Albumin* 3.2 g/dL (3.3-5.0); Chloride* 95 mmol/L (96-114); Potassium* 3.8 mmol/L (3.6-5.1); Sodium* 141 mmol/L (135-149)
[2022-09-21 07:26] LABS: Alanine Aminotransferase* 14 U/L (4-50); Alkaline Phosphatase* 60 U/L (40-150); Aspartate Amino Transferase* 19 U/L (12-35); Blood Urea Nitrogen* 67 mg/dL (7-30); Est. Creatinine Clearance* 34.25; Estimated Glomerular Filt Rate 33 ml/min; Glucose* 125 mg/dL (60-115); Total Protein* 6.2 g/dL (6.0-8.3)
[2022-09-21 07:27] LABS: Calcium* 9.1 mg/dL (8.4-10.6)
[2022-09-21 07:33] LABS: Carbon Dioxide* 39 mmol/L (20-32)
[2022-09-21 07:37] LABS: NT Pro B Type NatriureticPept* 1680 pg/mL
--- NOTE | 2022-09-21 08:05 | P.IMPN_ITS ---
Progress Note: A&P Assessment and plan (1) Acute respiratory failure with hypoxia and hypercapnia: Problem details: - multifactorial: diastolic CHF, acute on chronic, OHS, restrictive lung disease - CT chest from admission: pulmonary edema, improved on 09/16 CXR - tolerating Torsemide 40mg daily (on 20mg Furosemide as an outpatient), will decrease dose to 20mg on 09/22 given hypotension - Appreciate input from RT. Continue reservoir nasal O2 with BiPAP while sleeping, keep oxygen saturations between 88 and 90% - will need BIPAP upon d/c given severe Co2 retention Status: Acute (2) Acute on chronic heart failure with preserved ejection fraction: Problem details: - TTE obtained 09/13 Final Impressions: 1. Mildly increased LV size, severely increased wall thickness, normal global systolic function with an estimated EF of 55%. 2. Moderately enlarged left atrium. 3. Right ventricular cavity size is not well visualized, global systolic RV function is not well visualized. 4. Echo contrast was administrered to rule out left ventricular mass. 5. The ascending aorta is dilated with a maximal diameter of 5.0 cm. 6. The aortic sinus is dilated with a maximal diameter of 4.7 cm. Status: Acute (3) Leukocytosis: Problem details: - WBC increased from 9-->19 on 09/20, down to 16 on 09/21. Cellulitis (LE and/or back) vs UTI vs PNA as source - patient afebrile - urine culture growing Gram-positive mixed aries (was on Keflex when this was obtained) - chest x-ray 09/20 reassuring, CT scan 09/20 concerning for UTI - blood cultures obtained (09/20), currently NGTD - continue Ertapenem (09/20) Status: Acute (4) Acute kidney injury: Problem details: - source: iatrogenic vs obstructive (+BPH, some clots noted with pérez replacement), less likely prerenal but will monitor closely and decrease dose of Torsemide 09/21 - creatinine from 1.0 --> 1.9 on 09/20, to 2.0 on 09/21 - medication changes: decreased dose of Lovenox 09/20, stopped Lisinopril 09/20, will decrease dose of Torsemide 09/21, keep pérez in place Status: Acute (5) Cellulitis of right leg: Problem details: - appreciate wound care input - compression wraps, diuretics, antibiotics - crp and procalcitonin reassuring - transitioned to oral Keflex 09/16, this was stopped 09/19, transitioned to Ertapenem 09/20 Status: Acute (6) 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: Problem details: - Acute on chronic with concern for RLE cellulitis Status: Acute (7) Elevated troponin: Problem details: - peaked at 0.45, downtrending - no chest pain Status: Acute (8) Hypertension: Problem details: - continue home lisinopril 20mg and metoprolol xl 100mg daily (increased to 150mg 09/16/22) - added Amlodipine 09/20 for suboptimal control of BP (stopping Lisinopril 09/20 for SHANE), decreased dose of Amlodipine 09/22 given hypotension Status: Acute (9) Type 2 diabetes mellitus: Problem details: - SSI/accuchecks, increased home NPH from 15U Qam and 10U pm to 20U Qam, 15U Qpm - blood sugars 129-251 over past 24 hours Status: Chronic (10) Rash: Problem details: - noted on trunk. Ddx: Drug reaction vs heat/positional related vs infectious - eosinophils normal, no pruritus - on Ertapenem Status: Acute Plan - per above - renally dose Lovenox for ppx - continue treatments, therapies, likely needs TCU upon discharge - updated at bedside, questions answered Subjective Date Seen: 09/21/22 Interval history: 82-year-old male, admitted to the hospital 09/13 for weakness and falls in the setting of acute on chronic hypoxic and hypercapnic respiratory failure, in addition to acute on chronic diastolic heart failure and chronic venous stasis with RLE cellulitis. Adriano continues to work with wound care, respiratory therapy, OT, and PT. He requires BiPAP at night, + Co2 retention. Adriano felt poorly yesterday, had CXR (reassuring), abdominal CT (concern for UTI, + bladder outlet obstruction at level of enlarged prostate, no other acute findings). We re-inserted Pérez 09/20 (+ hematuria), initiated Ertapenem. Today, he feels better and WBC has improved. BP has been on the lower side today (transitioned from Lisinopril to Amlodipine 09/20), patient asymptomatic. Blood cultures NGTD. Exam Narrative: Exam Narrative: GEN: Alert and sitting comfortably in bedside chair, answering questions appropriately and eating breakfast HEENT: Normal external ears, EOMIs bilaterally CV: RRR, No concerning murmurs, rubs, or gallops R:? Crackles bilateral bases, air movement adequate Ext:? Wearing Dmitriy hose bilateral lower extremities. RLE wound not formally examined (followed by wound care) Skin:? Blanching confluent erythema over trunk persists, stable without warmth or ttp Neuro:? Intermittent coarse tremor of bilateral upper extremities, R>L, baseline/stable Psych: Appropriate Const: Vital Signs, click to edit/add: Vital Signs - 24 hr 09/20/22 11:00 09/20/22 12:00 09/20/22 13:51 Temperature 99.1 F Pulse Rate Pulse Rate [Left A pical] Pulse Rate [Left P ulse Oximeter] 69 Respiratory Rate 18 18 Blood Pressure [Le ft Arm] 118/69 Pulse Oximetry 90 93 Oxygen Delivery Me thod Nasal Cannula Nasal Cannula Oxygen Flow Rate 1.5 1.5 Fraction of Inspir ed Oxygen 30 09/20/22 15:00 09/20/22 15:00 09/20/22 15:00 Temperature 98.8 F Pulse Rate 65 Pulse Rate [Left A pical] Pulse Rate [Left P ulse Oximeter] 67 67 Respiratory Rate 20 20 Blood Pressure [Le ft Arm] 129/62 Pulse Oximetry 89 Oxygen Delivery Me thod Nasal Cannula Oxygen Flow Rate 1.5 Fraction of Inspir ed Oxygen 09/20/22 15:00 09/20/22 19:00 09/20/22 20:00 Temperature 98.4 F Pulse Rate Pulse Rate [Left A pical] Pulse Rate [Left P ulse Oximeter] 67 Respiratory Rate 20 20 Blood Pressure [Le ft Arm] 129/55 L Pulse Oximetry 89 90 90 Oxygen Delivery Me thod Nasal Cannula Oxygen Flow Rate 1.5 Fraction of Inspir ed Oxygen 09/20/22 23:00 09/20/22 23:00 09/20/22 23:00 Temperature 97.8 F Pulse Rate Pulse Rate [Left A pical] 68 Pulse Rate [Left P ulse Oximeter] 79 Respiratory Rate 20 20 18 Blood Pressure [Le ft Arm] 119/53 L Pulse Oximetry 88 90 Oxygen Delivery Me thod [place] Nasal Ca nnula Nasal Cannula BiPA P Oxygen Flow Rate 2.5 Fraction of Inspir ed Oxygen 35 09/21/22 00:15 09/21/22 03:00 Temperature 97.4 F L Pulse Rate 65 Pulse Rate [Left A pical] 61 Pulse Rate [Left P ulse Oximeter] 79 Respiratory Rate 15 Blood Pressure [Le ft Arm] 129/54 L Pulse Oximetry 89 Oxygen Delivery Me thod [place] Nasal Ca nnula Oxygen Flow Rate Fraction of Inspir ed Oxygen 35 Labs Labs: Laboratory Results - last 24 hr 09/21/22 09/21/22 09/21/22 06:09 06:09 06:09 WBC 16.02 H RBC 5.17 Hgb 14.7 Hct 48.4 MCV 94 MCH 28 MCHC 30 L RDW Coeff of Mindy 13.9 Plt Count 196 Neut % (Auto) 79.9 H Lymph % (Auto) 6.1 L [place] % (Auto) 10.5 Eos % (Auto) 3.2 Baso % (Auto) 0.1 Neut # (Auto) 12.80 H Lymph # (Auto) 1.00 [place] # (Auto) 1.70 H Eos # (Auto) 0.50 Baso # (Auto) 0.00 VBG pH 7.404 VBG pCO2 71 H* VBG pO2 46.3 VBG HCO3 44 H Sodium 141 Potassium 3.8 Chloride 95 L Carbon Dioxide 39 H BUN 67 H Creatinine 2.0 H Estimated Creat Clear 34.25 Estimated GFR 33 Glucose 125 H Calcium 9.1 Total Bilirubin 1.0 AST 19 ALT 14 Alkaline Phosphatase 60 NT-Pro-B Natriuret Pep 1680 Total Protein 6.2 Albumin 3.2 L Procalcitonin 0.70 H
[2022-09-21] MEDS: ASPIRIN 81 MG TABLET EC PO (09:40)
[2022-09-21] MEDS: TORSEMIDE 20 MG TABLET 40 MG PO (09:40)
[2022-09-21] MEDS: METOPROLOL SUCCINATE (XL) 100 MG TAB 150 MG PO (09:41)
[2022-09-21] MEDS: allopurinoL 100 MG TABLET PO (09:41)
[2022-09-21] MEDS: AMLODIPINE 10 MG TABLET PO (09:41)
[2022-09-21] MEDS: ACETAMINOPHEN 325 MG TABLET 650 MG PO (09:42)
[2022-09-21] MEDS: IPRAT-ALBUT 0.5-2.5 MG/3 ML NEB 1 NEB IH ×3 (09:42→18:49)
[2022-09-21] MEDS: TRIAMCINOLONE ACETONIDE CREAM 0.1 % 1 APPLIC TOPICAL ×2 (09:43→20:40)
[2022-09-21] MEDS: NYSTATIN POWDER 1 APPLIC TOPICAL ×2 (09:43→20:39)
[2022-09-21] MEDS: SODIUM CHLORIDE 0.9 % (FLUSH) 10 ML SYRINGE 5 ML IVF ×2 (09:44→20:40)
[2022-09-21] MEDS: ERTAPENEM 1 GM in 0.9 % SODIUM CHLORIDE Mini-bag 100 ML IVPB (13:27)
[2022-09-21] MEDS: INSULIN NPH 100 UNIT/ML 20 UNIT SUBCUT (13:28)
--- NOTE | 2022-09-21 15:06 | PC.SOCIAL ---
Updated pt.'s spouse Shayy that pt. has been accepted to the [facility] for potentially Monday pending [employer] authorization of coverage. Updated her that pt. will need to go to a semi-private room until a private room opens up and that they have COVID cases at their facility. Shayy states pt. will not be pleased with the semi-private room but he will have to be as their are no other SNF options locally. Pt. will need medical transport and Shayy has given verbal consent for this once pt. has been accepted to the [facility].
--- NOTE | 2022-09-21 15:58 | PC.NURSE ---
Please see Emar for meds given on day shift. Pt did not require any SS insulin on day shift, BG 119 at bkfst and 137 prior to lunch. Pt sats maintained with 2.5 L via oxymizer n/c. [place] cushion to pink area right ear. Pt discontinued his own Left AC IV after completion of IV Ertapenam. Plan drsg change tomorrow by process safety specialist. Pt had soft blood pressures this am, notified Dr. Shafer. No new orders obtained. Report to Hawa JOHNSTON for evening shift.
[2022-09-21] MEDS: GABAPENTIN 300 MG CAPSULE 600 MG PO (20:36)
[2022-09-21] MEDS: FEXOFENADINE 180 MG TABLET PO (20:37)
[2022-09-21] MEDS: ENOXAPARIN 30 MG/0.3ML INJ SUBCUT (20:37)
[2022-09-21] MEDS: ATORVASTATIN 10 MG TABLET 20 MG PO (20:37)
[2022-09-21] MEDS: INSULIN NPH 100 UNIT/ML 15 UNIT SUBCUT (22:45)
[2022-09-22] VITALS (7 sets, daily range): BP systolic 105–153; BP diastolic 59–78; PULSE 64–70; RESP 18–20; TEMP 36.2–36.7; O2SAT 86–94
[2022-09-22] MEDS: IPRAT-ALBUT 0.5-2.5 MG/3 ML NEB 1 NEB IH ×3 (03:38→19:25)
--- NOTE | 2022-09-22 05:09 | PC.NURSE ---
Shift note: Pt appears weak, only able to ambulate with A2, walker and GB. Urinary catheter is patent. BIPAP set up at 2200 when pt went to bed, O2 level was >90%. At 0220, pt refused to BIPAP mask and opted for the oxygen cannula which dropped the O2 level to fall between 84 and 88%. Denied pain, airway patency maintained.
--- NOTE | 2022-09-22 07:00 | CRLHL7_ITS ---
For Patients: As a result of the Century Cures Act, medical imaging exams and procedure reports are released immediately into your electronic medical record. You may view this report before your referring provider. If you have questions, please contact your health care provider. INDICATION: Follow-up evaluation. COMPARISON: 09/20/2022 TECHNIQUE: Single-view study FINDINGS: TUBES AND LINES: None. HEART AND MEDIASTINUM: Enlarged heart. LUNGS AND PLEURAL SPACES: Patchy multifocal airspace disease bilaterally. This is primarily at the left base and more diffusely on the right.This could be an inflammatory process or edema. OSSEOUS STRUCTURES: Age-appropriate appearance. No acute focal finding. IMPRESSION: Patchy multifocal airspace disease bilaterally, right greater than left. This could be due to edema or an inflammatory process. The findings are new compared to September 20, 2022 Dictated by Bull Powell MD @ 09/22/2022 7:24:10 AM (Electronically Signed)
[2022-09-22 07:03] LABS: HCO3 VBG 44 mmol/L (21-28); PO2 VBG 33.8 mmHG (25-47); pH VBG 7.347 (7.32-7.43)
[2022-09-22 07:06] LABS: PCO2 VBG 80 mmHG (40-50)
[2022-09-22 07:12] LABS: Basophils Absolute Auto 0.02 K/uL (0.00-0.30); Basophils Percent Auto 0.2 % (0.0-3.0); Eosinophils Absolute Auto 0.64 K/uL (0.00-0.50); Eosinophils Percent Auto 5.9 % (0.0-7.0); Hematocrit 49.8 % (37.0-53.0); Immature Granulocytes Abs Auto 0.05 K/uL (0.00-0.30); Immature Granulocytes Pct Auto 0.5 %; Mean Corpuscular HGB Conc 30 gm/dL (32-36); Mean Corpuscular Hemoglobin 29 pg (26-34); Mean Corpuscular Volume 95 fL (80-100); Monocytes Percent Auto 13.5 % (0.0-11.0); Neutrophils Absolute Auto 7.81 K/uL (1.7-7.0); Neutrophils Percent Auto 71.9 % (42.0-72.0); Platelet Count* 211 K/uL (140-440); RDW Coefficient of Variation % 13.9 % (11.5-15.5); Red Blood Count 5.26 m/uL (4.30-5.90); White Blood Count* 10.85 K/uL (4.50-11.00)
[2022-09-22 07:13] LABS: Slide Review Reflex No
[2022-09-22 07:25] LABS: Chloride* 95 mmol/L (96-114); Potassium* 3.7 mmol/L (3.6-5.1); Sodium* 143 mmol/L (135-149)
[2022-09-22 07:28] LABS: Blood Urea Nitrogen* 62 mg/dL (7-30); Calcium* 9.1 mg/dL (8.4-10.6); Creatinine* 1.6 mg/dL (0.5-1.5); Est. Creatinine Clearance* 42.81; Estimated Glomerular Filt Rate 43 ml/min; Glucose* 142 mg/dL (60-115)
--- NOTE | 2022-09-22 07:33 | PM.IMPN1 ---
Progress Note: A&P Assessment and plan (1) Acute respiratory failure with hypoxia and hypercapnia: Problem details: - multifactorial: diastolic CHF, acute on chronic, OHS, restrictive lung disease - CT chest from admission: pulmonary edema, improved on 09/16 CXR - tolerating Torsemide 40mg daily (on 20mg Furosemide as an outpatient), decreased to 20mg on 09/22 given hypotension - Appreciate input from RT. Continue reservoir nasal O2 with autotitrating BiPAP while sleeping, keep oxygen saturations between 88 and 90% - will need BIPAP upon d/c given severe Co2 retention Status: Acute (2) Acute on chronic heart failure with preserved ejection fraction: Problem details: - TTE obtained 09/13 Final Impressions: 1. Mildly increased LV size, severely increased wall thickness, normal global systolic function with an estimated EF of 55%. 2. Moderately enlarged left atrium. 3. Right ventricular cavity size is not well visualized, global systolic RV function is not well visualized. 4. Echo contrast was administrered to rule out left ventricular mass. 5. The ascending aorta is dilated with a maximal diameter of 5.0 cm. 6. The aortic sinus is dilated with a maximal diameter of 4.7 cm. Status: Acute (3) Leukocytosis: Problem details: - WBC increased from 9-->19 on 09/20, has improved since. Cellulitis (LE and/or back) vs UTI vs PNA as source - patient afebrile - urine culture growing Gram-positive mixed aries (was on Keflex when this was obtained) - chest x-ray 09/20 reassuring, CT scan 09/20 concerning for UTI - blood cultures obtained (09/20), currently NGTD - continue Ertapenem (09/20) Status: Acute (4) Acute kidney injury: Problem details: - source: iatrogenic vs obstructive (+BPH, some clots noted with pérez replacement), less likely prerenal but will monitor closely and decrease dose of Torsemide 09/21 - creatinine from 1.0 --> 1.9 on 09/20, to 2.0 on 09/21, 1.6 on 09/22 - medication changes: decreased dose of Lovenox 09/20, stopped Lisinopril 09/20, will decrease dose of Torsemide 09/21, keep pérez in place Status: Acute (5) Cellulitis of right leg: Problem details: - appreciate wound care input (wound looks healthy and not acutely infected, per wound care) - compression wraps, diuretics, antibiotics - crp and procalcitonin reassuring - transitioned to oral Keflex 09/16, this was stopped 09/19, transitioned to Ertapenem 09/20 Status: Acute (6) 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: Problem details: - Acute on chronic Status: Acute (7) Elevated troponin: Problem details: - peaked at 0.45, downtrending - no chest pain Status: Acute (8) Hypertension: Problem details: - continue home lisinopril 20mg and metoprolol xl 100mg daily (increased to 150mg 09/16/22) - Medication changes: d/c'd Lisinopril 09/20, decreased dose of Amlodipine 09/21 given hypotension, d/c'd Amlodipine 09/22 given persistently lower BPs Status: Acute (9) Type 2 diabetes mellitus: Problem details: - SSI/accuchecks, increased home NPH from 15U Qam and 10U pm to 20U Qam, 15U Qpm - BG 119-184 over the past 24 hours (09/21-09/22) Status: Chronic (10) Rash: Problem details: - noted on trunk. Ddx: Drug reaction vs heat/positional related vs infectious - eosinophils normal, no pruritus - on Ertapenem Status: Acute Plan - per above - renally dosed Lovenox for ppx - Discussed with Shayy by phone, questions answered. She is concerned given patient's degree of illness, need for BiPAP, and general deconditioning. She has asked that we a consider higher level of care placement ([place] or [facility] requested) for patient given his slow improvement. We discussed at length his chronic conditions, need for BiPAP compliance. We will attempt placement at higher level of care facility for pulmonology care; Shayy understands the lack of bed availability throughout our state at this time - Shayy also expressed concerns regarding SNF placement upon discharge. She would prefer to have patient home with home health when he is medically stable - Discussed with Candelaria, wound care HOUSEKEEPING LEAD, who notes that lower extremity wound is looking improved at this time without signs of acute infection Subjective Date Seen: 09/22/22 Interval history: Adriano is an 82-year-old male, admitted 09/13 for weakness and falls in the setting of acute on chronic hypoxic and hypercapnic respiratory failure, in addition to acute on chronic diastolic heart failure and chronic venous stasis + RLE cellulitis. Patient did not wear his BiPAP throughout the night last night, CO2 this morning was higher than usual. He remains compensated with a normal pH. Today, patient's WBC and creatinine are both improved. He remains on IV Ertapenem. Hematuria is also improving. Patient denies chest pain, breathing difficulties, abdominal pain, or any other concerns for the hospitalist team. Hypotension from yesterday has improved with the reduction in amlodipine dose. Exam Narrative: Exam Narrative: GEN: Alert and answering questions appropriately, sitting comfortably in bedside chair, no tachypnea at rest HEENT: Normal external ears, EOMIs bilaterally CV: RRR, No concerning murmurs, rubs, or gallops R: Decreased bilateral bases, no significant wheezing Ext: Wearing Dmitriy hose bilaterally Skin: Blanching confluent erythema over trunk is improved today, no warmth or ttp Neuro: intermittent coarse tremor of extremities is stable Psych: Appropriate Const: Vital Signs, click to edit/add: Vital Signs - 24 hr 09/21/22 10:44 09/21/22 12:00 09/21/22 15:55 Temperature Pulse Rate 71 Pulse Rate [Left A pical] Pulse Rate [Left P ulse Oximeter] Respiratory Rate 20 Blood Pressure [Ri ght Arm] Pulse Oximetry 91 Oxygen Delivery Me thod [place] Nasal Ca nnula Oxygen Flow Rate 2.5 Fraction of Inspir ed Oxygen 30 09/21/22 12:45 09/21/22 15:00 09/21/22 15:00 Temperature 98.1 F 98.1 F Pulse Rate Pulse Rate [Left A pical] 68 72 Pulse Rate [Left P ulse Oximeter] Respiratory Rate 20 22 22 Blood Pressure [Ri ght Arm] 91/62 97/77 Pulse Oximetry 92 95 95 Oxygen Delivery Me thod [place] Nasal Ca nnula [place] Nasal Ca nnula [place] Nasal Ca nnula Oxygen Flow Rate 2.5 2.5 2.5 Fraction of Inspir ed Oxygen 09/21/22 15:00 09/21/22 15:00 09/21/22 19:00 Temperature 98.3 F Pulse Rate 65 Pulse Rate [Left A pical] 67 Pulse Rate [Left P ulse Oximeter] Respiratory Rate 22 22 Blood Pressure [Ri ght Arm] 98/62 Pulse Oximetry 93 Oxygen Delivery Me thod [place] Nasal Ca nnula Oxygen Flow Rate 2.5 Fraction of Inspir ed Oxygen 30 09/21/22 20:00 09/21/22 23:00 09/21/22 23:00 Temperature Pulse Rate 67 Pulse Rate [Left A pical] Pulse Rate [Left P ulse Oximeter] 64 Respiratory Rate 22 Blood Pressure [Ri ght Arm] Pulse Oximetry 93 Oxygen Delivery Me thod Oxygen Flow Rate Fraction of Inspir ed Oxygen 09/21/22 23:00 09/21/22 23:00 09/22/22 03:00 Temperature 98.1 F 98.1 F Pulse Rate Pulse Rate [Left A pical] 64 64 Pulse Rate [Left P ulse Oximeter] Respiratory Rate 22 16 20 Blood Pressure [Ri ght Arm] 110/67 Pulse Oximetry 93 93 86 L Oxygen Delivery Me thod [place] Nasal Ca nnula [place] Nasal Ca nnula [place] Nasal Ca nnula Oxygen Flow Rate 2.5 2.5 Fraction of Inspir ed Oxygen 30 30 Labs Labs: Laboratory Results - last 24 hr 09/21/22 09/22/22 09/22/22 06:09 06:31 06:31 WBC 10.85 RBC 5.26 Hgb 15.0 Hct 49.8 MCV 95 MCH 29 MCHC 30 L RDW Coeff of Mindy 13.9 Plt Count 211 Neut % (Auto) 71.9 Lymph % (Auto) 8.0 L [place] % (Auto) 13.5 H Eos % (Auto) 5.9 Baso % (Auto) 0.2 Neut # (Auto) 7.81 H Lymph # (Auto) 0.90 [place] # (Auto) 1.50 H Eos # (Auto) 0.64 H Baso # (Auto) 0.02 VBG pH 7.347 VBG pCO2 80 H* VBG pO2 33.8 VBG HCO3 44 H Sodium 141 Potassium 3.8 Chloride 95 L Carbon Dioxide 39 H BUN 67 H Creatinine 2.0 H Estimated Creat Clear 34.25 Estimated GFR 33 Glucose 125 H Calcium 9.1 Total Bilirubin 1.0 AST 19 ALT 14 Alkaline Phosphatase 60 NT-Pro-B Natriuret Pep 1680 Total Protein 6.2 Albumin 3.2 L Procalcitonin 0.70 H
[2022-09-22 07:35] LABS: Carbon Dioxide* 39 mmol/L (20-32)
[2022-09-22 07:45] LABS: Procalcitonin* 0.41 ng/mL (<0.50)
[2022-09-22] MEDS: AMLODIPINE 5 MG TABLET PO (08:58)
[2022-09-22] MEDS: METOPROLOL SUCCINATE (XL) 100 MG TAB 150 MG PO (08:58)
[2022-09-22] MEDS: TRIAMCINOLONE ACETONIDE CREAM 0.1 % 1 APPLIC TOPICAL ×2 (08:58→20:28)
[2022-09-22] MEDS: ASPIRIN 81 MG TABLET EC PO (08:58)
[2022-09-22] MEDS: allopurinoL 100 MG TABLET PO (08:59)
[2022-09-22] MEDS: NYSTATIN POWDER 1 APPLIC TOPICAL ×2 (08:59→20:28)
[2022-09-22] MEDS: TORSEMIDE 20 MG TABLET PO (08:59)
[2022-09-22] MEDS: SODIUM CHLORIDE 0.9 % (FLUSH) 10 ML SYRINGE 5 ML IVF ×2 (09:04→20:31)
--- NOTE | 2022-09-22 09:21 | PM.WSPN ---
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: Problem details: - Acute on chronic with concern for RLE cellulitis Status: Acute (2) Cellulitis of right leg: Problem details: - appreciate wound care input - compression wraps, diuretics, antibiotics - crp and procalcitonin reassuring - transitioned to oral Keflex 09/16, this was stopped 09/19, transitioned to Ertapenem 09/20 Status: Acute (3) Type 2 diabetes mellitus: Problem details: - SSI/accuchecks, increased home NPH from 15U Qam and 10U pm to 20U Qam, 15U Qpm - blood sugars 129-251 over past 24 hours Status: Chronic (4) 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 resolving. Continue with hospitalist team recs for abx treatment. DM2: Reminder to keep blood sugars below 180 at all times to facilitate wound healing. Keep legs elevated when seated. Ambulate min. of 10min 4xdaily. Morbid obesity: adequate protein for wound healing. Recommend multi-vitamin with zinc. Lymphedema continue with coban 2-layer compression wraps. Change EOD and PRN in conjunction with wound dressing changes. SNF to transition patient to velcro compression wraps. BLE: venous ulcerations. cleanse with wound cleanser. apply medihoney to wound bed, cover with cut-to-fit wound size xeroform. Change EOD and prn. Wound Care Orders good to use upon discharge to SNF. Time Spent With Patient Total time spent: 35 Subjective Date Seen: 09/22/22 Interval history: Wound services f/u on BLE lymphedema and BLE wounds. Patients lymphedema significantly improved- initial calf measurements on 09/15/22 verses todays measurements : RLE:54cm circumferentially, starting at ankle and measuring 22cm proximally. Today measured 42.6cm circumferentially, starting at ankle and measuring 22cm proximally. LLE: 51cm circumferentially, starting at ankle and measuring 22cm proximally. Today measured 43cm circumferentially, starting at ankle and measuring 22cm proximally. RLE cellulitis resolved. Wounds improved, measuring smaller, less slough, epithelialization Patient tentatively discharging to a detention facility in [place] in the next 2-5 days. He will have ongoing wound care needs upon discharge. Right lower extremity anterior wound debrided, Coban 2 layer compression and wound dressings changed as part of today's visit. SNF could look to transition patient to velcro compression once he is in their care. Next dressing change to occur in 2 days on 09/24/2022. Past 2 days patient had sudden onset of leukocytosis. Source of infection was determined likely to be related to UTI as patient had transition to oral abx. He has now resumed the ertapenem and today Review of labs indicates leukocytosis has improved/resolving. Remains afebrile and VSS on oxygen reservoir. Patient continues to be encouraged to ambulate at least 4 times a day. He does endorse he did not achieve this goal yesterday due to feeling punky. But has a goal today to resume this activity as he had been successfully participating in the ambulation goals previous yesterday. He continues to be mindful to limit his intake of excess carbohydrates/simple carbs. Exam Narrative: Exam Narrative: General: No acute distress, alert. Sitting comfortably in recliner HEENT: Atraumatic, conjunctiva clear without drainage, well fitted reservoir nasal cannula Respiratory: Symmetrical rise, unlabored speaking in full sentences Cardiac: Pedal pulses palpable. Cap refill less than 4 seconds, feet warm BLE: 1 to 2+ nonpitting edema, right greater than left. Hemosiderin staining, hyperkeratosis, lymphangiectasia and papillomatosis. See calf measurements in HPI comparison. Skin: right proximal anterior pre-tibal open ulceration. full-thickness. 75% slough and biofilm 25% healthy granulation with epithelization encroaching on edges. Measuring 2.9X7.9X0.3cm. Moderate amount of serosang drainage. Tejal-wound free of S/S of infection. LLE Wound: anterior lateral pre-tibal. full-thickness. 100% healthy granulation. Measuring [id number]. Small amount of serosang drainage. Tejal-wound healthy free of s/s of infection. Psych: normal affect. insight into disease process. Const: Vital Signs, click to edit/add: Vital Signs - 24 hr 09/21/22 10:44 09/21/22 12:00 09/21/22 15:55 Temperature Pulse Rate 71 Pulse Rate [Left A pical] Pulse Rate [Left P ulse Oximeter] Respiratory Rate 20 Blood Pressure [Le ft Arm] Blood Pressure [Ri ght Arm] Pulse Oximetry 91 Oxygen Delivery Me thod [facility] Nasal Ca nnula Oxygen Flow Rate 2.5 Fraction of Inspir ed Oxygen 30 09/21/22 12:45 09/21/22 15:00 09/21/22 15:00 Temperature 98.1 F 98.1 F Pulse Rate Pulse Rate [Left A pical] 68 72 Pulse Rate [Left P ulse Oximeter] Respiratory Rate 20 22 22 Blood Pressure [Le ft Arm] Blood Pressure [Ri ght Arm] 91/62 97/77 Pulse Oximetry 92 95 95 Oxygen Delivery Me thod [facility] Nasal Ca nnula [facility] Nasal Ca nnula [facility] Nasal Ca nnula Oxygen Flow Rate 2.5 2.5 2.5 Fraction of Inspir ed Oxygen 09/21/22 15:00 09/21/22 15:00 09/21/22 19:00 Temperature 98.3 F Pulse Rate 65 Pulse Rate [Left A pical] 67 Pulse Rate [Left P ulse Oximeter] Respiratory Rate 22 22 Blood Pressure [Le ft Arm] Blood Pressure [Ri ght Arm] 98/62 Pulse Oximetry 93 Oxygen Delivery Me thod [facility] Nasal Ca nnula Oxygen Flow Rate 2.5 Fraction of Inspir ed Oxygen 30 09/21/22 20:00 09/21/22 23:00 09/21/22 23:00 Temperature Pulse Rate 67 Pulse Rate [Left A pical] Pulse Rate [Left P ulse Oximeter] 64 Respiratory Rate 22 Blood Pressure [Le ft Arm] Blood Pressure [Ri ght Arm] Pulse Oximetry 93 Oxygen Delivery Me thod Oxygen Flow Rate Fraction of Inspir ed Oxygen 09/21/22 23:00 09/21/22 23:00 09/22/22 03:00 Temperature 98.1 F 98.1 F Pulse Rate Pulse Rate [Left A pical] 64 64 Pulse Rate [Left P ulse Oximeter] Respiratory Rate 22 16 20 Blood Pressure [Le ft Arm] Blood Pressure [Ri ght Arm] 110/67 Pulse Oximetry 93 93 86 L Oxygen Delivery Me thod [facility] Nasal Ca nnula [facility] Nasal Ca nnula [facility] Nasal Ca nnula Oxygen Flow Rate 2.5 2.5 Fraction of Inspir ed Oxygen 30 30 09/22/22 07:00 09/22/22 07:00 09/22/22 07:00 Temperature Pulse Rate 66 Pulse Rate [Left A pical] Pulse Rate [Left P ulse Oximeter] 70 Respiratory Rate 18 Blood Pressure [Le ft Arm] Blood Pressure [Ri ght Arm] Pulse Oximetry 91 Oxygen Delivery Me thod [facility] Nasal Ca nnula Oxygen Flow Rate 2.5 Fraction of Inspir ed Oxygen 09/22/22 07:00 Temperature 97.5 F L Pulse Rate Pulse Rate [Left A pical] Pulse Rate [Left P ulse Oximeter] 70 Respiratory Rate 18 Blood Pressure [Le ft Arm] 121/59 L Blood Pressure [Ri ght Arm] Pulse Oximetry 91 Oxygen Delivery Me thod [facility] Nasal Ca nnula Oxygen Flow Rate 2.5 Fraction of Inspir ed Oxygen Skin: Skin images (male): 1. venous ulcer 2. venous ulcer Labs Labs: Laboratory Results - last 24 hr 09/22/22 09/22/22 09/22/22 06:31 06:31 06:31 WBC 10.85 RBC 5.26 Hgb 15.0 Hct 49.8 MCV 95 MCH 29 MCHC 30 L RDW Coeff of Mindy 13.9 Plt Count 211 Neut % (Auto) 71.9 Lymph % (Auto) 8.0 L Dickson % (Auto) 13.5 H Eos % (Auto) 5.9 Baso % (Auto) 0.2 Neut # (Auto) 7.81 H Lymph # (Auto) 0.90 Dickson # (Auto) 1.50 H Eos # (Auto) 0.64 H Baso # (Auto) 0.02 VBG pH 7.347 VBG pCO2 80 H* VBG pO2 33.8 VBG HCO3 44 H Sodium 143 Potassium 3.7 Chloride 95 L Carbon Dioxide 39 H BUN 62 H Creatinine 1.6 H Estimated Creat Clear 42.81 Estimated GFR 43 Glucose 142 H Calcium 9.1 Procalcitonin 0.41 Procedures Additional Procedures Additional Procedure Details: verbal consent obtained. excisional debridement to RLE wound with #4 curette. removal of slough, biofilm, subQ, back to healthy bleeding tissue. min. bleeding, stopped with light pressure. Patient tolerated well. Wounds cleansed and dressed by provider. 2-layer compression applied by provider.
--- NOTE | 2022-09-22 10:17 | PC.SOCIAL ---
Addendum entered by TREVER Chase 09/22/22 10:28: Spouse Shayy's phone number is [phone]. Pt. will need non-emergency EMS for transport. PAS needs to be completed. Original Note: Updated Melinda in admissions at the [facility] @ [phone] that pt. should be ready for discharge Monday or Monday. She is still waiting on [employer] to authorize his stay. Updated pt. who states he will not go to a skilled nursing today, yesterday he was in agreement. Discussed that he is not strong enough to go home and there is no other local option for him with his weight, [employer] insurance and care needs. Pt. refused to look at [facility] or [facility] as well. Updated pt.'s spouse that the discharge will hopefully be Monday or Monday.
[2022-09-22] MEDS: INSULIN NPH 100 UNIT/ML 20 UNIT SUBCUT (12:29)
[2022-09-22] MEDS: ERTAPENEM 1 GM in 0.9 % SODIUM CHLORIDE Mini-bag 100 ML IVPB (12:30)
--- NOTE | 2022-09-22 14:36 | PC.NURSE ---
PATIENT COOPERATIVE WITH STAFFING, UP A2 WITH WALKER AND BELT AND ABLE TO WALK A COUPLE STEPS TO CHAIR, PATIENT EXPRESSES FEELING BETTER ALTHOUGH IS STILL WEAK, DRESSINGS CHANGED VIA WOUND RN TODAY 09/22/21 WILL NEED TO BE CHANGED 09/24/21 SEE WOUND ORDERS, TOLERATING REGULAR DIET, GRIFFITHS PATENT, TOLERATING @ 2.5L NC, DECLINING PAIN.
--- NOTE | 2022-09-22 15:07 | PC.SOCIAL ---
Pt.'s insurance from [facility] has authorized coverage at the [facility]. Plan for pt. to discharge there when ready for discharge.
--- NOTE | 2022-09-22 15:21 | RESP.RT ---
Pt's care plan is to wear BIPAP at night. Pt declined to wear unit last night. AM PCO2 via VBG 80 pt was compensated with a normal PH. Pt needs to be compliant with unit here in hospital, in attempts to get him a home unit if required.
--- NOTE | 2022-09-22 19:47 | PC.NURSE ---
Nursing Care Hours: [id number] Pt this shift calm and cooperative, alert and oriented. No c/o pain. Walked with two person assist using walker and gait belt, about 100ft. Tolerated well with 3L running. Pt stated they felt a little shaky otherwise stable, needing reminders to keep the walker closer to body. U/o pink in catheter bag, catheter patent. Ate meal up in chair.
[2022-09-22] MEDS: ENOXAPARIN 30 MG/0.3ML INJ SUBCUT (20:29)
[2022-09-22] MEDS: FEXOFENADINE 180 MG TABLET PO (20:29)
[2022-09-22] MEDS: ATORVASTATIN 10 MG TABLET 20 MG PO (20:29)
[2022-09-22] MEDS: GABAPENTIN 300 MG CAPSULE 600 MG PO (20:29)
[2022-09-23] VITALS (8 sets, daily range): BP systolic 115–147; BP diastolic 66–92; PULSE 61–71; RESP 16–24; TEMP 36.3–37.4; O2SAT 90–94
[2022-09-23] MEDS: INSULIN NPH 100 UNIT/ML 15 UNIT SUBCUT ×2 (00:06→22:28)
--- NOTE | 2022-09-23 04:47 | PC.NURSE ---
Shift care: Pt continue to require A2 for transfer. O2 level maintained above 90% with BIPAP. No pain, cough, N/V observed. Vitally stable. Urinary catheter patent and draining pink urine. Alert and oriented.
[2022-09-23 07:15] LABS: Basophils Absolute Auto 0.02 K/uL (0.00-0.30); Basophils Percent Auto 0.3 % (0.0-3.0); Eosinophils Absolute Auto 0.53 K/uL (0.00-0.50); Eosinophils Percent Auto 6.9 % (0.0-7.0); HCO3 VBG 44 mmol/L (21-28); Hematocrit 48.2 % (37.0-53.0); Hemoglobin* 14.5 gm/dL (13.5-17.5); Immature Granulocytes Abs Auto 0.04 K/uL (0.00-0.30); Immature Granulocytes Pct Auto 0.5 %; Lymphocytes Percent Auto 12.7 % (20-44); Mean Corpuscular HGB Conc 30 gm/dL (32-36); Mean Corpuscular Hemoglobin 29 pg (26-34); Mean Corpuscular Volume 95 fL (80-100); Neutrophils Absolute Auto 5.23 K/uL (1.7-7.0); Neutrophils Percent Auto 67.6 % (42.0-72.0); PO2 VBG 46.7 mmHG (25-47); Platelet Count* 201 K/uL (140-440); RDW Coefficient of Variation % 13.7 % (11.5-15.5); Red Blood Count 5.09 m/uL (4.30-5.90); White Blood Count* 7.73 K/uL (4.50-11.00); pH VBG 7.387 (7.32-7.43)
[2022-09-23 07:18] LABS: Slide Review Reflex No
[2022-09-23 07:19] LABS: PCO2 VBG 73 mmHG (40-50)
[2022-09-23 07:38] LABS: Albumin* 3.2 g/dL (3.3-5.0); Chloride* 97 mmol/L (96-114); Sodium* 142 mmol/L (135-149)
[2022-09-23 07:39] LABS: Potassium* 3.4 mmol/L (3.6-5.1)
[2022-09-23 07:41] LABS: Alanine Aminotransferase* 18 U/L (4-50); Alkaline Phosphatase* 68 U/L (40-150); Aspartate Amino Transferase* 24 U/L (12-35); Bilirubin Total* 0.9 mg/dL (0.1-1.5); Blood Urea Nitrogen* 40 mg/dL (7-30); Estimated Glomerular Filt Rate 76 ml/min; Glucose* 137 mg/dL (60-115); Total Protein* 6.4 g/dL (6.0-8.3)
[2022-09-23 07:42] LABS: Calcium* 9.2 mg/dL (8.4-10.6)
[2022-09-23 07:48] LABS: Carbon Dioxide* 39 mmol/L (20-32)
[2022-09-23] MEDS: TORSEMIDE 20 MG TABLET PO (07:55)
[2022-09-23] MEDS: IPRAT-ALBUT 0.5-2.5 MG/3 ML NEB 1 NEB IH ×2 (07:55→20:27)
[2022-09-23 07:58] LABS: Procalcitonin* 0.23 ng/mL (<0.50)
[2022-09-23] MEDS: NYSTATIN POWDER 1 APPLIC TOPICAL ×2 (08:34→20:38)
[2022-09-23] MEDS: TRIAMCINOLONE ACETONIDE CREAM 0.1 % 1 APPLIC TOPICAL ×2 (08:34→20:37)
[2022-09-23] MEDS: allopurinoL 100 MG TABLET PO (08:53)
[2022-09-23] MEDS: AMLODIPINE 5 MG TABLET PO (08:53)
[2022-09-23] MEDS: ASPIRIN 81 MG TABLET EC PO (08:54)
[2022-09-23] MEDS: METOPROLOL SUCCINATE (XL) 100 MG TAB 150 MG PO (08:54)
[2022-09-23] MEDS: SODIUM CHLORIDE 0.9 % (FLUSH) 10 ML SYRINGE 5 ML IVF ×2 (12:52→20:38)
[2022-09-23] MEDS: ERTAPENEM 1 GM in 0.9 % SODIUM CHLORIDE Mini-bag 100 ML IVPB (13:29)
[2022-09-23] MEDS: 0.9 % SODIUM CHLORIDE 250 ml IV (13:30)
--- NOTE | 2022-09-23 13:32 | PM.IMPN1 ---
Progress Note: A&P Assessment and plan (1) Acute respiratory failure with hypoxia and hypercapnia: Problem details: - multifactorial: diastolic CHF, acute on chronic, OHS, restrictive lung disease - tolerating Torsemide 40mg daily (on 20mg Furosemide as an outpatient), decreased to 20mg of Torsemide on 09/22 given hypotension - Appreciate input from RT. Continue reservoir nasal O2 with autotitrating BiPAP while sleeping, keep oxygen saturations between 88 and 90% - will need BIPAP at night and supplemental oxygen during the day upon d/c - requesting transfer to higher level of care facility for Pulmonology access on 09/22; no beds are available within our transfer radius. 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: Problem details: - Acute on chronic Status: Acute (3) Acute kidney injury: Problem details: - source: iatrogenic vs obstructive (+BPH, some clots noted with pérez replacement), less likely prerenal but will monitor closely and decrease dose of Torsemide 09/21 - creatinine from 1.0 --> 1.9 on 09/20, back to 1.0 on 09/23 - medication changes: decreased dose of Lovenox 09/20, stopped Lisinopril 09/20, decreased dose of Torsemide 09/21, keep pérez in place - consider leaving Pérez in upon dischargewith outpatient Urology follow-up given obstruction Status: Acute (4) Leukocytosis: Problem details: - WBC increased from 9-->19 on 09/20, has improved since. Cellulitis (LE and/or back) vs UTI vs PNA as source - patient afebrile - urine culture growing Gram-positive mixed aries (was on Keflex when this was obtained) - chest x-ray 09/20 reassuring, CT scan 09/20 concerning for UTI - blood cultures obtained (09/20), currently NGTD - continue Ertapenem (09/20) Status: Acute (5) Rash: Problem details: - noted on trunk. Ddx: Drug reaction (was present prior to initiation of Keflex and Ertapenem) vs heat/positional related vs infectious - eosinophils mildly elevated, no pruritus - on Ertapenem (09/20) - improving significantly as of 09/23 Status: Acute (6) Venous insufficiency of both lower extremities: Status: Acute (7) Type 2 diabetes mellitus: Problem details: - SSI/accuchecks, increased home NPH from 15U Qam and 10U pm to 20U Qam, 15U Qpm - BG have typically been <200 Status: Chronic (8) Hypertension: Problem details: - home dose of metoprolol was increased from 100mg-150mg on 09/16/22, decreased back to 100mg on 09/23/22 - Medication changes: d/c'd Lisinopril 09/20, decreased dose of Amlodipine 09/21 given hypotension, d/c'd Amlodipine 1/ given persistently lower BPs Status: Acute (9) Acute on chronic heart failure with preserved ejection fraction: Problem details: - TTE obtained 09/13 Final Impressions: 1. Mildly increased LV size, severely increased wall thickness, normal global systolic function with an estimated EF of 55%. 2. Moderately enlarged left atrium. 3. Right ventricular cavity size is not well visualized, global systolic RV function is not well visualized. 4. Echo contrast was administrered to rule out left ventricular mass. 5. The ascending aorta is dilated with a maximal diameter of 5.0 cm. 6. The aortic sinus is dilated with a maximal diameter of 4.7 cm. Status: Acute (10) Physical deconditioning: Problem details: - severe. Patient is followed by PT and OT - meets TCU criteria; has been accepted at the [facility] on 09/26 - at this time (09/23), both patient and are declining TCU transfer (patient wants to go home, worried about COVID and room sharing) - both Adriano and his understand that our team recommends TCU placement; they are considering a more comfort focused approach to his care Status: Acute Plan - per above; lengthy discussion with patient independently (then repeated with present) regarding goals of care, team recommendations for TCU upon discharge, and BiPAP administration at home - at this time, they plan to discharge home with home health, BiPAP, and supplemental oxygen on Monday if he remains medically stable - home BiPAP studies performed this evening in the hospital - SCDs and renally dosed Lovenox for prophylaxis Subjective Date Seen: 09/23/22 Interval history: No acute events overnight. Patient was more compliant with BiPAP last evening; CO2 lower this morning. Creatinine and WBC both within normal limits today. Patient remains afebrile, has no concerns for hospitalist team. he is refusing transfer to a tertiary care facility, also refusing TCU transfer next week. Exam Narrative: Exam Narrative: GEN: Alert and oriented, sitting comfortably in bedside chair, eating breakfast HEENT: Normal external ears, EOMIs bilaterally, no scleral icterus CV: RRR, No concerning murmurs, rubs, or gallops R: decreased bilateral bases, no wheezing Ext: Wearing Dmitriy hose Skin: Blanching confluent erythema on back is improving, also noted to have erythematous and irritated skin from telemetry stickers and IV tape Neuro: Nonfocal Psych: Appropriate Const: Vital Signs, click to edit/add: Vital Signs - 24 hr 09/22/22 15:19 09/22/22 15:00 09/22/22 15:00 Temperature Pulse Rate [Left A pical] Pulse Rate [Left P ulse Oximeter] 64 Respiratory Rate 18 18 Blood Pressure [Le ft Arm] Blood Pressure [Ri ght Arm] Pulse Oximetry 94 Oxygen Delivery Me thod Nasal Cannula Oxygen Flow Rate 3 Fraction of Inspir ed Oxygen 30 09/22/22 15:00 09/22/22 19:00 09/22/22 19:56 Temperature 98 F 97.4 F L Pulse Rate [Left A pical] Pulse Rate [Left P ulse Oximeter] 64 66 Respiratory Rate 18 18 Blood Pressure [Le ft Arm] Blood Pressure [Ri ght Arm] 133/78 153/77 H Pulse Oximetry 94 94 94 Oxygen Delivery Me thod Room Air Room Air Oxygen Flow Rate 3 Fraction of Inspir ed Oxygen 30 09/22/22 23:00 09/22/22 23:00 09/22/22 23:00 Temperature 97.1 F L Pulse Rate [Left A pical] 64 Pulse Rate [Left P ulse Oximeter] 66 64 Respiratory Rate 18 18 18 Blood Pressure [Le ft Arm] 105/70 Blood Pressure [Ri ght Arm] 153/77 H Pulse Oximetry 89 89 Oxygen Delivery Me thod Room Air Room Air Oxygen Flow Rate 3 3 Fraction of Inspir ed Oxygen 30 30 09/23/22 02:51 09/23/22 07:00 09/23/22 07:00 Temperature 97.9 F Pulse Rate [Left A pical] 64 Pulse Rate [Left P ulse Oximeter] 61 61 Respiratory Rate 18 16 16 Blood Pressure [Le ft Arm] Blood Pressure [Ri ght Arm] Pulse Oximetry 90 91 Oxygen Delivery Me thod Room Air Room Air Oxygen Flow Rate 3 3 Fraction of Inspir ed Oxygen 30 09/23/22 07:00 09/23/22 11:00 Temperature 99.3 F 98.6 F Pulse Rate [Left A pical] Pulse Rate [Left P ulse Oximeter] 64 66 Respiratory Rate 16 24 Blood Pressure [Le ft Arm] 147/68 H 115/69 Blood Pressure [Ri ght Arm] Pulse Oximetry 91 93 Oxygen Delivery Me thod Nasal Cannula Nasal Cannula Oxygen Flow Rate 3 3 Fraction of Inspir ed Oxygen Labs Labs: Laboratory Results - last 24 hr 09/23/22 09/23/22 09/23/22 06:36 06:36 06:36 WBC 7.73 RBC 5.09 Hgb 14.5 Hct 48.2 MCV 95 MCH 29 MCHC 30 L RDW Coeff of Mindy 13.7 Plt Count 201 Neut % (Auto) 67.6 Lymph % (Auto) 12.7 L Weld % (Auto) 12.0 H Eos % (Auto) 6.9 Baso % (Auto) 0.3 Neut # (Auto) 5.23 Lymph # (Auto) 1.00 Weld # (Auto) 0.90 Eos # (Auto) 0.53 H Baso # (Auto) 0.02 VBG pH 7.387 VBG pCO2 73 H* VBG pO2 46.7 VBG HCO3 44 H Sodium 142 Potassium 3.4 L Chloride 97 Carbon Dioxide 39 H BUN 40 H Creatinine 1.0 Estimated Creat Clear 68.50 Estimated GFR 76 Glucose 137 H Calcium 9.2 Total Bilirubin 0.9 AST 24 ALT 18 Alkaline Phosphatase 68 Total Protein 6.4 Albumin 3.2 L Procalcitonin 0.23
[2022-09-23] MEDS: INSULIN NPH 100 UNIT/ML 20 UNIT SUBCUT (13:38)
--- NOTE | 2022-09-23 15:40 | PC.NURSE ---
Nursing Care Notes: [id number] Pt this shift calm and cooperative with cares. No c/o pain, stable on 3L NC. Partida patent of pink clear urine. Older brown blood and bright red blood noted in brief from urethra. No active bleeding observed, brief changed. Frustrated in morning with being on everyone else schedule. Pt observed later in the day to be downcast. Career Advisor asked pt if he was ok, pt shared that he and his got into a fight while she was visiting over a dropped mint container. Pt expressed he feels like she always has to have the right answer and the right terminology and I just have to shut up and be a little angle. Pt denies having an appetite for lunch but did order a piece of cake and sherbert. Walked the barajas with PT today, pt states he feels stronger today than he did yesterday. Skin tear to R hand during assisting pt out of bed. Two band-aids applied.
[2022-09-23] MEDS: FEXOFENADINE 180 MG TABLET PO (20:39)
[2022-09-23] MEDS: GABAPENTIN 300 MG CAPSULE 600 MG PO (20:39)
[2022-09-23] MEDS: ENOXAPARIN 30 MG/0.3ML INJ SUBCUT (20:39)
[2022-09-23] MEDS: ATORVASTATIN 10 MG TABLET 20 MG PO (20:39)
--- NOTE | 2022-09-23 21:38 | PC.SOCIAL ---
Received a voicemail from Kylah at [facility] requesting an update if pt will discharge today. Discussed with and stated that pt will likely discharge Monday. Phone call to Kylah at [facility] and informed her that pt will potentially discharge on Monday (09/26/2022). Social work will follow up as necessary.
[2022-09-23 22:07] LABS: Base Excess ABG 14.6 mmol/L (-3.0-3.0); Carboxyhemoglobin* 1.8 % (0.0-5.0); HCO3 ABG 43 mmol/L (21-28); Oxygen Saturation ABG 95 % (92-100); PO2 ABG 69.9 mmHG (80-105); TCO2 ABG 38 mmol/l (21-30); pH ABG 7.42 (7.35-7.45)
[2022-09-23 22:11] LABS: ABG PCO2 66 mmHG (35-45)
[2022-09-23] MEDS: ACETAMINOPHEN 325 MG TABLET 650 MG PO (23:18)
[2022-09-24 01:11] LABS: ABG PCO2 57 mmHG (35-45); Base Excess ABG 14.2 mmol/L (-3.0-3.0); Carboxyhemoglobin* 1.9 % (0.0-5.0); HCO3 ABG 41 mmol/L (21-28); Oxygen Saturation ABG 82 % (92-100); TCO2 ABG 36 mmol/l (21-30); pH ABG 7.47 (7.35-7.45)
[2022-09-24 01:16] LABS: PO2 ABG 41.4 mmHG (80-105)
[2022-09-24 03:00] VITALS: PULSE 60; RESP 20; O2SAT 91
--- NOTE | 2022-09-24 05:10 | PC.NURSE ---
Addendum entered by Lu Conroy RN 09/24/22 07:45: Per respiratory therapist, patient to have ABG's drawn at 2200 then wear CPAP for 2 hour ABG again at 0000 and BiPAP until 0600 with another ABG draw at 0600. Original Note: [id number]: Patient cooperative with cares. Walk in barajas x1 with A1 and 1 following w/wc. Patient sat in w/c and rested half way through. Rash from back extending to abdomen and thighs. No c/o irrigation, itchiness, or discomfort related to the rash. Patient not happy with wearing CPAP/BiPAP during noc, removing it numerous times. Sole Trimmer educated the patient on the necessity of wearing it and placed it back on. C/o butt pain. PRN Tylenol administered for relief as well as T&R. Partida patient and draining pink colored urine. Eating and drinking.
[2022-09-24] MEDS: ACETAMINOPHEN 325 MG TABLET 650 MG PO (06:21)
[2022-09-24 07:00] VITALS: BP 107/65; PULSE 69; RESP 22; TEMP 37.1; O2SAT 93
[2022-09-24 07:00] LABS: Base Excess ABG 13.7 mmol/L (-3.0-3.0); Carboxyhemoglobin* 1.9 % (0.0-5.0); HCO3 ABG 42 mmol/L (21-28); Oxygen Saturation ABG 95 % (92-100); PO2 ABG 70.6 mmHG (80-105); TCO2 ABG 37 mmol/l (21-30)
[2022-09-24 07:03] LABS: ABG PCO2 68 mmHG (35-45)
[2022-09-24] MEDS: IPRAT-ALBUT 0.5-2.5 MG/3 ML NEB 1 NEB IH ×3 (07:53→20:08)
[2022-09-24] MEDS: TORSEMIDE 20 MG TABLET PO (08:49)
[2022-09-24] MEDS: allopurinoL 100 MG TABLET PO (08:49)
[2022-09-24] MEDS: ASPIRIN 81 MG TABLET EC PO (08:50)
[2022-09-24] MEDS: METOPROLOL SUCCINATE (XL) 100 MG TAB PO (08:50)
[2022-09-24 11:00] VITALS: BP 152/77; PULSE 69; RESP 20; TEMP 36.6; O2SAT 89
--- NOTE | 2022-09-24 11:04 | RESP.RT ---
Addendum entered by Theron Mosley, ABALONE PROCESSOR, PORTAL ADMINISTRATOR 09/25/22 11:30: corrected CPAP/BiPAP time line 09/23-03/2023 with ABGs drawn; 09/23/2022 , Patient on Oxymizer Nasal Cannula 3 Lpm, at 22:00 ABGs draw; 22:15 Pt placed on CPAP FiO2 30%, CPAP 5 cm pressure, 09/24/2022 00:30 ABGs draw: 01:15 Pt changed from CPAP settings to BiPAP S/T settings FiO2 30%, IPAP 10 cm pressure, EPAP 5cm pressure; Pt removed Mask, Nurse placed Mask back on at 02:35, Pt removed Mask, Nurse placed Mask back on at 03:00, Pt removed Mask, Nurse placed Mask back on at 04:45; on BiPAP 06:00 ABGs draw. Original Note: BiPAP/ABGs; ABGs were collected on 09/23/2022 @ 22:00 PM prior to placement on BiPAP pCO2 @ 68 torr, 2 hours later (00:00, midnight) ABGs were again collected with patient on BiPAP most of the time, patient with remove BiPAP Mask several times and vigilant Nurse would assist patient with resecuring Mask explaining why it needed to be kept on, pCO2 57 torr, When BiPAP mask was removed in the morning and patient returned to Oxymizer Nasal Cannula ABGs collected, 06:55 AM, pCO2, 66 torr. BiPAP setting during this night are FiO2 30%, rate of 10, IPAP 10 cm pressure, EPAP 5 cm pressure, pressures support 5 cm pressure. These are minimal BiPAP settings that show a decrease in the pCO2 when in use at night. Further setting could be explored.
[2022-09-24] MEDS: NYSTATIN POWDER 1 APPLIC TOPICAL ×2 (11:09→22:09)
[2022-09-24] MEDS: SODIUM CHLORIDE 0.9 % (FLUSH) 10 ML SYRINGE 5 ML IVF ×2 (11:10→22:10)
[2022-09-24] MEDS: TRIAMCINOLONE ACETONIDE CREAM 0.1 % 1 APPLIC TOPICAL ×2 (11:10→22:10)
[2022-09-24] MEDS: INSULIN NPH 100 UNIT/ML 20 UNIT SUBCUT (11:16)
[2022-09-24 15:00] VITALS: BP 139/74; PULSE 67; RESP 20; TEMP 36.4; O2SAT 97
--- NOTE | 2022-09-24 16:04 | P.IMPN_ITS ---
Progress Note: A&P Assessment and plan (1) Acute respiratory failure with hypoxia and hypercapnia: Problem details: - multifactorial: diastolic CHF, acute on chronic, OHS, restrictive lung disease - tolerating Torsemide 40mg daily (on 20mg Furosemide as an outpatient), decreased to 20mg of Torsemide on 09/22 given hypotension - Appreciate input from RT. Continue reservoir nasal O2 with autotitrating BiPAP while sleeping, keep oxygen saturations between 88 and 90% - will need BIPAP at night and supplemental oxygen during the day upon d/c - requesting transfer to higher level of care facility for Pulmonology access on 09/22; no beds are available within our transfer radius. 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: Problem details: - Acute on chronic Status: Acute (3) Acute kidney injury: Problem details: - source: iatrogenic vs obstructive (+BPH, some clots noted with pérez replacement), less likely prerenal but will monitor closely and decrease dose of Torsemide 09/21 - creatinine from 1.0 --> 1.9 on 09/20, back to 1.0 on 09/23 - medication changes: decreased dose of Lovenox 09/20, stopped Lisinopril 09/20, decreased dose of Torsemide 09/21, keep pérez in place - consider leaving Pérez in upon discharge with outpatient Urology follow-up given obstruction Status: Resolved (4) Urinary obstruction: Problem details: Pérez in place Status: Acute (5) Leukocytosis: Problem details: - WBC increased from 9-->19 on 09/20, has improved since. Cellulitis (LE and/or back) vs UTI vs PNA as source - patient afebrile - urine culture growing Gram-positive mixed aries (was on Keflex when this was obtained) - chest x-ray 09/20 reassuring, CT scan 09/20 concerning for UTI - blood cultures obtained (09/20), currently NGTD - Ertapenem (09/20 - 09/24) Status: Acute (6) Rash: Problem details: - noted on trunk. Ddx: Drug reaction (was present prior to initiation of Keflex and Ertapenem) vs heat/positional related vs infectious - eosinophils mildly elevated, no pruritus - on Ertapenem (09/20- 09/24) - 09/24 stopped Ertapenem due to rash. Has had a total of 11 days of antibiotics for uti/pna/cellulitis. Stop antibiotics and monitor. Status: Acute (7) Venous insufficiency of both lower extremities: Status: Acute (8) Type 2 diabetes mellitus: Problem details: - SSI/accuchecks, increased home NPH from 15U Qam and 10U pm to 20U Qam, 15U Qpm - BG have typically been <200 Status: Chronic (9) Hypertension: Problem details: - home dose of metoprolol was increased from 100mg-150mg on 09/16/22, decreased back to 100mg on 09/23/22 - Medication changes: d/c'd Lisinopril 09/20, decreased dose of Amlodipine 09/21 given hypotension, d/c'd Amlodipine 09/22 given persistently lower BPs Status: Acute (10) Acute on chronic heart failure with preserved ejection fraction: Problem details: - TTE obtained 09/13 Final Impressions: 1. Mildly increased LV size, severely increased wall thickness, normal global systolic function with an estimated EF of 55%. 2. Moderately enlarged left atrium. 3. Right ventricular cavity size is not well visualized, global systolic RV function is not well visualized. 4. Echo contrast was administrered to rule out left ventricular mass. 5. The ascending aorta is dilated with a maximal diameter of 5.0 cm. 6. The aortic sinus is dilated with a maximal diameter of 4.7 cm. Status: Acute (11) Physical deconditioning: Problem details: - severe. Patient is followed by PT and OT - meets TCU criteria; has been accepted at the [facility], [place], operated by [facility] on 09/26 - at this time (09/23), both patient and are declining TCU transfer (patient wants to go home, worried about COVID and room sharing) - both Adriano and his understand that our team recommends TCU placement; they are considering a more comfort focused approach to his care Status: Acute Plan - home BiPAP studies performed - SCDs and renally dosed Lovenox for prophylaxis Subjective Time Seen by Provider: 10:50 Date Seen: 09/24/22 Interval history: Adriano complains of pain on his buttocks with sitting or lying on his back in bed. He has no other complaints and notes that most of his other problems have been stable and he is looking forward to going home on Monday. Exam Narrative: Exam Narrative: General: No acute distress. Awake, alert, oriented x3. No pallor. No jaundice. Oropharynx: Clear. Mucous membranes moist. Cardiovascular: Regular rate and rhythm. No murmurs, gallops, or rubs. Respiratory: Clear to auscultation bilaterally. No wheezes or crackles. Abdomen: Bowel sounds present. Soft, nondistended, nontender. Skin: Blanching confluent rash on upper thighs, lower abdomen and upper arms drug rash appearance. Pinpoint ulcer on left buttock near gluteal cleft. Const: Vital Signs, click to edit/add: Vital Signs - 24 hr 09/24/22 03:00 09/24/22 07:00 09/24/22 07:00 Temperature 98.8 F Pulse Rate [Left A pical] Pulse Rate [Left P ulse Oximeter] 60 69 Respiratory Rate 20 22 22 Blood Pressure [Le ft Arm] 107/65 Blood Pressure [Ri ght Arm] Pulse Oximetry 91 93 93 Oxygen Delivery Me thod BiPAP Nasal Cannula Nasal Cannula Oxygen Flow Rate 3 3 Fraction of Inspir ed Oxygen 09/24/22 11:27 09/24/22 11:27 09/24/22 11:00 Temperature 97.8 F Pulse Rate [Left A pical] Pulse Rate [Left P ulse Oximeter] 69 Respiratory Rate 20 Blood Pressure [Le ft Arm] 152/77 H Blood Pressure [Ri ght Arm] Pulse Oximetry 89 Oxygen Delivery Me thod Nasal Cannula [place] Nasal Ca nnula Oxygen Flow Rate 3 3 Fraction of Inspir ed Oxygen 30 09/23/22 19:00 09/23/22 20:00 09/23/22 22:07 Temperature 97.9 F Pulse Rate [Left A pical] 71 Pulse Rate [Left P ulse Oximeter] Respiratory Rate 22 22 Blood Pressure [Le ft Arm] 125/92 H Blood Pressure [Ri ght Arm] Pulse Oximetry 90 90 92 Oxygen Delivery Me thod [place] Nasal Ca nnula [place] Nasal Ca nnula Oxygen Flow Rate 3 3 Fraction of Inspir ed Oxygen 30 30 09/23/22 22:37 Temperature 98.1 F Pulse Rate [Left A pical] 67 Pulse Rate [Left P ulse Oximeter] 67 Respiratory Rate 22 Blood Pressure [Le ft Arm] 138/66 Blood Pressure [Ri ght Arm] 136/73 Pulse Oximetry 90 Oxygen Delivery Me thod CPAP Oxygen Flow Rate Fraction of Inspir ed Oxygen Labs Labs: Laboratory Results - last 24 hr 09/23/22 09/24/22 09/24/22 22:00 00:00 06:55 ABG pH 7.42 7.47 H 7.40 ABG pCO2 66 H* 57 H 68 H* ABG pO2 69.9 L 41.4 L* 70.6 L ABG HCO3 43 H 41 H 42 H ABG Total CO2 38 H 36 H 37 H ABG O2 Saturation 95 82 L 95 ABG Base Excess 14.6 H 14.2 H 13.7 H Carboxyhemoglobin 1.8 1.9 1.9
--- NOTE | 2022-09-24 19:45 | PC.NURSE ---
nurse note [id number]- pt A/Ox3. pleasant and cooperative. 02 at 2L. BG 156 this evening and 1unit novolog given.
[2022-09-24 20:00] VITALS: BP 151/81; PULSE 65; RESP 22; TEMP 36.4; O2SAT 94
--- NOTE | 2022-09-24 20:17 | PC.NURSE ---
shift note: pt in recliner for breakfast. pt c/o pain in bottom. pt placed in bed. Pt has nickel sized oneil hard area to rt upper inner buttock. small hole in middle of area noted. Dr. Clark observed. pt turned to side with sacral drsg applied. pt has full body rashing. Dr. Clark notified and assessed. No further orders given for rash. bilat l/e redressed. wound care supplies not available so bilat l/e cleansed per d.o then wrapped with poli wraps. Rt sol with elevated open area that has beefy red wound bed. moderate amount of sersang drainage to drsg. skin to rt l/e dark and cracked. Lt l/e with samll outer lat area that xeroform placed after cleansing with vasche and saline. lt l/e wrapped with poli wrap. rt wrist with intact bandaid. LS dim. Pt has nasal oxymizer @3L and cont sats. pt sats 87-92%. Pt 1/walker for transfers. Reported to Lorenza Kerns RN
[2022-09-24] MEDS: ENOXAPARIN 30 MG/0.3ML INJ SUBCUT (22:08)
[2022-09-24] MEDS: ATORVASTATIN 10 MG TABLET 20 MG PO (22:09)
[2022-09-24] MEDS: GABAPENTIN 300 MG CAPSULE 600 MG PO (22:09)
[2022-09-24] MEDS: FEXOFENADINE 180 MG TABLET PO (22:09)
[2022-09-24 23:00] VITALS: PULSE 63; RESP 18; O2SAT 92
[2022-09-24] MEDS: INSULIN NPH 100 UNIT/ML 15 UNIT SUBCUT (23:16)
[2022-09-25] VITALS (8 sets, daily range): BP systolic 138–150; BP diastolic 68–79; PULSE 64–74; RESP 16–20; TEMP 35.9–36.6; O2SAT 88–92
--- NOTE | 2022-09-25 06:59 | PC.NURSE ---
[id number]: The first time card writer hand entered patient's room patient loudly and firmly said I am NOT going to wear that thing tonight, referring to the BiPAP. Explosive Ordnance Specialist educated patient on risks and benefits of wearing the BiPAP during the night and informed him doctors highly recommend it but informed him had the right to refuse. BiPAP was offered at 2215 patient refused. At 0100 patient agreeable to BiPAP. Explosive Ordnance Specialist was in patient's room adjusting BiPAP x3 until 0145 when patient removed it. BiPAP was offered again at 0630 and patient refused. 3Lt Oxymizer to maintain O2>90%.
[2022-09-25] MEDS: allopurinoL 100 MG TABLET PO (08:35)
[2022-09-25] MEDS: ASPIRIN 81 MG TABLET EC PO (08:35)
[2022-09-25] MEDS: TORSEMIDE 20 MG TABLET PO (08:35)
[2022-09-25] MEDS: METOPROLOL SUCCINATE (XL) 100 MG TAB PO (08:35)
[2022-09-25] MEDS: SODIUM CHLORIDE 0.9 % (FLUSH) 10 ML SYRINGE 5 ML IVF ×2 (08:37→20:10)
--- NOTE | 2022-09-25 10:23 | RESP.RT ---
Patient was on BiPAP 45 minutes during the night from 01:00 to 01:45 AM, then refused, at 07:30 this AM patient was exhausted, Nurse placed patient on BiPAP till 10:00 when patient woke up. Patient stated felt pretty good after nap. Discussed with patient that it takes time to get use to BiPAP masks. Encouraged patient not to give up on wearing one. Did he know anyone with Mask/Machine for sleeping; yes he has two brother in-laws that have them, asked if he knew how they felt about their machines, patient stated never heard a word that they didn't like them, that they used them all the time. Will ask (or have Nurse) to ask these known people using machines to also encourage patient to use. Patient looked good after nap, told patient so, and patient stated he did feel pretty good. Returned patient to Oxymizer Nasal Cannula at 3 Lpm. Patient breathing regular/easy, rate 18-20/minute. Bilateral breath sounds with fair air movement upper lobes, diminished slightly in lower lobes. Patient is able to take large breathe when asked to. will continue to encourage patient to use BiPAP.
[2022-09-25] MEDS: NYSTATIN POWDER 1 APPLIC TOPICAL ×2 (10:24→20:10)
[2022-09-25] MEDS: TRIAMCINOLONE ACETONIDE CREAM 0.1 % 1 APPLIC TOPICAL ×2 (10:25→20:11)
[2022-09-25] MEDS: INSULIN NPH 100 UNIT/ML 20 UNIT SUBCUT (11:32)
[2022-09-25] MEDS: IPRAT-ALBUT 0.5-2.5 MG/3 ML NEB 1 NEB IH ×2 (13:33→20:08)
--- NOTE | 2022-09-25 13:52 | PC.NURSE ---
Shift Summary: Patient pleasant and cooperative, up with two assist, walker and gait belt. here today for visit. Patient worked with RT and PT today while walking in halls. Dressings to bilat lower extremities dry and intact. This morning around 0730 patient c/o increased fatigued, in report was told he only worse the Bipap for 45min last night, BiPAP palced from [id number] and patient stated he felt like he got good rest and was feeling better. Given teachings on importance of Bipap use while admitted. Denied pain throughout shift.
--- NOTE | 2022-09-25 15:09 | P.IMPN_ITS ---
Progress Note: A&P Assessment and plan (1) Acute respiratory failure with hypoxia and hypercapnia: Problem details: - multifactorial: diastolic CHF, acute on chronic, OHS, restrictive lung disease - tolerating Torsemide 40mg daily (on 20mg Furosemide as an outpatient), decreased to 20mg of Torsemide on 09/22 given hypotension - Appreciate input from RT. Continue reservoir nasal O2 with autotitrating BiPAP while sleeping, keep oxygen saturations between 88 and 90% - will need BIPAP at night and supplemental oxygen during the day upon d/c - requesting transfer to higher level of care facility for Pulmonology access on 09/22; no beds are available within our transfer radius. 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: Problem details: - Acute on chronic Status: Acute (3) Acute kidney injury: Problem details: - source: iatrogenic vs obstructive (+BPH, some clots noted with pérez replacement), less likely prerenal but will monitor closely and decrease dose of Torsemide 09/21 - creatinine from 1.0 --> 1.9 on 09/20, back to 1.0 on 09/23 - medication changes: decreased dose of Lovenox 09/20, stopped Lisinopril 09/20, decreased dose of Torsemide 09/21, keep pérez in place Status: Resolved (4) Urinary obstruction: Problem details: - consider leaving Pérez in upon discharge with outpatient Urology follow-up given obstruction Status: Acute (5) Rash: Problem details: - noted on trunk. Ddx: Drug reaction (was present prior to initiation of Keflex and Ertapenem) vs heat/positional related vs infectious - eosinophils mildly elevated, no pruritus - on Ertapenem (09/20- 09/24) - 09/24 stopped Ertapenem due to rash. Has had a total of 11 days of antibiotics for uti/pna/cellulitis. - 09/25 rash improving Status: Acute (6) Venous insufficiency of both lower extremities: Status: Acute (7) Type 2 diabetes mellitus: Problem details: - SSI/accuchecks, increased home NPH from 15U Qam and 10U pm to 20U Qam, 15U Qpm - BG have typically been <200, which is within inpatient goal. Status: Chronic (8) Hypertension: Problem details: - home dose of metoprolol was increased from 100mg-150mg on 09/16/22, decreased back to 100mg on 09/23/22 - Medication changes: d/c'd Lisinopril 09/20, decreased dose of Amlodipine / given hypotension, d/c'd Amlodipine 1/ given persistently lower BPs Status: Acute (9) Acute on chronic heart failure with preserved ejection fraction: Problem details: - TTE obtained 09/13 Final Impressions: 1. Mildly increased LV size, severely increased wall thickness, normal global systolic function with an estimated EF of 55%. 2. Moderately enlarged left atrium. 3. Right ventricular cavity size is not well visualized, global systolic RV function is not well visualized. 4. Echo contrast was administrered to rule out left ventricular mass. 5. The ascending aorta is dilated with a maximal diameter of 5.0 cm. 6. The aortic sinus is dilated with a maximal diameter of 4.7 cm. Status: Acute (10) Physical deconditioning: Problem details: - Severe. Patient is followed by PT and OT - meets TCU criteria; has been accepted at the [facility] on 09/26 - at this time (09/23), both patient and are declining TCU transfer (patient wants to go home, worried about COVID and room sharing) - both Adriano and his understand that our team recommends TCU placement; they are considering a more comfort focused approach to his care Status: Acute Plan - home BiPAP studies will be redone tonight because it is noted that he was a ctually on and off bipap frequently the night they were done. - SCDs and renally dosed Lovenox for prophylaxis Subjective Time Seen by Provider: 07:39 Date Seen: 09/25/22 Interval history: Adriano refused to wear BiPAP last night except for 40 minutes in the middle of the night. This morning he was very sleepy and told me that he did not feel well because he was so sleepy. He agreed to try BiPAP this morning. After I saw him, he started wearing BiPAP and slept very well for a little over 2 hours. He was much more awake and doing well when he woke up. Exam Narrative: Exam Narrative: General: Sleepy, oriented x3. No pallor. No jaundice. Oropharynx: Clear. Mucous membranes moist. Cardiovascular: Regular rate and rhythm. No murmurs, gallops, or rubs. Respiratory: Clear to auscultation bilaterally. No wheezes or crackles. Abdomen: Bowel sounds present. Soft, nondistended, nontender. Skin: Rash improving. Const: Vital Signs, click to edit/add: Vital Signs - 24 hr 09/24/22 20:00 09/24/22 20:00 09/24/22 23:00 Temperature 97.5 F L Pulse Rate [Left P ulse Oximeter] 65 63 Respiratory Rate 22 18 Blood Pressure [Le ft Arm] 151/81 H Pulse Oximetry 94 94 92 Oxygen Delivery Me thod Nasal Cannula Nasal Cannula Oxygen Flow Rate 3 3 Fraction of Inspir ed Oxygen 30 30 09/24/22 23:00 09/25/22 06:00 09/25/22 08:05 Temperature 97.8 F Pulse Rate [Left P ulse Oximeter] 65 Respiratory Rate 18 20 16 Blood Pressure [Le ft Arm] 148/71 H Pulse Oximetry 92 91 92 Oxygen Delivery Me thod Nasal Cannula Nasal Cannula BiPAP Oxygen Flow Rate 3 3 Fraction of Inspir ed Oxygen 30 30 09/25/22 08:05 09/25/22 10:14 09/25/22 10:14 Temperature 97.5 F L Pulse Rate [Left P ulse Oximeter] 71 Respiratory Rate 16 20 20 Blood Pressure [Le ft Arm] 144/78 H Pulse Oximetry 92 88 88 Oxygen Delivery Me thod BiPAP [place] Nasal Ca nnula [place] Nasal Ca nnula Oxygen Flow Rate 3 3 Fraction of Inspir ed Oxygen 09/25/22 10:19 09/25/22 11:00 Temperature 98 F Pulse Rate [Left P ulse Oximeter] 74 Respiratory Rate 18 Blood Pressure [Le ft Arm] 138/79 Pulse Oximetry 90 Oxygen Delivery Me thod Nasal Cannula Oxygen Flow Rate 3 Fraction of Inspir ed Oxygen 30 Documenting provider has reviewed patient's vital signs: yes
--- NOTE | 2022-09-25 16:25 | RESP.RT ---
Patient will start night on Oxymizer NC at 3 Lpm with ABG Draw, transfer to CPAP 12 cm pressure with FiO2 30% ABG draw after 1 hour, then change to BiPAP FiO2 30%, IPAP 15 cm pressure, EPAP 10 cm pressure, for remainder of night with ABG draw on these settings.
[2022-09-25] MEDS: ATORVASTATIN 10 MG TABLET 20 MG PO (20:08)
[2022-09-25] MEDS: GABAPENTIN 300 MG CAPSULE 600 MG PO (20:08)
[2022-09-25] MEDS: ENOXAPARIN 30 MG/0.3ML INJ SUBCUT (20:09)
[2022-09-25] MEDS: FEXOFENADINE 180 MG TABLET PO (20:09)
[2022-09-25 23:57] LABS: Base Excess ABG 13.1 mmol/L (-3.0-3.0); Carboxyhemoglobin* 1.5 % (0.0-5.0); HCO3 ABG 41 mmol/L (21-28); Oxygen Saturation ABG 96 % (92-100); PO2 ABG 75.6 mmHG (80-105); TCO2 ABG 37 mmol/l (21-30)
[2022-09-26] LABS: ABG PCO2 66 mmHG (35-45)
--- NOTE | 2022-09-26 00:03 | PC.NURSE ---
Shift [id number]- Patient is up to chair throughout most of shift. He remains on 3L O2 via NC. He is up with A/2, walker, gait belt and walks in the halls this afternoon. He denies pain. Appetite is intact. Dressings to bilateral legs are intact, as well as to coccyx. Critical lab- ABG- PCO2 66- MD updated
[2022-09-26] MEDS: INSULIN NPH 100 UNIT/ML 15 UNIT SUBCUT (00:07)
[2022-09-26 00:17] VITALS: TEMP 36.3
[2022-09-26] MEDS: ACETAMINOPHEN 325 MG TABLET 650 MG PO (00:17)
[2022-09-26 02:01] LABS: Base Excess ABG 13.4 mmol/L (-3.0-3.0); Carboxyhemoglobin* 1.6 % (0.0-5.0); HCO3 ABG 41 mmol/L (21-28); Oxygen Saturation ABG 93 % (92-100); PO2 ABG 65.5 mmHG (80-105); TCO2 ABG 37 mmol/l (21-30); pH ABG 7.41 (7.35-7.45)
[2022-09-26 02:03] LABS: ABG PCO2 66 mmHG (35-45)
[2022-09-26] MEDS: IPRAT-ALBUT 0.5-2.5 MG/3 ML NEB 1 NEB IH ×2 (02:03→08:30)
[2022-09-26 03:38] VITALS: BP 117/55; PULSE 56; RESP 16; TEMP 36.4; O2SAT 90
--- NOTE | 2022-09-26 04:56 | PC.NURSE ---
Shift Summary [id number]: Patient resting with 3L/oxymizer, when woken up for vitals asked if he would allow staff to place Bipap back on and patient ignored staff.
[2022-09-26 07:00] VITALS: BP 143/83; PULSE 65; RESP 16; TEMP 36.6; O2SAT 90
[2022-09-26 07:08] LABS: Chloride* 97 mmol/L (96-114); Potassium* 3.6 mmol/L (3.6-5.1); Sodium* 138 mmol/L (135-149)
[2022-09-26 07:11] LABS: Base Excess ABG 12.8 mmol/L (-3.0-3.0); Carboxyhemoglobin* 1.5 % (0.0-5.0); HCO3 ABG 41 mmol/L (21-28); Oxygen Saturation ABG 96 % (92-100); PO2 ABG 80.2 mmHG (80-105); TCO2 ABG 37 mmol/l (21-30); pH ABG 7.39 (7.35-7.45)
[2022-09-26 07:11] LABS: Blood Urea Nitrogen* 26 mg/dL (7-30); Calcium* 8.8 mg/dL (8.4-10.6); Carbon Dioxide* 37 mmol/L (20-32); Creatinine* 0.9 mg/dL (0.5-1.5); Estimated Glomerular Filt Rate 86 ml/min; Glucose* 131 mg/dL (60-115)
[2022-09-26 07:14] LABS: ABG PCO2 68 mmHG (35-45)
[2022-09-26] MEDS: TORSEMIDE 20 MG TABLET PO (08:42)
[2022-09-26] MEDS: allopurinoL 100 MG TABLET PO (08:42)
[2022-09-26] MEDS: METOPROLOL SUCCINATE (XL) 100 MG TAB PO (08:43)
[2022-09-26] MEDS: SODIUM CHLORIDE 0.9 % (FLUSH) 10 ML SYRINGE 5 ML IVF (08:43)
[2022-09-26] MEDS: ASPIRIN 81 MG TABLET EC PO (08:43)
[2022-09-26] MEDS: TRIAMCINOLONE ACETONIDE CREAM 0.1 % 1 APPLIC TOPICAL (09:00)
[2022-09-26 11:00] VITALS: BP 136/74; PULSE 67; RESP 18; O2SAT 89
[2022-09-26] MEDS: INSULIN NPH 100 UNIT/ML 20 UNIT SUBCUT (11:42)
--- NOTE | 2022-09-26 13:24 | P.DS_ITS ---
DS: Providers Provider Time Seen by Provider: 10:00 Date Seen: 09/26/22 Date of admission: 09/13/22 19:46 Primary care physician: Dilcia Castorena MD Admitting Clinician: Socorro Clark MD Consults: 09/13/22 16:50 Consult to Occupational Therapy [CONS] Routine Comment: Reason(s) for OT Consult:: Difficulty Managing ADLs Any Restrictions?:: No Restrictions Comment: Recent fall, neuropathy, SOB with exertion Consult to Physical Therapy [CONS] Routine Comment: Reason(s) for PT Consult:: Inability to Mobilize Any Restrictions?:: No Restrictions Comment: Recent fall, SOB with exertion, neuropathy 09/13/22 19:10 Consult to Physical Therapy [CONS] Routine Comment: Reason(s) for PT Consult:: Evaluate and Treat Any Restrictions?:: No Restrictions Consult to P[facility] [employer] [CONS] Routine Comment: Reason for Consult:: Discharge Planning Needs 09/13/22 19:12 Consult to Occupational Therapy [CONS] Routine Comment: Reason(s) for OT Consult:: Evaluate and Treat Any Restrictions?:: No Restrictions 09/13/22 19:23 Consult to Wound Care [CONS] Routine Comment: Consulting Provider: Candelaria Lawrence 09/14/22 10:16 Consult to Wound Care [CONS] Routine Comment: right leg cellulitis; stasis dermatitis Consulting Provider: Candelaria Lawrence Attending Physician on discharge: Socorro Clark MD Date of Discharge: 09/26/22 DS: Diagnosis Discharge Diagnosis (1) Urinary obstruction: Status: Acute Problem details: - consider leaving Pérez in upon discharge with outpatient Urology follow-up given obstruction (2) Physical deconditioning: Status: Acute Problem details: - Severe. 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 Cellulitis (LE and/or back) vs UTI vs PNA as source - patient afebrile - urine culture growing Gram-positive mixed aries (was on Keflex when this was obtained) - chest x-ray 09/20 reassuring, CT scan 09/20 concerning for UTI - blood cultures obtained (09/20), currently NGTD - Ertapenem (09/20 - 09/24) (6) Rash: Status: Acute Problem details: - noted on trunk. Ddx: Drug reaction (was present prior to initiation of Keflex and Ertapenem) vs heat/positional related vs infectious - eosinophils mildly elevated, no pruritus - on Ertapenem (09/20- 09/24) - 09/24 stopped Ertapenem due to rash. Has had a total of 11 days of antibiotics for uti/pna/cellulitis. 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 Continue reservoir nasal O2 with autotitrating BiPAP while sleeping, keep oxygen saturations between 88 and 90% - will need BIPAP at night and supplemental oxygen during the day upon d/c - requesting transfer to higher level of care facility for Pulmonology access on 09/22; no beds are available within our transfer radius. Patient refusing to transfer; after lengthy discussion, they will consider outpatient pulmonology follow-up - Patient refused to wear BiPAP several nights, therefore he did not qualify for outpatient BIPAP. 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: Status: Acute Problem details: - Acute on chronic (12) Cellulitis of right leg: Status: Acute Problem details: - appreciate wound care input (wound looks healthy and not acutely infected, per wound care) - compression wraps, diuretics, antibiotics - crp and procalcitonin reassuring - transitioned to oral Keflex 09/16, this was stopped 09/19, transitioned to Ertapenem 09/20 (13) Elevated troponin: Status: Acute Problem details: - peaked at 0.45, downtrending - no chest pain (14) Type 2 diabetes mellitus: Status: Chronic Problem details: - SSI/accuchecks, increased home NPH from 15U Qam and 10U pm to 20U Qam, 15U Qpm - BG have typically been <200, which is within inpatient goal. (15) Hypertension: Status: Acute Problem details: - home dose of metoprolol was increased from 100mg-150mg on 09/16/22, decreased back to 100mg on 09/23/22 - Medication changes: d/c'd Lisinopril /, decreased dose of Amlodipine / given hypotension, d/c'd Amlodipine 1/ given persistently lower BPs (16) Dilatation of aortic sinus of Valsalva: Status: Acute Problem details: 4.7 cm on echo 09/13/2022 - no dissection on the CT aortogram (5.8x5.1 cm on aortogram) (17) Acute on chronic heart failure with preserved ejection fraction: Status: Acute Problem details: - TTE obtained 09/13 Final Impressions: 1. Mildly increased LV size, severely increased wall thickness, normal global systolic function with an estimated EF of 55%. 2. Moderately enlarged left atrium. 3. Right ventricular cavity size is not well visualized, global systolic RV function is not well visualized. 4. Echo contrast was administrered to rule out left ventricular mass. 5. The ascending aorta is dilated with a maximal diameter of 5.0 cm. 6. The aortic sinus is dilated with a maximal diameter of 4.7 cm. (18) Hypoxia: Status: Acute Problem details: Currently on nasal cannula with reservoir at 2 liters/minute FiO2 30% with sats in the high 80s. This is our goal. As he is a CO2 retainer. DS: Summary Hospital Course Hospital Course: This is an 82-year-old male with a history of heart failure who was admitted for weakness and confusion. He also been getting weaker with worsening lower extremity edema. He had a recent fall with laceration to his right lower extremity. He was admitted for treatment of acute respiratory failure with hypoxia and hypercapnia secondary to heart failure with preserved ejection fraction. He was started on BiPAP for acute respiratory failure with worsening hypercapnia. He was started on IV diuretics and an echocardiogram was obtained and showed preserved EF of 55%. His ascending aorta was dilated to 5 cm on echocardiogram for which a CT aortogram was performed which was reassuring. Wound Care was consulted for the right lower extremity wound. He was also started on compression wraps for severe lower extremity edema. For possible cellulitis he was started on antibiotics. Diabetes was managed with insulin. He made slow but steady improvement, but continued to need BiPAP at night for hypercapnia. For persistent hypercapnia an attempt was made to see if he qualified for home BiPAP however he refused to wear it each night during the testing. It was explained to him that compliance was necessary in order for him to qualify for it at home. He ultimately chose not to have BiPAP at home and was not compliant with it in the hospital. Heart failure exacerbation resolved and lymphedema improved. He made progress with his wound as well and was stable for discharge. We did [facility], however he refused. He was discharged home to the care of his . He qualified for home oxygen which was set up for him. Also of note during this hospital stay is that he had acute kidney injury possibly secondary to obstructive process for which a Pérez catheter was placed and he was discharged with the Pérez catheter in place. He is asked to follow-up with pulmonology and Urology as well as wound care. PCP: Please note that patient will need outpatient follow up for aortic dilatation, see diagnoses above. Time Spent with Patient Time attestation: Total time spent providing and/or coordinating discharge services: Exam Narrative: Exam Narrative: General: No acute distress. Awake, alert, oriented x3. No pallor. No jaundice. Cardiovascular: Regular rate and rhythm. Respiratory: Clear to auscultation bilaterally. No wheezes or crackles. Extremities: Lower extremities are improving, now at 2+ bilateral edema. Right lower extremity and left lower extremity wounds are visualized and there is no induration or cellulitis at this time. Const: Vital Signs, click to edit/add: Vital Signs - 24 hr 09/25/22 16:00 09/25/22 16:00 09/25/22 19:00 Temperature 97.1 F L 96.7 F L Pulse Rate [Left P ulse Oximeter] 67 64 Respiratory Rate 18 18 18 Blood Pressure [Le ft Arm] 139/78 Pulse Oximetry 88 88 91 Oxygen Delivery Me thod Nasal Cannula Nasal Cannula Nasal Cannula Oxygen Flow Rate 3 3 3 09/25/22 20:53 09/25/22 23:00 09/25/22 23:00 Temperature Pulse Rate [Left P ulse Oximeter] Respiratory Rate 18 Blood Pressure [Le ft Arm] Pulse Oximetry 90 91 91 Oxygen Delivery Me thod Nasal Cannula Oxygen Flow Rate 3 09/25/22 23:00 09/26/22 00:17 09/25/22 23:00 Temperature 97.3 F L 97.3 F L Pulse Rate [Left P ulse Oximeter] 66 66 Respiratory Rate 20 16 Blood Pressure [Le ft Arm] 150/68 H Pulse Oximetry 92 Oxygen Delivery Me thod Nasal Cannula Oxygen Flow Rate 3 09/26/22 03:38 09/26/22 07:00 09/26/22 07:00 Temperature 97.5 F L Pulse Rate [Left P ulse Oximeter] 56 L 65 Respiratory Rate 16 16 Blood Pressure [Le ft Arm] 117/55 L Pulse Oximetry 90 90 Oxygen Delivery Me thod Nasal Cannula Oxygen Flow Rate 3 09/26/22 07:00 09/26/22 07:00 Temperature 97.8 F Pulse Rate [Left P ulse Oximeter] 65 Respiratory Rate 16 16 Blood Pressure [Le ft Arm] 143/83 H Pulse Oximetry 90 90 Oxygen Delivery Me thod Nasal Cannula Nasal Cannula Oxygen Flow Rate 3 3 Documenting provider has reviewed patient's vital signs: yes DS: Data Data Completed and Pending Completed studies during hospitalization: Ordering Physician: Song Foster M.D. Date of Service: 09/13/22 Procedure(s): XR chest 1V portable Accession Number(s): [id number] cc: Dilcia Castorena M.D.; Song Foster M.D.~ For Patients: As a result of the Cures Act, medical imaging exams and procedure reports are released immediately into your electronic medical record. You may view this report before your referring provider. If you have questions, please contact your health care provider. INDICATION: Shortness of breath TECHNIQUE: Chest 1 view. COMPARISON: 11/22/2011 FINDINGS: Cardiovascular and mediastinum: Cardiomegaly with pulmonary vascular congestive changes. Mediastinum is within normal limits. Lungs and pleural space: Lungs are clear. No sign of infiltrate or mass. No sign of pleural effusion. No pneumothorax. Bones and soft tissues: No significant findings. IMPRESSION: Cardiomegaly with pulmonary vascular congestive changes. Dictated by Srinivasa Valdes MD @ 09/13/2022 12:19:31 PM Dictated by: Srinivasa Valdes MD @ 09/13/2022 12:19:37 (Electronically Signed) Ordering Physician: Song Foster M.D. Date of Service: 09/13/22 Procedure(s): CT angio chest PE protocol Accession Number(s): [id number] cc: Dilcia Castorena M.D.; Song Foster M.D.~ For Patients: As a result of the Cures Act, medical imaging exams and procedure reports are released immediately into your electronic medical record. You may view this report before your referring provider. If you have questions, please contact your health care provider. Indication: Shortness of breath and hypoxia Technique: Volumetric multidetector CT images of the chest were obtained after the administration of IV contrast. 95 cc Isovue 370 low osmolar intravenous contrast Comparison: None available. Findings: The thoracic inlet and thyroid gland are unremarkable. The thoracic aorta is nonaneurysmal. There is no central filling defect to suggest pulmonary embolism. There are enlarged mediastinal and hilar lymph nodes. There is no axillary adenopathy. There is moderate central bronchial thickening with minimal mucoid impaction of the lower lobe bronchi. There is narrowing of the AP diameter of the proximal bronchi which may represent superimposed bronchomalacia. There is mild central bronchial thickening with minimal airspace opacity in the bilateral hemithoraces with mild interstitial thickening consistent with minimal pulmonary edema. There is no pneumothorax or pleural effusion. There is no evidence of pulmonary mass or suspicious pulmonary nodule. The partially visualized upper abdominal viscera are within normal limits. The thoracic vertebral body heights are grossly maintained with minimal endplate Schmorl`s defect. There is mild straightening of the normal thoracic kyphosis without evidence of significant spondylolisthesis. Impression: Mild central bronchial thickening and narrowing of the bronchial diameter which may represent a component of superimposed bronchomalacia. There is minimal mucoid impaction and interstitial prominence of the bilateral hemithoraces which may represent bronchitis and/or mild pulmonary edema changes. No evidence of pulmonary embolus. Please note that all CT scans at this facility use dose modulation, iterative reconstruction, and/or weight-based dosing when appropriate to reduce radiation dose to as low as reasonably achievable. Dictated by Yong Noriega MD @ 09/13/2022 2:26:28 PM (Electronically Signed) Ordering Physician: Socorro Clark M.D. Date of Service: 09/14/22 Procedure(s): CT aortic dissection Accession Number(s): [id number] cc: Dilcia Castorena M.D.; Socorro Clark M.D.~ For Patients: As a result of the Century Cures Act, medical imaging exams and procedure reports are released immediately into your electronic medical record. You may view this report before your referring provider. If you have questions, please contact your health care provider. INDICATION: Aortic aneurysm. TECHNIQUE: CTA chest/abdomen/pelvis with coronal and sagittal reformations. 95 mL Isovue-300. Coronal and sagittal reformations. DLP = 2351 mGy centimeter. COMPARISON: CT 09/13/2022, 04/23/2019. FINDINGS: Difficult exam due to body habitus and inability to hold breath. Difficulty assessing timing bolus. Images obtained in venous phase rather than arterial. Aortic dimensions are acquired using double angle technique in 3D software and the aorta is remeasured on the prior exam using similar angles to eliminate interobserver variability. At the sinotubular junction, the ascending aorta measures 5.2 x 4.8 cm (previously 5.1 x 4.6 cm in 2019). At the level of the mid ascending aorta, right pulmonary artery the aorta measures up to 5.8 x 5.1 cm (previously 5.7 x 5.0 cm). It measures 4.4 x 4.1 cm in the aortic arch just before the origin of the innominate artery, unchanged. The descending thoracic aorta is normal in caliber. Proximal aspect of carotid and subclavian arteries are patent. The celiac trunk, SMA, and GIANNA are patent. There is some atherosclerosis without significant stenosis of bilateral renal artery origins. No abdominal aortic aneurysm. Common, internal, and external iliac arteries demonstrate no aneurysm. Normal heart size with mild coronary artery calcification. Normal caliber of the main pulmonary artery. The thyroid is normal. No pericardial effusion. Normal esophagus. Assessment of lung parenchyma limited by poor inspiratory volume and respiratory motion artifact. Scattered patchy atelectasis. No additional pulmonary opacity. No definite pulmonary nodules. Pleural spaces clear. No liver lesion. No biliary dilation. Normal gallbladder. Spleen, adrenal glands, pancreas are unremarkable. Symmetric renal enhancement without hydronephrosis. There are dependent densities in the right kidney which likely represent excreted contrast rather than stones. No hydronephrosis bilaterally. Due to body habitus, some portions of the abdominal wall or in contact with the gantry which created streak artifact and limits evaluation, primarily of the left flank and left anterior abdominal wall. Visualized bowel is unremarkable with no wall thickening or evidence of obstruction/ileus. Normal appendix. Urinary bladder is decompressed by Pérez catheter. Prostate size is within normal limits. There are no acute or aggressive osseous abnormalities identified. Multilevel degenerative changes of the lumbar spine. IMPRESSION : 1. Dilated ascending aorta measuring up to 5.8 x 5.1 cm, stable or minimally increased from the examination in 2019. No dissection. No mediastinal hematoma. 2. The aortic arch, descending thoracic aorta, and abdominal aorta are normal in caliber. Please note that all CT scans at this facility use dose modulation, iterative reconstruction, and/or weight-based dosing when appropriate to reduce radiation dose to as low as reasonably achievable. Dictated by Sung Barnes MD @ 09/14/2022 11:10:14 AM (Electronically Signed) Ordering Physician: Mireille Chaidez M.D. Date of Service: 09/16/22 Procedure(s): XR chest 1V portable Accession Number(s): [id number] cc: Dilcia Castorena M.D.; Mireille Chaidez M.D.~ For Patients: As a result of the 21st Century Cures Act, medical imaging exams and procedure reports are released immediately into your electronic medical record. You may view this report before your referring provider. If you have questions, please contact your health care provider. INDICATION: Follow up congestive failure. COMPARISON: CT 14 September 2022 and plain film 13 September 2022. IMPRESSION: One view chest. Significantly improved pulmonary vascular congestion with persistent upper normal caliber. Mild cardiomegaly. No pleural effusion. Dictated by Jesse Hollis MD @ 09/16/2022 11:59:48 AM (Electronically Signed) Ordering Physician: Petra Shafer M.D. Date of Service: 09/19/22 Procedure(s): XR chest 1V portable Accession Number(s): [id number] cc: Petra Shafer M.D.; Dilcia Castorena M.D.~ For Patients: As a result of the Cures Act, medical imaging exams and procedure reports are released immediately into your electronic medical record. You may view this report before your referring provider. If you have questions, please contact your health care provider. INDICATION: Illness TECHNIQUE: Single-view chest. FINDINGS: Enlarged cardiac silhouette. Low lung volumes. Lungs appear clear. Dictated by Sunita Koenig MD @ 09/19/2022 1:18:56 PM (Electronically Signed) Ordering Physician: Petra Shafer M.D. Date of Service: 09/20/22 Procedure(s): CT abdomen pelvis wo con Accession Number(s): [id number] cc: Petra Shafer M.D.; Dilcia Castorena M.D.~ For Patients: As a result of the Cures Act, medical imaging exams and procedure reports are released immediately into your electronic medical record. You may view this report before your referring provider. If you have questions, please contact your health care provider. INDICATION: Hematuria COMPARISON: Portions of a September 14, 2022 examination TECHNIQUE: CT examination of the abdomen and pelvis was performed without intravenous contrast. Thin section axial images were obtained from the lung bases through the pubic symphysis. Oral contrast was not administered. Please note that all CT scans at this facility use dose modulation, iterative reconstruction, and/or weight-based dosing when appropriate to reduce radiation dose to as low as reasonably achievable. FINDINGS: LUNG BASES: Bibasal airspace process probably atelectasis.Enlarged heart at the lung bases. Incidental gynecomastia. LIVER/BILIARY SYSTEM:The liver is normal in size and configuration given the lack of intravenous contrast. There is no visible focal mass and there is no intra- or extra hepatic biliary ductal dilatation.The gall bladder appears normal. ADRENALS: Normal non-contrast appearance KIDNEYS, URETERS and BLADDER:The kidneys are normal in size. There is perinephric stranding and periureteric stranding. There are also moderately dilated ureters, a very significantly distended bladder and an enlarged prostate. There are also perivesicular inflammatory changes. All the above mentioned findings are new other than the enlarged prostate. The findings are probably all due to obstructive uropathy at the level of the bladder outlet and probably due to an enlarged prostate. The possibility that the urinary tract being infected should also be considered clinically. There are no stones or visible mechanical obstruction although the prostate SPLEEN:Normal non-contrast appearance. PANCREAS: Normal non-contrast appearance. RETROPERITONEUM and MESENTERY: There is no mass, adenopathy or aortic aneurysm. Atherosclerotic vascular calcifications GASTROINTESTINAL SYSTEM: There is no evidence of diverticulitis, colitis, mechanical obstruction, or appendicitis. The small bowel as visualized appears normal.Thick retention. Scattered diverticulosis. PELVIS: No adenopathy.. OSSEOUS STRUCTURES and ABDOMINAL WALL: Demineralization, degenerative changes and scoliosis. No acute osseous findings.No significant abdominal wall defect. OTHER: No free fluid or free air. IMPRESSION: 1. Perinephric, periureteric and perivesicular inflammatory change and mildly dilated ureters. Although these findings are new when compared to September 14, 2022 and are likely due to bladder outlet obstruction at the level of the enlarged prostate. Infection of the urinary system should also be considered. 2. Other incidental nonacute appearing findings as above Please note that all CT scans at this facility use dose modulation, iterative reconstruction, and/or weight-based dosing when appropriate to reduce radiation dose to as low as reasonably achievable. Dictated by Bull Powell MD @ 09/20/2022 10:52:20 AM (Electronically Signed) Ordering Physician: Petra Shafer M.D. Date of Service: 09/20/22 Procedure(s): XR chest 1V Accession Number(s): [id number] cc: Petra Shafer M.D.; Dilcia Castorena M.D.~ For Patients: As a result of the Cures Act, medical imaging exams and procedure reports are released immediately into your electronic medical record. You may view this report before your referring provider. If you have questions, please contact your health care provider. INDICATION: Follow-up evaluation. COMPARISON: September 19, 2022 TECHNIQUE: Portable supine single view study FINDINGS: TUBES AND LINES: None. HEART AND MEDIASTINUM: Enlarged heart. LUNGS AND PLEURAL SPACES: The lungs appear normal.The pleural spaces are unremarkable. OSSEOUS STRUCTURES: Age-appropriate appearance. No acute focal finding. IMPRESSION: Enlarged heart. Lungs and pleural spaces appear normal. Dictated by Bull Powell MD @ 09/20/2022 11:01:03 AM (Electronically Signed) Ordering Physician: Petra Shafer M.D. Date of Service: 09/22/22 Procedure(s): XR chest 1V portable Accession Number(s): [id number] cc: Petra Shafer M.D.; Dilcia Castorena M.D.~ For Patients: As a result of the Cures Act, medical imaging exams and procedure reports are released immediately into your electronic medical record. You may view this report before your referring provider. If you have questions, please contact your health care provider. INDICATION: Follow-up evaluation. COMPARISON: 09/20/2022 TECHNIQUE: Single-view study FINDINGS: TUBES AND LINES: None. HEART AND MEDIASTINUM: Enlarged heart. LUNGS AND PLEURAL SPACES: Patchy multifocal airspace disease bilaterally. This is primarily at the left base and more diffusely on the right.This could be an inflammatory process or edema. OSSEOUS STRUCTURES: Age-appropriate appearance. No acute focal finding. IMPRESSION: Patchy multifocal airspace disease bilaterally, right greater than left. This could be due to edema or an inflammatory process. The findings are new compared to September 20, 2022 Dictated by Bull Powell MD @ 09/22/2022 7:24:10 AM (Electronically Signed) 09/13/2022 12:36 p.m. EKG: Sinus rhythm with first-degree AV block. 61 beats per minute. Nonspecific T- wave abnormality. 09/13/2022 echocardiogram: Mildly increased LV size, severely increased wall thickness, low normal global systolic function with an estimated EF of 55%. Moderately enlarged left atrium. Right ventricular cavity size is not well visualized, global systolic RV function is not well visualized. Echo contrast was administered to rule out left ventricular mass. The ascending aorta is dilated with a maximal diameter 5 cm. The aortic sinus is dilated with a maximal diameter of 4.7 cm. Labs on day of discharge: Labs from last 24 hours 09/26/22 09/26/22 09/26/22 07:06 05:55 01:57 ABG pH 7.39 7.41 ABG pCO2 68 H* 66 H* ABG pO2 80.2 65.5 L ABG HCO3 41 H 41 H ABG Total CO2 37 H 37 H ABG O2 Saturation 96 93 ABG Base Excess 12.8 H 13.4 H Carboxyhemoglobin 1.5 1.6 Sodium 138 Potassium 3.6 Chloride 97 Carbon Dioxide 37 H BUN 26 Creatinine 0.9 Estimated Creat Clear 68.50 Estimated GFR 86 Glucose 131 H Calcium 8.8 09/25/22 23:52 ABG pH 7.40 ABG pCO2 66 H* ABG pO2 75.6 L ABG HCO3 41 H ABG Total CO2 37 H ABG O2 Saturation 96 ABG Base Excess 13.1 H Carboxyhemoglobin 1.5 Sodium Potassium Chloride Carbon Dioxide BUN Creatinine Estimated Creat Clear Estimated GFR Glucose Calcium Discharge Plan Discharge Disposition: Home, Self-Care Date of Admission: 09/13/22 19:46 Attending Provider on Discharge: Socorro Clark Consulting Providers: Candelaria Lawrence Primary Care Provider: Dilcia Castorena Condition: Stable Anticipated Discharge Date/Time: 09/26/22 15:41 Discharge Medications: New calcium carbonate-vitamin D3 [Oyster Shell Calcium-Vit D3] 500 mg-5 mcg (200 unit) Tablet 1 tab PO BID Qty: 60 0RF fexofenadine 180 mg Tablet 180 mg PO HS Qty: 30 0RF ipratropium-albuterol 0.5 mg-3 mg(2.5 mg base)/3 mL Solution For Nebulization 1 neb inhalation Q6H Qty: 30 0RF torsemide 20 mg Tablet 20 mg PO DAILY@0800 Qty: 30 0RF triamcinolone acetonide 0.1 % Cream 1 applic topical BID Qty: 15 0RF nystatin 100,000 unit/gram Powder 1 applic topical BID Qty: 30 0RF (DME) nebulizer and compressor Device See Rx Instructions .Route Qty: 1 0RF Rx Instructions: As directed (DME) nebulizer accessories Kit See Rx Instructions .ROUTE .MEDSUPPLY Qty: 1 0RF Rx Instructions: As directed insulin aspart U-100 [Novolog FlexPen U-100 Insulin] 100 unit/mL (3 mL) Insulin Pen 1 sliding scale dose subcut ACHS Qty: 15 0RF Rx Instructions: Blood Glucose 150 or less No coverage Blood Glucose 151-200 1 unit Blood Glucose 201-250 2 units Blood Glucose 251-300 3 units Blood Glucose 301-350 4 units Blood Glucose 351 to 400 5 units Blood Glucose 401 and greater 6 units and recheck in 2 hours insulin NPH isoph U-100 human 100 unit/mL (3 mL) insulin pen 15 unit subcut DAILY@23 Qty: 1 0RF Continued allopurinol 100 mg tablet 100 mg PO DAILY Label Comments: TAKE ONE TABLET BY MOUTH ONCE DAILY ammonium lactate 12 % cream 1 applic topical BID atorvastatin 20 mg tablet 20 mg PO HS Label Comments: TAKE 1 TABLET (20 MG) BY MOUTH AT BEDTIME. gabapentin 300 mg capsule 600 mg PO HS Label Comments: TAKE TWO CAPSULES BY MOUTH AT BEDTIME MAY TAKE ADDITIONAL 2-3 CAPS SPACED OUT THROUGHOUT THE DAY NEEDED metoprolol succinate 100 mg tablet extended release 24 hr 100 mg PO DAILY Label Comments: TAKE ONE TABLET BY MOUTH ONCE DAILY (DME) insulin syringe-needle U-100 [UltiCare] 0.3 mL 30 gauge x 1/2 syringe MISCELLANEOUS senna 8.6 mg capsule 8.6 mg PO DAILY nitroglycerin [Nitrostat] 0.4 mg tablet, sublingual 0.4 mg sublingual Q5-15M PRN Rx Instructions: do not exceed 3 doses per episode acetaminophen [Arthritis Pain Reliever] 650 mg tablet extended release 1,300 mg PO HS aspirin [Ecotrin Low Strength] 81 mg tablet,delayed release (DR/EC) 81 mg PO DAILY Discontinued Novolin N NPH U-100 Insulin 100 unit/mL suspension 10 - 15 unit SUBCUT BID Label Comments: INJECT 15 UNITS UNDER THE SKIN IN THE MORNING & 10 UNITS IN THE EVENING. Novolin R Regular U-100 Insuln 100 unit/mL solution 10 unit subcut BID Label Comments: INJECT 10 UNITS SUBCUTANEOUSLY TWICE DAILY WITH MEALS furosemide 40 mg tablet 20 mg PO DAILY Qty: 30 2RF Label Comments: Took first dose this morning. diphenhydramine-acetaminophen [Tylenol PM Extra Strength] 25-500 mg tablet 1 tab PO QHS PRN Discharge Orders: Discharge Order (Routine); Ordered 09/26/22 Ordered By: Socorro Clark Patient Education: Nystatin (On the skin), Fexofenadine (By mouth) (Letty, [facility] Allergy Relief, TopCare..., Torsemide (By mouth), Insulin Aspart, Recombinant (By injection) (NovoLOG, NovoLOG FlexPen), Heart Failure (DC), How to Use a Nebulizer (DC) Additional Instructions: - Pulmonology 2-3 weeks. - Urology 1 week for urinary obstruction. - Pérez to gravity until seen by urology in 1 week. - PCP this week. - Home O2 3LPM via NC continuous. - Outpatient PT and OT to eval and treat. - Coban 2-layer compression wraps to both legs. Change EOD and PRN in conjunction with wound dressing changes. - Fit for lymphedema pumps. Okay to use calf measurements from hospitalization. - BLE: venous ulcerations. Cleanse with wound cleanser. Apply medihoney to wound bed, cover with cut-to-fit wound size xeroform. Change EOD and prn. - Dressing and compression change during encounter, okay to leave in place until seen in wound center. - Patient discharging home and to f/u in wound center on 09/28/22 at 8am with Digna Marroquin MD. Activity Level: Activity as Tolerated and Use Walker Discharge Diet: Diabetic, 2 gm Sodium and 1500 ml Fluid Restriction Follow Up Appointments: Dilcia Castorena MD [Primary Care Provider] - 09/27/22 10:20 am (Follow up at [facility] earliest appointment we could get, otherwise booked tell end september.) Digna Marroquin MD [Staff Physician] - 09/28/22 8:00 am (Wound Care Clinic) Forms: [employer] Info Instructions
--- NOTE | 2022-09-26 14:26 | PM.WSPN ---
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 Status: Chronic Plan -Cellulitis RLE: no s/s of acute infection. resolved. Continue with hospitalist team recs for abx treatment. -DM2: Reminder to keep blood sugars below 180 at all times to facilitate wound healing. Keep legs elevated when seated. Ambulate min. of 10min 4xdaily. -Morbid obesity: adequate protein for wound healing. Recommend multi-vitamin with zinc. -Lymphedema improved from admission. continue with coban 2-layer compression wraps. Change EOD and PRN in conjunction with wound dressing changes. Patient to transition velcro compression wraps that will be ordered -through wound center. Recommend patient be fitted for lymphedema pumps. Okay to use calf measurements from hospitalization. -BLE: venous ulcerations. Wounds again improved. cleanse with wound cleanser. apply medihoney to wound bed, cover with cut-to-fit wound size xeroform. Change EOD and prn. -Dressing and compression change during encounter, okay to leave in place until seen in wound center. -Patient discharging home and to f/u in wound center on 09/28/22 at 8am with Digna Marroquin MD. Time Spent With Patient Total time spent: 30 Subjective Date Seen: 09/26/22 Interval history: Patient to discharge home. Lymphedema stable. Wounds improved. Denies s/s of acute infection. Pain well controlled. Will discharge home with home oxygen. Patient continues to work with PT and will continue to incorporate exercises when he returns home. Patient will continue to focus on keeping his blood sugars controlled to help with wound healing. and patient did not want to pursue TCU placement for concerns of covid exposure. Exam Narrative: Exam Narrative: General: No acute distress, sitting comfortably In chair Respiratory: unlabored. Speaking in full sentences. Cardiac: pedal pulses palpable and strong. BLE: edema 2+ non-pitting RLE wound: 3cmX7.3cmX0.1cm LLE wound: 0.7cmX0.8cmX0.1cm Psych: normal affect Const: Vital Signs, click to edit/add: Vital Signs - 24 hr 09/25/22 16:00 09/25/22 16:00 09/25/22 19:00 Temperature 97.1 F L 96.7 F L Pulse Rate [Left P ulse Oximeter] 67 64 Respiratory Rate 18 18 18 Blood Pressure [Le ft Arm] 139/78 Pulse Oximetry 88 88 91 Oxygen Delivery Me thod Nasal Cannula Nasal Cannula Nasal Cannula Oxygen Flow Rate 3 3 3 09/25/22 20:53 09/25/22 23:00 09/25/22 23:00 Temperature Pulse Rate [Left P ulse Oximeter] Respiratory Rate 18 Blood Pressure [Le ft Arm] Pulse Oximetry 90 91 91 Oxygen Delivery Me thod Nasal Cannula Oxygen Flow Rate 3 09/25/22 23:00 09/26/22 00:17 09/25/22 23:00 Temperature 97.3 F L 97.3 F L Pulse Rate [Left P ulse Oximeter] 66 66 Respiratory Rate 20 16 Blood Pressure [Le ft Arm] 150/68 H Pulse Oximetry 92 Oxygen Delivery Me thod Nasal Cannula Oxygen Flow Rate 3 09/26/22 03:38 09/26/22 07:00 09/26/22 07:00 Temperature 97.5 F L Pulse Rate [Left P ulse Oximeter] 56 L 65 Respiratory Rate 16 16 Blood Pressure [Le ft Arm] 117/55 L Pulse Oximetry 90 90 Oxygen Delivery Me thod Nasal Cannula Oxygen Flow Rate 3 09/26/22 07:00 09/26/22 07:00 Temperature 97.8 F Pulse Rate [Left P ulse Oximeter] 65 Respiratory Rate 16 16 Blood Pressure [Le ft Arm] 143/83 H Pulse Oximetry 90 90 Oxygen Delivery Me thod Nasal Cannula Nasal Cannula Oxygen Flow Rate 3 3 Labs Labs: Laboratory Results - last 24 hr 09/25/22 09/26/22 09/26/22 23:52 01:57 05:55 ABG pH 7.40 7.41 ABG pCO2 66 H* 66 H* ABG pO2 75.6 L 65.5 L ABG HCO3 41 H 41 H ABG Total CO2 37 H 37 H ABG O2 Saturation 96 93 ABG Base Excess 13.1 H 13.4 H Carboxyhemoglobin 1.5 1.6 Sodium 138 Potassium 3.6 Chloride 97 Carbon Dioxide 37 H BUN 26 Creatinine 0.9 Estimated Creat Clear 68.50 Estimated GFR 86 Glucose 131 H Calcium 8.8 09/26/22 07:06 ABG pH 7.39 ABG pCO2 68 H* ABG pO2 80.2 ABG HCO3 41 H ABG Total CO2 37 H ABG O2 Saturation 96 ABG Base Excess 12.8 H Carboxyhemoglobin 1.5 Sodium Potassium Chloride Carbon Dioxide BUN Creatinine Estimated Creat Clear Estimated GFR Glucose Calcium Procedures Additional Procedures Additional Procedure Details: wound dressings and 2-layer compression wraps applied/completed by provider.
[2022-09-26 14:35] VITALS: O2SAT 79; O2SAT 84; O2SAT 90
[2022-09-26 15:15] VITALS: O2SAT 90
--- NOTE | 2022-09-26 15:30 | PC.NURSE ---
Nursing Care Hours: [phone] Pt this shift calm and cooperative with cares. Pleasant and appropriate. Assist x1 to chair and to BSC. Wound dressing changes done by client retention specialist. Catheter running clear claudia output. O2 at or above 88% on 3L NC. Eating and drinking well, large continent BM. Working on discharge orders, pt here helping getting supplies in order for home. BS 123 in morning and 178 at lunch, 1 unit given.
--- NOTE | 2022-09-26 15:35 | W.PM.HOT ---
Acute Home Oxygen Therapy Acute Home Oxygen Therapy Diagnosis for Oxygen Therapy (1) Acute on chronic heart failure with preserved ejection fraction: Comment: - TTE obtained 09/13 Final Impressions: 1. Mildly increased LV size, severely increased wall thickness, normal global systolic function with an estimated EF of 55%. 2. Moderately enlarged left atrium. 3. Right ventricular cavity size is not well visualized, global systolic RV function is not well visualized. 4. Echo contrast was administrered to rule out left ventricular mass. 5. The ascending aorta is dilated with a maximal diameter of 5.0 cm. 6. The aortic sinus is dilated with a maximal diameter of 4.7 cm. Code(s): I50.33 - Acute on chronic diastolic (congestive) heart failure Provider Note Provider Note: Patient was admitted on 09/13/22 at 19:46 and will be discharging on 09/26/2022. Patient is desaturating with SATs of 84% on room air at rest and 79% on room air with activity due to diastolic CHF. Alternative therapies have been attempted and have not been successful in maintaining the patient's saturation level above 88%. Supplemental O2 is required. This patient is mobile within the home and requires portability.
--- NOTE | 2022-09-26 16:44 | PC.SOCIAL ---
Discharge planning: spinning room worker participated in care conference with pt, , and physician. Pt has been accepted for admission today at [facility], [place] and authorization has been given by pt's [employer] insurance for admission to that facility. Pt clearly stated in the meeting that he will not go to [facility]. He has consistently stated he will not go further outside [place] than [place] to a facility and [facility], [place] is the only facility in that area with availability, [employer] contract and equiptment that can accommodate his weight. Pt and state he will be discharged home. Provided ad pt with Important Message form Medicare. Both are eager for discharge to home today. Per MD order for home oxygen, faxed required information to [employer] [facility]. This home oxygen company was used at pt request. There were no other social work needs at discharge.
--- NOTE | 2022-09-26 17:02 | PC.NURSE ---
INSTRUCTED AND DEMONSTRATED WITH LEG BAG USE FOR GRIFFITHS. PATIENT ALSO SENT HOME WITH NIGHT BAG AND INSTRUCTED ON HOW TO SWITCH BAGS. SL DC'D. REVIEWED DC INSTRUCTIONS WITH PATIENT AND AND PATIENT DC'D HOME WITH HOME OXYGEN TANK.
== END 2022-09-26 16:50 | disposition home or self-care (01) | DRG 291 ==
LOC: ED 15:20 → MEDSURG 15:43
PROVIDERS: Family Medicine; Admitting Provider Family Medicine; Emergency Provider Family Medicine; PCP Family Medicine; Visit Provider Family Medicine
DX: I11.0 Hypertensive heart disease with heart failure (principal); I50.33 Acute on chronic diastolic (congestive) heart failure; J96.01 Acute respiratory failure with hypoxia; J96.02 Acute respiratory failure with hypercapnia; L03.115 Cellulitis of right lower limb; I83.219 Varicose veins of right lower extremity with both ulcer of unspecified site and inflammation; N17.9 Acute kidney failure, unspecified; Z68.42 Body mass index [BMI] 45.0-49.9, adult; E66.2 Morbid (severe) obesity with alveolar hypoventilation; I83.218 Varicose veins of right lower extremity with both ulcer of other part of lower extremity and inflammation; I83.228 Varicose veins of left lower extremity with both ulcer of other part of lower extremity and inflammation; L97.819 Non-pressure chronic ulcer of other part of right lower leg with unspecified severity; L97.829 Non-pressure chronic ulcer of other part of left lower leg with unspecified severity; N13.8 Other obstructive and reflux uropathy; N39.0 Urinary tract infection, site not specified; R77.8 Other specified abnormalities of plasma proteins; E11.65 Type 2 diabetes mellitus with hyperglycemia; I77.810 Thoracic aortic ectasia; I89.0 Lymphedema, not elsewhere classified; E66.01 Morbid (severe) obesity due to excess calories; R21 Rash and other nonspecific skin eruption; D72.829 Elevated white blood cell count, unspecified; N40.1 Benign prostatic hyperplasia with lower urinary tract symptoms; B96.89 Other specified bacterial agents as the cause of diseases classified elsewhere; R53.81 Other malaise; N13.9 Obstructive and reflux uropathy, unspecified; M51.36 Other intervertebral disc degeneration, lumbar region; M35.3 Polymyalgia rheumatica; I77.819 Aortic ectasia, unspecified site; E11.42 Type 2 diabetes mellitus with diabetic polyneuropathy; Z79.4 Long term (current) use of insulin; Z91.81 History of falling; K21.9 Gastro-esophageal reflux disease without esophagitis
CPT/HCPCS: 36415; 36600; 71045; 71260; 71270; 74176; 74177; 80048; 80053; 80061; 80076; 81003; 81015; 82330; 82803; 82962; 83036; 83735; 83880; 84145; 84443; 84484; 84550; 85025; 85027; 85379; 85610; 85730; 86140; 87040; 87086; 87493; 87502; 87634; 87635; 93005; 93306; 94640; 94660; 94761; 97110; 97116; 97162; 97166; 97530; 97535; 99285; 99291; A9270; J0610; J0696; J1335; J1650; J1940; J2930; J7050; Q9957; Q9967

== ENCOUNTER 2022-09-29 17:06 | Outpatient (CLI) | payer OTHER, SELFPAY | END 2022-09-29 17:07 | disposition home or self-care (01) | LOC: AMB 10-09 14:47 | PROVIDERS: PCP Family Medicine; Visit Provider Family Medicine | DX: R53.1 Weakness (principal) | CPT/HCPCS: A0998 ==

== ENCOUNTER 2022-10-04 10:48 | Emergency (ER) | payer OTHER, SELFPAY ==
[2022-10-04 11:05] VITALS: BP 173/80; PULSE 70; RESP 26; TEMP 36.8; O2SAT 93; BMI 43.7
== END 2022-10-04 11:55 | disposition left against medical advice (07) ==
LOC: ED 12:25
PROVIDERS: PCP Family Medicine
DX: T83.028A Displacement of other urinary catheter, initial encounter (principal)

== ENCOUNTER 2022-10-14 13:16 | Emergency (ER) | payer OTHER, SELFPAY ==
[2022-10-14 13:30] VITALS: BP 151/77; PULSE 69; RESP 20; TEMP 36.6; O2SAT 91; BMI 43.7
--- NOTE | 2022-10-14 13:46 | ED.GENADULT ---
HPI - General Adult General Chief complaint: Urogenital Problems, Male Stated complaint: Hasn't urinated since getting catheter removed Time Seen by Provider: 10/14/22 13:36 History of Present Illness HPI narrative: This 82-year-old male comes in because of urinary retention. He had a catheter removed yesterday and he has not been able to void much since then. He was released from a hospitalization the lasted a couple weeks and apparently had a catheter in place for about a month. He prefers to use a straight catheter repeatedly at home rather than carrying a he does not report any fevers. Partida catheter with a bag. Related Data Home Medications Medication Instructions Recorded Confirmed acetaminophen 650 mg 1,300 mg PO HS 09/10/22 10/14/22 tablet,extended release (Arthritis Pain Reliever) allopurinol 100 mg tablet 100 mg PO DAILY 09/10/22 10/14/22 ammonium lactate 12 % topical cream 1 applic topical BID 09/10/22 10/14/22 aspirin 81 mg tablet,delayed 81 mg PO DAILY 09/10/22 10/14/22 release (Ecotrin Low Strength) atorvastatin 20 mg tablet 20 mg PO HS 09/10/22 10/14/22 gabapentin 300 mg capsule 600 mg PO HS 09/10/22 10/14/22 insulin syringe-needle U-100 0.3 09/10/22 09/10/22 mL 30 gauge x 1/2 (UltiCare) metoprolol succinate 100 mg 100 mg PO DAILY 09/10/22 10/14/22 tablet,extended release 24 hr nitroglycerin 0.4 mg sublingual 0.4 mg sublingual Q5-15M PRN 09/10/22 10/14/22 tablet (Nitrostat) Previous Rx's Medication Instructions Recorded fexofenadine 180 mg tablet 180 mg PO HS #30 tabs 09/26/22 insulin NPH isoph U-100 human 100 15 unit (0.15 mL) subcut DAILY@09/26/22 unit/mL (3 mL) subcutaneous pen #1 pen insulin aspart U-100 100 unit/mL 1 sliding scale dose subcut ACHS 09/26/22 (3 mL) subcutaneous pen (Novolog #15 mL FlexPen U-100 Insulin aspart) nebulizer accessories #1 ea 09/26/22 nebulizer and compressor #1 ea 09/26/22 nystatin 100,000 unit/gram topical 1 applic topical BID #30 grams 09/26/22 powder torsemide 20 mg tablet 20 mg PO DAILY@0800 #30 tabs 09/26/22 triamcinolone acetonide 0.1 % 1 applic topical BID #15 grams 09/26/22 topical cream cephalexin 500 mg capsule 500 mg PO TID 10 days #30 caps 10/14/22 Allergies Allergy/AdvReac Type Severity Reaction Status Date / Time No Known Drug Allergies Allergy Verified 09/13/22 13:31 Review of Systems Status of ROS: Reports: 10 or more systems reviewed and unremarkable except as noted in History and below Narrative: Constitutional: No fevers, no weight gain or loss. Eyes: No discharge. No vision changes. HENT: No congestion, no sore throat, no ear pain. Cardiovascular: No chest pain, no palpitations. Respiratory: No shortness of breath, no wheezes, no cough. Gastrointestinal: No abdominal pain, no vomiting, no diarrhea. Genitourinary: Urinary retention. Musculoskeletal: Normal range of motion. Skin: No rashes, no pruritis. Neurological: No dizziness, weakness, sensory change, speech change. Endo/Heme/Allergies: No bruising or bleeding. No polydipsia. Pysch: no suicidality, no anxiety, no insomnia. All other systems reviewed and are negative. 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 Lives with . Denies tobacco use, lifelong nonsmoker. Alcohol use 1 drink per month. Denies recreational drug use. DNI. Smoking Status: Never smoker Do you use any of these nicotine containing products: None Second hand tobacco smoke exposure: No How often do you have a drink containing alcohol: never AUDIT-C Alcohol total score: 0 Non-prescribed substance use: denies use service: No Exam Narrative: Exam Narrative: Constitutional: Well-developed, well-nourished, no acute distress. HEENT: Normocephalic, atraumatic. Neck: Normal range of motion. Nontender. Supple. Heart: Intact distal pulses. Lungs: No chest discomfort. No wheezes, rhonchi, or rales. Abdomen: Distended Back: Normal range of motion. Extremities: Normal range of motion. No injury. Large bilateral edema with some skin breakdown and discoloration. Skin: Intact. No rash. Warm. No erythema or pallor. Neurologic: No altered sensation. No weakness. Alert and oriented. Psychiatric: No suicidality. No anxiety or depression. No insomnia. Nursing notes and vitals signs are reviewed. Const: Vital Signs, click to edit/add: Vital Signs - 24 hr 10/14/22 13:30 Temperature 97.8 F Pulse Rate [Pulse Oximeter] 69 Respiratory Rate 20 Blood Pressure [Ri ght Upper Arm] 151/77 H Pulse Oximetry 91 Oxygen Delivery Me thod Room Air Course Vital Signs Vital signs: Initial Vital Signs Temperature 97.8 F 10/14/22 13:30 Temperature Source Temporal Artery Scan 10/14/22 13:30 Pulse Rate 69 10/14/22 13:30 Respiratory Rate 20 10/14/22 13:30 Blood Pressure 151/77 H 10/14/22 13:30 Blood Pressure Mean 101 10/14/22 13:30 Blood Pressure Position Semi-Fowlers 10/14/22 13:30 Pulse Oximetry 91 10/14/22 13:30 Oxygen Delivery Method 10/14/22 13:30 Vital Signs Temperature 97.8 F 10/14/22 13:30 Pulse Rate 69 10/14/22 13:30 Respiratory Rate 20 10/14/22 13:30 Blood Pressure 151/77 H 10/14/22 13:30 Pulse Oximetry 91 10/14/22 13:30 Oxygen Delivery Method 10/14/22 13:30 Temperature 97.8 F 10/14/22 13:30 Pulse Rate 69 10/14/22 13:30 Respiratory Rate 20 10/14/22 13:30 Blood Pressure 151/77 H 10/14/22 13:30 Pulse Oximetry 91 10/14/22 13:30 Oxygen Delivery Method 10/14/22 13:30 Medical Decision Making MDM Narrative Medical decision making narrative: This patient comes in with urinary retention after having a catheter removed yesterday. A Partida catheter was placed and he will that about a L of urine. Urinalysis does show evidence of infection. The patient was initially stating that he preferred to leave the Partida catheter out and would like to do self catheterization. The nurse tells me that it was rather difficult getting the catheter started as he is not circumcised and there was some difficulty retracting the foreskin. I advised the patient to keep the Partida catheter in place and return to clinic at the beginning of next week for removing it and giving it another try. He did receive a prescription for Keflex. Urine culture is in process. Lab Data Labs: Lab Results 10/14/22 Range/Units 14:15 Urine Color Yellow (Yellow) Urine Appearance Cloudy A (Clear) Urine pH 6.0 (5.0-8.5) Ur Specific [place] 1.020 (1.000-1.030) Urine Protein 2+ A (Negative) Urine Glucose (UA) Negative (Negative) Urine Ketones Negative (Negative) Urine Blood 3+ A (Negative) Urine Nitrite Negative (Negative) Urine Bilirubin Negative (Negative) Urine Urobilinogen 2.0 A (0.2-1.0) Ur Leukocyte Esterase 3+ A (Negative) Urine RBC >100 A (0-2) Urine WBC >100 A (0-5) Ur Squamous Epith Cells None (None-Few) Urine Bacteria Moderate A (None) Discharge Plan Discharge Clinical Impression: Urinary tract infection, Acute retention of urine Patient Disposition: Home, Self-Care Condition: Stable Additional Instructions: Take medication as prescribed. Return to urgent care clinic in 3 or 4 days for catheter removal. Follow up with MD otherwise as needed. Prescriptions: New cephalexin 500 mg capsule 500 mg PO TID 10 Days Qty: 30 0RF No Action allopurinol 100 mg tablet 100 mg PO DAILY Label Comments: TAKE ONE TABLET BY MOUTH ONCE DAILY ammonium lactate 12 % cream 1 applic topical BID atorvastatin 20 mg tablet 20 mg PO HS Label Comments: TAKE 1 TABLET (20 MG) BY MOUTH AT BEDTIME. gabapentin 300 mg capsule 600 mg PO HS Label Comments: TAKE TWO CAPSULES BY MOUTH AT BEDTIME MAY TAKE ADDITIONAL 2-3 CAPS SPACED OUT THROUGHOUT THE DAY NEEDED metoprolol succinate 100 mg tablet extended release 24 hr 100 mg PO DAILY Label Comments: TAKE ONE TABLET BY MOUTH ONCE DAILY (DME) insulin syringe-needle U-100 [UltiCare] 0.3 mL 30 gauge x 1/2 syringe MISCELLANEOUS nitroglycerin [Nitrostat] 0.4 mg tablet, sublingual 0.4 mg sublingual Q5-15M PRN Rx Instructions: do not exceed 3 doses per episode acetaminophen [Arthritis Pain Reliever] 650 mg tablet extended release 1,300 mg PO HS aspirin [Ecotrin Low Strength] 81 mg tablet,delayed release (DR/EC) 81 mg PO DAILY fexofenadine 180 mg Tablet 180 mg PO HS Qty: 30 0RF torsemide 20 mg Tablet 20 mg PO DAILY@0800 Qty: 30 0RF triamcinolone acetonide 0.1 % Cream 1 applic topical BID Qty: 15 0RF nystatin 100,000 unit/gram Powder 1 applic topical BID Qty: 30 0RF (DME) nebulizer and compressor Device See Rx Instructions .Route Qty: 1 0RF Rx Instructions: As directed (DME) nebulizer accessories Kit See Rx Instructions .ROUTE .MEDSUPPLY Qty: 1 0RF Rx Instructions: As directed insulin aspart U-100 [Novolog FlexPen U-100 Insulin] 100 unit/mL (3 mL) Insulin Pen 1 sliding scale dose subcut ACHS Qty: 15 0RF Rx Instructions: Blood Glucose 150 or less No coverage Blood Glucose 151-200 1 unit Blood Glucose 201-250 2 units Blood Glucose 251-300 3 units Blood Glucose 301-350 4 units Blood Glucose 351 to 400 5 units Blood Glucose 401 and greater 6 units and recheck in 2 hours insulin NPH isoph U-100 human 100 unit/mL (3 mL) insulin pen 15 unit subcut DAILY@23 Qty: 1 0RF Follow Up/Referrals: Dilcia Castorena MD [Primary Care Provider] - Stand Alone [facility] Inst[facility]
--- NOTE | 2022-10-14 14:21 | ED.NURSE ---
Indwelling urinary catheter placed. Over 1,000 ml drained of foul smelling, cloudy, yellow urine. Did not observe any blood or clotting. No issues with passing through the prostate. Patient does have significant redness in abdominal folds and foreskin noted to be very swollen with drainage and redness on the head of the penis. Foreskin was difficult to retract given the redness, pain and swelling. Per the , he sat in the tub for awhile to soak and clean the area this morning. UA obtained and sent to the lab. Patient tolerated the procedure well. Given his current anatomy and difficulty with foreskin retraction, may be more complicated with doing self catheterization at home.
[2022-10-14 14:23] LABS: Appearance Urine Cloudy (Clear); Bilirubin Urine Negative (Negative); Blood Urine 3+ (Negative); Color Urine Yellow (Yellow); Glucose Urine Negative (Negative); Ketones Urine Negative (Negative); Leukocyte Esterase Urine 3+ (Negative); Nitrite Urine Negative (Negative); Protein Urine 2+ (Negative)
[2022-10-14 14:35] LABS: Bacteria Urine Moderate; RBC Urine >100 (0-2); WBC Urine >100 (0-5)
== END 2022-10-14 15:27 | disposition home or self-care (01) ==
PROVIDERS: Emergency Provider Emergency Medicine Emergency Medical Services; PCP Family Medicine
DX: N39.0 Urinary tract infection, site not specified (principal)
CPT/HCPCS: 51702; 81001; 87086; 87186; 99283; 99284

== ENCOUNTER 2022-10-15 17:49 | Inpatient (IN) | payer OTHER, SELFPAY ==
[2022-10-15] VITALS (28 sets, daily range): BP systolic 81–146; BP diastolic 47–108; PULSE 4–77; RESP 12–20; TEMP 37–38.6; O2SAT 87–96; BMI 43.7; BMI 45.3
--- NOTE | 2022-10-15 18:00 | ED.NURSE ---
Pt satting in the 80's% on room air. Placed on 2L NC supplemental O2. Still satting in mid-high 80's%. Titrated up to 3L of O2 NC.
--- NOTE | 2022-10-15 18:09 | CRLHL7_ITS ---
For Patients: As a result of the Cures Act, medical imaging exams and procedure reports are released immediately into your electronic medical record. You may view this report before your referring provider. If you have questions, please contact your health care provider. INDICATION: Fever, UTI, sepsis. TECHNIQUE: Chest 1 view. COMPARISON: 09/22/2022. FINDINGS: Cardiovascular and mediastinum: Tortuous and atherosclerotic thoracic aorta. Cardiomegaly. Lungs and pleural spaces: The lungs are clear. No pleural effusion or pneumothorax. Bones and soft tissues: Unremarkable for age. IMPRESSION: No evidence of an acute pulmonary process. Dictated by Micheal Chacon MD @ 10/15/2022 8:13:16 PM (Electronically Signed)
[2022-10-15] MEDS: 0.9 % SODIUM CHLORIDE 1000 ml 1,000 ML IV ×2 (18:15→19:56)
--- NOTE | 2022-10-15 18:17 | ED_ITS ---
HPI - General Adult General Date Seen: 10/15/22 Chief complaint: Urogenital Problems, Male Stated complaint: Catheter problems Time Seen by Provider: 10/15/22 17:59 Source: patient Mode of arrival: ambulatory Limitations: no limitations History of Present Illness HPI narrative: Patient is 82-year-old gentleman who was seen yesterday for urinary retention, he wanted to leave, and just do straight cathing, but given he had a 1000 mL a urine, he was convinced to leave the catheter in today's had really limited output of a catheter, with alexia blood, noted he developed a rash, he otherwise feels pretty good denies any significant abdominal pain coughing wheezing shortness of breath or other issues. He does remember last time he had an infection, bladder that is, he took an antibiotic the caused a rash she is unsure what this was. From reviewing the physician's notes from yesterday, it appears that his urine was infected. Is not yet growing a obvious organism. Related Data Home Medications Medication Instructions Recorded Confirmed acetaminophen 650 mg 1,300 mg PO HS 09/10/22 10/14/22 tablet,extended release (Arthritis Pain Reliever) allopurinol 100 mg tablet 100 mg PO DAILY 09/10/22 10/14/22 ammonium lactate 12 % topical cream 1 applic topical BID 09/10/22 10/14/22 aspirin 81 mg tablet,delayed 81 mg PO DAILY 09/10/22 10/14/22 release (Ecotrin Low Strength) atorvastatin 20 mg tablet 20 mg PO HS 09/10/22 10/14/22 gabapentin 300 mg capsule 600 mg PO HS 09/10/22 10/14/22 insulin syringe-needle U-100 0.3 09/10/22 09/10/22 mL 30 gauge x 1/2 (UltiCare) metoprolol succinate 100 mg 100 mg PO DAILY 09/10/22 10/14/22 tablet,extended release 24 hr nitroglycerin 0.4 mg sublingual 0.4 mg sublingual Q5-15M PRN 09/10/22 10/14/22 tablet (Nitrostat) Previous Rx's Medication Instructions Recorded fexofenadine 180 mg tablet 180 mg PO HS #30 tabs 09/26/22 insulin NPH isoph U-100 human 100 15 unit (0.15 mL) subcut DAILY@09/26/22 unit/mL (3 mL) subcutaneous pen #1 pen insulin aspart U-100 100 unit/mL 1 sliding scale dose subcut ACHS 09/26/22 (3 mL) subcutaneous pen (Novolog #15 mL FlexPen U-100 Insulin aspart) nebulizer accessories #1 ea 09/26/22 nebulizer and compressor #1 ea 09/26/22 nystatin 100,000 unit/gram topical 1 applic topical BID #30 grams 09/26/22 powder torsemide 20 mg tablet 20 mg PO DAILY@0800 #30 tabs 09/26/22 triamcinolone acetonide 0.1 % 1 applic topical BID #15 grams 09/26/22 topical cream cephalexin 500 mg capsule 500 mg PO TID 10 days #30 caps 10/14/22 Allergies Allergy/AdvReac Type Severity Reaction Status Date / Time No Known Drug Allergies Allergy Verified 09/13/22 13:31 Review of Systems Status of ROS: Reports: 10 or more systems reviewed and unremarkable except as noted in History and below PFSH PFS Medical History Acute on chronic diastolic (congestive) heart failure Acute on chronic heart failure with preserved ejection fraction Acute respiratory failure with hypoxia and hypercapnia Bilateral edema of lower extremity Cellulitis of right leg Chronic diarrhea DDD (degenerative disc disease), lumbar Diabetic peripheral neuropathy Elevated troponin Generalized weakness GERD (gastroesophageal reflux disease) Hypertension Lymphedema 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 Lives with . Denies tobacco use, lifelong nonsmoker. Alcohol use 1 drink per month. Denies recreational drug use. DNI. Smoking Status: Never smoker Do you use any of these nicotine containing products: None Second hand tobacco smoke exposure: No How often do you have a drink containing alcohol: never AUDIT-C Alcohol total score: 0 Non-prescribed substance use: denies use service: No Exam Narrative: Exam Narrative: Adriano is seen in room 6, he is in no during distress, he has a red rash, that goes on all his extremities up to approximately the level of his nipples, this is not tender for him, and very blanching. His the Partida catheter bag shows bright red blood, his temperature is noted be elevated but I am shot sure if this is an oral or transcutaneous temperature. Pupils are equal round reactive to light there is no scleral icterus redness, TMs are normal, he has mustard on his harris, chest is good air entry bilaterally with no wheezing crackles noted his heart sounds are normal, his abdomen is soft and large, and obese, fat pannus is did not show any significant cellulitic process within them, he is re d, as I previously described, catheter is protruding from his penis, there appears to be balanitis around it. Back is nontender, throughout, he moves all extremities independently well has considerable edema of his lower extremities, Const: Vital Signs, click to edit/add: Vital Signs - 24 hr 10/15/22 17:53 10/15/22 18:29 10/15/22 18:45 Temperature 101.5 F H 101.5 F H 99.1 F Pulse Rate Pulse Rate [Pulse Oximeter] 73 Respiratory Rate 12 Blood Pressure Blood Pressure [Le ft Upper Arm] 98/78 Pulse Oximetry 90 Oxygen Delivery Me thod Room Air Oxygen Flow Rate 10/15/22 18:00 10/15/22 17:52 10/15/22 17:53 Temperature Pulse Rate 77 73 Pulse Rate [Pulse Oximeter] Respiratory Rate Blood Pressure 98/78 Blood Pressure [Le ft Upper Arm] Pulse Oximetry 90 87 L 91 Oxygen Delivery Me thod Nasal Cannula Nasal Cannula Nasal Cannula Oxygen Flow Rate 3 2 3 10/15/22 18:00 10/15/22 18:01 10/15/22 18:21 Temperature Pulse Rate 72 74 70 Pulse Rate [Pulse Oximeter] Respiratory Rate Blood Pressure 90/60 91/62 Blood Pressure [Le ft Upper Arm] Pulse Oximetry 89 88 91 Oxygen Delivery Me thod Nasal Cannula Nasal Cannula Nasal Cannula Oxygen Flow Rate 3 3 3 10/15/22 18:30 10/15/22 18:31 10/15/22 18:46 Temperature Pulse Rate 64 66 68 Pulse Rate [Pulse Oximeter] Respiratory Rate Blood Pressure 119/84 123/81 Blood Pressure [Le ft Upper Arm] Pulse Oximetry 92 92 94 Oxygen Delivery Me thod Nasal Cannula Nasal Cannula Nasal Cannula Oxygen Flow Rate 3 3 3 10/15/22 18:47 10/15/22 19:00 10/15/22 19:01 Temperature Pulse Rate 68 68 69 Pulse Rate [Pulse Oximeter] Respiratory Rate Blood Pressure 125/108 H Blood Pressure [Le ft Upper Arm] Pulse Oximetry 93 95 94 Oxygen Delivery Me thod Oxygen Flow Rate 10/15/22 19:16 10/15/22 19:17 10/15/22 19:30 Temperature Pulse Rate 67 67 67 Pulse Rate [Pulse Oximeter] Respiratory Rate Blood Pressure 94/54 L Blood Pressure [Le ft Upper Arm] Pulse Oximetry 92 92 94 Oxygen Delivery Me thod Nasal Cannula Oxygen Flow Rate 3 10/15/22 19:33 10/15/22 19:36 10/15/22 19:46 Temperature Pulse Rate 69 68 68 Pulse Rate [Pulse Oximeter] Respiratory Rate Blood Pressure 81/47 L 136/71 132/74 Blood Pressure [Le ft Upper Arm] Pulse Oximetry 95 95 91 Oxygen Delivery Me thod Oxygen Flow Rate 10/15/22 19:47 Temperature Pulse Rate 67 Pulse Rate [Pulse Oximeter] Respiratory Rate Blood Pressure Blood Pressure [Le ft Upper Arm] Pulse Oximetry 93 Oxygen Delivery Me thod Nasal Cannula Oxygen Flow Rate 2 Documenting provider has reviewed patient's vital signs: yes Course Course Hospital Course: I spoke to the patient, after I spoke to our hospitalist, about admission. I believe he has sepsis, compounded by the allergic reaction to the Keflex. His lactate was elevated 2.3 we will recheck this after he has received 2 L of fluid. I did cover him with Zosyn. I talked to the patient, he knows Ali did want to stay, but we did replace his Partida catheter as it was plugged, to a 1000 mL. He is also having significant hematuria with this and a 3 way catheter was placed. This is worked well for Adriano, his only complaint right now is back pain, which I suspect is from his size in laying in our beds in the emergency room, I was able to peas Adriano by given him a little bit of Dilaudid for the discomfort. I do think he needs admission for the above issues. The Benadryl seemed to help the rash. Vital Signs Vital signs: Initial Vital Signs Pulse Rate 77 10/15/22 17:52 Blood Pressure 98/78 10/15/22 17:52 Blood Pressure Mean 84 10/15/22 17:52 Pulse Oximetry 87 L 10/15/22 17:52 Oxygen Delivery Method 10/15/22 17:52 Oxygen Flow Rate 2 10/15/22 17:52 Vital Signs Pulse Rate 77 10/15/22 17:52 Blood Pressure 98/78 10/15/22 17:52 Pulse Oximetry 87 L 10/15/22 17:52 Oxygen Delivery Method 10/15/22 17:52 Oxygen Flow Rate 2 10/15/22 17:52 Temperature 99.1 F 10/15/22 18:45 Pulse Rate 67 10/15/22 19:47 Respiratory Rate 12 10/15/22 17:53 Blood Pressure 132/74 10/15/22 19:46 Pulse Oximetry 93 10/15/22 19:47 Oxygen Delivery Method 10/15/22 19:47 Oxygen Flow Rate 2 10/15/22 19:47 Medical Decision Making MDM Narrative Medical decision making narrative: Differential diagnosis include but are not limited to contact dermatitis, allergic reaction, shingles, impetigo, seborrheic dermatitis, Naldo Sam syndrome, ITP, meningococcus, HSP I think likely however that this is a manifestation of an allergic-type reaction, in the setting the previous UTI, could not rule out sepsis, so we should do a workup for this. And start him on some antibiotics, Medical Records Medical records reviewed: Yes I reviewed the patient's medical records Lab Data Labs: Lab Results 10/15/22 10/15/22 10/15/22 Range/Units 18:07 18:12 18:12 WBC 21.52 H (4.50-11.00) K/uL RBC 6.27 H (4.30-5.90) m/uL Hgb 17.7 H (13.5-17.5) gm/dL Hct 56.7 H (37.0-53.0) % MCV 90 (80-100) fL MCH 28 (26-34) pg MCHC 31 L (32-36) gm/dL RDW Coeff of Mindy 14.9 (11.5-15.5) % Plt Count 198 (140-440) K/uL Neut % (Auto) 88.3 H (42.0-72.0) % Lymph % (Auto) 3.2 L (20-44) % [place] % (Auto) 3.3 (0.0-11.0) % Eos % (Auto) 4.9 (0.0-7.0) % Baso % (Auto) 0.1 (0.0-3.0) % Neut # (Auto) 19.00 H (1.7-7.0) K/uL Lymph # (Auto) 0.70 L (0.90-2.90) K/uL [place] # (Auto) 0.70 (0.00-0.90) K/UL Eos # (Auto) 1.10 H (0.00-0.50) K/uL Baso # (Auto) 0.00 (0.00-0.30) K/uL INR (0.91-1.10) APTT (23-33) Seconds Sodium 136 (135-149) mmol/L Potassium 4.8 (3.6-5.1) mmol/L Chloride 98 (96-114) mmol/L Carbon Dioxide 32 (20-32) mmol/L BUN 25 (7-30) mg/dL Creatinine 1.2 (0.5-1.5) mg/dL Estimated Creat Clear 57.08 Estimated GFR 61 ml/min Glucose 185 H (60-115) mg/dL Lactate (0.5-1.9) mmol/L Calcium 8.7 (8.4-10.6) mg/dL C-Reactive Protein 14.5 H (0.5-1.0) mg/dL Procalcitonin 0.24 (<0.50) ng/mL Urine Color (Yellow) Urine Appearance (Clear) Urine pH (5.0-8.5) Ur Specific [place] (1.000-1.030) Urine Protein (Negative) Urine Glucose (UA) (Negative) Urine Ketones (Negative) Urine Blood (Negative) Urine Nitrite (Negative) Urine Bilirubin (Negative) Urine Urobilinogen (0.2-1.0) Ur Leukocyte Esterase (Negative) Urine RBC (0-2) Urine WBC (0-5) Ur Squamous Epith Cells (None-Few) Urine Bacteria (None) Urine Yeast (None) SARS-CoV-2 (PCR) Negative SARS-CoV-2 (Negative) Influenza Type A (PCR) Negative PCR FLU A (Negative) Influenza Type B (PCR) Negative PCR FLU B (Negative) RSV (PCR) Negative PCR RSV (Negative) POC Troponin I (0.01-0.04) ng/ml 10/15/22 10/15/22 10/15/22 Range/Units 18:12 18:12 18:12 WBC (4.50-11.00) K/uL RBC (4.30-5.90) m/uL Hgb (13.5-17.5) gm/dL Hct (37.0-53.0) % MCV (80-100) fL MCH (26-34) pg MCHC (32-36) gm/dL RDW Coeff of Mindy (11.5-15.5) % Plt Count (140-440) K/uL Neut % (Auto) (42.0-72.0) % Lymph % (Auto) (20-44) % [place] % (Auto) (0.0-11.0) % Eos % (Auto) (0.0-7.0) % Baso % (Auto) (0.0-3.0) % Neut # (Auto) (1.7-7.0) K/uL Lymph # (Auto) (0.90-2.90) K/uL [place] # (Auto) (0.00-0.90) K/UL Eos # (Auto) (0.00-0.50) K/uL Baso # (Auto) (0.00-0.30) K/uL INR 0.99 (0.91-1.10) APTT 32 (23-33) Seconds Sodium (135-149) mmol/L Potassium (3.6-5.1) mmol/L Chloride (96-114) mmol/L Carbon Dioxide (20-32) mmol/L BUN (7-30) mg/dL Creatinine (0.5-1.5) mg/dL Estimated Creat Clear Estimated GFR ml/min Glucose (60-115) mg/dL Lactate 2.3 H (0.5-1.9) mmol/L Calcium (8.4-10.6) mg/dL C-Reactive Protein (0.5-1.0) mg/dL Procalcitonin (<0.50) ng/mL Urine Color (Yellow) Urine Appearance (Clear) Urine pH (5.0-8.5) Ur Specific [place] (1.000-1.030) Urine Protein (Negative) Urine Glucose (UA) (Negative) Urine Ketones (Negative) Urine Blood (Negative) Urine Nitrite (Negative) Urine Bilirubin (Negative) Urine Urobilinogen (0.2-1.0) Ur Leukocyte Esterase (Negative) Urine RBC (0-2) Urine WBC (0-5) Ur Squamous Epith Cells (None-Few) Urine Bacteria (None) Urine Yeast (None) SARS-CoV-2 (PCR) (Negative) Influenza Type A (PCR) (Negative) Influenza Type B (PCR) (Negative) RSV (PCR) (Negative) POC Troponin I 0.02 (0.01-0.04) ng/ml 10/15/22 Range/Units 19:05 WBC (4.50-11.00) K/uL RBC (4.30-5.90) m/uL Hgb (13.5-17.5) gm/dL Hct (37.0-53.0) % MCV (80-100) fL MCH (26-34) pg MCHC (32-36) gm/dL RDW Coeff of Mindy (11.5-15.5) % Plt Count (140-440) K/uL Neut % (Auto) (42.0-72.0) % Lymph % (Auto) (20-44) % [place] % (Auto) (0.0-11.0) % Eos % (Auto) (0.0-7.0) % Baso % (Auto) (0.0-3.0) % Neut # (Auto) (1.7-7.0) K/uL Lymph # (Auto) (0.90-2.90) K/uL [place] # (Auto) (0.00-0.90) K/UL Eos # (Auto) (0.00-0.50) K/uL Baso # (Auto) (0.00-0.30) K/uL INR (0.91-1.10) APTT (23-33) Seconds Sodium (135-149) mmol/L Potassium (3.6-5.1) mmol/L Chloride (96-114) mmol/L Carbon Dioxide (20-32) mmol/L BUN (7-30) mg/dL Creatinine (0.5-1.5) mg/dL Estimated Creat Clear Estimated GFR ml/min Glucose (60-115) mg/dL Lactate (0.5-1.9) mmol/L Calcium (8.4-10.6) mg/dL C-Reactive Protein (0.5-1.0) mg/dL Procalcitonin (<0.50) ng/mL Urine Color Red A (Yellow) Urine Appearance Cloudy A (Clear) Urine pH 5.5 (5.0-8.5) Ur Specific [place] 1.020 (1.000-1.030) Urine Protein 2+ A (Negative) Urine Glucose (UA) Negative (Negative) Urine Ketones Negative (Negative) Urine Blood 3+ A (Negative) Urine Nitrite Negative (Negative) Urine Bilirubin 1+ A (Negative) Urine Urobilinogen 1.0 (0.2-1.0) Ur Leukocyte Esterase 1+ A (Negative) Urine RBC >100 A (0-2) Urine WBC 25-50 A (0-5) Ur Squamous Epith Cells None (None-Few) Urine Bacteria Moderate A (None) Urine Yeast Few A (None) SARS-CoV-2 (PCR) (Negative) Influenza Type A (PCR) (Negative) Influenza Type B (PCR) (Negative) RSV (PCR) (Negative) POC Troponin I (0.01-0.04) ng/ml Imaging Data Chest x-ray: My impression: No acute findings, await radiological over-read Critical Care Time Critical Care Time Critical Care Time: Yes Attestation: The patient required my highest level preparedness to intervene emergently and I personally spent this critical care time directly and personally managing the patient. This critical care time included: Obtaining a history; Examining the patient; Pulse oximetry; Ordering and reviewing of studies; Arranging urgent treatment with development of a management plan; Evaluation of patients response to treatment; Frequent reassessment discussions with other providers. This critical care time was performed to assess and manage the high probability of imminent life-threatening deterioration that could result in multiorgan failure. It was exclusive of separate billable procedures and treating other patients and teaching time. Total Critical Care Time in Minutes: 45 Discharge Plan Discharge Clinical Impression: Sepsis associated hypotension, Urinary tract infection, Acute urinary retention, Allergic reaction caused by a drug, Hematuria Patient Disposition: Admitted As Inpatient Condition: Improved
[2022-10-15] MEDS: diphenhydrAMINE 50 MG/ML inj 25 MG IVP (18:20)
[2022-10-15 18:23] LABS: Lactate* 2.3 mmol/L (0.5-1.9)
[2022-10-15 18:24] LABS: Basophils Percent Auto 0.1 % (0.0-3.0); Eosinophils Percent Auto 4.9 % (0.0-7.0); Hematocrit 56.7 % (37.0-53.0); Hemoglobin* 17.7 gm/dL (13.5-17.5); Immature Granulocytes Pct Auto 0.2 %; Lymphocytes Percent Auto 3.2 % (20-44); Mean Corpuscular HGB Conc 31 gm/dL (32-36); Mean Corpuscular Hemoglobin 28 pg (26-34); Mean Corpuscular Volume 90 fL (80-100); Monocytes Percent Auto 3.3 % (0.0-11.0); Neutrophils Percent Auto 88.3 % (42.0-72.0); Platelet Count* 198 K/uL (140-440); RDW Coefficient of Variation % 14.9 % (11.5-15.5); Red Blood Count 6.27 m/uL (4.30-5.90); White Blood Count* 21.52 K/uL (4.50-11.00)
[2022-10-15 18:27] LABS: Slide Review Reflex No
[2022-10-15] MEDS: ACETAMINOPHEN 500 MG TABLET 1000 MG PO (18:29)
[2022-10-15 18:37] LABS: Troponin, Point-of-Care* 0.02 ng/ml (0.01-0.04)
[2022-10-15 18:44] LABS: Chloride* 98 mmol/L (96-114); Potassium* 4.8 mmol/L (3.6-5.1); Sodium* 136 mmol/L (135-149)
[2022-10-15 18:45] LABS: INR 0.99 (0.91-1.10); Prothrombin Time 13.7 Seconds
--- NOTE | 2022-10-15 18:45 | ED.NURSE ---
~1050 cc removed from catheter bag.
[2022-10-15 18:46] LABS: Creatinine* 1.2 mg/dL (0.5-1.5); Est. Creatinine Clearance* 57.08; Estimated Glomerular Filt Rate 61 ml/min; Partial Thromboplastin Time* 32 Seconds (23-33)
[2022-10-15 18:47] LABS: Blood Urea Nitrogen* 25 mg/dL (7-30); Carbon Dioxide* 32 mmol/L (20-32); Glucose* 185 mg/dL (60-115)
[2022-10-15 18:48] LABS: Calcium* 8.7 mg/dL (8.4-10.6)
[2022-10-15] MEDS: PIPERACILLIN/TAZOBACTAM 3.375 GM in 0.9 % SODIUM CHLORIDE Mini-bag 100 ML IVPB ×2 (18:58→23:40)
[2022-10-15 19:04] LABS: Procalcitonin* 0.24 ng/mL (<0.50)
[2022-10-15 19:07] LABS: C Reactive Protein* 14.5 mg/dL (0.5-1.0)
[2022-10-15 19:13] LABS: Appearance Urine Cloudy (Clear); Bilirubin Urine 1+ (Negative); Blood Urine 3+ (Negative); Color Urine Red (Yellow); Glucose Urine Negative (Negative); Ketones Urine Negative (Negative); Leukocyte Esterase Urine 1+ (Negative); Nitrite Urine Negative (Negative); Protein Urine 2+ (Negative); pH Urine 5.5 (5.0-8.5)
[2022-10-15 19:27] LABS: PCR FLU A Negative PCR FLU A (Negative); PCR FLU B Negative PCR FLU B (Negative); PCR RSV Negative PCR RSV (Negative); SARS PCR* Negative SARS-CoV-2 (Negative)
[2022-10-15 19:28] LABS: Bacteria Urine Moderate; RBC Urine >100 (0-2); WBC Urine 25-50 (0-5)
[2022-10-15] MEDS: HYDROmorphone 0.5 mg/0.5 ml inj IVP (19:53)
--- NOTE | 2022-10-15 20:54 | W.PC.EDHO ---
Primary Language: Preferred Language: Orientation Status: [x] Alert & Oriented [] Slight Confusion [] Known Dx Dementia Transfers By: [] Assist of 1 [x] Assist of 2 [] Lift Active Medications Discontinued Medications Generic Name Dose Route Start Last Admin Trade Name Bethany PRN Reason Stop Dose Admin Acetaminophen 1,000 mg 10/15/22 18:09 10/15/22 18:29 Acetaminophen 500 Mg Tablet PO 10/15/22 18:10 1,000 mg ONCE ONE Administration Diphenhydramine HCl 25 mg 10/15/22 18:09 10/15/22 18:20 Diphenhydramine 50 Mg/Ml Inj IVP 10/15/22 18:10 25 mg ONCE ONE Administration Hydromorphone HCl 0.5 mg 10/15/22 19:48 10/15/22 19:53 Hydromorphone 0.5 Mg/0.5 Ml Inj IVP 10/15/22 19:49 0.5 mg ONCE ONE Administration Sodium Chloride 1,000 mls @ 1,000 mls/hr 10/15/22 18:15 10/15/22 20:38 0.9 % Sodium Chloride 1000 Ml IV 10/15/22 19:14 Infused .Q1H JOSE Infusion Piperacillin Sod/Tazobactam 100 mls @ 200 mls/hr 10/15/22 18:46 10/15/22 19:28 Sod 3.375 gm/ Sodium Chloride IVPB 10/15/22 18:47 Infused ONCE ONE Infusion Sodium Chloride 1,000 mls @ 1,000 mls/hr 10/15/22 19:30 10/15/22 19:56 0.9 % Sodium Chloride 1000 Ml IV 10/15/22 20:29 1,000 mls/hr .Q1H JOSE Administration Lidocaine HCl 6 ml 10/15/22 18:52 10/15/22 19:46 Lidocaine Hcl 2 % Jelly (Top) Sterile TOPICAL 10/15/22 18:53 Not Given ONCE ONE Description of Symptoms ED Triage Present Problem Pt here via EMS for eval of multiple catheter Description issues: 300mL of urine only in bag today and blood in pérez. Per EMS, Pt was seen in ED yesterday and Pérez was changed. Has had indwelling pérez since August. Denies fever. Pain Pain Intensity 8 Pain Intensity 8 Pain Scale Used Numeric (1 - 10) Pain Scale Used Adela (Faces) IV Insertion/Site Date of IV Line Insertion [ 10/15/22 Right Upper Arm] Date of IV Line Insertion [ 10/15/22 Left Antecubital] Oxygen Administration Pulse Oximetry 93 Pulse Oximetry 91 Pulse Oximetry 95 Pulse Oximetry 95 Pulse Oximetry 94 Pulse Oximetry 92 Pulse Oximetry 92 Pulse Oximetry 94 Pulse Oximetry 95 Pulse Oximetry 93 Pulse Oximetry 94 Pulse Oximetry 92 Pulse Oximetry 92 Pulse Oximetry 91 Pulse Oximetry 88 Pulse Oximetry 89 Pulse Oximetry 90 Pulse Oximetry 91 Pulse Oximetry 90 Pulse Oximetry 87 Oxygen Delivery Method Nasal Cannula Oxygen Delivery Method Nasal Cannula Oxygen Delivery Method Nasal Cannula Oxygen Delivery Method Nasal Cannula Oxygen Delivery Method Nasal Cannula Oxygen Delivery Method Nasal Cannula Oxygen Delivery Method Nasal Cannula Oxygen Delivery Method Nasal Cannula Oxygen Delivery Method Nasal Cannula Oxygen Delivery Method Nasal Cannula Oxygen Delivery Method Room Air Oxygen Delivery Method Nasal Cannula Oxygen Flow Rate 2 Oxygen Flow Rate 3 Oxygen Flow Rate 3 Oxygen Flow Rate 3 Oxygen Flow Rate 3 Oxygen Flow Rate 3 Oxygen Flow Rate 3 Oxygen Flow Rate 3 Oxygen Flow Rate 3 Oxygen Flow Rate 3 Oxygen Flow Rate 2
--- NOTE | 2022-10-15 22:47 | P.IMHP_ITS ---
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 Of note he had been hospitalized from 09/06/2022 through 09/26/2022 at [facility]. During this hospitalization he had acute hypoxemic hypercapnic respiratory failure presumably related to acute exacerbation of his heart failure with preserved ejection fraction of 55% with severe left ventricular hypertrophy. He was diuresed. For while required BiPAP therapy. Patient refused BiPAP therapy after while, refused allowing us to assess for possible home BiPAP therapy, and at time of discharge was discharged on oxygen supplementation only. During the course of this recent hospitalization he also had urinary outlet obstruction, Partida catheter was placed, he is discharged home with a Partida c atheter in place, and in time the Partida catheter was removed. Reportedly he had initiated straight caths intermittently throughout the day. He was seen yesterday in the [facility] Emergency Department for urinary obstruction. He had over 1 L of urine in the bladder. Urinalysis was also abnormal, suggesting acute cystitis. It was recommended that he be admitted to the hospital but he refused. Partida catheter was placed and he was started on cephalexin empirically pending urine culture results. He became increasingly weak since yesterday. Noted hematuria and no flow in his Partida catheter. Developed a diffuse, nonpruritic exanthematous skin eruption since starting the cephalexin. Developed a fever at home, did not check his temperature. Ordinarily has difficulty walking in the 1st place. Ordinarily when he does walk he uses a walker. Today he could not even stand confidently enough let alone be able to walk out of his home down his ramp. Thus summoned EMS who came and brought him to emergency department for further assessment. In our emergency department he indeed had gross hematuria with obstructed Partida catheter consistent with blood clot obstruction. Catheter was removed and three-way catheter placed with continuous bladder irrigation initiated. Additionally his temperature was elevated at 101.5? F, systolic blood pressures were in the mid to upper 80s, he had a diffuse exanthematous skin eruption which he did not have yesterday, leukocytosis with white blood cell count of 21,000, lactate elevated at 2.3, and urine culture from yesterday demonstrating Gram- positive cocci in chains. He was treated with IV fluids and a dose of piperacillin with tazobactam was initiated, which he tolerated. Patient admitted to the hospital for further assessment and management. Review of Systems Status of ROS: Reports: 10 or more systems reviewed and unremarkable except as noted in History and below Narrative: He has acute on chronic weakness. He has underlying physical debility as well as physically deconditioned state. His ability to stand and walk today markedly decreased. This in conjunction with the hematuria and obstructed Partida catheter prompted him to finally come in for further assessment today. Has been taking a walk from 1 end of the house to the other end of the house at least once daily recently. He has been unable to do this all day today due to his weakness and loss of confidence to even stand safely. Denies any change in chest heaviness, pressure, tightness, or pain. Denies any change in his baseline dyspnea. Denies paroxysmal nocturnal dyspnea or orthopnea. Denies cough. Denies syncope or near-syncope. Denies nausea vomiting. Denies palpitations or chest fluttering. Acknowledges chronic edema of lower extremities, not worse or better. He does not recall any trauma or injury causing the hematuria. Kept the Partida catheter in place since it was initiated yesterday at our emergency department. Did take the cephalexin that he was prescribed. Subsequently developed a diffuse exanthematous skin eruption, and fever. During his last hospitalization he had been given the recommendation to be discharged to a care home at minimum for transitional care services, however he absolutely refused. Arrangements were then made for him to be discharged from the hospital to his home under the care of his with some additional home health support. Denies constipation or diarrhea. Denies any focal motor neurologic deficits. is his power of associate attorney for health should that be required. His resuscitation status will need to be addressed again. 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 Lives with . Denies tobacco use, lifelong nonsmoker. Alcohol use 1 drink per month. Denies recreational drug use. DNI. Highest level of school completed/degree received: high school graduate Smoking Status: Never smoker Do you use any of these nicotine containing products: None Second hand tobacco smoke exposure: No How often do you have a drink containing alcohol: never AUDIT-C Alcohol total score: 0 Non-prescribed substance use: denies use Caffeine: Yes (1 cup of coffee a day) service: No Meds Home Medications and Allergies Home Medications Medication Instructions Recorded Confirmed Type acetaminophen 650 mg 1,300 mg PO HS 09/10/22 10/14/22 History tablet,extended release (Arthritis Pain Reliever) allopurinol 100 mg tablet 100 mg PO DAILY 09/10/22 10/14/22 History ammonium lactate 12 % topical cream 1 applic topical BID 09/10/22 10/14/22 History aspirin 81 mg tablet,delayed 81 mg PO DAILY 09/10/22 10/14/22 History release (Ecotrin Low Strength) atorvastatin 20 mg tablet 20 mg PO HS 09/10/22 10/14/22 History gabapentin 300 mg capsule 600 mg PO HS 09/10/22 10/14/22 History insulin syringe-needle U-100 0.3 09/10/22 09/10/22 History mL 30 gauge x 1/2 (UltiCare) metoprolol succinate 100 mg 100 mg PO DAILY 09/10/22 10/14/22 History tablet,extended release 24 hr nitroglycerin 0.4 mg sublingual 0.4 mg sublingual Q5-15M PRN 09/10/22 10/14/22 History tablet (Nitrostat) Allergies Allergy/AdvReac Type Severity Reaction Status Date / Time cephalexin Allergy Severe Hives Verified 10/15/22 21:39 Exam Narrative: Exam Narrative: Appears uncomfortable on the exam bed in the emergency department. He acknowledges this and states that he has been laying in the bed for too long n ow. We boost him up in the bed and he states he has a little more comfortable. No acute distress. Skin is abnormal with and exanthematous skin eruption involving his face, neck, trunk, arms, dorsal surface of hands and feet sparing the palmar and plantar surfaces, perineum, and legs. No icterus or jaundice. Does not involve conjunctiva or buccal mucosa. Blanchable. Palpable. No bollae or pustules. Vision and hearing are grossly normal. Does have baseline chronic hearing loss. Generalized weakness. Needs assist of 2 for transfers. Neck is full. Neck is supple. Lungs are clear to auscultation. Heart tones with regular rhythm, normal S1-S2. Abdomen is obese with active bowel sounds, soft, nontender. Partida catheter in place. Perineum also erythematous as his the other areas of his skin as described above. Bilateral lower extremity edema and lymphedema, not new. No focal motor neurologic deficits. No tremor, asterixis, or ataxia. Const: Vital Signs, click to edit/add: Vital Signs - 24 hr 10/15/22 17:53 10/15/22 18:29 10/15/22 18:45 Temperature 101.5 F H 101.5 F H 99.1 F Pulse Rate Pulse Rate [Pulse Oximeter] 73 Respiratory Rate 12 Blood Pressure Blood Pressure [Le ft Arm] Blood Pressure [Le ft Upper Arm] 98/78 Pulse Oximetry 90 Oxygen Delivery Me thod Room Air Oxygen Flow Rate 10/15/22 18:00 10/15/22 17:52 10/15/22 17:53 Temperature Pulse Rate 77 73 Pulse Rate [Pulse Oximeter] Respiratory Rate Blood Pressure 98/78 Blood Pressure [Le ft Arm] Blood Pressure [Le ft Upper Arm] Pulse Oximetry 90 87 L 91 Oxygen Delivery Me thod Nasal Cannula Nasal Cannula Nasal Cannula Oxygen Flow Rate 3 2 3 10/15/22 18:00 10/15/22 18:01 10/15/22 18:21 Temperature Pulse Rate 72 74 70 Pulse Rate [Pulse Oximeter] Respiratory Rate Blood Pressure 90/60 91/62 Blood Pressure [Le ft Arm] Blood Pressure [Le ft Upper Arm] Pulse Oximetry 89 88 91 Oxygen Delivery Me thod Nasal Cannula Nasal Cannula Nasal Cannula Oxygen Flow Rate 3 3 3 10/15/22 18:30 10/15/22 18:31 10/15/22 18:46 Temperature Pulse Rate 64 66 68 Pulse Rate [Pulse Oximeter] Respiratory Rate Blood Pressure 119/84 123/81 Blood Pressure [Le ft Arm] Blood Pressure [Le ft Upper Arm] Pulse Oximetry 92 92 94 Oxygen Delivery Me thod Nasal Cannula Nasal Cannula Nasal Cannula Oxygen Flow Rate 3 3 3 10/15/22 18:47 10/15/22 19:00 10/15/22 19:01 Temperature Pulse Rate 68 68 69 Pulse Rate [Pulse Oximeter] Respiratory Rate Blood Pressure 125/108 H Blood Pressure [Le ft Arm] Blood Pressure [Le ft Upper Arm] Pulse Oximetry 93 95 94 Oxygen Delivery Me thod Oxygen Flow Rate 10/15/22 19:16 10/15/22 19:17 10/15/22 19:30 Temperature Pulse Rate 67 67 67 Pulse Rate [Pulse Oximeter] Respiratory Rate Blood Pressure 94/54 L Blood Pressure [Le ft Arm] Blood Pressure [Le ft Upper Arm] Pulse Oximetry 92 92 94 Oxygen Delivery Me thod Nasal Cannula Oxygen Flow Rate 3 10/15/22 19:33 10/15/22 19:36 10/15/22 19:46 Temperature Pulse Rate 69 68 68 Pulse Rate [Pulse Oximeter] Respiratory Rate Blood Pressure 81/47 L 136/71 132/74 Blood Pressure [Le ft Arm] Blood Pressure [Le ft Upper Arm] Pulse Oximetry 95 95 91 Oxygen Delivery Me thod Oxygen Flow Rate 10/15/22 19:47 10/15/22 19:00 10/15/22 20:00 Temperature 98.7 F Pulse Rate 67 70 Pulse Rate [Pulse Oximeter] Respiratory Rate Blood Pressure Blood Pressure [Le ft Arm] Blood Pressure [Le ft Upper Arm] Pulse Oximetry 93 91 Oxygen Delivery Me thod Nasal Cannula Nasal Cannula Oxygen Flow Rate 2 2 10/15/22 20:19 10/15/22 20:30 10/15/22 20:34 Temperature Pulse Rate 68 69 74 Pulse Rate [Pulse Oximeter] Respiratory Rate Blood Pressure Blood Pressure [Le ft Arm] Blood Pressure [Le ft Upper Arm] Pulse Oximetry 90 92 92 Oxygen Delivery Me thod Oxygen Flow Rate 10/15/22 21:00 10/15/22 21:01 10/15/22 21:06 Temperature 99.3 F Pulse Rate 71 73 Pulse Rate [Pulse Oximeter] 4 L Respiratory Rate 20 Blood Pressure 146/83 H Blood Pressure [Le ft Arm] 110/62 Blood Pressure [Le ft Upper Arm] Pulse Oximetry 96 96 93 Oxygen Delivery Me thod Nasal Cannula Oxygen Flow Rate 2 Documenting provider has reviewed patient's vital signs: yes Hospitalist - H&P: Result Labs Labs: Short CBC 10/15/22 Range/Units 18:12 WBC 21.52 H (4.50-11.00) K/uL Hgb 17.7 H (13.5-17.5) gm/dL Hct 56.7 H (37.0-53.0) % Plt Count 198 (140-440) K/uL BMP 10/15/22 18:12 Sodium 136 Potassium 4.8 Chloride 98 Carbon Dioxide 32 BUN 25 Creatinine 1.2 Glucose 185 H Calcium 8.7 Urine 10/15/22 Range/Units 19:05 Urine Color Red A (Yellow) Urine Appearance Cloudy A (Clear) Urine pH 5.5 (5.0-8.5) Ur Specific [place] 1.020 (1.000-1.030) Urine Protein 2+ A (Negative) Urine Glucose (UA) Negative (Negative) Imaging Chest x-ray: Attestation: I have reviewed the pertinent imaging results. Radiologist's impression: No acute infiltrates. No acute abnormalities. Assessment and Plan Assessment and plan (1) Sepsis: Problem comment: Fever, hypotension, leukocytosis, elevated lactate, urinary tract source of infection. Could have a concurrent drug fever. Doubt anaphylaxis. Status: Acute Assessment and Plan: 1. Blood cultures obtained. 2. Urine culture repeated. 3. IV fluids initiated. 4. Initiated piperacillin with tazobactam in the emergency department. Will continue the same for now. (2) Sepsis associated hypotension: Status: Acute (3) Urinary tract infection: Problem comment: Preliminary urine culture from 10/14/2022 reveals Gram-positive cocci in chains. Organism identification and sensitivities are pending as of 10/15/2022. Status: Acute (4) Acute retention of urine: Problem comment: Changed Partida catheter to three-way catheterization with continuous bladder irrigation. Status: Acute Assessment and Plan: 1. Still needs to have a consultation with Urology in the outpatient setting. Filled catheter removal attempt already. (5) Hematuria: Problem comment: Obstructed Partida catheter due to blood clots. Changed catheter and initiated continuous bladder irrigation. Hematuria likely multifactorial from inflammatory changes due to urinary tract infection and blunt trauma from the Partida catheter which was placed to alleviate urinary outlet obstruction. Status: Acute (6) Allergic reaction caused by a drug: Problem comment: exanthematous drug eruption 10/15/2022 due to cephalexin. This was that as to his list of allergies. Status: Acute (7) Dehydration: Problem comment: Related to decreased oral intake as well as fever associated dehydration. Status: Acute Assessment and Plan: IV fluid rehydration. (8) Acute nontraumatic kidney injury: Problem comment: Impart related to obstruction of Partida catheter, but also related to dehydration. Status: Acute (9) Physical deconditioning: Problem comment: - Severe. Patient is followed by PT and OT - meets TCU criteria; has been accepted at the [facility] on 09/26 - at this time (09/23), both patient and are declining TCU transfer (patient wants to go home, worried about COVID and room sharing) - both Adriano and his understand that our team recommends TCU placement; they are considering a more comfort focused approach to his care Status: Acute (10) Physical debility: Status: Acute (11) Weakness: Problem comment: Acute on chronic Status: Acute Plan 1. Reviewed above with patient. Answered his questions. 2. Patient agreeable to above stated plans and recommendations. 3. Physical therapy, occupational therapy, social work professor will be consulted to assist with discharge disposition planning. 4. Continue with supportive efforts for underlying complicated, advanced conditions including underline heart failure, respiratory failure, and so forth.
[2022-10-15] MEDS: SODIUM CHLORIDE 0.9 % (FLUSH) 10 ML SYRINGE 5 ML IVF (23:41)
[2022-10-16] VITALS (8 sets, daily range): BP systolic 103–116; BP diastolic 45–87; PULSE 67–84; RESP 18–20; TEMP 36.6–37.2; O2SAT 87–96
[2022-10-16 04:40] LABS: HCO3 VBG 32 mmol/L (21-28); Lactate* 3.3 mmol/L (0.5-1.9); PO2 VBG 28.3 mmHG (25-47); pH VBG 7.321 (7.32-7.43)
[2022-10-16 04:47] LABS: PCO2 VBG 62 mmHG (40-50)
[2022-10-16 04:51] LABS: Basophils Percent Auto 0.1 % (0.0-3.0); Eosinophils Percent Auto 5.2 % (0.0-7.0); Hematocrit 54.6 % (37.0-53.0); Hemoglobin* 17.1 gm/dL (13.5-17.5); Immature Granulocytes Pct Auto 0.4 %; Lymphocytes Percent Auto 4.4 % (20-44); Mean Corpuscular HGB Conc 31 gm/dL (32-36); Mean Corpuscular Hemoglobin 28 pg (26-34); Mean Corpuscular Volume 91 fL (80-100); Monocytes Percent Auto 5.7 % (0.0-11.0); Neutrophils Percent Auto 84.2 % (42.0-72.0); Platelet Count* 134 K/uL (140-440); RDW Coefficient of Variation % 15.1 % (11.5-15.5); Red Blood Count 6.03 m/uL (4.30-5.90); White Blood Count* 22.95 K/uL (4.50-11.00)
[2022-10-16 04:53] LABS: Slide Review Reflex No
--- NOTE | 2022-10-16 05:22 | PC.NURSE ---
PT arrived to floor approx 2119, continuous bladder irrigation in place, no hematuria noted, clear yellow output. denies pain, N/V, chest pain or headache. declined repositioning during night. patient states he isn't sleeping well.
[2022-10-16 05:27] LABS: C Reactive Protein* 8.5 mg/dL (0.5-1.0)
[2022-10-16 05:33] LABS: NT Pro B Type NatriureticPept* 421 pg/mL
[2022-10-16] MEDS: PIPERACILLIN/TAZOBACTAM 3.375 GM in 0.9 % SODIUM CHLORIDE Mini-bag 100 ML IVPB ×4 (06:23→23:21)
--- NOTE | 2022-10-16 07:31 | P.IMPN_ITS ---
Progress Note: A&P Assessment and plan (1) Sepsis: Problem details: - fever on admission, hypotension, leukocytosis, elevated lactate, + Enterococcus on urine culture - fever has resolved on hospital day #1, BP stable - Lactate remains elevated; patient refusing any further blood draws today. Will provide gentle IVF boluses and recheck tomorrow - continue Zosyn Status: Acute (2) Urinary tract infection: Problem details: - pansensitive Enterococcus on 10/14 urine culture Status: Acute (3) Acute retention of urine: Problem details: - changed Pérez catheter to three-way catheterization with continuous bladder irrigation Status: Acute (4) Hematuria: Problem details: - Obstructed Pérez catheter due to blood clots; hematuria likely multifactorial from inflammatory changes 2/2 UTI + and blunt trauma from the Pérez, known BPH Status: Acute (5) Allergic reaction caused by a drug: Problem details: - exanthemas drug eruption 10/15/2022 due to cephalexin, also noted during previous stay - cephalexin now added to patient's allergy list Status: Acute (6) Dehydration: Problem details: - Related to decreased oral intake as well as fever associated dehydration - prn boluses of IVF - hold home diuretic Status: Acute (7) Acute nontraumatic kidney injury: Problem details: - creatinine stable at 1.1 - combination of UTI, pérez placement Status: Acute (8) Physical deconditioning: Problem details: - PT and OT ordered - patient aware that TCU recommended; he and have refused this in the past, continue to refuse - Adriaon requests a comfort based approach to care; considering home with hospice to limit ER visits and future hospitalizations Status: Acute Plan - continue abx - ASA and Dmitriy Dexter for ppx - updated at bedside, questions answered - patient and refuse TCU stay, recommend home with hospice upon d/c Subjective Date Seen: 10/16/22 Interval history: Adriano was admitted yesterday for concerns of sepsis (leukocytosis, hypotension, elevated lactate) in the setting of known UTI. He has remained afebrile since admission, tolerating IV Zosyn. States he does not feel that poorly, and would like to go home as soon as possible. Exam Narrative: Exam Narrative: GEN: Alert and oriented, sitting comfortably in bed CV: RRR, No concerning murmurs, rubs, or gallops R: LCTA bilaterally without concerning wheezing, air movement is adequate Ext: Wearing Dmitriy hose bilaterally Skin: Complexion is jaye, scattered AKs of extremities, no acutely concerning skin lesions Neuro: No focal deficits Psych: Appropriate Const: Vital Signs, click to edit/add: Vital Signs - 24 hr 10/15/22 17:53 10/15/22 18:29 10/15/22 18:45 Temperature 101.5 F H 101.5 F H 99.1 F Pulse Rate Pulse Rate [Pulse Oximeter] 73 Respiratory Rate 12 Blood Pressure Blood Pressure [Le ft Arm] Blood Pressure [Le ft Upper Arm] 98/78 Pulse Oximetry 90 Oxygen Delivery Me thod Room Air Oxygen Flow Rate 10/15/22 18:00 10/15/22 17:52 10/15/22 17:53 Temperature Pulse Rate 77 73 Pulse Rate [Pulse Oximeter] Respiratory Rate Blood Pressure 98/78 Blood Pressure [Le ft Arm] Blood Pressure [Le ft Upper Arm] Pulse Oximetry 90 87 L 91 Oxygen Delivery Me thod Nasal Cannula Nasal Cannula Nasal Cannula Oxygen Flow Rate 3 2 3 10/15/22 18:00 10/15/22 18:01 10/15/22 18:21 Temperature Pulse Rate 72 74 70 Pulse Rate [Pulse Oximeter] Respiratory Rate Blood Pressure 90/60 91/62 Blood Pressure [Le ft Arm] Blood Pressure [Le ft Upper Arm] Pulse Oximetry 89 88 91 Oxygen Delivery Me thod Nasal Cannula Nasal Cannula Nasal Cannula Oxygen Flow Rate 3 3 3 10/15/22 18:30 10/15/22 18:31 10/15/22 18:46 Temperature Pulse Rate 64 66 68 Pulse Rate [Pulse Oximeter] Respiratory Rate Blood Pressure 119/84 123/81 Blood Pressure [Le ft Arm] Blood Pressure [Le ft Upper Arm] Pulse Oximetry 92 92 94 Oxygen Delivery Me thod Nasal Cannula Nasal Cannula Nasal Cannula Oxygen Flow Rate 3 3 3 10/15/22 18:47 10/15/22 19:00 10/15/22 19:01 Temperature Pulse Rate 68 68 69 Pulse Rate [Pulse Oximeter] Respiratory Rate Blood Pressure 125/108 H Blood Pressure [Le ft Arm] Blood Pressure [Le ft Upper Arm] Pulse Oximetry 93 95 94 Oxygen Delivery Me thod Oxygen Flow Rate 10/15/22 19:16 10/15/22 19:17 10/15/22 19:30 Temperature Pulse Rate 67 67 67 Pulse Rate [Pulse Oximeter] Respiratory Rate Blood Pressure 94/54 L Blood Pressure [Le ft Arm] Blood Pressure [Le ft Upper Arm] Pulse Oximetry 92 92 94 Oxygen Delivery Me thod Nasal Cannula Oxygen Flow Rate 3 10/15/22 19:33 10/15/22 19:36 10/15/22 19:46 Temperature Pulse Rate 69 68 68 Pulse Rate [Pulse Oximeter] Respiratory Rate Blood Pressure 81/47 L 136/71 132/74 Blood Pressure [Le ft Arm] Blood Pressure [Le ft Upper Arm] Pulse Oximetry 95 95 91 Oxygen Delivery Me thod Oxygen Flow Rate 10/15/22 19:47 10/15/22 19:00 10/15/22 20:00 Temperature 98.7 F Pulse Rate 67 70 Pulse Rate [Pulse Oximeter] Respiratory Rate Blood Pressure Blood Pressure [Le ft Arm] Blood Pressure [Le ft Upper Arm] Pulse Oximetry 93 91 Oxygen Delivery Me thod Nasal Cannula Nasal Cannula Oxygen Flow Rate 2 2 10/15/22 20:19 10/15/22 20:30 10/15/22 20:34 Temperature Pulse Rate 68 69 74 Pulse Rate [Pulse Oximeter] Respiratory Rate Blood Pressure Blood Pressure [Le ft Arm] Blood Pressure [Le ft Upper Arm] Pulse Oximetry 90 92 92 Oxygen Delivery Me thod Oxygen Flow Rate 10/15/22 21:00 10/15/22 21:01 10/15/22 21:06 Temperature 99.3 F Pulse Rate 71 73 Pulse Rate [Pulse Oximeter] 4 L Respiratory Rate 20 Blood Pressure 146/83 H Blood Pressure [Le ft Arm] 110/62 Blood Pressure [Le ft Upper Arm] Pulse Oximetry 96 96 93 Oxygen Delivery Me thod Nasal Cannula Oxygen Flow Rate 2 10/15/22 23:00 10/15/22 23:00 10/16/22 02:58 Temperature 98.6 F 98.3 F Pulse Rate Pulse Rate [Pulse Oximeter] 73 77 Respiratory Rate 20 20 20 Blood Pressure Blood Pressure [Le ft Arm] 123/79 114/58 L Blood Pressure [Le ft Upper Arm] Pulse Oximetry 94 94 90 Oxygen Delivery Me thod Nasal Cannula Nasal Cannula Nasal Cannula Oxygen Flow Rate 2 2 2 Labs Labs: Laboratory Results - last 24 hr 10/15/22 10/15/22 10/15/22 18:07 18:12 18:12 WBC 21.52 H RBC 6.27 H Hgb 17.7 H Hct 56.7 H MCV 90 MCH 28 MCHC 31 L RDW Coeff of Mindy 14.9 Plt Count 198 Neut % (Auto) 88.3 H Lymph % (Auto) 3.2 L Garza % (Auto) 3.3 Eos % (Auto) 4.9 Baso % (Auto) 0.1 Neut # (Auto) 19.00 H Lymph # (Auto) 0.70 L [place] # (Auto) 0.70 Eos # (Auto) 1.10 H Baso # (Auto) 0.00 INR APTT VBG pH VBG pCO2 VBG pO2 VBG HCO3 Sodium 136 Potassium 4.8 Chloride 98 Carbon Dioxide 32 BUN 25 Creatinine 1.2 Estimated Creat Clear 57.08 Estimated GFR 61 Glucose 185 H Lactate Calcium 8.7 C-Reactive Protein 14.5 H NT-Pro-B Natriuret Pep Procalcitonin 0.24 Urine Color Urine Appearance Urine pH Ur Specific [place] Urine Protein Urine Glucose (UA) Urine Ketones Urine Blood Urine Nitrite Urine Bilirubin Urine Urobilinogen Ur Leukocyte Esterase Urine RBC Urine WBC Ur Squamous Epith Cells Urine Bacteria Urine Yeast SARS-CoV-2 (PCR) Negative SARS-CoV-2 Influenza Type A (PCR) Negative PCR FLU A Influenza Type B (PCR) Negative PCR FLU B RSV (PCR) Negative PCR RSV POC Troponin I 10/15/22 10/15/22 10/15/22 18:12 18:12 18:12 WBC RBC Hgb Hct MCV MCH MCHC RDW Coeff of Mindy Plt Count Neut % (Auto) Lymph % (Auto) Garza % (Auto) Eos % (Auto) Baso % (Auto) Neut # (Auto) Lymph # (Auto) Garza # (Auto) Eos # (Auto) Baso # (Auto) INR 0.99 APTT 32 VBG pH VBG pCO2 VBG pO2 VBG HCO3 Sodium Potassium Chloride Carbon Dioxide BUN Creatinine Estimated Creat Clear Estimated GFR Glucose Lactate 2.3 H Calcium C-Reactive Protein NT-Pro-B Natriuret Pep Procalcitonin Urine Color Urine Appearance Urine pH Ur Specific [place] Urine Protein Urine Glucose (UA) Urine Ketones Urine Blood Urine Nitrite Urine Bilirubin Urine Urobilinogen Ur Leukocyte Esterase Urine RBC Urine WBC Ur Squamous Epith Cells Urine Bacteria Urine Yeast SARS-CoV-2 (PCR) Influenza Type A (PCR) Influenza Type B (PCR) RSV (PCR) POC Troponin I 0.02 10/15/22 10/15/22 10/16/22 19:05 20:00 04:40 WBC 22.95 H RBC 6.03 H Hgb 17.1 Hct 54.6 H MCV 91 MCH 28 MCHC 31 L RDW Coeff of Mindy 15.1 Plt Count 134 L Neut % (Auto) 84.2 H Lymph % (Auto) 4.4 L [place] % (Auto) 5.7 Eos % (Auto) 5.2 Baso % (Auto) 0.1 Neut # (Auto) 19.30 H Lymph # (Auto) 1.00 Garza # (Auto) 1.30 H Eos # (Auto) 1.20 H Baso # (Auto) 0.00 INR APTT VBG pH VBG pCO2 VBG pO2 VBG HCO3 Sodium Potassium Chloride Carbon Dioxide BUN Creatinine Estimated Creat Clear Estimated GFR Glucose Lactate 2.0 H Calcium C-Reactive Protein NT-Pro-B Natriuret Pep Procalcitonin Urine Color Red A Urine Appearance Cloudy A Urine pH 5.5 Ur Specific [place] 1.020 Urine Protein 2+ A Urine Glucose (UA) Negative Urine Ketones Negative Urine Blood 3+ A Urine Nitrite Negative Urine Bilirubin 1+ A Urine Urobilinogen 1.0 Ur Leukocyte Esterase 1+ A Urine RBC >100 A Urine WBC 25-50 A Ur Squamous Epith Cells None Urine Bacteria Moderate A Urine Yeast Few A SARS-CoV-2 (PCR) Influenza Type A (PCR) Influenza Type B (PCR) RSV (PCR) POC Troponin I 10/16/22 10/16/22 04:40 04:40 WBC RBC Hgb Hct MCV MCH MCHC RDW Coeff of Mindy Plt Count Neut % (Auto) Lymph % (Auto) Garza % (Auto) Eos % (Auto) Baso % (Auto) Neut # (Auto) Lymph # (Auto) Garza # (Auto) Eos # (Auto) Baso # (Auto) INR APTT VBG pH 7.321 VBG pCO2 62 H* VBG pO2 28.3 VBG HCO3 32 H Sodium Potassium Chloride Carbon Dioxide BUN Creatinine Estimated Creat Clear Estimated GFR Glucose Lactate 3.3 H Calcium C-Reactive Protein 8.5 H NT-Pro-B Natriuret Pep 421 Procalcitonin Urine Color Urine Appearance Urine pH Ur Specific [place] Urine Protein Urine Glucose (UA) Urine Ketones Urine Blood Urine Nitrite Urine Bilirubin Urine Urobilinogen Ur Leukocyte Esterase Urine RBC Urine WBC Ur Squamous Epith Cells Urine Bacteria Urine Yeast SARS-CoV-2 (PCR) Influenza Type A (PCR) Influenza Type B (PCR) RSV (PCR) POC Troponin I
[2022-10-16] MEDS: LACTATED RINGERS 1000 ML 500 ML IV (07:56)
[2022-10-16] MEDS: METOPROLOL SUCCINATE (XL) 100 MG TAB PO (09:22)
[2022-10-16] MEDS: TORSEMIDE 20 MG TABLET PO (09:22)
[2022-10-16] MEDS: allopurinoL 100 MG TABLET PO (09:22)
[2022-10-16] MEDS: ASPIRIN 81 MG TABLET EC PO (09:22)
[2022-10-16] MEDS: SODIUM CHLORIDE 0.9 % (FLUSH) 10 ML SYRINGE 5 ML IVF ×2 (09:23→21:02)
[2022-10-16 09:38] LABS: Albumin* 3.1 g/dL (3.3-5.0); Chloride* 103 mmol/L (96-114); Potassium* 4.8 mmol/L (3.6-5.1); Sodium* 134 mmol/L (135-149)
[2022-10-16 09:40] LABS: Aspartate Amino Transferase* 20 U/L (12-35); Bilirubin Total* 1.7 mg/dL (0.1-1.5); Carbon Dioxide* 24 mmol/L (20-32); Creatinine* 1.1 mg/dL (0.5-1.5); Est. Creatinine Clearance* 62.27; Estimated Glomerular Filt Rate 68 ml/min
[2022-10-16 09:41] LABS: Alanine Aminotransferase* 22 U/L (4-50); Alkaline Phosphatase* 101 U/L (40-150); Blood Urea Nitrogen* 25 mg/dL (7-30); Calcium* 8.2 mg/dL (8.4-10.6); Glucose* 199 mg/dL (60-115); Phosphorus* 3.2 mg/dL (2.5-4.5); Total Protein* 6.1 g/dL (6.0-8.3)
[2022-10-16 09:42] LABS: Magnesium* 1.8 mg/dL (1.5-2.6)
[2022-10-16 10:43] LABS: Troponin I* < 0.01 ng/mL (0.01-0.04)
--- NOTE | 2022-10-16 16:14 | AT.DPN ---
pleasent alert and oriented. [place]. reads lips well. able to use call light appropiately. family supportive. sats 87 ra. 94 2lnc. ls clear. heart reg. normal temp and bp. ahd heart rate. cont. bladder irrigation. u/o light yellow 400cc. johnnie po intake. denies pain. poor dry brendan skin. najma groin. powder applied.
--- NOTE | 2022-10-16 18:10 | PC.NURSE ---
Shift Summary 15-19: Patient pleasant and cooperative. Up to recliner with one assist, walker and gait belt. CBI running with clear light yellow output, no clots noted. Denies pain, o2 sats 88-92% on RA, will drop <88% when asleep and requires 2L/NC.
[2022-10-16] MEDS: ATORVASTATIN 10 MG TABLET 20 MG PO (21:00)
[2022-10-16] MEDS: FEXOFENADINE 180 MG TABLET PO (21:00)
[2022-10-16] MEDS: ACETAMINOPHEN 650 MG TABLET ER 1300 MG PO (21:00)
[2022-10-16] MEDS: GABAPENTIN 300 MG CAPSULE 600 MG PO (21:01)
[2022-10-16] MEDS: NYSTATIN POWDER 1 APPLIC TOPICAL (21:02)
[2022-10-16] MEDS: TRIAMCINOLONE ACETONIDE CREAM 0.1 % 1 APPLIC TOPICAL (21:02)
[2022-10-16] MEDS: INSULIN NPH 100 UNIT/ML 10 UNIT SUBCUT (21:08)
[2022-10-17] VITALS (7 sets, daily range): BP systolic 113–134; BP diastolic 48–110; PULSE 68–80; RESP 18–20; TEMP 36.6–37.5; O2SAT 86–93
[2022-10-17] MEDS: PIPERACILLIN/TAZOBACTAM 3.375 GM in 0.9 % SODIUM CHLORIDE Mini-bag 100 ML IVPB ×3 (06:26→18:48)
--- NOTE | 2022-10-17 06:38 | PC.NURSE ---
VSS on RA. Patient is alert and oriented x3. Denies pain on assessment, pérez patent, continuous bladder irrigation. IV antibiotic infused x2, will call appropriately.
[2022-10-17 07:00] LABS: Lactate* 1.2 mmol/L (0.5-1.9)
[2022-10-17 07:01] LABS: Basophils Percent Auto 0.1 % (0.0-3.0); Eosinophils Percent Auto 8.7 % (0.0-7.0); Hematocrit 45.6 % (37.0-53.0); Hemoglobin* 14.2 gm/dL (13.5-17.5); Immature Granulocytes Pct Auto 0.2 %; Mean Corpuscular HGB Conc 31 gm/dL (32-36); Mean Corpuscular Hemoglobin 28 pg (26-34); Mean Corpuscular Volume 91 fL (80-100); Monocytes Percent Auto 5.5 % (0.0-11.0); Neutrophils Percent Auto 78.5 % (42.0-72.0); Platelet Count* 154 K/uL (140-440); RDW Coefficient of Variation % 15.1 % (11.5-15.5); White Blood Count* 13.41 K/uL (4.50-11.00)
[2022-10-17 07:15] LABS: Slide Review Reflex No
[2022-10-17 07:36] LABS: Chloride* 103 mmol/L (96-114); Potassium* 4.3 mmol/L (3.6-5.1); Sodium* 136 mmol/L (135-149)
[2022-10-17 07:38] LABS: Bilirubin Total* 0.9 mg/dL (0.1-1.5)
[2022-10-17 07:39] LABS: Alanine Aminotransferase* 20 U/L (4-50); Alkaline Phosphatase* 100 U/L (40-150); Aspartate Amino Transferase* 19 U/L (12-35); Blood Urea Nitrogen* 27 mg/dL (7-30); Calcium* 8.1 mg/dL (8.4-10.6); Carbon Dioxide* 32 mmol/L (20-32); Glucose* 101 mg/dL (60-115); Total Protein* 6.1 g/dL (6.0-8.3)
[2022-10-17 07:55] LABS: Estimated Glomerular Filt Rate 76 ml/min
--- NOTE | 2022-10-17 09:13 | P.IMPN_ITS ---
Progress Note: A&P Assessment and plan (1) Sepsis: Problem details: - fever on admission, hypotension, leukocytosis, elevated lactate, + Enterococcus on urine culture - fever resolved on hospital day #1, BP stable - Lactate has normalized - continue Zosyn Status: Acute (2) Urinary tract infection: Problem details: - pansensitive Enterococcus on 10/14 urine culture - recurrent; consider daily prophylactic outpatient abx upon d/c Status: Acute (3) Acute retention of urine: Problem details: - changed Pérez catheter to three-way catheterization with continuous bladder irrigation - known BPH, Flomax initiated Status: Acute (4) Hematuria: Problem details: - Obstructed Pérez catheter due to blood clots; hematuria likely multifactorial from inflammatory changes 2/2 UTI + and blunt trauma from the Pérez, known BPH - improved 10/17, will clamp CBI and follow closely Status: Acute (5) Allergic reaction caused by a drug: Problem details: - exanthemas drug eruption 10/15/2022 due to cephalexin, also noted during previous stay - cephalexin now added to patient's allergy list - patient's diffuse erythema has improved throughout stay Status: Acute (6) Dehydration: Problem details: - Related to decreased oral intake as well as fever associated dehydration on admission, improved - prn boluses of IVF - held home diuretic on admission, will restart 10/17 for edema Status: Acute (7) Acute nontraumatic kidney injury: Problem details: - creatinine stable (1.0 today) - combination of UTI, pérez placement, known BPH Status: Acute (8) Physical deconditioning: Problem details: - PT and OT follwoing - patient aware that TCU recommended; he and continue to refuse placement - Adriano requests a comfort based approach to care; considering home with hospice to limit ER visits and future hospitalizations Status: Acute Plan - per above - Dmitriy hose for ppx - home tomorrow with on oral antibiotics, per goals of care Subjective Date Seen: 10/17/22 Interval history: Adriano was admitted 10/15 for concerns of sepsis (leukocytosis, hypotension, elevated lactate) in the setting of known UTI (pansensitive Enterococcus on culture). He remains on IV Zosyn, slept well last night. Notes edema of upper extremities today (received IVF boluses and held diuretics upon admission); wearing Dmitriy hose on lower extremities. No other concerns for hospitalist team. Labs and VS exhibit significant improvement today. Hematuria notably improved as well. Exam Narrative: Exam Narrative: GEN: Alert and oriented, sitting comfortably in bedside chair HEENT: EOMIs, oropharynx clear CV: RRR, No concerning murmurs, rubs, or gallops R: LCTA bilaterally without concerning wheezing, air movement is adequate Ab: protuberant, no ttp Ext:? Wearing Dmitriy hose bilaterally Skin:? Complexion is jaye (erythema has improved), scattered AKs of extremities, no acutely concerning skin lesions Neuro:? No focal deficits Psych: Appropriate Const: Vital Signs, click to edit/add: Vital Signs - 24 hr 10/16/22 15:31 10/16/22 15:31 10/16/22 12:00 Temperature 98.2 F 98 F Pulse Rate [Pulse Oximeter] 72 75 Respiratory Rate 18 18 Blood Pressure [Le ft Arm] 106/61 109/45 L Pulse Oximetry 96 92 94 Oxygen Delivery Me thod Room Air Nasal Cannula Nasal Cannula Oxygen Flow Rate 2 2 10/16/22 19:00 10/16/22 23:00 10/17/22 01:58 Temperature 98.2 F Pulse Rate [Pulse Oximeter] 68 68 68 Respiratory Rate 18 18 18 Blood Pressure [Le ft Arm] 105/87 Pulse Oximetry 95 Oxygen Delivery Me thod Nasal Cannula Oxygen Flow Rate 2 10/16/22 23:00 10/16/22 23:00 10/17/22 03:00 Temperature 98.5 F 98 F Pulse Rate [Pulse Oximeter] 67 80 Respiratory Rate 18 18 Blood Pressure [Le ft Arm] 103/49 L 125/67 Pulse Oximetry 93 93 Oxygen Delivery Me thod Nasal Cannula Nasal Cannula Room Air Oxygen Flow Rate 2 2 Labs Labs: Laboratory Results - last 24 hr 10/16/22 10/16/22 10/17/22 09:15 10:06 06:25 WBC 13.41 H RBC 5.00 Hgb 14.2 Hct 45.6 MCV 91 MCH 28 MCHC 31 L RDW Coeff of Mindy 15.1 Plt Count 154 Neut % (Auto) 78.5 H Lymph % (Auto) 7.0 L [place] % (Auto) 5.5 Eos % (Auto) 8.7 H Baso % (Auto) 0.1 Neut # (Auto) 10.50 H Lymph # (Auto) 0.90 [place] # (Auto) 0.70 Eos # (Auto) 1.20 H Baso # (Auto) 0.00 Sodium 134 L Potassium 4.8 Chloride 103 Carbon Dioxide 24 BUN 25 Creatinine 1.1 Estimated Creat Clear 62.27 Estimated GFR 68 Glucose 199 H Lactate Calcium 8.2 L Phosphorus 3.2 Magnesium 1.8 Total Bilirubin 1.7 H AST 20 ALT 22 Alkaline Phosphatase 101 Troponin I Cancelled < 0.01 L Total Protein 6.1 Albumin 3.1 L 10/17/22 10/17/22 06:25 06:25 WBC RBC Hgb Hct MCV MCH MCHC RDW Coeff of Mindy Plt Count Neut % (Auto) Lymph % (Auto) [place] % (Auto) Eos % (Auto) Baso % (Auto) Neut # (Auto) Lymph # (Auto) [place] # (Auto) Eos # (Auto) Baso # (Auto) Sodium 136 Potassium 4.3 Chloride 103 Carbon Dioxide 32 BUN 27 Creatinine 1.0 Estimated Creat Clear 68.50 Estimated GFR 76 Glucose 101 Lactate 1.2 Calcium 8.1 L Phosphorus Magnesium Total Bilirubin 0.9 AST 19 ALT 20 Alkaline Phosphatase 100 Troponin I Total Protein 6.1 Albumin 3.0 L
[2022-10-17] MEDS: METOPROLOL SUCCINATE (XL) 100 MG TAB PO (09:14)
[2022-10-17] MEDS: allopurinoL 100 MG TABLET PO (09:14)
[2022-10-17] MEDS: ASPIRIN 81 MG TABLET EC PO (09:14)
[2022-10-17] MEDS: INSULIN NPH 100 UNIT/ML 15 UNIT SUBCUT (09:17)
[2022-10-17] MEDS: NYSTATIN POWDER 1 APPLIC TOPICAL ×2 (09:25→21:11)
[2022-10-17] MEDS: TRIAMCINOLONE ACETONIDE CREAM 0.1 % 1 APPLIC TOPICAL ×2 (09:25→21:11)
[2022-10-17] MEDS: SODIUM CHLORIDE 0.9 % (FLUSH) 10 ML SYRINGE 5 ML IVF ×3 (09:25→21:10)
[2022-10-17] MEDS: TORSEMIDE 20 MG TABLET PO (09:35)
[2022-10-17] MEDS: TAMSULOSIN HCL 0.4 MG CAPSULE PO (12:24)
[2022-10-17] MEDS: 0.9 % SODIUM CHLORIDE 250 ml IV (12:26)
[2022-10-17] MEDS: lidocaine HCL 2 % JELLY (TOP) STERILE 6 ML UR (18:45)
[2022-10-17] MEDS: INSULIN NPH 100 UNIT/ML 10 UNIT SUBCUT (21:07)
[2022-10-17] MEDS: ACETAMINOPHEN 650 MG TABLET ER 1300 MG PO (21:11)
[2022-10-17] MEDS: FEXOFENADINE 180 MG TABLET PO (21:11)
[2022-10-17] MEDS: GABAPENTIN 300 MG CAPSULE 600 MG PO (21:11)
[2022-10-17] MEDS: ATORVASTATIN 10 MG TABLET 20 MG PO (21:11)
[2022-10-18] MEDS: PIPERACILLIN/TAZOBACTAM 3.375 GM in 0.9 % SODIUM CHLORIDE Mini-bag 100 ML IVPB ×2 (00:15→06:56)
[2022-10-18 02:53] VITALS: BP 114/67; PULSE 77; RESP 22; TEMP 37; O2SAT 90
[2022-10-18 07:05] LABS: Basophils Absolute Auto 0.01 K/uL (0.00-0.30); Basophils Percent Auto 0.1 % (0.0-3.0); Eosinophils Percent Auto 8.9 % (0.0-7.0); Hematocrit 43.8 % (37.0-53.0); Hemoglobin* 13.5 gm/dL (13.5-17.5); Immature Granulocytes Abs Auto 0.02 K/uL (0.00-0.30); Immature Granulocytes Pct Auto 0.2 %; Lymphocytes Percent Auto 13.1 % (20-44); Mean Corpuscular HGB Conc 31 gm/dL (32-36); Mean Corpuscular Hemoglobin 29 pg (26-34); Mean Corpuscular Volume 93 fL (80-100); Monocytes Percent Auto 8.2 % (0.0-11.0); Neutrophils Absolute Auto 6.38 K/uL (1.7-7.0); Neutrophils Percent Auto 69.5 % (42.0-72.0); Platelet Count* 159 K/uL (140-440); RDW Coefficient of Variation % 15.2 % (11.5-15.5); Red Blood Count 4.71 m/uL (4.30-5.90); White Blood Count* 9.18 K/uL (4.50-11.00)
[2022-10-18 07:08] LABS: Slide Review Reflex No
[2022-10-18 07:21] LABS: Chloride* 102 mmol/L (96-114); Potassium* 3.8 mmol/L (3.6-5.1); Sodium* 137 mmol/L (135-149)
--- NOTE | 2022-10-18 07:23 | PC.NURSE ---
Pt is alert and oriented x3. Pt denies pain, chest pain, SOB, and N/V. Pt is up with A2 with walker and gait belt. Tolerating regular diet. Pt O2 sats dropped into the 84-86% range while sleeping O2 nasal cannula on 2 L was applied per order. ??
[2022-10-18 07:24] LABS: Blood Urea Nitrogen* 25 mg/dL (7-30); Carbon Dioxide* 31 mmol/L (20-32); Creatinine* 1.1 mg/dL (0.5-1.5); Est. Creatinine Clearance* 62.27; Estimated Glomerular Filt Rate 68 ml/min
[2022-10-18 07:25] LABS: Calcium* 8.2 mg/dL (8.4-10.6); Glucose* 123 mg/dL (60-115)
[2022-10-18] MEDS: TRIAMCINOLONE ACETONIDE CREAM 0.1 % 1 APPLIC TOPICAL (08:52)
[2022-10-18] MEDS: NYSTATIN POWDER 1 APPLIC TOPICAL (08:52)
[2022-10-18] MEDS: SODIUM CHLORIDE 0.9 % (FLUSH) 10 ML SYRINGE 5 ML IVF (08:52)
[2022-10-18] MEDS: INSULIN NPH 100 UNIT/ML 15 UNIT SUBCUT (09:10)
[2022-10-18] MEDS: TORSEMIDE 20 MG TABLET PO (09:15)
[2022-10-18] MEDS: allopurinoL 100 MG TABLET PO (09:16)
[2022-10-18] MEDS: ASPIRIN 81 MG TABLET EC PO (09:16)
[2022-10-18] MEDS: METOPROLOL SUCCINATE (XL) 100 MG TAB PO (09:16)
[2022-10-18] MEDS: TAMSULOSIN HCL 0.4 MG CAPSULE PO (09:16)
[2022-10-18 09:18] VITALS: BP 150/85; PULSE 76; PULSE 77; RESP 20; TEMP 36.8; O2SAT 90
--- NOTE | 2022-10-18 13:35 | P.DS_ITS ---
DS: Providers Provider Date Seen: 10/18/22 Date of admission: 10/15/22 21:31 Primary care physician: Dilcia Castorena MD Admitting Clinician: Jose Lozano MD Consults: PT and OT Attending Physician on discharge: Petra Shafer MD Date of Discharge: 10/18/22 DS: Diagnosis Discharge Diagnosis (1) Sepsis: Status: Acute Problem details: - fever on admission, hypotension, leukocytosis, elevated lactate, + Enterococcus on urine culture - fever resolved on hospital day #1, rest of VS, WBC, and Lactate also normalized during stay - treated with IV Zosyn (2) Urinary tract infection: Status: Acute Problem details: - pansensitive Enterococcus on 10/14 urine culture - recurrent; will discharge home on oral Cipro to complete course of abx for acute infection - recommend low dose Nitrofurantoin at HS after completion of antibiotic course to prevent further infections - also added Flomax to medication regimen for known BPH (3) Acute retention of urine: Status: Acute Problem details: - changed Pérez catheter to three-way catheterization with continuous bladder irrigation; transitioned back to Pérez after resolution of hematuria - known BPH, Flomax initiated (4) Hematuria: Status: Acute Problem details: - On admission, noted to have obstructed Pérez 2/2 blood clots; hematuria likely multifactorial: UTI + and blunt trauma from the Pérez, known BPH - resolved during stay, pérez replaced without incident (5) Allergic reaction caused by a drug: Status: Acute Problem details: - exanthemas drug eruption 10/15/2022 due to cephalexin, also noted during previous stay - cephalexin now added to patient's allergy list - patient's diffuse erythema improved throughout stay (6) Acute nontraumatic kidney injury: Status: Acute Problem details: - combination of UTI, pérez placement, known BPH - improved with Cr of 1.1 on discharge (7) Physical deconditioning: Status: Acute Problem details: - PT and OT follwoing - patient aware that TCU recommended; he and continue to refuse placement - Adriano requests a comfort based approach to care; considering home with hospice to limit ER visits and future hospitalizations DS: Summary Hospital Course Hospital Course: Adriano was admitted to the hospital for current UTI and hematuria after replacement of a Pérez catheter. Previous Pérez was in place after recent hospital stay with acute urinary retention (in the setting of known BPH). It was recommended that Adriano see Urology prior to removal, but catheter was bothering him and so he had removed at PCP's office last week, then was unable to urinate. 24 hours after Pérez replacement in the ED, he noted hematuria, fever, hypotension, and urine culture positive for Enterococcus. He was admitted for Sepsis and IV Zosyn initiated, in addition to IVF rehydration. Adriano improved both objectively and subjectively during stay; requested d/c home on 10/18. Notable findings above - patient and continue to decline TCU stay. Patient would prefer to be home rather than ever be hospitalized, considering hospice for comfort-focused approach to therapy. PCP Dr. Castorena updated upon patient's discharge. Status at Discharge Functional status at discharge: uses cane/walker Overall status at discharge: patient is progressing back to baseline Time Spent with Patient Time attestation: Total time spent providing and/or coordinating discharge services: Time spent: Greater than 30 minutes Specific discharge activities: medication reconciliation, documentation, care coordination with team members Exam Narrative: Exam Narrative: GEN: Alert and sitting comfortably in bed, answering questions appropriately HEENT: Normal external ears, EOMIs bilaterally, no scleral icterus CV: RRR, No concerning murmurs, rubs, or gallops R: LCTA bilaterally without concerning wheezing, air movement adequate Ext: Edema of LE, wearing Dmitriy hose Skin: Diffuse and confluent erythema of skin has improved during stay, scattered dry skin and AKs of bilateral upper extremities Neuro: No focal deficits Psych: Appropriate Const: Vital Signs, click to edit/add: Vital Signs - 24 hr 10/17/22 16:12 10/17/22 16:12 10/17/22 16:12 Temperature 98.7 F Pulse Rate [Pulse Oximeter] 69 69 Respiratory Rate 20 20 20 Blood Pressure [Le ft Arm] 113/48 L Pulse Oximetry 90 90 Oxygen Delivery Me thod Room Air Room Air Oxygen Flow Rate 10/17/22 20:51 10/17/22 23:00 10/17/22 23:00 Temperature 98.6 F Pulse Rate [Pulse Oximeter] 74 68 Respiratory Rate 20 20 Blood Pressure [Le ft Arm] 134/110 H Pulse Oximetry 90 86 L Oxygen Delivery Me thod Room Air Room Air Oxygen Flow Rate 10/17/22 23:00 10/18/22 02:53 10/18/22 09:18 Temperature 98.4 F 98.6 F Pulse Rate [Pulse Oximeter] 68 77 77 Respiratory Rate 20 22 20 Blood Pressure [Le ft Arm] 113/57 L 114/67 Pulse Oximetry 86 L 90 Oxygen Delivery Me thod Room Air Nasal Cannula Oxygen Flow Rate 2 10/18/22 09:18 10/18/22 09:18 Temperature 98.2 F Pulse Rate [Pulse Oximeter] 76 Respiratory Rate 20 20 Blood Pressure [Le ft Arm] 150/85 H Pulse Oximetry 90 90 Oxygen Delivery Me thod Room Air Nasal Cannula Oxygen Flow Rate DS: Data Data Completed and Pending Completed studies during hospitalization: Procedures Assistance with Respiratory Ventilation, Greater than 96 Consecutive Hours, Continuous Positive Airway Pressure (09/13/22) Drainage of Bladder with Drainage Device, Via Natural or Artificial Opening (09/13/22) Excision of Right Lower Leg Skin, External Approach (09/13/22) Extraction of Left Lower Leg Skin, External Approach (09/13/22) Extraction of Right Lower Leg Skin, External Approach (09/13/22) Introduction of Other Gas into Respiratory Tract, Via Natural or Artificial Opening (09/13/22) Labs on day of discharge: Labs from last 24 hours 10/18/22 10/18/22 06:53 06:53 WBC 9.18 RBC 4.71 Hgb 13.5 Hct 43.8 MCV 93 MCH 29 MCHC 31 L RDW Coeff of Mindy 15.2 Plt Count 159 Neut % (Auto) 69.5 Lymph % (Auto) 13.1 L [place] % (Auto) 8.2 Eos % (Auto) 8.9 H Baso % (Auto) 0.1 Neut # (Auto) 6.38 Lymph # (Auto) 1.20 [place] # (Auto) 0.80 Eos # (Auto) 0.80 H Baso # (Auto) 0.01 Sodium 137 Potassium 3.8 Chloride 102 Carbon Dioxide 31 BUN 25 Creatinine 1.1 Estimated Creat Clear 62.27 Estimated GFR 68 Glucose 123 H Calcium 8.2 L Preliminary micro results at discharge 10/15/22 18:46 Blood Culture - Preliminary Blood NO GROWTH AFTER 48 HOURS 10/15/22 18:12 Blood Culture - Preliminary Blood NO GROWTH AFTER 48 HOURS Discharge Plan Discharge Disposition: Home Health Service Date of Admission: 10/15/22 21:31 Attending Provider on Discharge: Petra Shafer Primary Care Provider: Dilcia Castorena Condition: Stable Anticipated Discharge Date/Time: 10/18/22 09:00 Discharge Medications: New torsemide 20 mg Tablet 20 mg PO DAILY@0800 Qty: 30 0RF tamsulosin 0.4 mg Capsule 0.4 mg PO DAILY Qty: 30 0RF nitrofurantoin macrocrystal 100 mg capsule 100 mg PO QHS Qty: 30 0RF Rx Instructions: must administer with a meal/food, start this after finishing course of Cipro ciprofloxacin HCl 500 mg tablet 500 mg PO BID 6 Days Qty: 12 0RF Continued allopurinol 100 mg tablet 100 mg PO DAILY Label Comments: TAKE ONE TABLET BY MOUTH ONCE DAILY ammonium lactate 12 % cream 1 applic topical BID atorvastatin 20 mg tablet 20 mg PO HS Label Comments: TAKE 1 TABLET (20 MG) BY MOUTH AT BEDTIME. gabapentin 300 mg capsule 600 mg PO HS Label Comments: TAKE TWO CAPSULES BY MOUTH AT BEDTIME MAY TAKE ADDITIONAL 2-3 CAPS SPACED OUT THROUGHOUT THE DAY NEEDED metoprolol succinate 100 mg tablet extended release 24 hr 100 mg PO DAILY Label Comments: TAKE ONE TABLET BY MOUTH ONCE DAILY nitroglycerin [Nitrostat] 0.4 mg tablet, sublingual 0.4 mg sublingual Q5-15M PRN Rx Instructions: do not exceed 3 doses per episode acetaminophen [Arthritis Pain Reliever] 650 mg tablet extended release 1,300 mg PO HS aspirin [Ecotrin Low Strength] 81 mg tablet,delayed release (DR/EC) 81 mg PO DAILY fexofenadine 180 mg Tablet 180 mg PO HS Qty: 30 0RF triamcinolone acetonide 0.1 % Cream 1 applic topical BID Qty: 15 0RF nystatin 100,000 unit/gram Powder 1 applic topical BID Qty: 30 0RF insulin aspart U-100 [Novolog FlexPen U-100 Insulin] 100 unit/mL (3 mL) Insulin Pen 1 sliding scale dose subcut ACHS Qty: 15 0RF Rx Instructions: Blood Glucose 150 or less No coverage Blood Glucose 151-200 1 unit Blood Glucose 201-250 2 units Blood Glucose 251-300 3 units Blood Glucose 301-350 4 units Blood Glucose 351 to 400 5 units Blood Glucose 401 and greater 6 units and recheck in 2 hours insulin NPH isoph U-100 human 100 unit/mL (3 mL) insulin pen 15 unit subcut DAILY@23 Qty: 1 0RF Discontinued furosemide 40 mg tablet 40 mg PO DAILY Label Comments: TAKE ONE TABLET BY MOUTH EVERY DAY No Action (DME) insulin syringe-needle U-100 [UltiCare] 0.3 mL 30 gauge x 1/2 syringe MISCELLANEOUS (DME) nebulizer and compressor Device See Rx Instructions .Route Qty: 1 0RF Rx Instructions: As directed (DME) nebulizer accessories Kit See Rx Instructions .ROUTE .MEDSUPPLY Qty: 1 0RF Rx Instructions: As directed Discharge Orders: Discharge Order (Routine); Ordered 10/18/22 Ordered By: Petra Shafer Patient Education: Ciprofloxacin (By mouth), Torsemide (By mouth), Tamsulosin (By mouth), Nitrofurantoin Macrocrystals (By mouth), Pérez Catheter Placement and Care (DC), Sepsis (GEN) Additional Instructions: Pérez stays in, needs to be replaced once per month (can be done at clinic or with Home Health). We've added FLOMAX to your home medications to see if that helps with replacing the catheter and preventing further infections. We also changed your Furosemide (Lasix) to TORSEMIDE (diuretic). Finish course of antibiotics (Cipro), then start daily medication to prevent recurrent infection (Nitrofurantoin). Consider hospice admission (you were already referred through the [facility]). They can help you with comfort at home. Dr. Castorena was updated on your stay. Activity Level: No strenuous activity Discharge Diet: Diabetic Follow Up Appointments: Dilcia Castorena MD [Primary Care Provider] - 10/24/22 1:40 pm (Please call if you have any questions ) Forms: [employer] Info Instructions
== END 2022-10-18 11:24 | disposition home health service (06) | DRG 872 ==
LOC: ED 20:42 → MEDSURG 21:01
PROVIDERS: Family Medicine; Admitting Provider Internal Medicine; Emergency Provider Family Medicine; PCP Family Medicine; Visit Provider Internal Medicine
DX: A41.9 Sepsis, unspecified organism (principal); N39.0 Urinary tract infection, site not specified; N17.9 Acute kidney failure, unspecified; T83.83XA Hemorrhage due to genitourinary prosthetic devices, implants and grafts, initial encounter; N13.8 Other obstructive and reflux uropathy; Z68.42 Body mass index [BMI] 45.0-49.9, adult; I50.30 Unspecified diastolic (congestive) heart failure; B95.2 Enterococcus as the cause of diseases classified elsewhere; R31.0 Gross hematuria; T83.098A Other mechanical complication of other urinary catheter, initial encounter; L27.0 Generalized skin eruption due to drugs and medicaments taken internally; T36.1X5A Adverse effect of cephalosporins and other beta-lactam antibiotics, initial encounter; R33.8 Other retention of urine; E86.0 Dehydration; E11.42 Type 2 diabetes mellitus with diabetic polyneuropathy; K21.9 Gastro-esophageal reflux disease without esophagitis; M51.36 Other intervertebral disc degeneration, lumbar region; M35.3 Polymyalgia rheumatica; N40.1 Benign prostatic hyperplasia with lower urinary tract symptoms; E66.01 Morbid (severe) obesity due to excess calories; I11.0 Hypertensive heart disease with heart failure
CPT/HCPCS: 36415; 51702; 71045; 80048; 80053; 81001; 82803; 83605; 83735; 83880; 84100; 84145; 84484; 85025; 85610; 85730; 86140; 87040; 87086; 87502; 87634; 87635; 97116; 97161; 97166; 97530; 97535; 99285; 99291; A9270; J1170; J1200; J2543; J7030; J7050; J7120

== ENCOUNTER 2023-01-03 09:59 | Inpatient (IN) | payer OTHER, SELFPAY ==
[2023-01-03 10:10] VITALS: BP 163/70; PULSE 75; RESP 20; TEMP 37; O2SAT 81; BMI 43.0
--- NOTE | 2023-01-03 10:33 | ED_ITS ---
HPI - Male Genitourinary General Date Seen: 01/03/23 Chief complaint: Urogenital Problems, Male Stated complaint: Urine in catheter Time Seen by Provider: 01/03/23 10:12 Source: patient Mode of arrival: EMS Limitations: no limitations History of Present Illness HPI Narrative: Patient is a 82-year-old gentleman who presents here from home, with blood in his urine, he recently had got out of the [facility] in [place], where he was there for conditioning he is able to walk by himself, but notice this morning that he a clots any as inability to pass urine, and a feeling likely a continually has to pass it, he thinks he is on a blood thinner but is unsure exactly what denies any fevers chills or sweats nausea vomiting or other issues, was fine yesterday things, but today does have issues. Related Data Home Medications Medication Instructions Recorded Confirmed acetaminophen 650 mg 1,300 mg PO HS 09/10/22 10/16/22 tablet,extended release (Arthritis Pain Reliever) allopurinol 100 mg tablet 100 mg PO DAILY 09/10/22 10/16/22 ammonium lactate 12 % topical cream 1 applic topical BID 09/10/22 10/16/22 aspirin 81 mg tablet,delayed 81 mg PO DAILY 09/10/22 10/16/22 release (Ecotrin Low Strength) atorvastatin 20 mg tablet 20 mg PO HS 09/10/22 10/16/22 gabapentin 300 mg capsule 600 mg PO HS 09/10/22 10/16/22 insulin syringe-needle U-100 0.3 09/10/22 09/10/22 mL 30 gauge x 1/2 (UltiCare) metoprolol succinate 100 mg 100 mg PO DAILY 09/10/22 10/16/22 tablet,extended release 24 hr nitroglycerin 0.4 mg sublingual 0.4 mg sublingual Q5-15M PRN 09/10/22 10/16/22 tablet (Nitrostat) Previous Rx's Medication Instructions Recorded fexofenadine 180 mg tablet 180 mg PO HS #30 tabs 09/26/22 insulin NPH isoph U-100 human 100 15 unit (0.15 mL) subcut DAILY@23 09/26/22 unit/mL (3 mL) subcutaneous pen #1 pen insulin aspart U-100 100 unit/mL 1 sliding scale dose subcut ACHS 09/26/22 (3 mL) subcutaneous pen (Novolog #15 mL FlexPen U-100 Insulin aspart) nebulizer accessories #1 ea 09/26/22 nebulizer and compressor #1 ea 09/26/22 nystatin 100,000 unit/gram topical 1 applic topical BID #30 grams 09/26/22 powder triamcinolone acetonide 0.1 % 1 applic topical BID #15 grams 09/26/22 topical cream ciprofloxacin HCl 500 mg tablet 500 mg PO BID 6 days #12 tabs 10/18/22 nitrofurantoin macrocrystal 100 mg 100 mg PO QHS #30 caps 10/18/22 capsule tamsulosin 0.4 mg capsule 0.4 mg PO DAILY #30 caps 10/18/22 torsemide 20 mg tablet 20 mg PO DAILY@0800 #30 tabs 10/18/22 Allergies Allergy/AdvReac Type Severity Reaction Status Date / Time cephalexin Allergy Severe Hives Verified 10/15/22 21:39 Review of Systems Status of ROS: Reports: 10 or more systems reviewed and unremarkable except as noted in History and below [facility] Medical History Acute nontraumatic kidney injury ?N17.9 - Acute kidney failure, unspecified (ICD-10) Acute on chronic diastolic (congestive) heart failure ?I50.33 - Acute on chronic diastolic (congestive) heart failure (ICD-10) Acute on chronic heart failure with preserved ejection fraction ?I50.33 - Acute on chronic diastolic (congestive) heart failure (ICD-10) Acute respiratory failure with hypoxia and hypercapnia ?J96.01 - Acute respiratory failure with hypoxia (ICD-10) ?J96.02 - Acute respiratory failure with hypercapnia (ICD-10) Acute urinary retention ?R33.8 - Other retention of urine (ICD-10) Bilateral edema of lower extremity ?R60.0 - Localized edema (ICD-10) Cellulitis of right leg ?L03.115 - Cellulitis of right lower limb (ICD-10) Chronic diarrhea ?K52.9 - Noninfective gastroenteritis and colitis, unspecified (ICD-10) Chronic hypoxemic respiratory failure ?J96.11 - Chronic respiratory failure with hypoxia (ICD-10) DDD (degenerative disc disease), lumbar ?M51.36 - Other intervertebral disc degeneration, lumbar region (ICD-10) Diabetic peripheral neuropathy ?E11.42 - Type 2 diabetes mellitus with diabetic polyneuropathy (ICD-10) Elevated troponin ?R77.8 - Other specified abnormalities of plasma proteins (ICD-10) Generalized weakness ?R53.1 - Weakness (ICD-10) GERD (gastroesophageal reflux disease) ?K21.9 - Gastro-esophageal reflux disease without esophagitis (ICD-10) Hypertension ?I10 - Essential (primary) hypertension (ICD-10) Lymphedema ?I89.0 - Lymphedema, not elsewhere classified (ICD-10) 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 ?I89.0 - Lymphedema, not elsewhere classified (ICD-10) ?I99.9 - Unspecified disorder of circulatory system (ICD-10) Morbid obesity ?E66.01 - Morbid (severe) obesity due to excess calories (ICD-10) Physical debility ?R53.81 - Other malaise (ICD-10) Physical deconditioning ?R53.81 - Other malaise (ICD-10) Polymyalgia rheumatica ?M35.3 - Polymyalgia rheumatica (ICD-10) Type 2 diabetes mellitus ?E11.9 - Type 2 diabetes mellitus without complications (ICD-10) Weakness ?R53.1 - Weakness (ICD-10) Surgical History H/O cataract removal with insertion of prosthetic lens History of lumbar laminectomy History of tonsillectomy and adenoidectomy Hx of colonoscopy Family History Mother Lymph node cancer Father Colon cancer Brother High cholesterol High blood pressure Brother High blood pressure Sister High blood pressure Social History Narrative: . Lives with . Denies tobacco use, lifelong nonsmoker. Alcohol use 1 drink per month. Denies recreational drug use. DNI. Highest level of school completed/degree received: high school graduate Smoking Status: Never smoker Do you use any of these nicotine containing products: None Second hand tobacco smoke exposure: No How often do you have a drink containing alcohol: never AUDIT-C Alcohol total score: 0 Non-prescribed substance use: denies use Caffeine: Yes (1 cup of coffee a day) service: No Exam Narrative: Exam Narrative: Patient is seen in room 2, he is in no apparent distress, large morbidly obese, there is some redness of his fat pannus bilaterally in his abdomen but there is no tenderness to palpation, chest is good air entry bilaterally with occasional wheezes noted occasional crackles is heart sounds no clicks murmurs or gallops. Partida catheter is protruding from his penis, and there is the clots and blood within it. His legs are wrapped in the lower extremities, consistent with venous stasis, Const: Vital Signs, click to edit/add: Vital Signs - 24 hr 01/03/23 10:10 Temperature 98.6 F Pulse Rate [Left P ulse Oximeter] 75 Respiratory Rate 20 Blood Pressure [Le ft Upper Arm] 163/70 H Pulse Oximetry 81 L Oxygen Delivery Me thod Room Air Documenting provider has reviewed patient's vital signs: yes Course Course Hospital Course: We were able to place some 3 way catheter for Adriano, he unfortunately did clot off once the nurse had redo it, he is now peeing more of Paolo-Aid colored red solution. He feels immensely better at this point, with the urinary retention, and obstruction and improved. I did talk with him and his about admission here I recommended admission and use of the 3 way catheter at this point, I am not going to recommend starting with antibiotics, his lactate was normal white count was normal, there is normal blood pressure, and no evidence of any tachycardia. Given the fact that he has a chronic indwelling catheter, his urinalysis will be abnormal with white cells, and we should wait and see if he develops a fever abdominal pain. I did talk to Dr. Valencia from inpatient medicine he accepted him. Vital Signs Vital signs: Initial Vital Signs Temperature 98.6 F 01/03/23 10:10 Temperature Source Temporal Artery Scan 01/03/23 10:10 Pulse Rate 75 01/03/23 10:10 Pulse Rhythm Regular 01/03/23 10:10 Respiratory Rate 20 01/03/23 10:10 Blood Pressure 163/70 H 01/03/23 10:10 Blood Pressure Mean 101 01/03/23 10:10 Blood Pressure Position Sitting 01/03/23 10:10 Pulse Oximetry 81 L 01/03/23 10:10 Oxygen Delivery Method Room Air 01/03/23 10:10 Vital Signs Temperature 98.6 F 01/03/23 10:10 Pulse Rate 75 01/03/23 10:10 Respiratory Rate 20 01/03/23 10:10 Blood Pressure 163/70 H 01/03/23 10:10 Pulse Oximetry 81 L 01/03/23 10:10 Oxygen Delivery Method Room Air 01/03/23 10:10 Temperature 98.6 F 01/03/23 10:10 Pulse Rate 75 01/03/23 10:10 Respiratory Rate 20 01/03/23 10:10 Blood Pressure 163/70 H 01/03/23 10:10 Pulse Oximetry 81 L 01/03/23 10:10 Oxygen Delivery Method Room Air 01/03/23 10:10 MDM - Male Genitourinary MDM Narrative Medical decision making narrative: On reviewing my chart I see Adriano was in for much the same in early part of September of this year, he was found to have a UTI causing his symptom Tums, as he has an indwelling Partida catheter. At this point we will change out his catheter we will put a [address] and flushed him, this could be from trauma also, I will do laboratory test to rule out a severe sepsis type syndrome, and I think he will likely require admission, but we will see. Differential Diagnosis Differential diagnosis: Likely urinary tract infection, prostatitis and acute retention of urine Medical Records Attestation: I reviewed the patient's medical records. Lab Data Attestation: I reviewed the patient's lab results. Labs: Lab Results 01/03/23 01/03/23 Range/Units 11:25 11:55 WBC 8.17 (4.50-11.00) K/uL RBC 4.76 (4.30-5.90) m/uL Hgb 13.8 (13.5-17.5) gm/dL Hct 45.2 (37.0-53.0) % MCV 95 (80-100) fL MCH 29 (26-34) pg MCHC 31 L (32-36) gm/dL RDW Coeff of Mindy 14.5 (11.5-15.5) % Plt Count 237 (140-440) K/uL Neut % (Auto) 77.4 H (42.0-72.0) % Lymph % (Auto) 10.2 L (20-44) % [place] % (Auto) 9.5 (0.0-11.0) % Eos % (Auto) 2.7 (0.0-7.0) % Baso % (Auto) 0.0 (0.0-3.0) % Neut # (Auto) 6.30 (1.7-7.0) K/uL Lymph # (Auto) 0.80 L (0.90-2.90) K/uL [place] # (Auto) 0.80 (0.00-0.90) K/UL Eos # (Auto) 0.22 (0.00-0.50) K/uL Baso # (Auto) 0.00 (0.00-0.30) K/uL INR 1.01 (0.91-1.10) APTT 31 (23-33) Seconds Sodium 139 (135-149) mmol/L Potassium 3.6 (3.6-5.1) mmol/L Chloride 100 (96-114) mmol/L Carbon Dioxide 36 H (20-32) mmol/L BUN 17 (7-30) mg/dL Creatinine 1.3 (0.5-1.5) mg/dL Estimated Creat Clear 52.69 Estimated GFR 56 ml/min Glucose 175 H (60-115) mg/dL Lactate 1.7 (0.5-1.9) mmol/L Calcium 8.5 (8.4-10.6) mg/dL C-Reactive Protein 6.8 H (0.5-1.0) mg/dL Urine Color [place] A (Yellow) Urine Appearance Slightly Cloudy A (Clear) Urine pH 5.5 (5.0-8.5) Ur Specific Media 1.010 (1.000-1.030) Urine Protein 1+ A (Negative) Urine Glucose (UA) Negative (Negative) Urine Ketones Negative (Negative) Urine Blood 3+ A (Negative) Urine Nitrite Negative (Negative) Urine Bilirubin Negative (Negative) Urine Urobilinogen 0.2 (0.2-1.0) Ur Leukocyte Esterase 2+ A (Negative) Urine RBC 50-100 A (0-2) Urine WBC 50-100 A (0-5) Ur Squamous Epith Cells None (None-Few) Amorphous Sediment Few A (None) Urine Bacteria Moderate A (None) SARS-CoV-2 (PCR) Negative SARS-CoV-2 (Negative) Influenza Type A (PCR) Negative PCR FLU A (Negative) Influenza Type B (PCR) Negative PCR FLU B (Negative) RSV (PCR) Negative PCR RSV (Negative) Discharge Plan Discharge Clinical Impression: Chronic indwelling Partida catheter, Hematuria, Acute retention of urine Patient Disposition: Admitted As Inpatient Condition: Improved Activity Level: No Restrictions
[2023-01-03 11:36] LABS: Eosinophils Absolute Auto 0.22 K/uL (0.00-0.50); Eosinophils Percent Auto 2.7 % (0.0-7.0); Hematocrit 45.2 % (37.0-53.0); Hemoglobin* 13.8 gm/dL (13.5-17.5); Immature Granulocytes Abs Auto 0.02 K/uL (0.00-0.30); Immature Granulocytes Pct Auto 0.2 %; Lactate* 1.7 mmol/L (0.5-1.9); Lymphocytes Percent Auto 10.2 % (20-44); Mean Corpuscular HGB Conc 31 gm/dL (32-36); Mean Corpuscular Hemoglobin 29 pg (26-34); Mean Corpuscular Volume 95 fL (80-100); Monocytes Percent Auto 9.5 % (0.0-11.0); Neutrophils Percent Auto 77.4 % (42.0-72.0); Platelet Count* 237 K/uL (140-440); RDW Coefficient of Variation % 14.5 % (11.5-15.5); Red Blood Count 4.76 m/uL (4.30-5.90); White Blood Count* 8.17 K/uL (4.50-11.00)
[2023-01-03 11:38] LABS: Slide Review Reflex No
[2023-01-03 11:49] LABS: Chloride* 100 mmol/L (96-114); Potassium* 3.6 mmol/L (3.6-5.1); Sodium* 139 mmol/L (135-149)
[2023-01-03 11:52] LABS: Creatinine* 1.3 mg/dL (0.5-1.5); Est. Creatinine Clearance* 52.69; Estimated Glomerular Filt Rate 56 ml/min; INR 1.01 (0.91-1.10); Prothrombin Time 13.9 Seconds
[2023-01-03 11:53] LABS: Blood Urea Nitrogen* 17 mg/dL (7-30); Calcium* 8.5 mg/dL (8.4-10.6); Carbon Dioxide* 36 mmol/L (20-32); Glucose* 175 mg/dL (60-115); Partial Thromboplastin Time* 31 Seconds (23-33)
[2023-01-03 11:56] LABS: C Reactive Protein* 6.8 mg/dL (0.5-1.0)
--- NOTE | 2023-01-03 12:01 | ED.NURSE ---
3 way catheter placed and currently flushing bladder at this time. IV placed and blood drawn and Lab has drawn second set of cultures as well. COVID swab sent to lab and urine sample.
--- NOTE | 2023-01-03 12:17 | ED.NURSE ---
states that is at home and declining in how he can care for himself, she is turning into his primary health careers instructor. He is progressively getting heavier in weight and hard for to take care of at home. states that at least 2x a week she has fire department at the house for lift assist for falls and pt can just not stand up. states he has [employer] insurance and it is hard for him to get placement at Nursing homes, but pt would be agreeable to going to a intermediate in [place] that they had researched previously, she is not sure of the name? states pt barely walks at home and his skin is starting to breakdown in his groin area. Pt's also states that she is a breast cancer survivor, has survived two heart attacks and two hip replacements herself and her health is starting to decline. Pt's family is also in agreement that pt needs to be placed in intermediate for better and safer care.
[2023-01-03 12:30] LABS: Appearance Urine Slightly Cloudy (Clear); Bilirubin Urine Negative (Negative); Blood Urine 3+ (Negative); Color Urine Pink (Yellow); Glucose Urine Negative (Negative); Ketones Urine Negative (Negative); Leukocyte Esterase Urine 2+ (Negative); Nitrite Urine Negative (Negative); Protein Urine 1+ (Negative); Urobilinogen Urine 0.2 (0.2-1.0); pH Urine 5.5 (5.0-8.5)
[2023-01-03 12:39] LABS: PCR FLU A Negative PCR FLU A (Negative); PCR FLU B Negative PCR FLU B (Negative); PCR RSV Negative PCR RSV (Negative)
--- NOTE | 2023-01-03 12:54 | PC.NURSE ---
Irrigated catheter with 60cc of saline. 4 large clots came out. CBI restarted and appears to be flowing now.
[2023-01-03 12:55] LABS: RBC Urine 50-100 (0-2); WBC Urine 50-100 (0-5)
[2023-01-03 12:56] LABS: Amorphous Sediment Urine Few; Bacteria Urine Moderate
[2023-01-03 12:58] LABS: SARS PCR* Negative SARS-CoV-2 (Negative)
--- NOTE | 2023-01-03 13:18 | ED.NURSE ---
Continual Bladder irrigation, multiple clots dislodging at this time. Pt states he is comfortable, watching TV and not in any pain.
--- NOTE | 2023-01-03 14:41 | ED.NURSE ---
Pt has a fungal infection throughout groin area, left groin particularly red and malodorous. Area cleaned, and dry washfloths placed under scrotum and throught pannus area to hep wick away moisture. states he is out of his Nystatin powder and will not let her clean his scrotum.
--- NOTE | 2023-01-03 15:17 | ED.NURSE ---
Pt has skin tear that is scabbed over on outer left arm. This nurse put a telfa on it and wrapped with coban before going upstairs, called and let Med/Surg nurse know about this new finding. This nurse spiked two new bladder irrigation bags before tech transported pt up to med/surg floor. Catheter bag emptied before pt transported.
[2023-01-03 15:38] VITALS: BP 160/73; PULSE 55; RESP 26; TEMP 36.6; O2SAT 91; O2SAT 93; BMI 43.9
--- NOTE | 2023-01-03 16:51 | P.IMHP_ITS ---
Hospitalist- H&P: HPI History of Present Illness Time Seen by Provider: 16:51 Date Seen: 01/03/23 Chief complaint: Urine in catheter Narrative: Adriano Ball is a 82 year old male with a complicated medical history and an indwelling pérez catheter who started having blood in his urine almost a week ago. The patient tells me it has only been going on for about a day and a half, but when I called his to get history, she said it has actually been going on since last Monday and that he refused to go to the hospital. He was due for a catheter change today by home health, but they could not do it because he was having hematuria. There were large clots in the catheter that were blocking urine output. Therefore he had to come to the hospital. He has not had any fevers or chills. He tells me that he fell on Monday and again on . Both times this happened while he was going up the ramp with a walker. He says his legs just got weak and buckled. He denies losing consciousness or hitting his head. He says he did not hurt anything either time. He has been in an out of the hospital and in and out of nursing homes over the past few months. In the beginning of November he was in hospital in [place] for generalized weakness and was discharged to [facility] in [place]. His thinks he probably could have stated [facility] longer, but he was begging everybody to go home and he was finally able to walk far enough with a walker that they sent him home on 12/14. Since then he has not been doing his exercises and he has been refusing home therapies, according to his . She has noticed that he is getting weaker and weaker. He says he is too tired or weak to do therapy. He has been having diarrhea and sometimes grainy stools, like sand. He feels too tired or weak to get to the bathroom, so he makes his put a pad on the floor and then he stands there to have a bowel movement. He gets weak sometimes and falls into it and his feels exhausted having to clean this up all the time. She expresses feeling overwhelmed by the amount of care that he needs and frustrated that he is not more cooperative with the therapies so that he could get stronger. She says he just sits in the chair all the time. She tells me that EMS has been out to the house 7 times since July. Review of Systems Status of ROS: Reports: 10 or more systems reviewed and unremarkable except as noted in History and below [facility] Medical History (Updated 01/04/23 @ 00:15 by Socorro Clark MD) Acute nontraumatic kidney injury ?N17.9 - Acute kidney failure, unspecified (ICD-10) Acute on chronic diastolic (congestive) heart failure ?I50.33 - Acute on chronic diastolic (congestive) heart failure (ICD-10) Acute on chronic heart failure with preserved ejection fraction ?I50.33 - Acute on chronic diastolic (congestive) heart failure (ICD-10) Acute respiratory failure with hypoxia and hypercapnia ?J96.01 - Acute respiratory failure with hypoxia (ICD-10) ?J96.02 - Acute respiratory failure with hypercapnia (ICD-10) Acute urinary retention ?R33.8 - Other retention of urine (ICD-10) Bilateral edema of lower extremity ?R60.0 - Localized edema (ICD-10) Cellulitis of right leg ?L03.115 - Cellulitis of right lower limb (ICD-10) Chronic diarrhea ?K52.9 - Noninfective gastroenteritis and colitis, unspecified (ICD-10) Chronic hypoxemic respiratory failure ?J96.11 - Chronic respiratory failure with hypoxia (ICD-10) DDD (degenerative disc disease), lumbar ?M51.36 - Other intervertebral disc degeneration, lumbar region (ICD-10) Diabetic peripheral neuropathy ?E11.42 - Type 2 diabetes mellitus with diabetic polyneuropathy (ICD-10) Elevated troponin ?R77.8 - Other specified abnormalities of plasma proteins (ICD-10) Generalized weakness ?R53.1 - Weakness (ICD-10) GERD (gastroesophageal reflux disease) ?K21.9 - Gastro-esophageal reflux disease without esophagitis (ICD-10) Hypertension ?I10 - Essential (primary) hypertension (ICD-10) Lymphedema ?I89.0 - Lymphedema, not elsewhere classified (ICD-10) 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 ?I89.0 - Lymphedema, not elsewhere classified (ICD-10) ?I99.9 - Unspecified disorder of circulatory system (ICD-10) Morbid obesity ?E66.01 - Morbid (severe) obesity due to excess calories (ICD-10) Physical debility ?R53.81 - Other malaise (ICD-10) Physical deconditioning ?R53.81 - Other malaise (ICD-10) Polymyalgia rheumatica ?M35.3 - Polymyalgia rheumatica (ICD-10) Type 2 diabetes mellitus ?E11.9 - Type 2 diabetes mellitus without complications (ICD-10) Weakness ?R53.1 - Weakness (ICD-10) Surgical History H/O cataract removal with insertion of prosthetic lens ?Z98.49 - Cataract extraction status, unspecified eye (ICD-10) ?Z96.1 - Presence of intraocular lens (ICD-10) History of lumbar laminectomy ?Z98.890 - Other specified postprocedural states (ICD-10) History of tonsillectomy and adenoidectomy ?Z90.89 - Acquired absence of other organs (ICD-10) Hx of colonoscopy ?Z98.890 - Other specified postprocedural states (ICD-10) Family History Mother Lymph node cancer Father Colon cancer Brother High cholesterol High blood pressure Brother High blood pressure Sister High blood pressure Social History Narrative: . Lives with . Denies tobacco use, lifelong nonsmoker. Alcohol use 1 drink per month. Denies recreational drug use. DNI. Highest level of school completed/degree received: high school graduate Smoking Status: Never smoker Do you use any of these nicotine containing products: None Second hand tobacco smoke exposure: No How often do you have a drink containing alcohol: never AUDIT-C Alcohol total score: 0 Non-prescribed substance use: denies use Caffeine: Yes (1 cup of coffee a day) service: Yes ([employer]) Meds Home Medications and Allergies Home Medications Medication Instructions Recorded Confirmed Type acetaminophen 650 mg 1,300 mg PO HS 09/10/22 01/03/23 History tablet,extended release (Arthritis Pain Reliever) allopurinol 100 mg tablet 100 mg PO DAILY 09/10/22 01/03/23 History aspirin 81 mg tablet,delayed 81 mg PO DAILY 09/10/22 01/03/23 History release (Ecotrin Low Strength) atorvastatin 20 mg tablet 20 mg PO HS 09/10/22 01/03/23 History gabapentin 300 mg capsule 600 - 1,200 mg PO BID@09/10/22 01/03/23 History insulin syringe-needle U-100 0.3 09/10/22 09/10/22 History mL 30 gauge x 1/2 (UltiCare) metoprolol succinate 100 mg 100 mg PO DAILY 09/10/22 01/03/23 History tablet,extended release 24 hr nitroglycerin 0.4 mg sublingual 0.4 mg sublingual Q5-15M PRN 09/10/22 01/03/23 History tablet (Nitrostat) AMBROSE LAXATIVE 1 cap PO DAILY PRN 01/03/23 01/03/23 History diphenhydramine HCl 50 mg capsule 100 mg PO HS 01/03/23 01/03/23 History (Nightime Sleep) docusate sodium 100 mg capsule 100 mg PO BID 01/03/23 01/03/23 History (Colace) furosemide 40 mg tablet 40 mg PO QAM 01/03/23 01/03/23 History insulin NPH isoph U-100 human 100 10 - 15 unit subcut BIDWMEAL 01/03/23 01/03/23 History unit/mL (3 mL) subcutaneous pen insulin regular human 100 unit/mL 10 unit subcut BIDWM 01/03/23 01/03/23 History (3 mL) subcutaneous pen (Novolin R FlexPen) tamsulosin 0.4 mg capsule 0.8 mg PO HS 01/03/23 01/03/23 History Allergies Allergy/AdvReac Type Severity Reaction Status Date / Time cephalexin Allergy Severe Hives Verified 10/15/22 21:39 Exam Narrative: Exam Narrative: General: No acute distress. Awake alert oriented x3. HEENT: Normocephalic atraumatic, pupils equally round and reactive to light and accommodation. Oropharynx clear. Mucous membranes are moist. No cervical lymphadenopathy, thyromegaly or carotid bruits. No JVD. Cardiovascular: Regular rate and rhythm. No murmurs, gallops, or rubs. Chest: No increased work of breathing. Clear to auscultation bilaterally. No crackles or wheezes. Abdomen: Bowel sounds present. Soft, nondistended, nontender. No hepatosplenomegaly or masses. Genitourinary: Swollen foreskin and scrotum. Copious purulent drainage around catheter. No identifiable sores or abscesses. Scrotum is also swollen and erythematous. There is no noticeable necrosis or crepitus. Mild pain with palpation. Extremities: Chronic lymphedema bilaterally. Thickened skin over both feet all the way to just below the knees. Lymphedema wraps were in place upon admission, and these were removed. There are no open sores on the lower legs where the wraps were, but he does have a quarter-size superficial ulcer just below the right knee. There is no induration or drainage from this. Skin: No jaundice, no pallor, as above. Const: Vital Signs, click to edit/add: Vital Signs - 24 hr 01/03/23 10:10 01/03/23 15:38 Temperature 98.6 F 97.9 F Pulse Rate [Left P ulse Oximeter] 75 55 L Respiratory Rate 20 26 H Blood Pressure [Le ft Arm] 160/73 H Blood Pressure [Le ft Upper Arm] 163/70 H Pulse Oximetry 81 L 93 Oxygen Delivery Me thod Room Air Nasal Cannula Oxygen Flow Rate 1 Documenting provider has reviewed patient's vital signs: yes Hospitalist - H&P: Result Labs Labs: Short CBC 01/03/23 Range/Units 11:25 WBC 8.17 (4.50-11.00) K/uL Hgb 13.8 (13.5-17.5) gm/dL Hct 45.2 (37.0-53.0) % Plt Count 237 (140-440) K/uL BMP 01/03/23 11:25 Sodium 139 Potassium 3.6 Chloride 100 Carbon Dioxide 36 H BUN 17 Creatinine 1.3 Glucose 175 H Calcium 8.5 Urine 01/03/23 Range/Units 11:55 Urine Color [place] A (Yellow) Urine Appearance Slightly Cloudy A (Clear) Urine pH 5.5 (5.0-8.5) Ur Specific [place] 1.010 (1.000-1.030) Urine Protein 1+ A (Negative) Urine Glucose (UA) Negative (Negative) Assessment and Plan Assessment and plan (1) Hematuria: Problem comment: Continuous drainage through hematuria catheter. Initially did need antibiotics since WBC wnl and was not febrile, but now has fever this evening and scrotum is red, swollen and CRP is elevated. Start ertapenem. Status: Acute (2) Acute retention of urine: Problem comment: secondary to hematuria clogging catheter Status: Acute (3) Chronic indwelling Pérez catheter: Status: Chronic (4) Cellulitis of scrotum: Problem comment: No findings concerning for gangrene (crepitus or pain out of proportion to exam). Obtain CT pelvis to look for evidence of gangrene. Obtain BCx2. Start IV ertapenem. Has allergy to cephalexin (hives), monitor VS, skin and respiratory status. Status: Acute (5) Generalized weakness: Problem comment: Acute on chronic, suspect multifactorial including noncompliance with therapies. Consult PT/OT Status: Chronic (6) Chronic hypoxemic respiratory failure: Status: Acute (7) Urinary obstruction: Problem comment: - consider leaving Pérez in upon discharge with outpatient Urology follow-up given obstruction Status: Acute (8) Type 2 diabetes mellitus: Problem comment: - Continue home NPH and regular regimen and add ISS ACHS. Status: Chronic (9) Hypertension: Problem comment: Continue home medications Status: Acute (10) Lymphedema: Problem comment: continue MWF lymphedema wraps Status: Chronic (11) Chronic diarrhea: Status: Chronic Plan No pharmacologic VTE prophylaxis at this time since he is having hematuria.
[2023-01-03 19:00] VITALS: BP 157/77; PULSE 68; RESP 26; TEMP 38.2; O2SAT 90
--- NOTE | 2023-01-03 20:37 | CRLHL7_ITS ---
For Patients: As a result of the Century Cures Act, medical imaging exams and procedure reports are released immediately into your electronic medical record. You may view this report before your referring provider. If you have questions, please contact your health care provider. INDICATION: Scrotal pain and swelling. TECHNIQUE: CT pelvis acquired with intravenous contrast, 122 mL of Isovue 370. Coronal and sagittal reformats. COMPARISON: CT 09/20/2022. FINDINGS: The Partida catheter balloon is malpositioned within the posterior urethra (series 4, image 79). The bladder appears mildly thickened diffusely and is distended with fluid and small volume gas. Prostatomegaly. The scrotum demonstrates small right greater than left hydroceles, though no inflammatory changes, soft tissue gas, or drainable collection. Advanced atherosclerotic changes. Bilateral hip and sacroiliac degenerative joint disease. IMPRESSION: 1. Partida catheter balloon malposition in the posterior urethra. Recommend repositioning. 2. Mild diffuse bladder wall thickening is nonspecific. Correlate for clinical evidence of cystitis. 3. No CT evidence of scrotal/perineal infection. Small right greater than left hydroceles. 4. Prostatomegaly. Dictated by Kali Crowell MD @ 01/04/2023 12:19:46 AM Please note that all CT scans at this facility use dose modulation, iterative reconstruction, and/or weight-based dosing when appropriate to reduce radiation dose to as low as reasonably achievable. Dictated by: Kali Crowell MD @ 01/04/2023 00:19:50 (Electronically Signed)
--- NOTE | 2023-01-03 22:27 | PC.NURSE ---
Shift Note [id number]: Pt a/o and able to verbalize his needs. Denies pain at rest, but is clearly uncomfortable during physical assessment for laly-area check. Scrotum and surrounding areas swollen and reddened, skin is intact. Moderate amounts of purulent drainage noted around his meatus and appear to be coming from his urethra. MD updated and stat CT ordered, results pending. LE's discolored with scaly lesions and a fresh abrasion noted on right knee. Skin tear to left elbow cleansed and covered with tegaderm. Pt given head to toe bed bath with laly-care. Groin noted to have reddened folds and yeasty odor. Coccyx intact but both gluteal cheeks are dark purple with sluggish cap refill. Mepilex applied to both sides for added protection. Slightly hypertensive, he has been asymptomatic. He was noted to desaturated to 86% on RA, he is now 92% on 2L/O2 via NC. CBI patent and draining. Irrigation was slowed after supper and urine in his collection bag quickly began turning mruphy red and one large clot was noted. Irrigation was increased and flow again became pale yellow. Urine has a very strong odor.
[2023-01-03 23:00] VITALS: BP 141/65; PULSE 64; RESP 22; TEMP 36.6; O2SAT 93
[2023-01-03] MEDS: ERTAPENEM 1 GM in 0.9 % SODIUM CHLORIDE Mini-bag 100 ML IVPB (23:59)
[2023-01-04] VITALS (9 sets, daily range): BP systolic 119–165; BP diastolic 65–87; PULSE 60–70; RESP 12–22; TEMP 36.4–37.9; O2SAT 88–93
[2023-01-04] MEDS: GABAPENTIN 300 MG CAPSULE PO ×3 (00:54→20:56)
[2023-01-04] MEDS: diphenhydrAMINE 25 MG CAPSULE PO (00:54)
[2023-01-04 07:58] LABS: Eosinophils Absolute Auto 0.09 K/uL (0.00-0.50); Eosinophils Percent Auto 1.2 % (0.0-7.0); Hematocrit 48.7 % (37.0-53.0); Immature Granulocytes Abs Auto 0.01 K/uL (0.00-0.30); Immature Granulocytes Pct Auto 0.1 %; Lymphocytes Percent Auto 8.7 % (20-44); Mean Corpuscular HGB Conc 31 gm/dL (32-36); Mean Corpuscular Hemoglobin 30 pg (26-34); Mean Corpuscular Volume 96 fL (80-100); Monocytes Percent Auto 12.4 % (0.0-11.0); Neutrophils Percent Auto 77.6 % (42.0-72.0); Platelet Count* 210 K/uL (140-440); RDW Coefficient of Variation % 14.8 % (11.5-15.5); Red Blood Count 5.07 m/uL (4.30-5.90); White Blood Count* 7.48 K/uL (4.50-11.00)
[2023-01-04 08:00] LABS: Slide Review Reflex No
[2023-01-04 08:14] LABS: Chloride* 102 mmol/L (96-114); Sodium* 143 mmol/L (135-149)
[2023-01-04 08:17] LABS: Creatinine* 1.2 mg/dL (0.5-1.5); Est. Creatinine Clearance* 57.08; Estimated Glomerular Filt Rate 61 ml/min
[2023-01-04 08:18] LABS: Blood Urea Nitrogen* 16 mg/dL (7-30); Calcium* 8.8 mg/dL (8.4-10.6); Carbon Dioxide* 37 mmol/L (20-32); Glucose* 148 mg/dL (60-115)
[2023-01-04 08:34] LABS: C Reactive Protein* 18.1 mg/dL (0.5-1.0)
[2023-01-04] MEDS: SODIUM CHLORIDE 0.9 % (FLUSH) 10 ML SYRINGE 5 ML IVF ×2 (09:22→21:32)
[2023-01-04] MEDS: DOCUSATE SODIUM 100 MG CAPSULE PO ×2 (09:22→20:54)
[2023-01-04] MEDS: METOPROLOL SUCCINATE (XL) 100 MG TAB PO (09:22)
[2023-01-04] MEDS: FUROSEMIDE 40 MG TABLET PO (09:22)
[2023-01-04] MEDS: allopurinoL 100 MG TABLET PO (09:22)
--- NOTE | 2023-01-04 09:33 | RESP.RT ---
Patient lying in bed, sleeping-snoring, awaken with movement in room. On Nasal Cannula 2 Lpm, SaO2 88%, patient is mouth breathing. Changed to Oxymizer Nasal Cannula at 3 Lpm, Patient SaO2 increased to 88%.Patient BBS clear upper lobes with good air movement, Both bases clear, slightly diminished with good air movement, occasional expiratory end wheeze noted. Patient has Home Nebulizer treatments, states he takes them regularly and they help with his breathing. Patient has Home Oxygen, states he does not use/need it. Discussed with Patient the need for Home Oxygen and he would feel beter, have more energy, and be able to do more if he wore it. Patient again stated he does well with out.
[2023-01-04] MEDS: ACETAMINOPHEN 325 MG TABLET 650 MG PO (09:37)
--- NOTE | 2023-01-04 09:42 | RESP.RT ---
Goal; adjust Oxygen to maintain Patient SaO2 >88%.
[2023-01-04] MEDS: INSULIN NPH 100 UNIT/ML 15 UNIT SUBCUT (09:44)
[2023-01-04] MEDS: NYSTATIN POWDER 1 APPLIC TOPICAL ×2 (09:47→20:57)
--- NOTE | 2023-01-04 11:58 | P.IMPN_ITS ---
Progress Note: A&P Assessment and plan (1) Hematuria: Problem details: - improving with CBI - appears to have pérez malpositioning on imaging; will have nursing team reassess Status: Acute (2) Bacteremia: Problem details: - GPC on blood culture, on Ertapenem - NGTD on urine culture - continue Ertapenem, follow blood cultures Status: Acute (3) Chronic indwelling Pérez catheter: Status: Chronic (4) Cellulitis of scrotum: Problem details: - no findings concerning for gangrene (crepitus or pain out of proportion to exam) on exam or CT Status: Acute (5) Generalized weakness: Problem details: - Acute on chronic, suspect multifactorial - therapies following Status: Chronic (6) Chronic hypoxemic respiratory failure: Problem details: - chronic CO2 retention, on supplemental oxygen with goal O2 saturation 87-90% Status: Acute (7) Urinary obstruction: Problem details: - consider leaving Pérez in upon discharge with outpatient Urology follow-up given recurrent obstruction Status: Acute (8) Type 2 diabetes mellitus: Problem details: - Continue home NPH and regular regimen and add ISS ACHS Status: Chronic (9) Hypertension: Problem details: - Continue home medications, no evidence of hypotension, monitor closely given bacteremia Status: Acute (10) Lymphedema: Problem details: - continue MWF lymphedema wraps Status: Chronic (11) 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 Had fever x1 this morning, resolved with Tylenol. Patient endorses feeling weak, has no other concerns for hospitalist team. Denies any significant pain this morning. Exam Narrative: Exam Narrative: GEN: Alert and sitting comfortably in bedside chair, appears chronically ill but nontoxic when I see him HEENT: EOMIs bilaterally, no scleral icterus CV: RRR, heart tones distant R: LCTA bilaterally without concerning wheezing, decreased bilateral bases Ext: 3+ edema bilateral lower extremities, + hyperpigmentation consistent with PVD Skin: Dry skin of bilateral lower extremities with hyperkeratosis and plaques Neuro: No focal deficits Psych: Appropriate Const: Vital Signs, click to edit/add: Vital Signs - 24 hr 01/03/23 15:38 01/03/23 15:38 01/03/23 19:00 Temperature 97.9 F 100.7 F H Pulse Rate [Left P ulse Oximeter] 55 L 68 Respiratory Rate 26 H 26 H 26 H Blood Pressure [Le ft Arm] 160/73 H 157/77 H Pulse Oximetry 93 91 90 Oxygen Delivery Me thod Nasal Cannula Nasal Cannula Nasal Cannula Oxygen Flow Rate 1 1 2 01/03/23 23:00 01/03/23 23:00 01/03/23 23:00 Temperature 97.8 F Pulse Rate [Left P ulse Oximeter] 64 64 Respiratory Rate 22 22 22 Blood Pressure [Le ft Arm] 141/65 H Pulse Oximetry 93 93 Oxygen Delivery Me thod Nasal Cannula Nasal Cannula Oxygen Flow Rate 2 2 01/04/23 03:00 01/04/23 09:37 01/04/23 09:00 Temperature 97.8 F 100.3 F H Pulse Rate [Left P ulse Oximeter] 63 Respiratory Rate 22 20 Blood Pressure [Le ft Arm] 155/80 H Pulse Oximetry 91 88 Oxygen Delivery Me thod Nasal Cannula [place] Nasal Ca nnula Oxygen Flow Rate 3 01/04/23 07:00 01/04/23 07:00 01/04/23 07:00 Temperature Pulse Rate [Left P ulse Oximeter] 60 Respiratory Rate 20 Blood Pressure [Le ft Arm] Pulse Oximetry 91 91 Oxygen Delivery Me thod Nasal Cannula Oxygen Flow Rate 3 01/04/23 07:00 Temperature 99.4 F Pulse Rate [Left P ulse Oximeter] 60 Respiratory Rate 20 Blood Pressure [Le ft Arm] 155/76 H Pulse Oximetry 91 Oxygen Delivery Me thod Nasal Cannula Oxygen Flow Rate 3 Labs Labs: Laboratory Results - last 24 hr 01/03/23 01/04/23 11:55 07:43 WBC 7.48 RBC 5.07 Hgb 15.0 Hct 48.7 MCV 96 MCH 30 MCHC 31 L RDW Coeff of Mindy 14.8 Plt Count 210 Neut % (Auto) 77.6 H Lymph % (Auto) 8.7 L [place] % (Auto) 12.4 H Eos % (Auto) 1.2 Baso % (Auto) 0.0 Neut # (Auto) 5.80 Lymph # (Auto) 0.70 L [place] # (Auto) 0.90 Eos # (Auto) 0.09 Baso # (Auto) 0.00 Sodium 143 Potassium 4.0 Chloride 102 Carbon Dioxide 37 H BUN 16 Creatinine 1.2 Estimated Creat Clear 57.08 Estimated GFR 61 Glucose 148 H Calcium 8.8 C-Reactive Protein 18.1 H Urine Color [place] A Urine Appearance Slightly Cloudy A Urine pH 5.5 Ur Specific [place] 1.010 Urine Protein 1+ A Urine Glucose (UA) Negative Urine Ketones Negative Urine Blood 3+ A Urine Nitrite Negative Urine Bilirubin Negative Urine Urobilinogen 0.2 Ur Leukocyte Esterase 2+ A Urine RBC 50-100 A Urine WBC 50-100 A Ur Squamous Epith Cells None Amorphous Sediment Few A Urine Bacteria Moderate A SARS-CoV-2 (PCR) Negative SARS-CoV-2 Influenza Type A (PCR) Negative PCR FLU A Influenza Type B (PCR) Negative PCR FLU B RSV (PCR) Negative PCR RSV
--- NOTE | 2023-01-04 18:56 | PC.NURSE ---
Patient alert and oriented x 3, denied pain this shift. Bowel sounds active, Lung sounds diminished in bilateral bases with expiratory wheeze that cleared with coughing and deep breathing. Pérez catheter patent with continuous bladder irrigation, pérez draining cloudy, yellow, malodorous urine with small blood clots. Catheter advanced due to positioning and balloon reinflated with 30cc saline. Patient ate 100% breakfast, lunch patient at 75% of a salad only and refused dinner. Verbal order from Dr. Shafer to hold sliding scale at noon due to poor appetite and hold scheduled 10 units novolog at 1730 due to patient refusing dinner. BLE jaye in appearance, wound clinic order placed and will be seen 01/05/2023, Dr. Shafer requested legs remain open to air until seen. Transferred with Ax 2 with ceiling lift, tolerated sitting in chair well. Oxymizer at 3L continuous, denies any shortness of breath or dyspnea.
[2023-01-04] MEDS: TAMSULOSIN HCL 0.4 MG CAPSULE 0.8 MG PO (20:55)
[2023-01-04] MEDS: ACETAMINOPHEN 650 MG TABLET ER 1300 MG PO (20:55)
[2023-01-04] MEDS: ATORVASTATIN 10 MG TABLET 20 MG PO (21:31)
[2023-01-04] MEDS: INSULIN NPH 100 UNIT/ML 10 UNIT SUBCUT (21:31)
[2023-01-05] VITALS (8 sets, daily range): BP systolic 93–170; BP diastolic 51–93; PULSE 55–85; RESP 12–20; TEMP 36.1–36.7; O2SAT 88–96
[2023-01-05] MEDS: ERTAPENEM 1 GM in 0.9 % SODIUM CHLORIDE Mini-bag 100 ML IVPB (00:12)
--- NOTE | 2023-01-05 04:54 | PC.NURSE ---
Patient is alert and oriented x 4, on 3L O2 via nc, regular diet, vss. Ceiling lift needed for transfers. CBI maintained through the shift, patient output is murphy red but clot free. BLLE jaye color, scaly and has scattered scabbing. Scrotum slightly swollen and red
[2023-01-05 06:44] LABS: HCO3 VBG 37 mmol/L (21-28); PO2 VBG 63.1 mmHG (25-47); pH VBG 7.338 (7.32-7.43)
[2023-01-05 06:46] LABS: PCO2 VBG 68 mmHG (40-50)
[2023-01-05 06:54] LABS: Basophils Absolute Auto 0.01 K/uL (0.00-0.30); Basophils Percent Auto 0.1 % (0.0-3.0); Eosinophils Absolute Auto 0.22 K/uL (0.00-0.50); Eosinophils Percent Auto 3.2 % (0.0-7.0); Hematocrit 43.7 % (37.0-53.0); Hemoglobin* 13.2 gm/dL (13.5-17.5); Immature Granulocytes Abs Auto 0.02 K/uL (0.00-0.30); Immature Granulocytes Pct Auto 0.3 %; Lymphocytes Percent Auto 15.9 % (20-44); Mean Corpuscular HGB Conc 30 gm/dL (32-36); Mean Corpuscular Hemoglobin 29 pg (26-34); Mean Corpuscular Volume 97 fL (80-100); Monocytes Percent Auto 12.3 % (0.0-11.0); Neutrophils Percent Auto 68.2 % (42.0-72.0); Platelet Count* 196 K/uL (140-440); RDW Coefficient of Variation % 14.8 % (11.5-15.5); Red Blood Count 4.49 m/uL (4.30-5.90)
[2023-01-05 06:59] LABS: Slide Review Reflex No
[2023-01-05 07:15] LABS: Chloride* 103 mmol/L (96-114)
[2023-01-05 07:16] LABS: Albumin* 2.9 g/dL (3.3-5.0); Potassium* 3.8 mmol/L (3.6-5.1); Sodium* 140 mmol/L (135-149)
[2023-01-05 07:18] LABS: Creatinine* 1.2 mg/dL (0.5-1.5); Est. Creatinine Clearance* 57.08; Estimated Glomerular Filt Rate 61 ml/min
[2023-01-05 07:19] LABS: Alanine Aminotransferase* 9 U/L (4-50); Alkaline Phosphatase* 68 U/L (40-150); Aspartate Amino Transferase* 12 U/L (12-35); Bilirubin Total* 0.4 mg/dL (0.1-1.5); Blood Urea Nitrogen* 19 mg/dL (7-30); Carbon Dioxide* 36 mmol/L (20-32); Total Protein* 6.2 g/dL (6.0-8.3)
[2023-01-05 07:20] LABS: Calcium* 8.3 mg/dL (8.4-10.6); Glucose* 128 mg/dL (60-115)
[2023-01-05 07:33] LABS: C Reactive Protein* 16.6 mg/dL (0.5-1.0)
[2023-01-05] MEDS: FUROSEMIDE 40 MG TABLET PO (08:53)
[2023-01-05] MEDS: NYSTATIN POWDER 1 APPLIC TOPICAL ×2 (08:53→21:16)
[2023-01-05] MEDS: allopurinoL 100 MG TABLET PO (08:53)
[2023-01-05] MEDS: DOCUSATE SODIUM 100 MG CAPSULE PO ×2 (08:53→20:58)
[2023-01-05] MEDS: INSULIN NPH 100 UNIT/ML 15 UNIT SUBCUT (08:55)
--- NOTE | 2023-01-05 10:00 | RESP.RT ---
Patient not tolerating conserving device nasal cannula, so switched to 3L regular nasal cannula. Patient SATing 94% on 3L NC.
[2023-01-05] MEDS: SODIUM CHLORIDE 0.9 % (FLUSH) 10 ML SYRINGE 5 ML IVF ×2 (13:02→21:15)
--- NOTE | 2023-01-05 13:15 | PM.IMPN1 ---
Progress Note: A&P Assessment and plan (1) Hematuria: Problem details: - continue CBI - + pérez malpositioning on imaging 01/04, replaced with persistent clot formation and bladder cramping/spasms - repeat imaging 01/05 with results below - reviewed with Dr. Donahue of Urology at [facility]; no acute intervention or transfer needed at this time. Will repeat imaging with IV contrast to evaluate further (pt deferring imaging until morning), continue to follow Hgb and renal function IMPRESSION: Hemorrhage in both moderately dilated intrarenal collecting systems, hemorrhage more prominent on the right than the left. Increased moderate bilateral hydronephrosis and hydroureter of uncertain etiology. The urinary bladder is largely collapsed following placement of a Pérez catheter. New constipation. CT of the abdomen shows a possible small nonspecific slightly dense 6 millimeter nodule in the lower pole of the left kidney. CT of the pelvis shows hemorrhage in the nondistended urinary bladder with satisfactory positioning of a Pérez catheter. Stable severe enlargement of the prostate. Status: Acute (2) Bacteremia: Problem details: - GPC on blood culture, initially started on IV Ertapenem and Vancomycin, transitioned to Unasyn on 01/05 based on sensitivities - GPC on urine culture, formal ID pending Status: Acute (3) Chronic indwelling Pérez catheter: Status: Chronic (4) Cellulitis of scrotum: Problem details: - no findings concerning for gangrene (crepitus or pain out of proportion to exam) on exam or CT x2 Status: Acute (5) Generalized weakness: Problem details: - Acute on chronic, suspect multifactorial - therapies following Status: Chronic (6) Chronic hypoxemic respiratory failure: Problem details: - chronic CO2 retention, on supplemental oxygen with goal O2 saturation 87-90% Status: Acute (7) Urinary obstruction: Problem details: - consider leaving Pérez in upon discharge with outpatient Urology follow-up given recurrent obstruction and known BPH Status: Acute (8) Type 2 diabetes mellitus: Problem details: - Continue home NPH and regular regimen and add ISS ACHS Status: Chronic (9) Hypertension: Problem details: - Continue home medications, no evidence of hypotension, monitor closely given bacteremia Status: Acute (10) Lymphedema: Problem details: - continue MWF lymphedema wraps Status: Chronic Plan - repeat CT scan in the morning with IV contrast, plan pending results - follow Hgb and renal function - No anticoagulants Subjective Date Seen: 01/05/23 Interval history: Adriano continues to have intermittent discomfort in his perineal area. His catheter was repositioned 01/[address] findings. Continues to have hematuria with intermittent clots today, occasional blood noted at meatus. Wound care team following for BLE lymphedema. Exam Narrative: Exam Narrative: GEN: Alert and oriented, sitting comfortably in bedside chair HEENT: EOMIs bilaterally, no scleral icterus CV: Pulse palpates as RRR R: Wearing supplemental oxygen, breathing comfortably without tachypnea Back: no CVA ttp : Edematous penis and scrotum with mild erythema. No crepitus, mild ttp but does not have pain out of proportion to exam. Bloody urine noted in pérez bag Ext: LE are wrapped today and not formally examined Skin: No concerning skin lesions or rashes on exposed skin Neuro: No focal deficits Psych: Appropriate Const: Vital Signs, click to edit/add: Vital Signs - 24 hr 01/04/23 15:00 01/04/23 15:00 01/04/23 15:00 Temperature Pulse Rate [Left P ulse Oximeter] 70 Respiratory Rate Blood Pressure [Le ft Arm] Pulse Oximetry 93 93 Oxygen Delivery Me thod OxyMask Oxygen Flow Rate 3 01/04/23 15:00 01/04/23 19:00 01/04/23 22:53 Temperature 98.1 F 97.7 F Pulse Rate [Left P ulse Oximeter] 70 69 Respiratory Rate 22 12 Blood Pressure [Le ft Arm] 127/74 165/87 H Pulse Oximetry 93 91 91 Oxygen Delivery Me thod OxyMask Nasal Cannula Oxygen Flow Rate 3 3 01/04/23 22:53 01/04/23 22:53 01/05/23 00:03 Temperature 97.2 F L Pulse Rate [Left P ulse Oximeter] 69 55 L Respiratory Rate 12 12 Blood Pressure [Le ft Arm] 158/76 H Pulse Oximetry 91 96 Oxygen Delivery Me thod Blow By Nasal Cannula Oxygen Flow Rate 3 3 01/05/23 03:27 01/05/23 07:00 01/05/23 07:00 Temperature 97.6 F Pulse Rate [Left P ulse Oximeter] 56 L 60 Respiratory Rate 14 Blood Pressure [Le ft Arm] 145/60 H Pulse Oximetry 95 94 Oxygen Delivery Me thod Nasal Cannula Oxygen Flow Rate 3 01/05/23 07:00 01/05/23 07:00 01/05/23 11:00 Temperature 97.0 F L 98.1 F Pulse Rate [Left P ulse Oximeter] 60 69 Respiratory Rate 18 18 18 Blood Pressure [Le ft Arm] 93/64 135/79 Pulse Oximetry 94 94 95 Oxygen Delivery Me thod Nasal Cannula Nasal Cannula Nasal Cannula Oxygen Flow Rate 3 3 3 Labs Labs: Laboratory Results - last 24 hr 01/05/23 06:34 WBC 6.90 RBC 4.49 Hgb 13.2 L Hct 43.7 MCV 97 MCH 29 MCHC 30 L RDW Coeff of Mindy 14.8 Plt Count 196 Neut % (Auto) 68.2 Lymph % (Auto) 15.9 L Will[place] % (Auto) 12.3 H Eos % (Auto) 3.2 Baso % (Auto) 0.1 Neut # (Auto) 4.70 Lymph # (Auto) 1.10 Willacy # (Auto) 0.80 Eos # (Auto) 0.22 Baso # (Auto) 0.01 VBG pH 7.338 VBG pCO2 68 H* VBG pO2 63.1 H VBG HCO3 37 H Sodium 140 Potassium 3.8 Chloride 103 Carbon Dioxide 36 H BUN 19 Creatinine 1.2 Estimated Creat Clear 57.08 Estimated GFR 61 Glucose 128 H Calcium 8.3 L Total Bilirubin 0.4 AST 12 ALT 9 Alkaline Phosphatase 68 C-Reactive Protein 16.6 H Total Protein 6.2 Albumin 2.9 L
--- NOTE | 2023-01-05 14:00 | PM.WSCN ---
Date of Consult Consult date: 01/05/23 Requesting Physician: Hospitalist Primary Care Provider: Dilcia Castorena MD Consult Narrative Reason for consult: Chronic venous insufficiency with lymphedema. Narrative: Adriano Ball is a 82 year old male known to this provider is being seen today by Wound Care Services while he is in patient for continuous bladder irrigation. I had the pleasure of assisting with Adriano's lower extremity wound care during his last hospitalization early 2022. His lymphedema is being well controlled with current compression therapy. Since patient was last seen in a hospital he reports he has lost some weight. He has been mindful to keep tight control of his blood sugars. Up his intake of protein and improve his overall nutritional intake. No reported fever or chills. Patient feels his skin integrity has improved since consistently utilizing compression therapy. Fibrotic changes definitely have improved. 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 of unspecified site (ICD-10) ?L97.929 - Non-pressure chronic ulcer of unspecified part of left lower leg with unspecified severity (ICD-10) Disorder of fluid or electrolyte ?E87.8 - Other disorders of electrolyte and fluid balance, not elsewhere classified (ICD-10) CO2 retention ?E87.29 - Other acidosis (ICD-10) Incontinence of bowel ?R15.9 - Full incontinence of feces (ICD-10) Weakness ?R53.1 - Weakness (ICD-10) Physical debility ?R53.81 - Other malaise (ICD-10) Acute nontraumatic kidney injury ?N17.9 - Acute kidney failure, unspecified (ICD-10) Chronic hypoxemic respiratory failure ?J96.11 - Chronic respiratory failure with hypoxia (ICD-10) Acute urinary retention ?R33.8 - Other retention of urine (ICD-10) Physical deconditioning ?R53.81 - Other malaise (ICD-10) Acute respiratory failure with hypoxia and hypercapnia ?J96.01 - Acute respiratory failure with hypoxia (ICD-10) ?J96.02 - Acute respiratory failure with hypercapnia (ICD-10) 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 ?I89.0 - Lymphedema, not elsewhere classified (ICD-10) ?I99.9 - Unspecified disorder of circulatory system (ICD-10) Cellulitis of right leg ?L03.115 - Cellulitis of right lower limb (ICD-10) Elevated troponin ?R77.8 - Other specified abnormalities of plasma proteins (ICD-10) Acute on chronic heart failure with preserved ejection fraction ?I50.33 - Acute on chronic diastolic (congestive) heart failure (ICD-10) Generalized weakness ?R53.1 - Weakness (ICD-10) DDD (degenerative disc disease), lumbar ?M51.36 - Other intervertebral disc degeneration, lumbar region (ICD-10) Diabetic peripheral neuropathy ?E11.42 - Type 2 diabetes mellitus with diabetic polyneuropathy (ICD-10) GERD (gastroesophageal reflux disease) ?K21.9 - Gastro-esophageal reflux disease without esophagitis (ICD-10) Hypertension ?I10 - Essential (primary) hypertension (ICD-10) Morbid obesity ?E66.01 - Morbid (severe) obesity due to excess calories (ICD-10) Acute on chronic diastolic (congestive) heart failure ?I50.33 - Acute on chronic diastolic (congestive) heart failure (ICD-10) Polymyalgia rheumatica ?M35.3 - Polymyalgia rheumatica (ICD-10) Bilateral edema of lower extremity ?R60.0 - Localized edema (ICD-10) Type 2 diabetes mellitus ?E11.9 - Type 2 diabetes mellitus without complications (ICD-10) Surgical History Hx of colonoscopy ?Z98.890 - Other specified postprocedural states (ICD-10) H/O cataract removal with insertion of prosthetic lens ?Z98.49 - Cataract extraction status, unspecified eye (ICD-10) ?Z96.1 - Presence of intraocular lens (ICD-10) History of tonsillectomy and adenoidectomy ?Z90.89 - Acquired absence of other organs (ICD-10) History of lumbar laminectomy ?Z98.890 - Other specified postprocedural states (ICD-10) Family History Mother Lymph node cancer Father Colon cancer Brother High cholesterol High blood pressure Brother High blood pressure Sister High blood pressure Social History Narrative: . Lives with . Denies tobacco use, lifelong nonsmoker. Alcohol use 1 drink per month. Denies recreational drug use. DNI. Highest level of school completed/degree received: high school graduate Smoking Status: Never smoker Do you use any of these nicotine containing products: None Second hand tobacco smoke exposure: No How often do you have a drink containing alcohol: never AUDIT-C Alcohol total score: 0 Non-prescribed substance use: denies use Caffeine: Yes (1 cup of coffee a day) service: Yes ([employer] Meds Home Medications and Allergies Home Medications Medication Instructions Recorded Confirmed Type acetaminophen 650 mg 1,300 mg PO HS 09/10/22 02/04/23 History tablet,extended release (Arthritis Pain Reliever) allopurinol 100 mg tablet 100 mg PO DAILY 09/10/22 02/04/23 History aspirin 81 mg tablet,delayed 81 mg PO DAILY 09/10/22 02/04/23 History release (Ecotrin Low Strength) atorvastatin 20 mg tablet 20 mg PO HS 09/10/22 02/04/23 History gabapentin 300 mg capsule 600 - 1,200 mg PO BID@09/10/22 02/04/23 History metoprolol succinate 100 mg 100 mg PO DAILY 09/10/22 02/04/23 History tablet,extended release 24 hr nitroglycerin 0.4 mg sublingual 0.4 mg sublingual Q5-15M PRN 09/10/22 02/04/23 History tablet (Nitrostat) docusate sodium 100 mg capsule 100 mg PO BID 01/03/23 02/04/23 History (Colace) furosemide 40 mg tablet 40 mg PO QAM 01/03/23 02/04/23 History insulin NPH isoph U-100 human 100 10 - 15 unit subcut BIDWMEAL 01/03/23 02/04/23 History unit/mL (3 mL) subcutaneous pen insulin regular human 100 unit/mL 10 unit subcut BIDWM 01/03/23 02/04/23 History (3 mL) subcutaneous pen (Novolin R FlexPen) tamsulosin 0.4 mg capsule 0.4 mg PO HS 01/03/23 02/04/23 History finasteride 5 mg tablet 5 mg PO QAM 02/04/23 02/04/23 History polyethylene glycol 3350 17 17 g PO DAILY PRN 02/04/23 02/04/23 History gram/dose oral powder (ClearLax) potassium chloride 10 mEq 20 meq PO DAILY 02/04/23 02/04/23 History tablet,extended release Allergies Allergy/AdvReac Type Severity Reaction Status Date / Time cephalexin Allergy Severe Hives Verified 02/04/23 09:47 Exam Narrative: Exam Narrative: General: NAD, Alert Pulmonary: unlabored, speaking in full sentences BLE: generalized lymphedema with minimal hyperkeratosis, hyperpigmentation. Overall skin appears well moisturized. There is slight bit of skin breakdown to the pretibial bilaterally placed a small amount of Xeroform over this area to protect 2 layer Coban regular wraps applied bilaterally. Patient tolerated well. Feet: Pedal pulses palpable bilaterally, remaining CMS assessment within normal limits. Psych: Normal affect Const: Vital Signs, click to edit/add: Vital Signs - 24 hr 01/04/23 15:00 01/04/23 15:00 01/04/23 15:00 Temperature Pulse Rate [Left P ulse Oximeter] 70 Respiratory Rate Blood Pressure [Le ft Arm] Pulse Oximetry 93 93 Oxygen Delivery Me thod OxyMask Oxygen Flow Rate 3 01/04/23 15:00 01/04/23 19:00 01/04/23 22:53 Temperature 98.1 F 97.7 F Pulse Rate [Left P ulse Oximeter] 70 69 Respiratory Rate 22 12 Blood Pressure [Le ft Arm] 127/74 165/87 H Pulse Oximetry 93 91 91 Oxygen Delivery Me thod OxyMask Nasal Cannula Oxygen Flow Rate 3 3 01/04/23 22:53 01/04/23 22:53 01/05/23 00:03 Temperature 97.2 F L Pulse Rate [Left P ulse Oximeter] 69 55 L Respiratory Rate 12 12 Blood Pressure [Le ft Arm] 158/76 H Pulse Oximetry 91 96 Oxygen Delivery Me thod Blow By Nasal Cannula Oxygen Flow Rate 3 3 01/05/23 03:27 01/05/23 07:00 01/05/23 07:00 Temperature 97.6 F Pulse Rate [Left P ulse Oximeter] 56 L 60 Respiratory Rate 14 Blood Pressure [Le ft Arm] 145/60 H Pulse Oximetry 95 94 Oxygen Delivery Me thod Nasal Cannula Oxygen Flow Rate 3 01/05/23 07:00 01/05/23 07:00 01/05/23 11:00 Temperature 97.0 F L 98.1 F Pulse Rate [Left P ulse Oximeter] 60 69 Respiratory Rate 18 18 18 Blood Pressure [Le ft Arm] 93/64 135/79 Pulse Oximetry 94 94 95 Oxygen Delivery Me thod Nasal Cannula Nasal Cannula Nasal Cannula Oxygen Flow Rate 3 3 3 Documenting provider has reviewed patient's vital signs: yes Labs Labs: Short CBC 01/05/23 Range/Units 06:34 WBC 6.90 (4.50-11.00) K/uL Hgb 13.2 L (13.5-17.5) gm/dL Hct 43.7 (37.0-53.0) % Plt Count 196 (140-440) K/uL BMP 01/05/23 06:34 Sodium 140 Potassium 3.8 Chloride 103 Carbon Dioxide 36 H BUN 19 Creatinine 1.2 Glucose 128 H Calcium 8.3 L Liver Function 01/05/23 Range/Units 06:34 Total Bilirubin 0.4 (0.1-1.5) mg/dL AST 12 (12-35) U/L ALT 9 (4-50) U/L Alkaline Phosphatase 68 (40-150) U/L Albumin 2.9 L (3.3-5.0) g/dL Assessment and Plan Assessment and plan (1) Lymphedema: Problem comment: - continue [facility] lymphedema wraps Status: Deleted (2) Venous insufficiency of both lower extremities: Status: Deleted Plan Regular 2-layer coban wraps applied to BLE. I did place a small piece of xeroform to his proximal pre-tibal d/t slight skin break down. This is to keep the foam of the compression wrap from becoming adhered to this area, to decrease chances of a skin tear from occurring during removal. These wraps only need to be changed every other day. Next change will be due 01/07/23 after 12pm. Wound services will plan to f/u with patient PRN. Nursing to update wound services if we can be of further assistance.
--- NOTE | 2023-01-05 14:11 | PC.SOCIAL ---
Discharge planning: Met with pt and in room regarding d/c plan. Both as requesting snf placement at discharge. Pt has been to [facility] and they are refusing for him to return there. Pt has [employer] and pt's weights is 341 pounds. is aware of limited facility availability due to needing a [employer] contracted facility that is able to meet patients needs. requested [facility], however, pt's weight exceeds their limit. Provided with [facility] list of [employer] contracted facilities. requested to have pt assessed for admission to [facility] and [facility]. Called and faxed information to request evaluation for admit onn Monday. Awaiting decisions back from these facilities. end worker to follow up as needed.
--- NOTE | 2023-01-05 16:48 | CRLHL7_ITS ---
For Patients: As a result of the Century Cures Act, medical imaging exams and procedure reports are released immediately into your electronic medical record. You may view this report before your referring provider. If you have questions, please contact your health care provider. INDICATION: Hematuria. COMPARISON: CT of the pelvis from 01/03/2023. CT of the abdomen and pelvis from 09/20/2022. TECHNIQUE: CT examination of the abdomen and pelvis was performed without contrast enhancement using 3 mm thick axial sections from the lung bases through the pubic symphysis. Oral contrast was not administered. Please note that all CT scans at this facility use dose modulation, iterative reconstruction, and/or weight-based dosing when appropriate to reduce radiation dose to as low as reasonably achievable. FINDINGS: There is increased moderate bilateral hydronephrosis and hydroureter extending to the urinary bladder, with no sign of any obstructing calculus or mass. There is higher density of the fluid in the dilated right collecting system compared to the left, 23 Hounsfield units compared to 0 Hounsfield units, suggesting blood in the right intrarenal collecting system. However, there is a small amount of dependent density in the posterior left urinary system at 33 Hounsfield units, suggesting additional mild acute hemorrhage on the left. There is a 6 millimeter slightly dense nodule in the pelvis of the lower pole of the left kidney, axial image 52 series 2. This could be a small hemorrhagic mass. There is no sign of renal calculus or cortical mass. There is now a moderate amount of fecal material distributed throughout the colon and rectum consistent with new constipation. In the abdomen, the unenhanced liver, spleen, pancreas, and adrenals are normal in appearance. The superior portions of the liver and spleen are not included on today`s study. The gallbladder is normal in appearance. The abdominal aorta is normal in caliber with no sign of dilatation. There is no sign of retroperitoneal mass or adenopathy. The stomach, loops of small bowel, and colon in the abdomen are normal in appearance. In the pelvis, the appendix is normal in appearance with no sign of inflammatory process. The loops of small bowel, colon, and rectum in the pelvis are normal in appearance. The prostate remains prominently enlarged but is otherwise normal in appearance. The previously seen malpositioned Partida catheter has been repositioned with its tip in satisfactory position within the collapsed urinary bladder. The fluid in the urinary bladder is relatively high density consistent with hemorrhage. No distinct mass is evident, but the hemorrhage obscures any potential mass. There is no sign of pelvic or inguinal mass or adenopathy. No change in bilateral hydroceles. There is no sign of free air or free fluid in the abdomen or pelvis. The small portion of the posterior lung bases included on today`s study are clear. Again seen is moderate scoliosis of the lumbar spine convex towards the left. Again seen is severe disc degenerative disease at L3-4 and L4-5. Again seen is moderate anterior wedging of the L2 vertebral body and mild anterior wedging of the T12, L1, and L3 vertebral bodies from old compression fractures. IMPRESSION: Hemorrhage in both moderately dilated intrarenal collecting systems, hemorrhage more prominent on the right than the left. Increased moderate bilateral hydronephrosis and hydroureter of uncertain etiology. The urinary bladder is largely collapsed following placement of a Partida catheter. New constipation. CT of the abdomen shows a possible small nonspecific slightly dense 6 millimeter nodule in the lower pole of the left kidney. CT of the pelvis shows hemorrhage in the nondistended urinary bladder with satisfactory positioning of a Partida catheter. Stable severe enlargement of the prostate. Please note that all CT scans at this facility use dose modulation, iterative reconstruction, and/or weight-based dosing when appropriate to reduce radiation dose to as low as reasonably achievable. Dictated by Anshul Caldwell MD @ 01/05/2023 9:17:14 PM (Electronically Signed)
[2023-01-05] MEDS: GABAPENTIN 300 MG CAPSULE PO ×2 (18:02→20:55)
[2023-01-05] MEDS: AMPICILLIN/SULBACTAM 3 GM in 0.9 % SODIUM CHLORIDE Mini-bag 100 ML IVPB (18:02)
--- NOTE | 2023-01-05 18:50 | PC.NURSE ---
Alert and oriented x 3, lung sounds clear but diminished in bilateral bases. Bowel sounds active x 4 quadrants. Reports intermittent pain to lower abdomen behind pubic bone that radiates down penis. Pain is intermittent and lasts 30-60 seconds. Group Practice Pediatrician present during episode and as patient was having pain he passed a small blood clot in pérez. MD updated with intermittent pain and recommended use of prn Belladonna suppository, administered suppository at 1540 with no effective results. CBI with return of pink tinged urine with small blood clots and strong foul odor. BP 93/64 at 0730, metoprolol held due to low BP and MD updated. Wound clinic wrapped bilateral lower extremities at 1300, wraps to stay in place for 48 hours. 1730 blood glucose 197, patient refused supper, updated and ok to hold sliding scale insulin. Patient transfers with assist x 2 with walker and gait belt. Patient weaned off O2 and maintaining sats at 93% on room air.
[2023-01-05] MEDS: ACETAMINOPHEN 650 MG TABLET ER 1300 MG PO (20:56)
[2023-01-05] MEDS: TAMSULOSIN HCL 0.4 MG CAPSULE 0.8 MG PO (20:58)
[2023-01-05] MEDS: ATORVASTATIN 10 MG TABLET 20 MG PO (20:58)
[2023-01-05] MEDS: INSULIN NPH 100 UNIT/ML 10 UNIT SUBCUT (21:05)
[2023-01-06] VITALS (8 sets, daily range): BP systolic 126–159; BP diastolic 59–90; PULSE 64–93; RESP 12–24; TEMP 36–36.6; O2SAT 84–95
[2023-01-06] MEDS: AMPICILLIN/SULBACTAM 3 GM in 0.9 % SODIUM CHLORIDE Mini-bag 100 ML IVPB ×4 (00:20→18:57)
[2023-01-06] MEDS: polyethylene glycoL 3350 17 GM PACK PO (05:05)
--- NOTE | 2023-01-06 05:35 | PC.NURSE ---
Patient is alert and oriented x 4, vss, on 3L O2 via nc. Assist of one with FWW and gait belt. Patient is frustrated by not being able to have a BM, put in order for Miralax PRN and one dose was given at 0500 this morning. CBI titrated down, patient is tolerating it at this speed, no blood clots noted when emptying pérez bag. Output in pérez bag appearing less red and more pink in color. Patient still experiencing intermittent painful cramping in lower abdomen. Thorough cleaning of laly area and catheter care, Nystatin applied under pannus.
[2023-01-06 06:47] LABS: Basophils Absolute Auto 0.01 K/uL (0.00-0.30); Basophils Percent Auto 0.1 % (0.0-3.0); Eosinophils Percent Auto 7.7 % (0.0-7.0); Hematocrit 44.4 % (37.0-53.0); Hemoglobin* 13.4 gm/dL (13.5-17.5); Immature Granulocytes Abs Auto 0.02 K/uL (0.00-0.30); Immature Granulocytes Pct Auto 0.3 %; Lymphocytes Percent Auto 15.2 % (20-44); Mean Corpuscular HGB Conc 30 gm/dL (32-36); Mean Corpuscular Hemoglobin 29 pg (26-34); Mean Corpuscular Volume 96 fL (80-100); Monocytes Percent Auto 11.2 % (0.0-11.0); Neutrophils Absolute Auto 4.45 K/uL (1.7-7.0); Neutrophils Percent Auto 65.5 % (42.0-72.0); Platelet Count* 224 K/uL (140-440); RDW Coefficient of Variation % 14.5 % (11.5-15.5); Red Blood Count 4.64 m/uL (4.30-5.90); White Blood Count* 6.79 K/uL (4.50-11.00)
[2023-01-06 06:49] LABS: Slide Review Reflex No
[2023-01-06 06:59] LABS: Chloride* 101 mmol/L (96-114); Potassium* 3.1 mmol/L (3.6-5.1); Sodium* 141 mmol/L (135-149)
--- NOTE | 2023-01-06 07:00 | CRLHL7_ITS ---
For Patients: As a result of the Century Cures Act, medical imaging exams and procedure reports are released immediately into your electronic medical record. You may view this report before your referring provider. If you have questions, please contact your health care provider. INDICATION: Renal hemorrhage and constipation. TECHNIQUE: CT abdomen and pelvis acquired with 100 cc Isovue 370 IV contrast. COMPARISON: 01/05/2023. FINDINGS: Lower chest: Unremarkable. Liver: Unremarkable. Normal in size and attenuation. No suspicious masses. Gallbladder and bile ducts: Unremarkable. No stones or inflammation. No biliary dilatation. Pancreas: Unremarkable. No mass or inflammation. Spleen: Unremarkable. Normal in size. No masses. Adrenal glands: Unremarkable. No nodules. Kidneys: Unchanged bilateral hydronephrosis. Kidneys otherwise unremarkable. GI tract: Unremarkable. Normal in caliber. No sign of mass or inflammation. Normal appendix. Vasculature: Abdominal aorta is normal in caliber. Mesenteric arteries are patent. Lymph nodes: No lymphadenopathy. Peritoneum/Abdominal Wall: Unremarkable. No sign of mass or infiltration. No free air or significant free fluid. Pelvis: Partida catheter present within a decompressed bladder. Despite being decompressed, the bladder wall appears thickened and inflamed. Prostate gland is enlarged. Bones: Unremarkable for age. IMPRESSION: 1. No significant changes from the recent prior exam. 2. Stable bilateral hydronephrosis. 3. Stable inflammation of the urinary bladder. 4. Stable prostatomegaly. 5. Unremarkable GI tract. No signs of constipation. Please note that all CT scans at this facility use dose modulation, iterative reconstruction, and/or weight-based dosing when appropriate to reduce radiation dose to as low as reasonably achievable. Dictated by Aidan Rodríguez MD @ 01/06/2023 8:16:05 AM (Electronically Signed)
[2023-01-06 07:02] LABS: Carbon Dioxide* 38 mmol/L (20-32); Creatinine* 1.1 mg/dL (0.5-1.5); Est. Creatinine Clearance* 62.27; Estimated Glomerular Filt Rate 68 ml/min
[2023-01-06 07:03] LABS: Blood Urea Nitrogen* 18 mg/dL (7-30); Calcium* 8.2 mg/dL (8.4-10.6); Glucose* 140 mg/dL (60-115); INR 1.08 (0.91-1.10); Prothrombin Time 14.6 Seconds
[2023-01-06 07:19] LABS: C Reactive Protein* 13.5 mg/dL (0.5-1.0)
[2023-01-06] MEDS: SODIUM CHLORIDE 0.9 % (FLUSH) 10 ML SYRINGE 5 ML IVF ×2 (08:52→20:41)
[2023-01-06] MEDS: allopurinoL 100 MG TABLET PO (08:53)
[2023-01-06] MEDS: DOCUSATE SODIUM 100 MG CAPSULE PO ×2 (08:53→20:38)
[2023-01-06] MEDS: METOPROLOL SUCCINATE (XL) 100 MG TAB PO (08:53)
[2023-01-06] MEDS: FUROSEMIDE 40 MG TABLET PO ×2 (08:53→15:48)
[2023-01-06] MEDS: NYSTATIN POWDER 1 APPLIC TOPICAL ×2 (08:54→20:42)
[2023-01-06] MEDS: INSULIN NPH 100 UNIT/ML 15 UNIT SUBCUT (09:04)
--- NOTE | 2023-01-06 09:32 | PM.IMPN1 ---
Progress Note: A&P Assessment and plan (1) Bacteremia: Problem details: - Enterococcus faecalis on blood culture, initially started on IV Ertapenem and Vancomycin, transitioned to Unasyn on 01/05 based on sensitivities - Enterococcus and MSSA on urine culture, formal ID pending Status: Acute (2) Hematuria: Problem details: - continue CBI - + pérez malpositioning on imaging 01/04, replaced with persistent clot formation and bladder cramping/spasms - repeat imaging 01/05 with results below - reviewed with Dr. Donahue of Urology at [facility]; no acute intervention or transfer needed at this time. Will repeat imaging with IV contrast to evaluate further (pt deferring imaging until morning), continue to follow Hgb and renal function IMPRESSION: Hemorrhage in both moderately dilated intrarenal collecting systems, hemorrhage more prominent on the right than the left. Increased moderate bilateral hydronephrosis and hydroureter of uncertain etiology. The urinary bladder is largely collapsed following placement of a Pérez catheter. New constipation. CT of the abdomen shows a possible small nonspecific slightly dense 6 millimeter nodule in the lower pole of the left kidney. CT of the pelvis shows hemorrhage in the nondistended urinary bladder with satisfactory positioning of a Pérez catheter. Stable severe enlargement of the prostate. Status: Acute (3) Chronic indwelling Pérez catheter: Status: Chronic (4) Cellulitis of scrotum: Problem details: - no findings concerning for gangrene (crepitus or pain out of proportion to exam) on exam or CT x2 Status: Acute (5) Generalized weakness: Problem details: - Acute on chronic, suspect multifactorial - therapies following Status: Chronic (6) Chronic hypoxemic respiratory failure: Problem details: - chronic CO2 retention, on supplemental oxygen with goal O2 saturation 87-90% Status: Acute (7) Urinary obstruction: Problem details: - consider leaving Pérez in upon discharge with outpatient Urology follow-up given recurrent obstruction and known BPH Status: Acute (8) Type 2 diabetes mellitus: Problem details: - Continue home NPH and regular regimen and add ISS ACHS Status: Chronic (9) Hypertension: Problem details: - Continue home medications, no evidence of hypotension, monitor closely given bacteremia Status: Acute (10) Lymphedema: Problem details: - continue MWF lymphedema wraps Status: Chronic Subjective Interval history: Adriano continues to have intermittent discomfort in his perineal area. His catheter was repositioned 01/[address] findings. Continues to have hematuria with intermittent clots today, occasional blood noted at meatus. Wound care team following for BLE lymphedema. Exam Const: Vital Signs, click to edit/add: Vital Signs - 24 hr 01/05/23 11:00 01/05/23 15:00 01/05/23 15:00 Temperature 98.1 F Pulse Rate [Left P ulse Oximeter] 69 75 Respiratory Rate 18 Blood Pressure [Le ft Arm] 135/79 Pulse Oximetry 95 94 Oxygen Delivery Me thod Nasal Cannula Oxygen Flow Rate 3 01/05/23 15:00 01/05/23 15:00 01/05/23 20:56 Temperature 97.5 F L 97.7 F Pulse Rate [Left P ulse Oximeter] 75 Respiratory Rate 20 Blood Pressure [Le ft Arm] 170/93 H Pulse Oximetry 94 94 Oxygen Delivery Me thod Nasal Cannula Nasal Cannula Oxygen Flow Rate 3 3 01/05/23 19:00 01/05/23 23:31 01/05/23 23:31 Temperature 97.3 F L Pulse Rate [Left P ulse Oximeter] 84 85 Respiratory Rate 12 12 Blood Pressure [Le ft Arm] 136/51 L Pulse Oximetry 90 89 Oxygen Delivery Me thod Nasal Cannula Oxygen Flow Rate 3 01/05/23 23:31 01/05/23 23:31 01/06/23 00:07 Temperature 97.7 F 97.7 F Pulse Rate [Left P ulse Oximeter] 85 Respiratory Rate 12 12 Blood Pressure [Le ft Arm] 122/58 L Pulse Oximetry 89 88 Oxygen Delivery Me thod Nasal Cannula Nasal Cannula Oxygen Flow Rate 3 3 01/06/23 04:11 01/06/23 08:03 Temperature 96.8 F L 97.7 F Pulse Rate [Left P ulse Oximeter] 64 93 Respiratory Rate 12 24 Blood Pressure [Le ft Arm] 159/74 H 140/73 H Pulse Oximetry 95 84 L Oxygen Delivery Me thod Nasal Cannula Nasal Cannula Oxygen Flow Rate 2.5 2 Labs Labs: Laboratory Results - last 24 hr 01/06/23 05:40 WBC 6.79 RBC 4.64 Hgb 13.4 L Hct 44.4 MCV 96 MCH 29 MCHC 30 L RDW Coeff of Mindy 14.5 Plt Count 224 Neut % (Auto) 65.5 Lymph % (Auto) 15.2 L Bond % (Auto) 11.2 H Eos % (Auto) 7.7 H Baso % (Auto) 0.1 Neut # (Auto) 4.45 Lymph # (Auto) 1.00 Bond # (Auto) 0.80 Eos # (Auto) 0.50 Baso # (Auto) 0.01 INR 1.08 Sodium 141 Potassium 3.1 L Chloride 101 Carbon Dioxide 38 H BUN 18 Creatinine 1.1 Estimated Creat Clear 62.27 Estimated GFR 68 Glucose 140 H Calcium 8.2 L C-Reactive Protein 13.5 H
--- NOTE | 2023-01-06 10:52 | CRLHL7_ITS ---
For Patients: As a result of the Cures Act, medical imaging exams and procedure reports are released immediately into your electronic medical record. You may view this report before your referring provider. If you have questions, please contact your health care provider. INDICATION: Hypoxia. COMPARISON: Chest x-ray 10/15/2022. TECHNIQUE: AP portable chest. Findings : The heart is enlarged. The pulmonary vasculature is mildly prominent. No pulmonary consolidation is seen. No pleural effusion or pneumothorax is identified. IMPRESSION: Mild CHF. Dictated by Aly Dempsey MD @ 01/06/2023 1:34:56 PM (Electronically Signed)
[2023-01-06] MEDS: POTASSIUM BICARB 25 MEQ EFFERVESCENT TAB 50 MEQ PO (13:22)
[2023-01-06] MEDS: DOXYCYCLINE HYCLATE 100 MG CAPSULE PO ×2 (13:23→20:38)
--- NOTE | 2023-01-06 13:37 | P.IMPN_ITS ---
Progress Note: A&P Assessment and plan (1) Bacteremia: Problem details: - Enterococcus faecalis on blood culture, initially started on IV Ertapenem and Vancomycin, transitioned to Unasyn on 01/05 based on sensitivities - Enterococcus and MSSA on urine culture. Erythema and edema and superficial ulceration on his scrotum. Suspect cellulitis. Will add doxycycline to treat for staph infection in addition to Unasyn for Enterococcus infection. Status: Acute (2) Hematuria: Problem details: - continue CBI - + pérez malpositioning on imaging 01/04, replaced with persistent clot formation and bladder cramping/spasms - repeat imaging 01/05 with results below - reviewed with Dr. Donahue of Urology at [facility]; no acute intervention or transfer needed at this time. Repeat CT imaging with IV contrast shows no acute problem IMPRESSION: Hemorrhage in both moderately dilated intrarenal collecting systems, hemorrhage more prominent on the right than the left. Increased moderate bilateral hydronephrosis and hydroureter of uncertain etiology. The urinary bladder is largely collapsed following placement of a Pérez catheter. New constipation. CT of the abdomen shows a possible small nonspecific slightly dense 6 millimeter nodule in the lower pole of the left kidney. CT of the pelvis shows hemorrhage in the nondistended urinary bladder with satisfactory positioning of a Pérez catheter. Stable severe enlargement of the prostate. Status: Acute (3) Chronic hypoxemic respiratory failure: Problem details: - chronic CO2 retention, on supplemental oxygen with goal O2 saturation 87-90%. Question of heart failure exacerbation with pulmonary edema and peripheral lymphedema. Status: Acute (4) Chronic indwelling Pérez catheter: Problem details: Likely than the primary source for his bacteremia. Status: Chronic (5) Cellulitis of scrotum: Problem details: - no findings concerning for gangrene (crepitus or pain out of proportion to exam) on exam or CT x2. Add doxycycline to Unasyn Status: Acute (6) Generalized weakness: Problem details: - Acute on chronic, suspect multifactorial - therapies following Patient is anticipating returning home with his . He is still a heavy assist to get from chair to bathroom. feels that she can no longer manage him at home. I told him that he needs to be able to go to the bathroom under his own power to return home with his . Plan [facility]iary facility for rehab. Status: Chronic (7) Urinary obstruction: Problem details: - consider leaving Pérez in upon discharge with outpatient Urology follow-up given recurrent obstruction and known BPH Status: Acute (8) Type 2 diabetes mellitus: Problem details: - Continue home NPH and regular regimen and add ISS ACHS. Blood sugar control here is fair Status: Chronic (9) Hypertension: Problem details: - Continue home medications, no evidence of hypotension, monitor closely given bacteremia Status: Acute (10) Lymphedema: Problem details: - continue MWF lymphedema wraps Status: Chronic (11) Incontinence of bowel: Problem details: Patient is had constipation at home. With laxatives he has had a bowel movement here but is unable to control it. Status: Acute (12) CO2 retention: Problem details: Chronic. Caution with use of oxygen. Status: Acute (13) Disorder of fluid or electrolyte: Problem details: Patient currently has prominent peripheral edema and mild pulmonary edema but labs suggest a contraction alkalosis. Will increase furosemide and closely follow labs. Replace potassium. Status: Acute Plan Continue in hospital for IV antibiotics for Enterococcus faecalis bacteremia pending repeat blood cultures and clinical course. Continue on doxycycline for MSSA in urine and scrotal infection as well. Continue to work with PT and OT for strengthening. Continue bladder irrigation until urine is clear with outpatient urologic follow-up. Continue to manage fluid and electrolytes. Will diurese as much as he can tolerate. Continue to manage hypoxic and hypercarbic respiratory failure. Continue to look for safe discharge plan. Time Spent With Patient Total time spent: Total time spent today is 60 minutes, 40 minutes in coordination of care and discussing with patient and other providers ongoing evaluation management of bacteremia, respiratory failure, immobility and weakness. Subjective Date Seen: 01/06/23 Interval history: 82-year-old male admitted to the hospital with hematuria plugging his chronic indwelling Pérez catheter. He has been placed on 3 way bladder irrigation to manage this. His hematuria is improving though still murphy colored urine. He had a CT scan done yesterday without contrast which raised the concern about he morrhage from the kidneys. Contrast CT this morning did not show any acute abnormalities. Multiple other problems identified at the time of admission as follows: Patient had hypoxic and hypercarbic respiratory failure. He is not on oxygen at home but is requiring oxygen here to maintain his O2 sats. He has known hypercarbic respiratory failure with CO2 retention and chronic pCO2 in the low 60s with a relatively normal pH. He has remained on oxygen supplementation. The cause of his acute hypoxia is uncertain though heart failure is clinically suspected based on chest x-ray. Bacteremia. Blood cultures relatively quickly became positive for Enterococcus faecalis. He is now on Unasyn to treat this. Urinary tract infection. Urine cultures are growing Enterococcus faecalis and MSSA. Continue Unasyn and had doxycycline for MSSA infection His scrotum is erythematous and edematous and has a draining ulceration on it. Add doxycycline for possible MSSA infection. Marked weakness and decreased mobility. Even on a good day the patient struggles to be independent at home with his . She reports she can no longer manage him at home. He is not able to stand and walk to the bathroom and get on and off the toilet under his own power. Now in the hospital is needing a lot of assistance. I informed him that he will need penitentiary facility until he is strong enough to stand transfer and ambulate under his own power. Exam Const: Vital Signs, click to edit/add: Vital Signs - 24 hr 01/05/23 15:00 01/05/23 15:00 01/05/23 15:00 Temperature Pulse Rate [Left P ulse Oximeter] 75 Respiratory Rate Blood Pressure [Le ft Arm] Pulse Oximetry 94 94 Oxygen Delivery Me thod Nasal Cannula Oxygen Flow Rate 3 01/05/23 15:00 01/05/23 20:56 01/05/23 19:00 Temperature 97.5 F L 97.7 F 97.3 F L Pulse Rate [Left P ulse Oximeter] 75 84 Respiratory Rate 20 12 Blood Pressure [Le ft Arm] 170/93 H 136/51 L Pulse Oximetry 94 90 Oxygen Delivery Me thod Nasal Cannula Nasal Cannula Oxygen Flow Rate 3 3 01/05/23 23:31 01/05/23 23:31 01/05/23 23:31 Temperature Pulse Rate [Left P ulse Oximeter] 85 Respiratory Rate 12 12 Blood Pressure [Le ft Arm] Pulse Oximetry 89 89 Oxygen Delivery Me thod Nasal Cannula Oxygen Flow Rate 3 01/05/23 23:31 01/06/23 00:07 01/06/23 04:11 Temperature 97.7 F 97.7 F 96.8 F L Pulse Rate [Left P ulse Oximeter] 85 64 Respiratory Rate 12 12 Blood Pressure [Le ft Arm] 122/58 L 159/74 H Pulse Oximetry 88 95 Oxygen Delivery Me thod Nasal Cannula Nasal Cannula Oxygen Flow Rate 3 2.5 01/06/23 08:03 01/06/23 08:00 01/06/23 08:00 Temperature 97.7 F Pulse Rate [Left P ulse Oximeter] 93 Respiratory Rate 24 Blood Pressure [Le ft Arm] 140/73 H Pulse Oximetry 84 L 92 92 Oxygen Delivery Me thod Nasal Cannula Nasal Cannula Oxygen Flow Rate 2 2 Labs Labs: Laboratory Results - last 24 hr 01/06/23 05:40 WBC 6.79 RBC 4.64 Hgb 13.4 L Hct 44.4 MCV 96 MCH 29 MCHC 30 L RDW Coeff of Mindy 14.5 Plt Count 224 Neut % (Auto) 65.5 Lymph % (Auto) 15.2 L Starr % (Auto) 11.2 H Eos % (Auto) 7.7 H Baso % (Auto) 0.1 Neut # (Auto) 4.45 Lymph # (Auto) 1.00 Starr # (Auto) 0.80 Eos # (Auto) 0.50 Baso # (Auto) 0.01 INR 1.08 Sodium 141 Potassium 3.1 L Chloride 101 Carbon Dioxide 38 H BUN 18 Creatinine 1.1 Estimated Creat Clear 62.27 Estimated GFR 68 Glucose 140 H Calcium 8.2 L C-Reactive Protein 13.[address] scan - abdomen: Radiologist's impression: INDICATION: Renal hemorrhage and constipation. TECHNIQUE: CT abdomen and pelvis acquired with 100 cc Isovue 370 IV contrast. COMPARISON: 01/05/2023. FINDINGS: Lower chest: Unremarkable. Liver: Unremarkable. Normal in size and attenuation. No suspicious masses. Gallbladder and bile ducts: Unremarkable. No stones or inflammation. No biliary dilatation. Pancreas: Unremarkable. No mass or inflammation. Spleen: Unremarkable. Normal in size. No masses. Adrenal glands: Unremarkable. No nodules. Kidneys: Unchanged bilateral hydronephrosis. Kidneys otherwise unremarkable. GI tract: Unremarkable. Normal in caliber. No sign of mass or inflammation. Normal appendix. Vasculature: Abdominal aorta is normal in caliber. Mesenteric arteries are patent. Lymph nodes: No lymphadenopathy. Peritoneum/Abdominal Wall: Unremarkable. No sign of mass or infiltration. No free air or significant free fluid. Pelvis: Pérez catheter present within a decompressed bladder. Despite being decompressed, the bladder wall appears thickened and inflamed. Prostate gland is enlarged. Bones: Unremarkable for age. IMPRESSION: 1. No significant changes from the recent prior exam. 2. Stable bilateral hydronephrosis. 3. Stable inflammation of the urinary bladder. 4. Stable prostatomegaly. 5. Unremarkable GI tract. No signs of constipatio
--- NOTE | 2023-01-06 15:40 | PC.SOCIAL ---
Discharge Planning: [employer] Department Supervisor called and updated on facilities declining patient, [facility] declined and [facility] will re-evaluate on January 09. would like Adriano to be as close to [facility] as possible. She reiterated that he will not go to [facility]. front desk worker to follow up with phone calls and faxes to facilities that take [employer] and bariatric patients.
[2023-01-06] MEDS: bisacodyL 10 MG SUPP.RECT PR (16:06)
[2023-01-06] MEDS: POTASSIUM CHLORIDE 10 MEQ CAPSULE ER PO (18:40)
--- NOTE | 2023-01-06 19:29 | PC.NURSE ---
shift note: vss stable. pt afeb. pt medicated per s. scale for blood sugars. blood sugars 142,191,158. Pt up 1/walker pivot to surfaces. Iv restarted in Lt FA. Cont. CBI with light pink returns. Pt has small amounts of tissue in tubing. Lt upper arm with intact tegader. small upper coccyx stg 1 ulcer with sacral drsg covering site. bilat l/e with lymphedema drsg intact.
[2023-01-06] MEDS: ACETAMINOPHEN 650 MG TABLET ER 1300 MG PO (20:38)
[2023-01-06] MEDS: GABAPENTIN 300 MG CAPSULE 600 MG PO (20:39)
[2023-01-06] MEDS: ATORVASTATIN 10 MG TABLET 20 MG PO (20:40)
[2023-01-06] MEDS: SENNOSIDES 1 TAB TABLET PO (20:40)
[2023-01-06] MEDS: TAMSULOSIN HCL 0.4 MG CAPSULE 0.8 MG PO (20:41)
[2023-01-06] MEDS: INSULIN NPH 100 UNIT/ML 10 UNIT SUBCUT (20:42)
[2023-01-07] VITALS (7 sets, daily range): BP systolic 118–140; BP diastolic 71–88; PULSE 64–83; RESP 18–20; TEMP 36.6–37.2; O2SAT 90–92
[2023-01-07] MEDS: AMPICILLIN/SULBACTAM 3 GM in 0.9 % SODIUM CHLORIDE Mini-bag 100 ML IVPB ×4 (02:35→18:03)
--- NOTE | 2023-01-07 05:22 | PC.NURSE ---
Shift note: Pt's CBI is draining well. There was few clot at the start of shift but increased in drop rate cleared all the clot. It is murphy red to light pink color. Pt denied pain and has been sleeping very well. Pt has been on 2L of oxygen throughout. Pt has been slow ambulating with A1, walker and GB. Bedside commode provided. Mepilex applied to the coccyx.
[2023-01-07 05:56] LABS: Basophils Absolute Auto 0.01 K/uL (0.00-0.30); Basophils Percent Auto 0.1 % (0.0-3.0); Hemoglobin* 12.9 gm/dL (13.5-17.5); Immature Granulocytes Abs Auto 0.07 K/uL (0.00-0.30); Immature Granulocytes Pct Auto 0.9 %; Lymphocytes Percent Auto 16.4 % (20-44); Mean Corpuscular HGB Conc 31 gm/dL (32-36); Mean Corpuscular Hemoglobin 29 pg (26-34); Mean Corpuscular Volume 95 fL (80-100); Monocytes Percent Auto 10.7 % (0.0-11.0); Neutrophils Absolute Auto 4.69 K/uL (1.7-7.0); Neutrophils Percent Auto 62.9 % (42.0-72.0); Platelet Count* 234 K/uL (140-440); RDW Coefficient of Variation % 14.4 % (11.5-15.5); Red Blood Count 4.43 m/uL (4.30-5.90); White Blood Count* 7.46 K/uL (4.50-11.00)
[2023-01-07 06:01] LABS: Slide Review Reflex No
[2023-01-07 06:10] LABS: Chloride* 100 mmol/L (96-114); Potassium* 3.4 mmol/L (3.6-5.1); Sodium* 139 mmol/L (135-149)
[2023-01-07 06:13] LABS: Blood Urea Nitrogen* 16 mg/dL (7-30); Carbon Dioxide* 34 mmol/L (20-32); Estimated Glomerular Filt Rate 76 ml/min; Glucose* 124 mg/dL (60-115)
[2023-01-07 06:14] LABS: Calcium* 8.2 mg/dL (8.4-10.6)
--- NOTE | 2023-01-07 07:53 | PM.IMPN1 ---
Progress Note: A&P Assessment and plan (1) Bacteremia: Problem details: - Enterococcus faecalis on blood culture, initially started on IV Ertapenem and Vancomycin, transitioned to Unasyn on 01/05 based on sensitivities - Enterococcus and MSSA on urine culture. - will stop doxy as unasyn should cover this - Pelvic lift with cool compresses to decrease swelling in scrotum and penis Status: Acute (2) Cellulitis of scrotum: Problem details: - no findings concerning for gangrene (crepitus or pain out of proportion to exam) on exam or CT x2. -will work on swelling/edema; abdominal binder? Status: Acute (3) Urinary obstruction: Problem details: - consider leaving Pérez in upon discharge with outpatient Urology follow-up given recurrent obstruction and known BPH Status: Acute (4) Hematuria: Problem details: - continue CBI - + pérez malpositioning on imaging 01/04, replaced with persistent clot formation and bladder cramping/spasms - repeat imaging 01/05 with results below - reviewed with Dr. Donahue of Urology at [facility]; no acute intervention or transfer needed at this time. Repeat CT imaging with IV contrast shows no acute problem IMPRESSION: Hemorrhage in both moderately dilated intrarenal collecting systems, hemorrhage more prominent on the right than the left. Increased moderate bilateral hydronephrosis and hydroureter of uncertain etiology. The urinary bladder is largely collapsed following placement of a Pérez catheter. New constipation. CT of the abdomen shows a possible small nonspecific slightly dense 6 millimeter nodule in the lower pole of the left kidney. CT of the pelvis shows hemorrhage in the nondistended urinary bladder with satisfactory positioning of a Pérez catheter. Stable severe enlargement of the prostate. Status: Acute (5) Acute retention of urine: Problem details: secondary to hematuria clogging catheter Status: Acute (6) Chronic indwelling Pérez catheter: Problem details: Likely the primary source for his bacteremia. Status: Chronic (7) Generalized weakness: Problem details: - Acute on chronic, suspect multifactorial - therapies following Patient is anticipating returning home with his . He is still a heavy assist to get from chair to bathroom. feels that she can no longer manage him at home. I told him that he needs to be able to go to the bathroom under his own power to return home with his . Plan residential facility for rehab. Status: Chronic (8) Disorder of fluid or electrolyte: Problem details: Patient currently has prominent peripheral edema and mild pulmonary edema but labs suggest a contraction alkalosis. Will increase furosemide and closely follow labs. Replace potassium. Status: Acute (9) CO2 retention: Problem details: Chronic. Caution with use of oxygen. Status: Acute (10) Incontinence of bowel: Problem details: Patient had constipation at home. With laxatives he has had a bowel movement here but is unable to control it. Status: Acute (11) Lymphedema: Problem details: - continue MWF lymphedema wraps Status: Chronic (12) Chronic hypoxemic respiratory failure: Problem details: - chronic CO2 retention, on supplemental oxygen with goal O2 saturation 87-90%. Question of heart failure exacerbation with pulmonary edema and peripheral lymphedema. 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 Blood sugar control here is fair Status: Chronic (16) Hypertension: Problem details: - Continue home medications, no evidence of hypotension, monitor closely given bacteremia Status: Acute Subjective Date Seen: 01/07/23 Interval history: Daily Progress Note - Hospital Medicine Day #: 5 CC: urinary retention/misaligned pérez, bacteremia/UTI, chronic edema, respiratory failure Day 5 of antibiotics (previous ertapenem and vancomycin and Linezolid) - currently on Unasyn. Doxy. OVERNIGHT UPDATES FROM STAFF & MED, LAB, IMAGING UPDATES CBI continues, still bleeding; clots form Afebrile overnight Blood pressure 129/88, 136/72, 132/90 Pulse rate 60s to 80s Respiratory rate 18 to 20 90s 92% room air CBC this morning is unremarkable. Hemoglobin is slowly trending down but stable at 12.9 Chronic CO2 retention, 60s within normal pH Potassium looks improved today. CRP while not drawn this morning has been downtrending over 3 days Micro: Previous blood culture revealing Enterococcus faecalis noted x2. Enterococcus and Staph aureus also noted in his urine. Follow-up blood cultures have been negative at 48 hours. Echo from his last hospitalization in August: Severely increased left wall thickness. Normal global systolic function with an estimated EF of 55% Objective: pleasant. Vitals: see above : superficial edema of the shaft and foreskin of the penis, small amount of blood at os. scrotum generous and fluid filled. Lungs: Clear. Cardiac: S1S2. Disposition/Potential discharge - Likely to need SNF upon discharge Total time is 35 minutes with greater than 50% spent in counseling and coordination of care. Exam Const: Vital Signs, click to edit/add: Vital Signs - 24 hr 01/06/23 08:03 01/06/23 08:00 01/06/23 08:00 Temperature 97.7 F Pulse Rate [Left P ulse Oximeter] 93 Respiratory Rate 24 Blood Pressure [Le ft Arm] 140/73 H Pulse Oximetry 84 L 92 92 Oxygen Delivery Me thod Nasal Cannula Nasal Cannula Oxygen Flow Rate 2 2 01/06/23 16:18 01/06/23 15:00 01/06/23 15:00 Temperature 97.8 F Pulse Rate [Left P ulse Oximeter] 79 79 Respiratory Rate 18 20 Blood Pressure [Le ft Arm] 126/83 Pulse Oximetry 94 94 Oxygen Delivery Me thod Nasal Cannula Oxygen Flow Rate 01/06/23 15:00 01/06/23 19:00 01/06/23 22:45 Temperature 97.8 F Pulse Rate [Left P ulse Oximeter] 86 Respiratory Rate 18 18 Blood Pressure [Le ft Arm] 134/59 L Pulse Oximetry 94 94 94 Oxygen Delivery Me thod Nasal Cannula Nasal Cannula Oxygen Flow Rate 2 2 01/06/23 22:45 01/06/23 22:45 01/06/23 22:45 Temperature 97.8 F Pulse Rate [Left P ulse Oximeter] 72 Respiratory Rate 18 18 18 Blood Pressure [Le ft Arm] 132/90 H Pulse Oximetry 91 91 Oxygen Delivery Me thod Nasal Cannula Nasal Cannula Oxygen Flow Rate 2 2 01/07/23 02:42 01/07/23 07:42 Temperature 98.9 F 98 F Pulse Rate [Left P ulse Oximeter] 64 83 Respiratory Rate 18 20 Blood Pressure [Le ft Arm] 136/72 129/88 Pulse Oximetry 90 92 Oxygen Delivery Me thod Nasal Cannula Nasal Cannula Oxygen Flow Rate 2 2 Labs Labs: Laboratory Results - last 24 hr 01/07/23 05:45 WBC 7.46 RBC 4.43 Hgb 12.9 L Hct 42.0 MCV 95 MCH 29 MCHC 31 L RDW Coeff of Mindy 14.4 Plt Count 234 Neut % (Auto) 62.9 Lymph % (Auto) 16.4 L [place] % (Auto) 10.7 Eos % (Auto) 9.0 H Baso % (Auto) 0.1 Neut # (Auto) 4.69 Lymph # (Auto) 1.20 [place] # (Auto) 0.80 Eos # (Auto) 0.70 H Baso # (Auto) 0.01 Sodium 139 Potassium 3.4 L Chloride 100 Carbon Dioxide 34 H BUN 16 Creatinine 1.0 Estimated Creat Clear 68.50 Estimated GFR 76 Glucose 124 H Calcium 8.2 L
[2023-01-07] MEDS: POTASSIUM CHLORIDE 10 MEQ CAPSULE ER PO ×2 (09:18→18:03)
[2023-01-07] MEDS: SENNOSIDES 1 TAB TABLET PO ×2 (09:19→20:36)
[2023-01-07] MEDS: DOCUSATE SODIUM 100 MG CAPSULE PO ×2 (09:19→20:44)
[2023-01-07] MEDS: allopurinoL 100 MG TABLET PO (09:19)
[2023-01-07] MEDS: DOXYCYCLINE HYCLATE 100 MG CAPSULE PO (09:19)
[2023-01-07] MEDS: METOPROLOL SUCCINATE (XL) 100 MG TAB PO (09:19)
[2023-01-07] MEDS: NYSTATIN POWDER 1 APPLIC TOPICAL ×2 (09:20→20:44)
[2023-01-07] MEDS: INSULIN NPH 100 UNIT/ML 15 UNIT SUBCUT (09:22)
[2023-01-07] MEDS: FUROSEMIDE 40 MG TABLET PO ×2 (12:13→16:51)
[2023-01-07] MEDS: SODIUM CHLORIDE 0.9 % (FLUSH) 10 ML SYRINGE 5 ML IVF ×2 (12:17→20:45)
[2023-01-07] MEDS: GABAPENTIN 300 MG CAPSULE 600 MG PO (16:51)
--- NOTE | 2023-01-07 18:44 | PC.NURSE ---
shift note: vss stable. pt afeb. bilat l/e wrappled with lymphatic drsgs. bilat shins with abrasions that were covered with vasoline gauze. rt knee with new mepilex applied to abrasion. mid buttock with bilat abrasion; sacral drsg applied. Ls clr. pt using 1/5 L pnc O2 to keep sats >88%. CBI at moderate drip rate. CBI returns with bright red urine and multiple clots. scrotum and penis elevated with ice andres during day due to swelling. Pt has bloody drainage from meatus. pt had 2 moderate soft BM's. IV patent. blood sugars 148,124,140.
[2023-01-07] MEDS: INSULIN NPH 100 UNIT/ML 10 UNIT SUBCUT (20:40)
[2023-01-07] MEDS: ACETAMINOPHEN 650 MG TABLET ER 1300 MG PO (20:42)
[2023-01-07] MEDS: GABAPENTIN 300 MG CAPSULE PO (20:43)
[2023-01-07] MEDS: ATORVASTATIN 10 MG TABLET 20 MG PO (20:43)
[2023-01-07] MEDS: MELATONIN 3 MG TABLET PO (20:44)
[2023-01-07] MEDS: TAMSULOSIN HCL 0.4 MG CAPSULE 0.8 MG PO (20:44)
[2023-01-08] VITALS (8 sets, daily range): BP systolic 143–160; BP diastolic 66–75; PULSE 64–75; RESP 18–20; TEMP 36.4–36.6; O2SAT 89–92
[2023-01-08] MEDS: 0.9 % SODIUM CHLORIDE 250 ml IV (02:41)
[2023-01-08] MEDS: AMPICILLIN/SULBACTAM 3 GM in 0.9 % SODIUM CHLORIDE Mini-bag 100 ML IVPB ×4 (02:41→18:40)
[2023-01-08] MEDS: SODIUM CHLORIDE 0.9 % (FLUSH) 10 ML SYRINGE 5 ML IVF ×3 (05:44→21:45)
[2023-01-08 06:19] LABS: Basophils Absolute Auto 0.01 K/uL (0.00-0.30); Basophils Percent Auto 0.2 % (0.0-3.0); Eosinophils Percent Auto 10.2 % (0.0-7.0); Hematocrit 40.8 % (37.0-53.0); Hemoglobin* 12.3 gm/dL (13.5-17.5); Immature Granulocytes Abs Auto 0.06 K/uL (0.00-0.30); Lymphocytes Absolute Auto 1.45 K/uL (0.90-2.90); Mean Corpuscular HGB Conc 30 gm/dL (32-36); Mean Corpuscular Hemoglobin 29 pg (26-34); Mean Corpuscular Volume 96 fL (80-100); Monocytes Percent Auto 10.9 % (0.0-11.0); Neutrophils Absolute Auto 3.05 K/uL (1.7-7.0); Neutrophils Percent Auto 52.7 % (42.0-72.0); Platelet Count* 230 K/uL (140-440); RDW Coefficient of Variation % 14.4 % (11.5-15.5); Red Blood Count 4.26 m/uL (4.30-5.90); White Blood Count* 5.79 K/uL (4.50-11.00)
[2023-01-08 06:20] LABS: HCO3 VBG 28 mmol/L (21-28); PCO2 VBG 39 mmHG (40-50); pH VBG 7.471 (7.32-7.43)
[2023-01-08 06:23] LABS: Slide Review Reflex No
--- NOTE | 2023-01-08 06:35 | PC.NURSE ---
Shift note: CBI had a lot of clot at he beginning of the shift but got cleared. Continuous to be murphy colored drainage. Ambulated with A1 from bed to recliner but very slow. Tolerated pain very well.
[2023-01-08 06:45] LABS: Chloride* 101 mmol/L (96-114); Sodium* 140 mmol/L (135-149)
[2023-01-08 06:46] LABS: Potassium* 3.5 mmol/L (3.6-5.1)
[2023-01-08 06:48] LABS: Estimated Glomerular Filt Rate 76 ml/min
[2023-01-08 06:49] LABS: Blood Urea Nitrogen* 17 mg/dL (7-30); Calcium* 8.2 mg/dL (8.4-10.6); Carbon Dioxide* 34 mmol/L (20-32); Glucose* 120 mg/dL (60-115)
[2023-01-08 06:52] LABS: C Reactive Protein* 7.1 mg/dL (0.5-1.0)
[2023-01-08 07:01] LABS: Troponin I* 0.04 ng/mL (0.01-0.04)
[2023-01-08 07:05] LABS: Procalcitonin* 0.12 ng/mL (<0.50)
[2023-01-08 07:12] LABS: NT Pro B Type NatriureticPept* 526 pg/mL
[2023-01-08] MEDS: allopurinoL 100 MG TABLET PO (08:09)
[2023-01-08] MEDS: POTASSIUM CHLORIDE 10 MEQ CAPSULE ER PO ×2 (08:10→18:40)
[2023-01-08] MEDS: GABAPENTIN 300 MG CAPSULE 600 MG PO ×2 (08:10→21:45)
[2023-01-08] MEDS: SENNOSIDES 1 TAB TABLET PO ×2 (08:11→21:59)
[2023-01-08] MEDS: ACETAMINOPHEN 325 MG TABLET 650 MG PO (08:11)
[2023-01-08] MEDS: DOCUSATE SODIUM 100 MG CAPSULE PO ×2 (08:12→21:59)
[2023-01-08] MEDS: FUROSEMIDE 40 MG TABLET PO ×2 (08:12→16:27)
[2023-01-08] MEDS: INSULIN NPH 100 UNIT/ML 15 UNIT SUBCUT (08:17)
[2023-01-08] MEDS: METOPROLOL SUCCINATE (XL) 100 MG TAB PO (09:45)
[2023-01-08] MEDS: NYSTATIN POWDER 1 APPLIC TOPICAL ×2 (10:02→21:56)
--- NOTE | 2023-01-08 12:16 | PM.IMPN1 ---
Progress Note: A&P Assessment and plan (1) Bacteremia: Problem details: - Enterococcus faecalis on blood culture, initially started on IV Ertapenem and Vancomycin, transitioned to Unasyn on 01/05 based on sensitivities - Enterococcus and MSSA on urine culture. - will stop doxy as unasyn should cover this - Pelvic lift with cool compresses to decrease swelling in scrotum and penis Status: Acute (2) Cellulitis of scrotum: Problem details: - no findings concerning for gangrene (crepitus or pain out of proportion to exam) on exam or CT x2. -will work on swelling/edema; abdominal binder? Status: Acute (3) Urinary obstruction: Problem details: - consider leaving Pérez in upon discharge with outpatient Urology follow-up given recurrent obstruction and known BPH Status: Acute (4) Hematuria: Problem details: - continue CBI - + pérez malpositioning on imaging 01/04, replaced with persistent clot formation and bladder cramping/spasms - repeat imaging 01/05 with results below - reviewed with Dr. Donahue of Urology at [facility]; no acute intervention or transfer needed at this time. Repeat CT imaging with IV contrast shows no acute problem IMPRESSION: Hemorrhage in both moderately dilated intrarenal collecting systems, hemorrhage more prominent on the right than the left. Increased moderate bilateral hydronephrosis and hydroureter of uncertain etiology. The urinary bladder is largely collapsed following placement of a Pérez catheter. New constipation. CT of the abdomen shows a possible small nonspecific slightly dense 6 millimeter nodule in the lower pole of the left kidney. CT of the pelvis shows hemorrhage in the nondistended urinary bladder with satisfactory positioning of a Pérez catheter. Stable severe enlargement of the prostate. Status: Acute (5) Acute retention of urine: Problem details: secondary to hematuria clogging catheter Status: Acute (6) Chronic indwelling Pérez catheter: Problem details: Likely the primary source for his bacteremia. Status: Chronic (7) Generalized weakness: Problem details: - Acute on chronic, suspect multifactorial - therapies following Patient is anticipating returning home with his . He is still a heavy assist to get from chair to bathroom. feels that she can no longer manage him at home. I told him that he needs to be able to go to the bathroom under his own power to return home with his . Plan assisted facility for rehab. Status: Chronic (8) Disorder of fluid or electrolyte: Problem details: Patient currently has prominent peripheral edema and mild pulmonary edema but labs suggest a contraction alkalosis. Will increase furosemide and closely follow labs. Replace potassium. Status: Acute (9) CO2 retention: Problem details: Chronic. Caution with use of oxygen. Status: Acute (10) Incontinence of bowel: Problem details: Patient had constipation at home. With laxatives he has had a bowel movement here but is unable to control it. Status: Acute (11) Lymphedema: Problem details: - continue MWF lymphedema wraps Status: Chronic (12) Chronic hypoxemic respiratory failure: Problem details: - chronic CO2 retention, on supplemental oxygen with goal O2 saturation 87-90%. Question of heart failure exacerbation with pulmonary edema and peripheral lymphedema. 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 Blood sugar control here is fair Status: Chronic (16) Hypertension: Problem details: - Continue home medications, no evidence of hypotension, monitor closely given bacteremia Status: Acute Subjective Date Seen: 01/08/23 Interval history: Daily Progress Note - Hospital Medicine Day #: 6 CC: urinary retention/misaligned pérez, bacteremia/UTI, chronic edema, respiratory failure Day 6 of antibiotics (previous ertapenem and vancomycin and Linezolid) - currently on Unasyn. OVERNIGHT UPDATES FROM STAFF & MED, LAB, IMAGING UPDATES CBI continues, less bleeding; less clots. Pt was irritated about the SCDs this morning and was gruff at everyone this morning telling us his neuropathy is now much worse. He just wants to go home. 129/75 Pulse 60 5-75 Respirations 18 Pulse oximetry 92% on 1.5 L White blood cell count normal Hemoglobin 12.3 Platelets 230 CO2 is only 39 this morning PH 7.47 Potassiums of to 3.5 CRP is down to 7.1 2nd set of blood cultures remain negative. Known Enterococcus growing in both his blood and urine Echo from his last hospitalization in August: Severely increased left wall thickness. Normal global systolic function with an estimated EF of 55% Objective: pleasant. Vitals: see above : superficial edema of the shaft and foreskin of the penis, small amount of blood at os. scrotum generous and fluid filled. Lungs: Clear. Cardiac: S1S2. Disposition/Potential discharge - Likely to need SNF upon discharge Total time is 35 minutes with greater than 50% spent in counseling and coordination of care. Exam Const: Vital Signs, click to edit/add: Vital Signs - 24 hr 01/07/23 15:00 01/07/23 15:00 01/07/23 15:00 Temperature 97.8 F Pulse Rate [Left P ulse Oximeter] 66 Respiratory Rate 20 18 Blood Pressure [Le ft Arm] 140/84 H Pulse Oximetry 91 91 90 Oxygen Delivery Me thod Nasal Cannula Nasal Cannula Oxygen Flow Rate 1.5 1.5 01/07/23 19:00 01/07/23 23:00 01/07/23 23:00 Temperature 98 F Pulse Rate [Left P ulse Oximeter] 83 65 Respiratory Rate 18 18 Blood Pressure [Le ft Arm] 118/71 Pulse Oximetry 92 92 Oxygen Delivery Me thod Nasal Cannula Oxygen Flow Rate 1.5 01/07/23 23:00 01/07/23 23:00 01/08/23 03:00 Temperature 98 F 98 F Pulse Rate [Left P ulse Oximeter] 65 75 Respiratory Rate 18 18 18 Blood Pressure [Le ft Arm] 129/75 Pulse Oximetry 92 92 92 Oxygen Delivery Me thod Nasal Cannula Nasal Cannula Nasal Cannula Oxygen Flow Rate 1.5 1.5 1.5 01/08/23 07:45 01/08/23 07:45 Temperature Pulse Rate [Left P ulse Oximeter] Respiratory Rate 20 Blood Pressure [Le ft Arm] Pulse Oximetry 92 90 Oxygen Delivery Me thod Nasal Cannula Oxygen Flow Rate 1.5 Labs Labs: Laboratory Results - last 24 hr 01/08/23 01/08/23 01/08/23 05:47 05:47 05:47 WBC 5.79 Cancelled RBC 4.26 L Cancelled Hgb 12.3 L Hct MCV MCH MCHC RDW Coeff of Mindy Plt Count Neut % (Auto) Lymph % (Auto) [place] % (Auto) Eos % (Auto) Baso % (Auto) Neut # (Auto) Lymph # (Auto) [place] # (Auto) Eos # (Auto) Baso # (Auto) VBG pH VBG pCO2 VBG pO2 VBG HCO3 Sodium Potassium Chloride Carbon Dioxide BUN Creatinine Estimated Creat Clear Estimated GFR Glucose Calcium Ionized Calcium Laura Magnesium Troponin I C-Reactive Protein NT-Pro-B Natriuret Pep Procalcitonin 01/08/23 01/08/23 01/08/23 05:47 05:47 05:47 WBC RBC Hgb Cancelled Hct 40.8 Cancelled MCV 96 Cancelled MCH 29 MCHC RDW Coeff of Mindy Plt Count Neut % (Auto) Lymph % (Auto) [place] % (Auto) Eos % (Auto) Baso % (Auto) Neut # (Auto) Lymph # (Auto) [place] # (Auto) Eos # (Auto) Baso # (Auto) VBG pH VBG pCO2 VBG pO2 VBG HCO3 Sodium Potassium Chloride Carbon Dioxide BUN Creatinine Estimated Creat Clear Estimated GFR Glucose Calcium Ionized Calcium Laura Magnesium Troponin I C-Reactive Protein NT-Pro-B Natriuret Pep Procalcitonin 01/08/23 01/08/23 01/08/23 05:47 05:47 05:47 WBC RBC Hgb Hct MCV MCH Cancelled MCHC 30 L Cancelled RDW Coeff of Mindy 14.4 Plt Count 230 Cancelled Neut % (Auto) 52.7 Lymph % (Auto) 25.0 [place] % (Auto) 10.9 Eos % (Auto) 10.2 H Baso % (Auto) 0.2 Neut # (Auto) 3.05 Lymph # (Auto) 1.45 [place] # (Auto) 0.60 Eos # (Auto) 0.60 H Baso # (Auto) 0.01 VBG pH 7.471 H VBG pCO2 39 L VBG pO2 118.0 H VBG HCO3 28 Sodium 140 Potassium 3.5 L Chloride 101 Carbon Dioxide 34 H BUN 17 Creatinine 1.0 Estimated Creat Clear 68.50 Estimated GFR 76 Glucose 120 H Calcium 8.2 L Ionized Calcium Laura 1.10 L Magnesium 2.0 Troponin I 0.04 C-Reactive Protein 7.1 H NT-Pro-B Natriuret Pep 526 Procalcitonin 0.12
--- NOTE | 2023-01-08 19:33 | PC.NURSE ---
shift note: vss stable. pt afeb. IV patent. pt up 1/walker ambulated to door and out into [place]. pt had 2 lg BM's incont. bilat buttock with open area. lymphatic drsg intact. rt knee drsg c.d.i. pt using 1.5 L PNC O2 with sats 89-91%. Pt refused cont sat monitoring. CBI intact. urine in pérez murphy color to light pink. pt has clots in pérez bag. scrotum continues to be swollen.
[2023-01-08] MEDS: ACETAMINOPHEN 650 MG TABLET ER 1300 MG PO (21:57)
[2023-01-08] MEDS: TAMSULOSIN HCL 0.4 MG CAPSULE 0.8 MG PO (21:57)
[2023-01-08] MEDS: ATORVASTATIN 10 MG TABLET 20 MG PO (21:58)
[2023-01-08] MEDS: GABAPENTIN 300 MG CAPSULE PO (21:58)
[2023-01-08] MEDS: MELATONIN 3 MG TABLET PO (21:58)
[2023-01-08] MEDS: INSULIN NPH 100 UNIT/ML 10 UNIT SUBCUT (22:12)
[2023-01-09] VITALS (8 sets, daily range): BP systolic 135–150; BP diastolic 67–86; PULSE 61–68; RESP 12–20; TEMP 36.1–36.6; O2SAT 88–93
[2023-01-09] MEDS: 0.9 % SODIUM CHLORIDE 250 ml IV (01:32)
[2023-01-09] MEDS: AMPICILLIN/SULBACTAM 3 GM in 0.9 % SODIUM CHLORIDE Mini-bag 100 ML IVPB ×2 (01:32→06:32)
[2023-01-09 03:13] LABS: Hemoglobin A1C* 6.18 % (0-5.6)
[2023-01-09 06:54] LABS: Basophils Absolute Auto 0.02 K/uL (0.00-0.30); Basophils Percent Auto 0.3 % (0.0-3.0); Eosinophils Percent Auto 9.6 % (0.0-7.0); Hematocrit 39.2 % (37.0-53.0); Immature Granulocytes Abs Auto 0.09 K/uL (0.00-0.30); Immature Granulocytes Pct Auto 1.3 %; Lymphocytes Absolute Auto 1.59 K/uL (0.90-2.90); Lymphocytes Percent Auto 23.8 % (20-44); Mean Corpuscular HGB Conc 31 gm/dL (32-36); Mean Corpuscular Hemoglobin 29 pg (26-34); Mean Corpuscular Volume 95 fL (80-100); Neutrophils Absolute Auto 3.68 K/uL (1.7-7.0); Platelet Count* 240 K/uL (140-440); RDW Coefficient of Variation % 14.2 % (11.5-15.5); Red Blood Count 4.12 m/uL (4.30-5.90); White Blood Count* 6.69 K/uL (4.50-11.00)
[2023-01-09 06:56] LABS: HCO3 VBG 37 mmol/L (21-28); Ionized Calcium* 1.16 mmol/L (1.11-1.30); PCO2 VBG 59 mmHG (40-50); PO2 VBG 78.4 mmHG (25-47); pH VBG 7.407 (7.32-7.43)
[2023-01-09 07:10] LABS: Slide Review Reflex No
[2023-01-09 07:22] LABS: Chloride* 103 mmol/L (96-114); Potassium* 3.8 mmol/L (3.6-5.1); Sodium* 140 mmol/L (135-149)
[2023-01-09 07:24] LABS: Creatinine* 0.9 mg/dL (0.5-1.5); Estimated Glomerular Filt Rate 86 ml/min
[2023-01-09 07:25] LABS: Blood Urea Nitrogen* 15 mg/dL (7-30); Carbon Dioxide* 38 mmol/L (20-32); Glucose* 121 mg/dL (60-115)
[2023-01-09 07:26] LABS: Calcium* 8.4 mg/dL (8.4-10.6); Magnesium* 2.1 mg/dL (1.5-2.6)
[2023-01-09 07:28] LABS: C Reactive Protein* 4.9 mg/dL (0.5-1.0)
--- NOTE | 2023-01-09 07:35 | PC.NURSE ---
Pt sleepy overnight. Did assist in repositioning self. CBI cont to run at a good drip. Urine cont to be red if drip is slowed down. Several large long clot in bag. Up with assist of 2 and walker.
[2023-01-09 08:07] LABS: Troponin I* 0.03 ng/mL (0.01-0.04)
[2023-01-09] MEDS: INSULIN NPH 100 UNIT/ML 15 UNIT SUBCUT (08:40)
[2023-01-09] MEDS: POTASSIUM CHLORIDE 10 MEQ CAPSULE ER PO ×2 (08:43→17:59)
[2023-01-09] MEDS: METOPROLOL SUCCINATE (XL) 100 MG TAB PO (08:44)
[2023-01-09] MEDS: allopurinoL 100 MG TABLET PO (08:44)
[2023-01-09] MEDS: GABAPENTIN 300 MG CAPSULE 600 MG PO ×2 (08:44→20:53)
[2023-01-09] MEDS: SENNOSIDES 1 TAB TABLET PO ×2 (08:44→20:51)
[2023-01-09] MEDS: DOCUSATE SODIUM 100 MG CAPSULE PO ×2 (08:44→20:50)
[2023-01-09] MEDS: FUROSEMIDE 40 MG TABLET PO ×2 (08:44→15:18)
[2023-01-09] MEDS: NYSTATIN POWDER 1 APPLIC TOPICAL ×2 (08:45→20:55)
[2023-01-09] MEDS: SODIUM CHLORIDE 0.9 % (FLUSH) 10 ML SYRINGE 5 ML IVF ×2 (08:45→20:56)
--- NOTE | 2023-01-09 10:45 | CRLHL7_ITS ---
For Patients: As a result of the Century Cures Act, medical imaging exams and procedure reports are released immediately into your electronic medical record. You may view this report before your referring provider. If you have questions, please contact your health care provider. CLINICAL HISTORY: [place] versus hemorrhage Comparison CT abdomen pelvis 01/06/2023 TECHNIQUE: Potter scale and color Doppler images were acquired of the kidneys and urinary. FINDINGS: The right kidney measures 13.6 cm. The left kidney measures 9.6 cm. Bilateral moderate hydronephrosis seen. Kidneys appear otherwise unremarkable. IMPRESSION: Bilateral moderate hydronephrosis. Kidneys are otherwise unremarkable. Dictated by Sunita Koenig MD @ 01/09/2023 10:43:09 AM (Electronically Signed)
--- NOTE | 2023-01-09 10:57 | PC.SOCIAL ---
Nursing homes that take [employer] and pt.'s weight within 30 miles 1) [facility] Declined pt. he has been there before 2) [facility]-Pt. is refusing the [place] he has been there before 3)[facility]No beds 4)[facility]No Beds 5)[facility]-Pt. is over weight limit 6) [facility] beds [facility]) [phone] beds 8) [facility]-[phone] No beds 9)[facility]-Has an opening and is assessing 10) [facility]-Has an opening and is assessing
[2023-01-09] MEDS: AMOXICILLIN 250 MG CAPSULE 500 MG PO ×2 (13:55→20:52)
--- NOTE | 2023-01-09 15:25 | PC.SOCIAL ---
Spoke with pt.'s spouse who states pt. 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 She said she moved the ramp for pt. to enter the home and wants pt. to be able to do the three steps to enter the house to take him home. Therapy was updated. [facility] in [place] can accept pt. for a short-term rehab say if pt. agrees to cooperate with therapies and is short-term. Social work will follow-up with pt. and spouse tomorrow. [facility] in [place] is still assessing.
--- NOTE | 2023-01-09 17:40 | PC.NURSE ---
Patient is alert and oriented x 4, on RA and maintaining low 90's, Vital signs stable, SBA with GB. Patient worked with PT and OT today. Per Dr. Chaidez's verbal order, CBI was discontinued and clamped at 1400. Urine before clamping and very slow CBI titration was clear and light yellow. After clamping, patient did produce urine but it reverted to murphy color, however no clots were noted. Glucose levels have been excellent today and no sliding scale correction has been needed. Patient had an one incident of stool incontinence this morning. During conversation today, patient indicated that he did not want to transfer to an after-care facility, he stated that he had spoken to his and she consented to him coming home after discharge and that she would be able to care for him. I relayed this information to Dr. Chaidez.
[2023-01-09 20:32] LABS: NT Pro B Type NatriureticPept* 859 pg/mL
[2023-01-09] MEDS: ATORVASTATIN 10 MG TABLET 20 MG PO (20:50)
[2023-01-09] MEDS: ACETAMINOPHEN 650 MG TABLET ER 1300 MG PO (20:52)
[2023-01-09] MEDS: TAMSULOSIN HCL 0.4 MG CAPSULE 0.8 MG PO (20:52)
[2023-01-09] MEDS: INSULIN NPH 100 UNIT/ML 10 UNIT SUBCUT (20:53)
[2023-01-09] MEDS: GABAPENTIN 300 MG CAPSULE PO (20:53)
[2023-01-09] MEDS: MELATONIN 3 MG TABLET PO (21:04)
[2023-01-10 03:00] VITALS: PULSE 71; RESP 16; TEMP 36.7; O2SAT 93
--- NOTE | 2023-01-10 06:11 | PC.NURSE ---
Shift note: CBI is draining very well. Hematuria has reduced significantly, however, there is intermittent hemorrhage noted with few clot. Urine bag emptied 1x tonight. No pain reported.
[2023-01-10 07:00] VITALS: RESP 18; O2SAT 88; O2SAT 92
[2023-01-10 08:57] LABS: Basophils Absolute Auto 0.01 K/uL (0.00-0.30); Basophils Percent Auto 0.1 % (0.0-3.0); Eosinophils Percent Auto 8.8 % (0.0-7.0); Hematocrit 44.9 % (37.0-53.0); Hemoglobin* 13.5 gm/dL (13.5-17.5); Immature Granulocytes Abs Auto 0.03 K/uL (0.00-0.30); Immature Granulocytes Pct Auto 0.4 %; Lymphocytes Absolute Auto 1.67 K/uL (0.90-2.90); Lymphocytes Percent Auto 24.5 % (20-44); Mean Corpuscular HGB Conc 30 gm/dL (32-36); Mean Corpuscular Hemoglobin 29 pg (26-34); Mean Corpuscular Volume 96 fL (80-100); Monocytes Percent Auto 6.7 % (0.0-11.0); Neutrophils Absolute Auto 4.05 K/uL (1.7-7.0); Neutrophils Percent Auto 59.5 % (42.0-72.0); Platelet Count* 221 K/uL (140-440); RDW Coefficient of Variation % 14.2 % (11.5-15.5); Red Blood Count 4.67 m/uL (4.30-5.90); White Blood Count* 6.82 K/uL (4.50-11.00)
[2023-01-10 09:00] VITALS: BP 149/76; PULSE 66; RESP 18; TEMP 36.7; O2SAT 92
[2023-01-10 09:03] LABS: Slide Review Reflex No
[2023-01-10 09:11] LABS: Chloride* 101 mmol/L (96-114); Sodium* 141 mmol/L (135-149)
[2023-01-10 09:14] LABS: Carbon Dioxide* 35 mmol/L (20-32); Estimated Glomerular Filt Rate 76 ml/min
[2023-01-10 09:15] LABS: Blood Urea Nitrogen* 15 mg/dL (7-30); Calcium* 8.7 mg/dL (8.4-10.6); Glucose* 164 mg/dL (60-115)
[2023-01-10] MEDS: POTASSIUM CHLORIDE 10 MEQ CAPSULE ER PO (09:23)
[2023-01-10] MEDS: allopurinoL 100 MG TABLET PO (09:24)
[2023-01-10] MEDS: SENNOSIDES 1 TAB TABLET PO (09:24)
[2023-01-10] MEDS: GABAPENTIN 300 MG CAPSULE 600 MG PO (09:24)
[2023-01-10] MEDS: FUROSEMIDE 40 MG TABLET PO (09:24)
[2023-01-10] MEDS: AMOXICILLIN 250 MG CAPSULE 500 MG PO ×2 (09:24→14:03)
[2023-01-10] MEDS: DOCUSATE SODIUM 100 MG CAPSULE PO (09:24)
[2023-01-10] MEDS: METOPROLOL SUCCINATE (XL) 100 MG TAB PO (09:24)
[2023-01-10] MEDS: NYSTATIN POWDER 1 APPLIC TOPICAL (09:25)
[2023-01-10] MEDS: INSULIN NPH 100 UNIT/ML 15 UNIT SUBCUT (09:26)
[2023-01-10] MEDS: SODIUM CHLORIDE 0.9 % (FLUSH) 10 ML SYRINGE 5 ML IVF (09:28)
[2023-01-10 10:37] LABS: PSA Diagnostic* 2.93 ng/mL (0.10-4.00)
[2023-01-10 11:00] VITALS: BP 132/69; PULSE 68; RESP 18; O2SAT 88
--- NOTE | 2023-01-10 12:01 | PC.SOCIAL ---
Updated [facility] in [place] that pt. was being transferred to [place].
--- NOTE | 2023-01-10 14:34 | PC.NURSE ---
Pt A&O. A1 w/ walker and gait belt to the commode. Denies pain. CBI patent and draining clots. This morning urine dark red with large clots. This afternoon urine was bright red with clots. MD aware of both. At this time CBI pink tinged and rate slowed. Tolerating diet. Plan to transfer to [facility]. Pt at this time hesitant on transfer, MD updated.
--- NOTE | 2023-01-10 16:02 | PM.IMPN1 ---
Progress Note: A&P Assessment and plan (1) Hematuria: Problem details: - continue CBI - + pérez malpositioning on imaging 01/05, replaced with persistent clot formation and bladder cramping/spasms - repeat imaging 01/06 with results below - reviewed with Dr. Donahue of Urology at [facility]; no acute intervention or transfer needed at this time. Repeat CT imaging with IV contrast shows no acute problem IMPRESSION from 01/05 -NONCONTRAST CT OF ABDOMEN AND PELVIS Hemorrhage in both moderately dilated intrarenal collecting systems, hemorrhage more prominent on the right than the left. Increased moderate bilateral hydronephrosis and hydroureter of uncertain etiology. The urinary bladder is largely collapsed following placement of a Pérez catheter. New constipation. CT of the abdomen shows a possible small nonspecific slightly dense 6 millimeter nodule in the lower pole of the left kidney. CT of the pelvis shows hemorrhage in the nondistended urinary bladder with satisfactory positioning of a Pérez catheter. Stable severe enlargement of the prostate. 01/[address] ABD PELVIS Kidneys: Unchanged bilateral hydronephrosis. Kidneys otherwise unremarkable. 1. No significant changes from the recent prior exam. 2. Stable bilateral hydronephrosis. 3. Stable inflammation of the urinary bladder. 4. Stable prostatomegaly. 5. Unremarkable GI tract. No signs of constipation. Status: Acute (2) Bacteremia: Problem details: - Enterococcus faecalis on blood culture, initially started on IV Ertapenem and Vancomycin, transitioned to Unasyn on 01/05 based on sensitivities, transitioned to oral amoxil on 01/09 - Enterococcus and MSSA on urine culture. - will stop doxy as unasyn should cover this - Pelvic lift with cool compresses to decrease swelling in scrotum and penis Status: Acute (3) Generalized weakness: Problem details: - Acute on chronic, suspect multifactorial - therapies following Patient is anticipating returning home with his . He is still a heavy assist to get from chair to bathroom. feels that she can no longer manage him at home. I told him that he needs to be able to go to the bathroom under his own power to return home with his . Plan senior living facility for rehab. Status: Chronic (4) Chronic indwelling Pérez catheter: Problem details: Likely the primary source for his bacteremia. 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 Blood sugar control here is fair Status: Chronic (10) Hypertension: Problem details: - Continue home medications, no evidence of hypotension, monitor closely given bacteremia Status: Acute Subjective Date Seen: 01/09/23 Interval history: LATE ENTRY Date Seen: 01/09/23 Interval history: Daily Progress Note - Hospital Medicine Day #: 7 CC: urinary retention/misaligned pérez, bacteremia/UTI, chronic edema, respiratory failure Day 7 of antibiotics (previous ertapenem and vancomycin and Linezolid) -?unsasyn d/c for oral amoxil on 01/09/23 OVERNIGHT UPDATES FROM STAFF & MED, LAB, IMAGING UPDATES CBI continues, intermittent bleeding with clot passage. Afebrile 140/86 Pulse 66 Respiration 12 pulse ox 90 CBC is stable. Hemoglobin is 12.0. PH is stable with elevated pCO2 BMP unremarkable, ionized calcium normal, magnesium normal Bilateral renal ultrasound Bilateral moderate hydronephrosis. Kidneys are otherwise unremarkable. 2nd set of blood cultures remain negative.? Known Enterococcus growing in both his blood and urine Echo from his last hospitalization in August: Severely increased left wall thickness.? Normal global systolic function with an estimated EF of 55% Objective: pleasant. Vitals: see above : superficial edema of the shaft and foreskin of the penis, small amount of blood at os. scrotum generous and fluid filled. Lungs: Clear. Cardiac: S1S2. ? Disposition/Potential discharge - Likely to need SNF upon discharge Total time is 35 minutes with greater than 50% spent in counseling and coordination of care. Exam Const: Vital Signs, click to edit/add: Vital Signs - 24 hr 01/09/23 19:00 01/09/23 22:58 01/09/23 22:58 Temperature 97.9 F Pulse Rate [Left P ulse Oximeter] 68 61 Respiratory Rate 16 16 Blood Pressure [Le ft Arm] 135/67 Pulse Oximetry 88 93 Oxygen Delivery Me thod Room Air Oxygen Flow Rate 01/09/23 22:58 01/09/23 22:58 01/10/23 03:00 Temperature 97.9 F 98.1 F Pulse Rate [Left P ulse Oximeter] 61 71 Respiratory Rate 16 16 16 Blood Pressure [Le ft Arm] 150/82 H Pulse Oximetry 93 93 93 Oxygen Delivery Me thod Room Air Room Air Room Air Oxygen Flow Rate 1.5 01/10/23 07:00 01/10/23 09:00 01/10/23 09:00 Temperature 98.0 F Pulse Rate [Left P ulse Oximeter] 66 66 Respiratory Rate 18 18 Blood Pressure [Le ft Arm] 149/76 H Pulse Oximetry 92 92 Oxygen Delivery Me thod Room Air Room Air Oxygen Flow Rate 01/10/23 11:00 01/10/23 07:00 Temperature Pulse Rate [Left P ulse Oximeter] 68 Respiratory Rate 18 Blood Pressure [Le ft Arm] 132/69 Pulse Oximetry 88 88 Oxygen Delivery Me thod Room Air Oxygen Flow Rate Labs Labs: Laboratory Results - last 24 hr 01/09/23 01/10/23 05:56 08:49 WBC 6.82 RBC 4.67 Hgb 13.5 Hct 44.9 MCV 96 MCH 29 MCHC 30 L RDW Coeff of Mindy 14.2 Plt Count 221 Neut % (Auto) 59.5 Lymph % (Auto) 24.5 [place] % (Auto) 6.7 Eos % (Auto) 8.8 H Baso % (Auto) 0.1 Neut # (Auto) 4.05 Lymph # (Auto) 1.67 [place] # (Auto) 0.50 Eos # (Auto) 0.60 H Baso # (Auto) 0.01 Sodium 141 Potassium 4.0 Chloride 101 Carbon Dioxide 35 H BUN 15 Creatinine 1.0 Estimated Creat Clear 68.50 Estimated GFR 76 Glucose 164 H Calcium 8.7 NT-Pro-B Natriuret Pep 859 PSA Diagnostic 2.93
--- NOTE | 2023-01-10 16:11 | PM.DS1 ---
DS: Providers Provider Date Seen: 01/10/23 Date of admission: 01/03/23 18:43 Primary care physician: Dilcia Castorena MD Admitting Clinician: Petra Shafer MD Consults: 01/03/23 12:22 Consult to [employer] [CONS] Urgent Comment: Reason for Consult:: Possible SNF placement 01/03/23 18:45 Consult to Physical Therapy [CONS] Routine Comment: Reason(s) for PT Consult:: Evaluate and Treat Any Restrictions?:: No Restrictions Consult to Respiratory Therapy [CONS] Routine Comment: Reason(s) for RT Consult:: Consult Consult to [employer] [CONS] Routine Comment: Reason for Consult:: Discharge Planning Needs 01/03/23 18:46 Consult to Occupational Therapy [CONS] Routine Comment: Reason(s) for OT Consult:: Evaluate and Treat Any Restrictions?:: No Restrictions 01/03/23 20:46 Consult to Occupational Therapy [CONS] Routine Comment: Reason(s) for OT Consult:: Difficulty Managing ADLs Any Restrictions?:: No Restrictions Consult to Physical Therapy [CONS] Routine Comment: Reason(s) for PT Consult:: Evaluate Ambulation Any Restrictions?:: No Restrictions 01/04/23 18:05 Consult to Wound Care [CONS] Routine Comment: Consulting Provider: Candelaria Lawrence Attending Physician on discharge: Mireille Chaidez MD [place] [facility] Date of Discharge: 01/10/23 DS: Summary Hospital Course Hospital Course: HOSPITALIST TRANSFER SUMMARY ATTENDING PHYSICIAN: Mireille Chaidez MD REASON FOR TRANSFER urology consultation BRIEF HOSPITAL COURSE: Adriano presented with urinary obstruction and retention. Ultimately was diagnosed with an Enterococcus UTI and bacteremia. We were working on the active infection and tailored antibiotics down to oral amoxicillin after 7 days. However imaging had reflected some bilateral kidney hemorrhage which was evidence by gross hematuria and passing of blood clots in his [place] catheter. Initiated continuous bladder irrigation with multiple L of saline. After several days of CBI we still did not have a resolution to the gross hematuria. However he was never anemic, hemodynamically unstable or requiring a blood transfusion. His 2nd set of blood cultures remained negative. His strength improved. Diabetes was well managed. A follow-up imaging showed no further hemorrhage in the kidneys on ultrasound. Discussing the case with Urology from [facility] there is suspicion that he has a clot in his bladder that is unable to pass the catheter and will were seeing is team did urine from that clot and/or pieces of that clot. This would make sense that he has not been anemic or hemodynamically unstable. Clot extraction was discussed verses cystoscopy. He also has significant prostatomegaly and catheter placement is extremely difficult. After discussing the case with Urology we felt the best course of action despite his improving chronic medical in acute issues other than the chronic hematuria was to transfer this patient for further urological consultation. SERVICES NOT AVAILABLE HERE THAT THIS PATIENT NEEDS: Urology cystoscopy ACCEPTING PHYSICIAN/SERVICE/LOCATION: Dr. Lei, hospitalist Dr. Stafford, urology MEDICATIONS AT TIME OF TRANSFER: See Mar DRIPS/LINES: Continuous bladder irrigation VITAL SIGN, MEDICATION, LAB/MICRO, IMAGING SUMMARY (full details available in account tabs or by records request) CT abdomen pelvis and CT abdomen pelvis with contrast aligned in the diagnosis section See lab printed off for further detail REVIEW OF SYSTEMS Unchanged. PHYSICAL EXAM: CONSTITUTIONAL: Generally has color and strength of improved throughout the week we have had him here. Three way [address] [place] catheter remains in place upon transfer draining bright red blood tinged urine. Red blood clots also. VITAL SIGNS: see record. Exam unchanged from earlier with notable exceptions: DISPOSITION: Not emergent transfer via EMS to [facility] Time spent on discharge >30 minutes. This includes speaking with accepting physician; family/patient and coordinating meds/drips for transfer. Status at Discharge Functional status at discharge: uses cane/walker Overall status at discharge: patient is not back to baseline Time Spent with Patient Time attestation: Total time spent providing and/or coordinating discharge services: Time spent: Greater than 30 minutes Exam Const: Vital Signs, click to edit/add: Vital Signs - 24 hr 01/09/23 19:00 01/09/23 22:58 01/09/23 22:58 Temperature 97.9 F Pulse Rate [Left P ulse Oximeter] 68 61 Respiratory Rate 16 16 Blood Pressure [Le ft Arm] 135/67 Pulse Oximetry 88 93 Oxygen Delivery Me thod Room Air Oxygen Flow Rate 01/09/23 22:58 01/09/23 22:58 01/10/23 03:00 Temperature 97.9 F 98.1 F Pulse Rate [Left P ulse Oximeter] 61 71 Respiratory Rate 16 16 16 Blood Pressure [Le ft Arm] 150/82 H Pulse Oximetry 93 93 93 Oxygen Delivery Me thod Room Air Room Air Room Air Oxygen Flow Rate 1.5 01/10/23 07:00 01/10/23 09:00 01/10/23 09:00 Temperature 98.0 F Pulse Rate [Left P ulse Oximeter] 66 66 Respiratory Rate 18 18 Blood Pressure [Le ft Arm] 149/76 H Pulse Oximetry 92 92 Oxygen Delivery Me thod Room Air Room Air Oxygen Flow Rate 01/10/23 11:00 01/10/23 07:00 Temperature Pulse Rate [Left P ulse Oximeter] 68 Respiratory Rate 18 Blood Pressure [Le ft Arm] 132/69 Pulse Oximetry 88 88 Oxygen Delivery Me thod Room Air Oxygen Flow Rate DS: Data Data Completed and Pending Completed studies during hospitalization: Procedures Assistance with Respiratory Ventilation, Greater than 96 Consecutive Hours, Continuous Positive Airway Pressure (09/13/22) Change Drainage Device in Bladder, External Approach (10/15/22) Drainage of Bladder with Drainage Device, Via Natural or Artificial Opening (09/13/22) Excision of Right Lower Leg Skin, External Approach (09/13/22) Extraction of Left Lower Leg Skin, External Approach (09/13/22) Extraction of Right Lower Leg Skin, External Approach (09/13/22) Introduction of Other Gas into Respiratory Tract, Via Natural or Artificial Opening (09/13/22) Irrigation of Genitourinary Tract using Irrigating Substance, Via Natural or Artificial Opening (10/15/22) Labs on day of discharge: Labs from last 24 hours 01/10/23 01/09/23 08:49 05:56 WBC 6.82 RBC 4.67 Hgb 13.5 Hct 44.9 MCV 96 MCH 29 MCHC 30 L RDW Coeff of Mindy 14.2 Plt Count 221 Neut % (Auto) 59.5 Lymph % (Auto) 24.5 [place] % (Auto) 6.7 Eos % (Auto) 8.8 H Baso % (Auto) 0.1 Neut # (Auto) 4.05 Lymph # (Auto) 1.67 [place] # (Auto) 0.50 Eos # (Auto) 0.60 H Baso # (Auto) 0.01 Sodium 141 Potassium 4.0 Chloride 101 Carbon Dioxide 35 H BUN 15 Creatinine 1.0 Estimated Creat Clear 68.50 Estimated GFR 76 Glucose 164 H Calcium 8.7 NT-Pro-B Natriuret Pep 859 PSA Diagnostic 2.93 Discharge Plan Discharge Disposition: [facility] Date of Admission: 01/03/23 18:43 Attending Provider on Discharge: Mireille Chaidez Primary Care Provider: Dilcia Castorena Condition: Improved Oxygen: No Urinary Catheter: Yes ([address]F [address] for CBI ) Drips/Lines: IV access, CBI for hematuria Services not available here: Urology
--- NOTE | 2023-01-10 16:29 | PC.NURSE ---
Transfer- Patient continues with CBI with murphy red output with several clots. Bag emptied before transfer to [address] He is up with walker and assist. Leaves with all belongings via EMS.
== END 2023-01-10 16:20 | disposition short-term general hospital (02) | DRG 699 ==
LOC: ED 13:52 → MEDSURG 15:06
PROVIDERS: Family Medicine; Admitting Provider Family Medicine; Emergency Provider Family Medicine; PCP Family Medicine; Visit Provider Family Medicine
DX: T83.091A Other mechanical complication of indwelling urethral catheter, initial encounter (principal); I50.32 Chronic diastolic (congestive) heart failure; N39.0 Urinary tract infection, site not specified; T83.518A Infection and inflammatory reaction due to other urinary catheter, initial encounter; R78.81 Bacteremia; N13.8 Other obstructive and reflux uropathy; N13.30 Unspecified hydronephrosis; J96.11 Chronic respiratory failure with hypoxia; J96.12 Chronic respiratory failure with hypercapnia; L97.919 Non-pressure chronic ulcer of unspecified part of right lower leg with unspecified severity; L97.929 Non-pressure chronic ulcer of unspecified part of left lower leg with unspecified severity; Z68.41 Body mass index [BMI] 40.0-44.9, adult; R31.0 Gross hematuria; T83.028A Displacement of other urinary catheter, initial encounter; R33.9 Retention of urine, unspecified; B95.2 Enterococcus as the cause of diseases classified elsewhere; B95.61 Methicillin susceptible Staphylococcus aureus infection as the cause of diseases classified elsewhere; N28.89 Other specified disorders of kidney and ureter; N32.89 Other specified disorders of bladder; N49.2 Inflammatory disorders of scrotum; I83.009 Varicose veins of unspecified lower extremity with ulcer of unspecified site; E66.01 Morbid (severe) obesity due to excess calories; I89.0 Lymphedema, not elsewhere classified; N40.1 Benign prostatic hyperplasia with lower urinary tract symptoms; R53.1 Weakness; K52.9 Noninfective gastroenteritis and colitis, unspecified; I11.0 Hypertensive heart disease with heart failure; E11.42 Type 2 diabetes mellitus with diabetic polyneuropathy; Z79.4 Long term (current) use of insulin; M35.3 Polymyalgia rheumatica; M51.36 Other intervertebral disc degeneration, lumbar region; K21.9 Gastro-esophageal reflux disease without esophagitis; K59.00 Constipation, unspecified
CPT/HCPCS: 36415; 51702; 71045; 72193; 74176; 74177; 76775; 80048; 80053; 81001; 82330; 82803; 82962; 83036; 83605; 83735; 83880; 84145; 84153; 84484; 85025; 85027; 85610; 85730; 86140; 87040; 87086; 87186; 87631; 94761; 97110; 97116; 97163; 97166; 97530; 97535; 99284; A9270; J0295; J1335; J3370; J7050; J7120; Q9967

== ENCOUNTER 2023-01-10 16:10 | Outpatient (CLI) | payer OTHER, SELFPAY | END 2023-01-10 16:11 | disposition home or self-care (01) | LOC: AMB 01-12 11:38 | PROVIDERS: PCP Family Medicine; Visit Provider Family Medicine | DX: R31.0 Gross hematuria (principal); R33.9 Retention of urine, unspecified | CPT/HCPCS: A0425; A0426; A0428 ==

== ENCOUNTER 2024-03-21 18:59 | Emergency (ER) | payer OTHER, SELFPAY ==
[2024-03-21 19:04] VITALS: BP 132/80; PULSE 74; RESP 14; TEMP 36.3; O2SAT 92; BMI 31.5
--- NOTE | 2024-03-21 19:30 | ED_ITS ---
HPI - Weakness General Chief complaint: Weakness Stated complaint: open wounds, weakness Time Seen by Provider: 03/21/24 19:03 History of Present Illness HPI Narrative: This 84-year-old male comes in reporting some generalized weakness. This is not a new condition for him as he is morbidly obese and has generalized weakness listed in his problem list. He states that he felt more weak today. He does not describe any other new symptoms. He states that he is able to get up and ambulate but feels like his legs are weaker. He has chronic venous stasis with some skin breakdown in his lower extremities bilaterally. He arrives here with normal vital signs. He does not report any pain or shortness of breath. He has not had any fevers or dysuria symptoms. Related Data Home Medications ?Medication ?Instructions ?Recorded ?Confirmed acetaminophen 650 mg 1,300 mg PO HS 09/10/22 02/04/23 tablet,extended release (Arthritis Pain Reliever) allopurinol 100 mg tablet 100 mg PO DAILY 09/10/22 02/04/23 aspirin 81 mg tablet,delayed 81 mg PO DAILY 09/10/22 02/04/23 release (Ecotrin Low Strength) atorvastatin 20 mg tablet 20 mg PO HS 09/10/22 02/04/23 gabapentin 300 mg capsule 600 - 1,200 mg PO BID@09/10/22 02/04/23 metoprolol succinate 100 mg 100 mg PO DAILY 09/10/22 02/04/23 tablet,extended release 24 hr nitroglycerin 0.4 mg sublingual 0.4 mg sublingual Q5-15M PRN 09/10/22 02/04/23 tablet (Nitrostat) docusate sodium 100 mg capsule 100 mg PO BID 01/03/23 02/04/23 (Colace) furosemide 40 mg tablet 40 mg PO QAM 01/03/23 02/04/23 insulin NPH isoph U-100 human 100 10 - 15 unit subcut BIDWMEAL 01/03/23 02/04/23 unit/mL (3 mL) subcutaneous pen insulin regular human 100 unit/mL 10 unit subcut BIDWM 01/03/23 02/04/23 (3 mL) subcutaneous pen (Novolin R FlexPen) tamsulosin 0.4 mg capsule 0.4 mg PO HS 01/03/23 02/04/23 finasteride 5 mg tablet 5 mg PO QAM 02/04/23 02/04/23 polyethylene glycol 3350 17 17 g PO DAILY PRN 02/04/23 02/04/23 gram/dose oral powder (ClearLax) potassium chloride 10 mEq 20 meq PO DAILY 02/04/23 02/04/23 tablet,extended release Previous Rx's ?Medication ?Instructions ?Recorded nystatin 100,000 unit/gram topical 1 applic topical BID #30 grams 09/26/22 powder fluconazole 200 mg tablet 200 mg PO DAILY #10 tabs 02/07/23 (Diflucan) levofloxacin 500 mg tablet 500 mg PO Q24H #10 tabs 02/07/23 loperamide 2 mg capsule 2 mg PO Q12-24H PRN #30 caps 02/07/23 Allergies Allergy/AdvReac Type Severity Reaction Status Date / Time cephalexin Allergy Severe Hives Verified 02/04/23 09:47 Review of Systems Status of ROS: Reports: 10 or more systems reviewed and unremarkable except as noted in History and below Narrative: Constitutional: No fevers, no weight gain or loss. Eyes: No discharge. No vision changes. HENT: No congestion, no sore throat, no ear pain. Cardiovascular: No chest pain, no palpitations. Respiratory: No shortness of breath, no wheezes, no cough. Gastrointestinal: No abdominal pain, no vomiting, no diarrhea. Genitourinary: No dysuria, no hematuria. Musculoskeletal: Normal range of motion. Skin: No rashes, no pruritis. Neurological: No dizziness, sensory change, speech change. He reports generalized weakness especially in both legs when ambulating. Endo/Heme/Allergies: No bruising or bleeding. No polydipsia. Pysch: no suicidality, no anxiety, no insomnia. All other systems reviewed and are negative. 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 of unspecified site (ICD-10) ?L97.929 - Non-pressure chronic ulcer of unspecified part of left lower leg with unspecified severity (ICD-10) Disorder of fluid or electrolyte ?E87.8 - Other disorders of electrolyte and fluid balance, not elsewhere classified (ICD-10) CO2 retention ?E87.29 - Other acidosis (ICD-10) Incontinence of bowel ?R15.9 - Full incontinence of feces (ICD-10) Weakness ?R53.1 - Weakness (ICD-10) Physical debility ?R53.81 - Other malaise (ICD-10) Acute nontraumatic kidney injury ?N17.9 - Acute kidney failure, unspecified (ICD-10) Chronic hypoxemic respiratory failure ?J96.11 - Chronic respiratory failure with hypoxia (ICD-10) Acute urinary retention ?R33.8 - Other retention of urine (ICD-10) Physical deconditioning ?R53.81 - Other malaise (ICD-10) Acute respiratory failure with hypoxia and hypercapnia ?J96.01 - Acute respiratory failure with hypoxia (ICD-10) ?J96.02 - Acute respiratory failure with hypercapnia (ICD-10) 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 ?I89.0 - Lymphedema, not elsewhere classified (ICD-10) ?I99.9 - Unspecified disorder of circulatory system (ICD-10) Cellulitis of right leg ?L03.115 - Cellulitis of right lower limb (ICD-10) Elevated troponin ?R77.8 - Other specified abnormalities of plasma proteins (ICD-10) Acute on chronic heart failure with preserved ejection fraction ?I50.33 - Acute on chronic diastolic (congestive) heart failure (ICD-10) Generalized weakness ?R53.1 - Weakness (ICD-10) DDD (degenerative disc disease), lumbar ?M51.36 - Other intervertebral disc degeneration, lumbar region (ICD-10) Diabetic peripheral neuropathy ?E11.42 - Type 2 diabetes mellitus with diabetic polyneuropathy (ICD-10) GERD (gastroesophageal reflux disease) ?K21.9 - Gastro-esophageal reflux disease without esophagitis (ICD-10) Hypertension ?I10 - Essential (primary) hypertension (ICD-10) Morbid obesity ?E66.01 - Morbid (severe) obesity due to excess calories (ICD-10) Acute on chronic diastolic (congestive) heart failure ?I50.33 - Acute on chronic diastolic (congestive) heart failure (ICD-10) Polymyalgia rheumatica ?M35.3 - Polymyalgia rheumatica (ICD-10) Bilateral edema of lower extremity ?R60.0 - Localized edema (ICD-10) Type 2 diabetes mellitus ?E11.9 - Type 2 diabetes mellitus without complications (ICD-10) Surgical History Hx of colonoscopy ?Z98.890 - Other specified postprocedural states (ICD-10) H/O cataract removal with insertion of prosthetic lens ?Z98.49 - Cataract extraction status, unspecified eye (ICD-10) ?Z96.1 - Presence of intraocular lens (ICD-10) History of tonsillectomy and adenoidectomy ?Z90.89 - Acquired absence of other organs (ICD-10) History of lumbar laminectomy ?Z98.890 - Other specified postprocedural states (ICD-10) Family History Mother Lymph node cancer Father Colon cancer Brother High cholesterol High blood pressure Brother High blood pressure Sister High blood pressure Social History Narrative: . Lives with . Denies tobacco use, lifelong nonsmoker. Alcohol use 1 drink per month. Denies recreational drug use. DNI. Highest level of school completed/degree received: high school graduate Smoking Status: Never smoker Do you use any of these nicotine containing products: None Second hand tobacco smoke exposure: No How often do you have a drink containing alcohol: never AUDIT-C Alcohol total score: 0 Non-prescribed substance use: denies use Caffeine: Yes (1 cup of coffee a day) service: Yes ([employer]) Exam Narrative: Exam Narrative: Constitutional: Well-developed, well-nourished, no acute distress. Morbidly obese. HEENT: Normocephalic, atraumatic. Neck: Normal range of motion. Nontender. Supple. Heart: Regular. No murmurs. Normal rate. Intact distal pulses. Lungs: Clear to auscultation. No chest discomfort. No wheezes, rhonchi, or rales. Abdomen: Normal bowel sounds. Nontender. No rebound tenderness. Genitalia: Deferred. Back: No midline tenderness. Normal range of motion. Extremities: Normal range of motion. Large bilateral pedal edema with chronic skin changes related to the edema. Skin: Intact. No rash. Warm. No erythema or pallor. Neurologic: No altered sensation. No weakness. Alert and oriented. Psychiatric: No suicidality. No anxiety or depression. No insomnia. Nursing notes and vitals signs are reviewed. Const: Vital Signs, click to edit/add: Vital Signs - 24 hr 03/21/24 19:04 03/21/24 20:28 Temperature 97.4 F L Pulse Rate [Pulse Oximeter] 74 69 Respiratory Rate 14 20 Blood Pressure [Le ft Forearm] 132/80 136/69 Pulse Oximetry 92 84 L Oxygen Delivery Me thod Room Air Room Air Course Vital Signs Vital signs: Initial Vital Signs Temperature 97.4 F L 03/21/24 19:04 Temperature Source Temporal Artery Scan 03/21/24 19:04 Pulse Rate 74 03/21/24 19:04 Pulse Rhythm Regular 03/21/24 19:04 Respiratory Rate 14 03/21/24 19:04 Blood Pressure 132/80 03/21/24 19:04 Blood Pressure Mean 97 03/21/24 19:04 Blood Pressure Position Supine 03/21/24 19:04 Pulse Oximetry 92 03/21/24 19:04 Oxygen Delivery Method Room Air 03/21/24 19:04 Vital Signs Temperature 97.4 F L 03/21/24 19:04 Pulse Rate 74 03/21/24 19:04 Respiratory Rate 14 03/21/24 19:04 Blood Pressure 132/80 03/21/24 19:04 Pulse Oximetry 92 03/21/24 19:04 Oxygen Delivery Method Room Air 03/21/24 19:04 Temperature 97.4 F L 03/21/24 19:04 Pulse Rate 69 03/21/24 20:28 Respiratory Rate 20 03/21/24 20:28 Blood Pressure 136/69 03/21/24 20:28 Pulse Oximetry 84 L 03/21/24 20:28 Oxygen Delivery Method Room Air 03/21/24 20:28 MDM - Weakness MDM Narrative Medical decision making narrative: This 84-year-old male comes in reporting weakness but states that he is able to get up and ambulate. He arrives with normal vital signs. He does have lower oximetry but this is not new for him. He is not showing any sign of respiratory compromise or use of accessory muscles for breathing. Labs are acquired in these returned with reassuring findings. His C-reactive protein is elevated but he does not have fever or other sign of infection. He does have chronic skin changes in the fold of his abdomen and his lower extremities due to obesity and edema. The patient was able to get up and ambulate with assistance of a walker. He uses a walker at home. He is okay to be discharged home. He is encouraged to follow-up with the wound clinic and with his primary physician for ongoing management. Lab Data Labs: Lab Results 03/21/24 Range/Units 19:42 WBC 7.50 (4.50-11.00) K/uL RBC 5.55 (4.30-5.90) m/uL Hgb 15.8 (13.5-17.5) gm/dL Hct 52.1 (37.0-53.0) % MCV 94 (80-100) fL MCH 29 (26-34) pg MCHC 30 L (32-36) gm/dL RDW Coeff of Mindy 14.5 (11.5-15.5) % Plt Count 210 (140-440) K/uL Neut % (Auto) 69.7 (42.0-72.0) % Lymph % (Auto) 14.5 L (20-44) % [place] % (Auto) 13.3 H (0.0-11.0) % Eos % (Auto) 1.6 (0.0-7.0) % Baso % (Auto) 0.0 (0.0-3.0) % Neut # (Auto) 5.22 (1.7-7.0) K/uL Lymph # (Auto) 1.10 (0.90-2.90) K/uL [place] # (Auto) 1.00 H (0.00-0.90) K/UL Eos # (Auto) 0.12 (0.00-0.50) K/uL Baso # (Auto) 0.00 (0.00-0.30) K/uL Abs Immat Gran (auto) 0.07 (0.00-0.30) K/uL Imm/Tot Granulo (auto) 0.9 % Sodium 137 (135-149) mmol/L Potassium 4.1 (3.6-5.1) mmol/L Chloride 98 (96-114) mmol/L Carbon Dioxide 36 H (20-32) mmol/L Anion Gap 3 L (7-15) mEq/L BUN 15 (7-30) mg/dL Creatinine 1.0 (0.5-1.5) mg/dL Estimated Creat Clear 66.22 Estimated GFR 75 ml/min Glucose 132 H (60-115) mg/dL Calcium 9.1 (8.4-10.6) mg/dL C-Reactive Protein 8.7 H (0.5-1.0) mg/dL Discharge Plan Discharge Clinical Impression: Generalized weakness Patient Disposition: Home w/ Parent or Adult Condition: Stable Additional Instructions: Continue current plans. Ambulate with the assistance of a walker. Follow-up with wound clinic and primary physician for ongoing management. Return if worsening. Prescriptions: No Action allopurinol 100 mg tablet 100 mg PO DAILY atorvastatin 20 mg tablet 20 mg PO HS gabapentin 300 mg capsule 600 - 1,200 mg PO BID@18,22 Rx Instructions: TAKES 2-3 CAPS AROUND 6 PM, THEN 3-4 MORE AT BEDTIME. metoprolol succinate 100 mg tablet extended release 24 hr 100 mg PO DAILY nitroglycerin [Nitrostat] 0.4 mg tablet, sublingual 0.4 mg sublingual Q5-15M PRN Rx Instructions: do not exceed 3 doses per episode acetaminophen [Arthritis Pain Reliever] 650 mg tablet extended release 1,300 mg PO HS Rx Instructions: AND SOMETIMES ANOTHER DOSE AROUND NOON aspirin [Ecotrin Low Strength] 81 mg tablet,delayed release (DR/EC) 81 mg PO DAILY finasteride 5 mg tablet 5 mg PO QAM potassium chloride 10 mEq tablet extended release 20 meq PO DAILY polyethylene glycol 3350 [ClearLax] 17 gram/dose powder 17 g PO DAILY PRN loperamide 2 mg Capsule 2 mg PO Q12-24H PRNQty: 30 0RF Rx Instructions: help control diarrhea; do not take if you have not had a BM in the last 24 hours. levofloxacin 500 mg Tablet 500 mg PO Q24H Qty: 10 0RF fluconazole [Diflucan] 200 mg tablet 200 mg PO DAILY Qty: 10 0RF nystatin 100,000 unit/gram Powder 1 applic topical BID Qty: 30 0RF furosemide 40 mg tablet 40 mg PO QAM Novolin R FlexPen 100 unit/mL (3 mL) insulin pen 10 unit subcut BIDWM tamsulosin 0.4 mg Capsule 0.4 mg PO HS insulin NPH isoph U-100 human 100 unit/mL (3 mL) insulin pen 10 - 15 unit subcut BIDWMEAL Rx Instructions: 15 UNITS IN AM, 10 UNITS IN PM docusate sodium [Colace] 100 mg capsule 100 mg PO BID Follow Up/Referrals: Dilcia Castorena MD [Primary Care Provider] - Stand Alone Forms: MyHealth Info Instructions
[2024-03-21 19:55] LABS: Eosinophils Absolute Auto 0.12 K/uL (0.00-0.50); Eosinophils Percent Auto 1.6 % (0.0-7.0); Hematocrit 52.1 % (37.0-53.0); Hemoglobin* 15.8 gm/dL (13.5-17.5); Immature Granulocytes Abs Auto 0.07 K/uL (0.00-0.30); Immature Granulocytes Pct Auto 0.9 %; Lymphocytes Percent Auto 14.5 % (20-44); Mean Corpuscular HGB Conc 30 gm/dL (32-36); Mean Corpuscular Hemoglobin 29 pg (26-34); Mean Corpuscular Volume 94 fL (80-100); Monocytes Percent Auto 13.3 % (0.0-11.0); Neutrophils Absolute Auto 5.22 K/uL (1.7-7.0); Neutrophils Percent Auto 69.7 % (42.0-72.0); Platelet Count* 210 K/uL (140-440); RDW Coefficient of Variation % 14.5 % (11.5-15.5); Red Blood Count 5.55 m/uL (4.30-5.90)
[2024-03-21 19:58] LABS: Slide Review Reflex No
[2024-03-21 20:07] LABS: Chloride* 98 mmol/L (96-114); Potassium* 4.1 mmol/L (3.6-5.1); Sodium* 137 mmol/L (135-149)
[2024-03-21 20:09] LABS: Est. Creatinine Clearance* 66.22; Estimated Glomerular Filt Rate 75 ml/min
[2024-03-21 20:10] LABS: Anion Gap 3 mEq/L (7-15); Blood Urea Nitrogen* 15 mg/dL (7-30); Calcium* 9.1 mg/dL (8.4-10.6); Carbon Dioxide* 36 mmol/L (20-32); Glucose* 132 mg/dL (60-115)
[2024-03-21 20:14] LABS: C Reactive Protein* 8.7 mg/dL (0.5-1.0)
[2024-03-21 20:28] VITALS: BP 136/69; PULSE 69; RESP 20; O2SAT 84
== END 2024-03-21 21:00 | disposition home or self-care (01) ==
PROVIDERS: Emergency Provider Emergency Medicine Emergency Medical Services; PCP Family Medicine
DX: R53.1 Weakness (principal)
CPT/HCPCS: 36415; 80048; 85025; 86140; 99283; 99284

== ENCOUNTER 2024-08-02 13:08 | Outpatient (CLI) | payer OTHER, SELFPAY | END 2024-08-02 13:09 | disposition home or self-care (01) | LOC: WOUND 13:08 | PROVIDERS: PCP Family Medicine; Visit Provider Nurse Practitioner Family | DX: E11.622 Type 2 diabetes mellitus with other skin ulcer (principal); E11.40 Type 2 diabetes mellitus with diabetic neuropathy, unspecified; I89.0 Lymphedema, not elsewhere classified; L97.822 Non-pressure chronic ulcer of other part of left lower leg with fat layer exposed; L97.222 Non-pressure chronic ulcer of left calf with fat layer exposed; L97.812 Non-pressure chronic ulcer of other part of right lower leg with fat layer exposed; R60.0 Localized edema; L03.90 Cellulitis, unspecified; Z79.4 Long term (current) use of insulin | CPT/HCPCS: 97597; 97598; G0463 ==

== ENCOUNTER 2024-08-05 10:53 | Outpatient (CLI) | payer OTHER, SELFPAY | END 2024-08-05 10:54 | disposition home or self-care (01) | LOC: WOUND 10:53 | PROVIDERS: PCP Family Medicine; Visit Provider Nurse Practitioner Family | DX: I89.0 Lymphedema, not elsewhere classified (principal); E11.42 Type 2 diabetes mellitus with diabetic polyneuropathy; L97.812 Non-pressure chronic ulcer of other part of right lower leg with fat layer exposed; L97.822 Non-pressure chronic ulcer of other part of left lower leg with fat layer exposed; Z79.4 Long term (current) use of insulin | CPT/HCPCS: 29581 ==

== ENCOUNTER 2024-08-09 13:03 | Outpatient (CLI) | payer OTHER, SELFPAY | END 2024-08-09 13:04 | disposition home or self-care (01) | LOC: WOUND 13:03 | PROVIDERS: PCP Family Medicine; Visit Provider Nurse Practitioner Family | DX: I87.2 Venous insufficiency (chronic) (peripheral) (principal); I89.0 Lymphedema, not elsewhere classified; E11.40 Type 2 diabetes mellitus with diabetic neuropathy, unspecified; L97.822 Non-pressure chronic ulcer of other part of left lower leg with fat layer exposed; L97.812 Non-pressure chronic ulcer of other part of right lower leg with fat layer exposed; Z79.4 Long term (current) use of insulin | CPT/HCPCS: 97597; 97598 ==

== ENCOUNTER 2024-08-13 10:34 | Outpatient (CLI) | payer OTHER, SELFPAY | END 2024-08-13 10:35 | disposition home or self-care (01) | LOC: WOUND 10:34 | PROVIDERS: PCP Family Medicine; Visit Provider Nurse Practitioner Family | DX: I87.2 Venous insufficiency (chronic) (peripheral) (principal); E11.40 Type 2 diabetes mellitus with diabetic neuropathy, unspecified; I89.0 Lymphedema, not elsewhere classified; L97.822 Non-pressure chronic ulcer of other part of left lower leg with fat layer exposed; L97.812 Non-pressure chronic ulcer of other part of right lower leg with fat layer exposed; Z79.4 Long term (current) use of insulin | CPT/HCPCS: 29581 ==

== ENCOUNTER 2024-08-16 13:09 | Outpatient (CLI) | payer OTHER, SELFPAY | END 2024-08-16 13:10 | disposition home or self-care (01) | PROVIDERS: PCP Family Medicine; Visit Provider Physician Assistant | DX: I87.2 Venous insufficiency (chronic) (peripheral) (principal); I89.0 Lymphedema, not elsewhere classified; L97.822 Non-pressure chronic ulcer of other part of left lower leg with fat layer exposed; L97.812 Non-pressure chronic ulcer of other part of right lower leg with fat layer exposed; E11.40 Type 2 diabetes mellitus with diabetic neuropathy, unspecified; Z79.4 Long term (current) use of insulin | CPT/HCPCS: 87070; 87186; 97597; 97598 ==

== ENCOUNTER 2024-08-23 12:40 | Outpatient (CLI) | payer OTHER, SELFPAY | END 2024-08-23 12:41 | disposition home or self-care (01) | LOC: WOUND 12:40 | PROVIDERS: PCP Family Medicine; Visit Provider Nurse Practitioner Family | DX: I87.2 Venous insufficiency (chronic) (peripheral) (principal); I89.0 Lymphedema, not elsewhere classified; E11.40 Type 2 diabetes mellitus with diabetic neuropathy, unspecified; L97.812 Non-pressure chronic ulcer of other part of right lower leg with fat layer exposed; L97.822 Non-pressure chronic ulcer of other part of left lower leg with fat layer exposed; Z79.4 Long term (current) use of insulin | CPT/HCPCS: 11042; 11045 ==

== ENCOUNTER 2024-08-30 12:39 | Outpatient (CLI) | payer OTHER, SELFPAY | END 2024-08-30 12:40 | disposition home or self-care (01) | LOC: WOUND 12:39 | PROVIDERS: PCP Family Medicine; Visit Provider Nurse Practitioner Family | DX: I87.2 Venous insufficiency (chronic) (peripheral) (principal); I89.0 Lymphedema, not elsewhere classified; L97.812 Non-pressure chronic ulcer of other part of right lower leg with fat layer exposed; L97.822 Non-pressure chronic ulcer of other part of left lower leg with fat layer exposed | CPT/HCPCS: 11042; 11045 ==

== ENCOUNTER 2024-09-20 12:45 | Outpatient (CLI) | payer MEDICARE, OTHER, SELFPAY ==
--- OUTSIDE RECORDS SUMMARY | 2024-09-19 15:45 | XMS_ITS ---
Author Organization [facility] Address [address] [place] [address] Care Team Providers Care Hand Tube Winder Name Role Phone Unavailable Unavailable Unavailable Surgery Details Not on file Complications Check Surgery Details section. Procedure Estimated Blood Loss Check Surgery Details section. Procedure Findings Check Surgery Details section. Procedure Specimens Taken Check Surgery Details section.
--- OUTSIDE RECORDS SUMMARY | 2024-09-19 15:45 | XMS_ITS | Clinical Summary ---
Author Organization [facility] Address [place], [place] [address] Care Team Providers Care Professor Of Art History Name Role Phone Micheal Jeffries MD Unavailable Cesar Shah MD Unavailable Dilcia Castorena MD Primary Care Prov ider [facility] [place] Unavailable [facility] [place] Unavailable Allergies Active Allergy Reactions Criticality Noted Date Comments Cephalexin Hives High 10/15/2022 Medications acetaminophen SR (TYLENOL ARTHRITIS) 650 mg Extended-Release tablet Take 1,300 mg by mouth at bedtime. Max acetaminophen dose: 4000mg in 24 hrs. Active Potassium Gluconate 595 mg (99 mg) tabletIndication s:Hypokalemia Take by mouth. Every other day 0 02/29/20 23 Active nystatin powder (MYCOSTATIN) powderIndication s:Tinea Apply 1 Strip topically to affected area(s) three times daily. 60 g 2 01/04/20 24 Active loperamide (IMODIUM) 2 mg capsuleIndicatio ns:Chronic diarrhea Take 1 Capsule (2 mg) by mouth one time if needed for Diarrhea. In 24 hours 40 Capsule 2 01/04/20 24 Active BD Insulin Pen Needle UF 31 gauge x 16Indications :Controlled type 2 diabetes mellitus with complication, without long-term current use of insulin (HC) As directed. Use to inject insulin 400 Each 3 01/04/20 24 Active metoprolol succinate (TOPROL XL) 100 mg Sustained-Releas e tabletIndication s:Essential hypertension Take 1 Tablet (100 mg) by mouth once daily. 90 Tablet 3 08/07/20 24 Active insulin regular, U-100, human (NOVOLIN R FLEXPEN) 100 unit/mL (3 mL) penIndications:T ype 2 diabetes mellitus with complication, with long-term current use of insulin (HC) Inject 10 units subcutaneous two times daily before meals. 60 mL 08/07/20 24 Active insulin NPH isophane, U-100, (NovoLIN N FlexPen) 100 unit/mL (3 mL) penIndications:T ype 2 diabetes mellitus with complication, with long-term current use of insulin (HC) INJECT 15 UNITS BEFORE BREAKFAST AND 10 UNITS BEFORE SUPPER 24 mL 3 08/07/20 24 Active gabapentin (NEURONTIN) 300 mg capsuleIndicatio ns:Peripheral sensory neuropathy TAKE TWO CAPSULES BY MOUTH AT BEDTIME MAY TAKE ADDITIONAL 2-3 CAPS SPACED OUT THROUGHOUT THE DAY NEEDED. 540 Capsule 3 08/07/20 24 Active furosemide (LASIX) 40 mg tabletIndication s:Congestive heart failure, unspecified HF chronicity, unspecified heart failure type (HC) Take 1 Tablet (40 mg) by mouth once daily in the morning. 90 Tablet 3 08/07/20 24 Active finasteride (PROSCAR) 5 mg tabletIndication s:Lower urinary tract symptoms (LUTS) Take 1 Tablet (5 mg) by mouth once daily in the morning. 90 Tablet 3 08/07/20 24 Active atorvastatin (LIPITOR) 20 mg tabletIndication s:Risk for coronary artery disease greater than 20% in next 10 years per Charlton score Take 1 Tablet (20 mg) by mouth at bedtime. 90 Tablet 3 08/07/20 24 Active allopurinoL (ZYLOPRIM) 100 mg tabletIndication s:History of gout Take 1 Tablet (100 mg) by mouth once daily. HOLD until patient calls 90 Tablet 3 08/07/20 24 Active nitroglycerin (NITROSTAT) 0.4 mg sublingual tabletIndication s:H/O chest pain Place 1 Tablet (0.4 mg) under the tongue every 5 minutes if needed for Chest Pain. HOLD until patient calls 30 Tablet 3 08/07/20 Active tamsulosin 0.4 mg capsuleIndicatio ns:Lower urinary tract symptoms (LUTS) Take 1 Capsule (0.4 mg) by mouth once daily after a meal. FILL NOW 90 Capsule 3 08/07/20 Active Active Problems Problem Noted Date Diagnosed Date Type 2 diabetes mellitus wit h complication, with long-term current use of insulin 08/07/2024 CKD (chronic kidney disease) stage 2, GFR 60-89 ml/min 08/07/2024 Diabetes mellitus with peripheral vascular disea se 08/07/2024 Aortic aneurysm 08/07/2024 Peripheral sensory neuropathy 08/07/2024 Congestive heart failure 08/07/2024 Depression, recurrent 08/07/2024 Type 2 diabetes mellitus wit hout complication, with long-term current use of insulin 01/04/2024 H/O chest pain 01/04/2024 Hematuria 01/10/2023 Cellulitis of right leg 10/13/2022 Dilatation of aortic sinus of Valsalva Gout 10/13/2022 Physical deconditioning 10/13/2022 Unsteady gait 10/13/2022 Varicose veins of left lower extremity with ulce r 10/13/2022 Varicose veins of right leg with both ulcer of site and inflammation 10/13/2022 Elevated troponin 10/13/2022 Obesity, morbid 03/07/2022 PMR (polymyalgia rheumatica) 06/18/2019 Acute on chronic heart failu re with preserved ejection fraction 04/09/2019 Generalized osteoarthritis 04/09/2019 Lower urinary tract symptoms (LUTS) 04/09/2019 Encephalopathy acute 02/23/2019 Stage 3a chronic kidney disease 02/23/2019 Uremia 02/23/2019 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 Pain resolved until 2015. Controlled type 2 diabetes m ellitus with complication, without long-term current use of insulin 01/05/2017 Diabetic peripheral neuropathy 06/09/2015 Gastroesophageal reflux disease without esophagi tis 02/18/2015 Colon polyps 10/12/2013 Overview (02/23/2016): 2014 colonoscopy in [place] repeat 5 yrs History of gout 01/04/2011 Unspecified essential hypertension 12/25/2006 DIABETES 08/19/2002 Resolved Problems Problem Noted Date Diagnosed Date Resolved Date Chronic respiratory failure with hypercapnia 4 01/04/2024 Thrombocytopenia 01/04/2024 01/04/2024 Acute infective exacerbation of chronic obstructive airway disease 10/13/2022 01/25/2023 Urinary obstruction 10/13/2022 01/04/20 24 Acute on chronic respiratory failure with hypoxemia 05/25/2021 05/25/2021 Lower urinary tract symptoms (LUTS) 04/09/2019 01/04/2024 Encounters Date Type Department Care Team Description 08/13/2024 Telephone [facility] [address] [place] [address] Dilcia Castorena MD Results 08/07/2024 1:15 PM CARDIOLOGY NURSE Office Visit [facility] [address] [place] [address] Dilcia Castorena MD Medication Management (Refill medications ) 08/07/2024 Travel 08/01/2024 2:05 PM CARDIOLOGY NURSE Office Visit [facility] [address] [place] [address] Jessy Duggan PA Leg Pain/problem 08/01/2024 Travel 08/01/2024 Telephone [facility] [address] [place] [address] Jessy Duggan PA from Last 3 Months Immunizations Name Administration Dates Next Due COVID-19 vaccine ([place] NTDropifi 30mcg/0.3mL) 12YO+ AILEEN-SUCROSE DIANE CORNEJO 03/07/2022 Influenza, High-dose Inactivated 016,08/31/2015,08/04/2013,2012 Influenza, High-dose Quadriv alent Inactivated 08/06/2021,07/17/2020 Influenza, IIV3 (Age >=3 years) 08/24/2011 Influenza, IIV4 10/05/2017 Influenza, Inactivated AIIV4 (Age 65+ Years) Preserv Free 09/01/2022 Influenza, Inactivated IIV3 (Age 65+ Years) Preserv Free 06/18/2019,06/18/2018 Pneumococcal Poly,23-Valent (Pneumovax) 01/08/2018 Pneumococcal, Unspecified 07/19/2012 Td (Age >=7 Years) 12/24/1996 Td, Preservative Free (age > = 7 Years) 11/16/2009 Family History Medical History Relation Name Comments Hypertension Brother 1 Hypertension Brother 2 Hyperlipidemia Brother 3 Cancer-colon Father Cancer Mother lymph nodes Hypertension Sister Relation Name Status Comments Brother 1 Brother 2 Brother 3 Daughter 1 Alive Daughter 2 Alive Daughter 3 Alive Father (Age 45) colon canc er Mother lymphoma Sister Social History Tobacco Use Types Packs/Day Years Used Date Smoking Tobacco: Never Smokeless Tobacco: Never Tobacco Cessation:Counseling Given: Not Answered Alcohol Use Standard Drinks/Week Comments Not Currently 0 (1 standard drink = 0.6 oz pur e alcohol) [facility] Utilities Answer Date Recorded Do you have trouble paying f or utilities (for example, heat, electricity, water, phone)? Yes 01/04/2024 PHQ-2 Answer Date Recorded PHQ-2 TOTAL SCORE 3 01/04/2024 Social Connections Answer Date Recorded Do you often feel lonely or isolated from those around you? 0 01/04/2024 Financial Resource Strain Answer Date R ecorded Difficulty of Paying Living Expenses 2 01/04/2024 Difficulty of Paying Living Expenses 1 01/04/2024 Food Insecurity Answer Date Recorded Do you worry your food will run out before you are able to buy more? 1 01/04/2024 Transportation Needs Answer Date Record ed Does lack of transportation keep you from medica l appointments? 1 01/04/2024 Does lack of transportation keep you from work, meetings or getting things that you need? 1 01/04/2024 Housing Stability Answer Date Recorded What is your housing situation today? 1 01/04/2024 Sex and Gender Information Value Date Recorded Sex Assigned at Not on file Legal Sex Male 5:43 AM CARDIOLOGY NURSE Gender Identity Not on file Sexual Orientation Not on file Occupation Industry Job Start Date Job End Date reitred Not on file Not on file Not on file [employer] Not on file Not on file Not on torrey e Obstetrics History Last Filed Vital Signs Vital Sign Reading Time Taken Comments Blood Pressure 109/70 08/01/2024 1:46 PM CARDIOLOGY NURSE Pulse 62 08/01/2024 1:46 PM CARDIOLOGY NURSE Temperature 36.8 C (98.2 F) 08/01/2024 1:46 PM CARDIOLOGY NURSE Respiratory Rate 18 01/13/2023 10:13 AM CDT Oxygen Saturation 92% 08/01/2024 1:46 PM CARDIOLOGY NURSE Inhaled Oxygen Concentration - - Weight 155.1 kg (342 lb) 01/04/2024 11:05 AM CDT Height 188 cm (6' 2) 01/04/2024 11:05 AM CDT Body Mass Index 43.91 01/04/2024 11:05 AM CDT Plan of Treatment Health Maintenance Due Date Last Done Comments RSV vaccine for adults or pr egnancy (1 - 1-dose 75+ series) 2017 Procedures Procedure Name Priority Date/Time Associated Diagnosis Comments HEMOGLOBIN A1C MONITORING (POCT) Routine 08/07/2024 2:09 PM CARDIOLOGY NURSE Type 2 diabetes mellitus with complication, with long-term current use of insulin (HC) URINE ALBUMIN TO CREATININE RATIO, RANDOM Routine 08/07/2024 2:08 PM CARDIOLOGY NURSE Type 2 diabetes mellitus with complication, with long-term current use of insulin (HC) BASIC METABOLIC PANEL Routine 08/07/2024 2:08 PM CARDIOLOGY NURSE Essential hypertension from Last 3 Months Results * HEMOGLOBIN A1C MONITORING (POCT) (08/07/2024 2:09 PM CARDIOLOGY NURSE) POC HEMOGLOBIN A1C 5.9 <6.0 % OF TOTAL HGB [facility] Comment: Any point of care results exhibiting inconsistency with the patient's clinical status should be repeated using a different testing method. Blood BLOOD SPECIMEN / Unknown 08/07/2024 2:09 PM CARDIOLOGY NURSE 08/07/2024 2:09 PM CARDIOLOGY NURSE Dilcia Castorena MD CHEMISTRY Fi nal Result Performing Organization Address City/[facility]/ZIP Co de Phone Number [facility] [address] [place] [address], [place] [phone] [facility] [address] [place] [address] * (ABNORMAL) URINE ALBUMIN TO CREATININE RATIO, RANDOM (08/07/2024 2:08 PM CARDIOLOGY NURSE) CREATININE, RANDOM URINE 35 20 - 320 mg/dL [facility] ALBUMIN, URINE 1.2 See Note: mg/dL [facility] Comment: Reference Range: Reference Range Not established ALBUMIN/CREATININE RATIO, RANDOM URINE 34(H) <30 mg/g creat [facility] Comment: The ADA defines abnormalities in albumin excretion as follows: Albuminuria Category Result (mg/g creatinine) Normal to Mildly increased <30 Moderately increased 30-299 Severely increased > OR = 300 The ADA recommends that at least two of three specimens collected within a 3-6 month period be abnormal before considering a patient to be within a diagnostic category. Urine URINE SPECIMEN / Unknown 08/07/2024 2:08 PM CARDIOLOGY NURSE 08/07/2024 2:08 PM CARDIOLOGY NURSE Dilcia Castorena MD URINE Fi nal Result Performing Organization Address City/[facility] Co de Phone Number [employer] [facility] [address] [place] [address], [facility] [place] [address] [place] [address] * (ABNORMAL) BASIC METABOLIC PANEL (08/07/2024 2:08 PM CARDIOLOGY NURSE) GLUCOSE 179(H) 65 - 99 mg/dL [facility] Comment: Fasting reference interval For someone without known diabetes, a glucose value >125 mg/dL indicates that they may have diabetes and this should be confirmed with a follow-up test. UREA NITROGEN (BUN) 14 7 - 25 mg/dL [facility] CREATININE 1.06 0.70 - 1.22 mg/dL [facility] EGFR 70 > OR = 60 mL/min/1. 73m2 [facility] BUN/CREATININE RATIO SEE NOTE: 6 - 22 (calc) [facility] Comment: Not Reported: BUN and Creatinine are within reference range. SODIUM 142 135 - 146 mmol/L [facility] POTASSIUM 3.9 3.5 - 5.3 mmol/L [facility] CHLORIDE 99 98 - 110 mmol/L [facility] CARBON DIOXIDE 35(H) 20 - 32 mmol/L [facility] ELECTROLYTE BALANCE 8 7 - 17 mmol/L (calc) [facility] CALCIUM 8.6 8.6 - 10.3 mg/dL [facility] Blood BLOOD SPECIMEN / Unknown 08/07/2024 2:08 PM CARDIOLOGY NURSE 08/07/2024 2:08 PM CARDIOLOGY NURSE Dilcia Castorena MD CHEMISTRY Fi nal Result [employer] [facility] [place] [address] [place] [address], [facility] [address] [place] [address] from Last 3 Months Insurance MEDICARE PART A HB ONLY HU[employer]NA GOLD CHOICE MR HU[employer]NA GOLD CHOICE MR HC [employer] PPS Advance Directives Documents on File Type Date Recorded Patient Acupressure Therapist Expl anation POLST 08/07/2024 * DNR (Latest Code Status on File) Date Activated Date Inactivated Comments 01/10/2023 8:22 PM 01/13/2023 7:46 PM Question Answer Comments Code Status Discussion: Reviewed Preferences * DNR Date Activated Date Inactivated Comments 11/21/2022 5:16 PM 11/25/2022 3:30 PM Question Answer Comments Code Status Discussion: Reviewed Preferences * DNR Date Activated Date Inactivated Comments 02/20/2019 5:53 PM 02/25/2019 3:48 PM Question Answer Comments Code Status Discussion: Discussed * Full Code Date Activated Date Inactivated Comments 02/20/2019 5:30 PM 02/20/2019 5:53 PM Question Answer Comments Code Status Discussion: Discussed * Full Code Date Activated Date Inactivated Comments 03/18/2014 9:39 AM 03/18/2014 11:45 AM Care Teams Professor Of Art History Relationship Specialty Start Date End Date Dilcia Castorena MD [address] [place] [address] PCP - General Family Practice 05/26/15 Micheal Jeffries MD [address] [place] [address] Ophthalmology Surgery 01/04/11 Cesar Shah MD [address] [place] [address] Orthopedics Surgery - Orthopedic 01/30/12 [facility], [place] [address], [place] [address] 05/17/19 [facility], [place] [address] [place] [address] 11/15/22
--- OUTSIDE RECORDS SUMMARY | 2024-09-19 15:45 | XMS_ITS | Clinical Summary ---
Author Organization [facility] Address [address] [place] [address] Care Team Providers Care Fishing Accessories Maker Name Role Phone Unavailable Primary Care Provider Unavailabl e Source Comments Patient records contain information from all sites at [facility]. For routine questions regarding patient records, call [phone] during business hours, M-F 8:00 AM - 5:00 PM Central Time. Record requests for emergency care only can be directed to [phone] at any time.[facility] Immunizations Name Administration Dates Next Due Influenza Split 07/19/2013 Pneumococcal, Unspecified 07/19/2012 Td (Adult), adsorbed 11/16/2009 Td, (Adult) Unspecified 12/24/1996 Social History Tobacco Use Types Packs/Day Years Used Date Smoking Tobacco: Never Dental Answer Date Recorded Dental: Regular Dentist Unknown 11/22/19 23 Sex and Gender Information Value Date Recorded Sex Assigned at Not on file Legal Sex Male 6:41 AM MARKETING ASSISTANT RETAIL DIVISION Gender Identity Not on file Sexual Orientation Not on file Last Filed Vital Signs Vital Sign Reading Time Taken Comments Blood Pressure 145/90 10/18/2013 4:00 PM MARKETING ASSISTANT [employer] NIBP - Value from [employer]. Pulse 58 10/17/2013 3:15 AM MARKETING ASSISTANT [employer] Value from [employer]. Temperature - - Respiratory Rate 15 10/18/2013 2:45 PM MARKETING ASSISTANT [employer] Value from [employer]. Oxygen Saturation - - Inhaled Oxygen Concentration - - Weight 164 kg (362 lb 3.5 oz) 10/18/2013 4:15 AM MARKETING ASSISTANT [employer] Value from [employer]. Height 187.9 cm (6' 1.98) 10/18/2013 3 :43 PM MARKETING ASSISTANT [employer] Kerry Talamantes RN Body Mass Index - - Plan of Treatment Health Maintenance Due Date Last Done Comments Zoster Vaccines (1 of 2) 01/24/1992 DTaP,Tdap,and Td Vaccines (1 - Tdap) 11/17/2009 11/16/2009, 12/24/1996 RSV vaccine - (32-36 weeks) or 60+ years (1 - 1-dose 75+ series) 2017 Pneumococcal vaccine (50+ years) (2 of 2 - PCV) 01/08/2019 01/08/2018, 07/19/2012 Depression Screening (Annual PHQ-2) 09/18/2023 Fall Risk Screen (Annual) 09/18/2023 COVID-19 Vaccine ( season) 2024 03/07/2022, 08/06/2021, 12/10/2020, Additional history exists Influenza Vaccine (#1) 2024 2, 08/06/2021, 07/17/2020, Additional history exists IPV Vaccines Aged Out No longer eligi ble based on patient's age to complete this topic Insurance [facility]
--- OUTSIDE RECORDS SUMMARY | 2024-09-19 15:45 | XMS_ITS | Referral Summary ---
Author Organization [facility] Address [address] [place] [address] Care Team Providers Care Financial Services Sales Representative Name Role Phone Unavailable Primary Care Provider Unavailabl e Source Comments Patient records contain information from all sites at [facility]. For routine questions regarding patient records, call [phone] during business hours, M-F 8:00 AM - 5:00 PM Central Time. Record requests for emergency care only can be directed to [phone] at any time.[facility] Immunizations Name Administration Dates Next Due Influenza Split 07/19/2013 Pneumococcal, Unspecified 07/19/2012 Td (Adult), adsorbed 11/16/2009 Td, (Adult) Unspecified 12/24/1996 Social History Tobacco Use Types Packs/Day Years Used Date Smoking Tobacco: Never Dental Answer Date Recorded Dental: Regular Dentist Unknown 11/22/19 23 Sex and Gender Information Value Date Recorded Sex Assigned at Not on file Legal Sex Male 6:41 AM SURFACE SUPERVISOR Gender Identity Not on file Sexual Orientation Not on file Last Filed Vital Signs Vital Sign Reading Time Taken Comments Blood Pressure 145/90 10/18/2013 4:00 PM SURFACE SUPERVISOR NIBP - Value from [employer]. Pulse 58 10/17/2013 3:15 AM SURFACE SUPERVISOR Value from [employer]. Temperature - - Respiratory Rate 15 10/18/2013 2:45 PM SURFACE SUPERVISOR Value from [employer]. Oxygen Saturation - - Inhaled Oxygen Concentration - - Weight 164 kg (362 lb 3.5 oz) 10/18/2013 4:15 AM SURFACE SUPERVISOR Value from [employer]. Height 187.9 cm (6' 1.98) 10/18/2013 3 :43 PM SURFACE SUPERVISOR Kerry Talamantes RN Body Mass Index - - Plan of Treatment Not on file Insurance [facility] Address: [address] [address]
== END 2024-09-20 12:46 | disposition home or self-care (01) ==
PROVIDERS: PCP Family Medicine; Visit Provider Nurse Practitioner Family
DX: I87.2 Venous insufficiency (chronic) (peripheral) (principal); I89.0 Lymphedema, not elsewhere classified; L97.822 Non-pressure chronic ulcer of other part of left lower leg with fat layer exposed; L97.812 Non-pressure chronic ulcer of other part of right lower leg with fat layer exposed; E11.40 Type 2 diabetes mellitus with diabetic neuropathy, unspecified; Z79.4 Long term (current) use of insulin
CPT/HCPCS: 11042; 11045; 93926

== ENCOUNTER 2024-09-27 12:30 | Outpatient (CLI) | payer MEDICARE, OTHER, SELFPAY | END 2024-09-27 12:31 | disposition home or self-care (01) | PROVIDERS: PCP Family Medicine; Visit Provider Nurse Practitioner Family | DX: I87.2 Venous insufficiency (chronic) (peripheral) (principal); I89.0 Lymphedema, not elsewhere classified; L97.822 Non-pressure chronic ulcer of other part of left lower leg with fat layer exposed; L97.222 Non-pressure chronic ulcer of left calf with fat layer exposed; L97.212 Non-pressure chronic ulcer of right calf with fat layer exposed; E11.40 Type 2 diabetes mellitus with diabetic neuropathy, unspecified; Z79.4 Long term (current) use of insulin | CPT/HCPCS: 11042 ==

== ENCOUNTER 2024-10-25 12:42 | Outpatient (CLI) | payer MEDICARE, OTHER, SELFPAY | END 2024-10-25 12:43 | disposition home or self-care (01) | LOC: WOUND 12:45 | PROVIDERS: PCP Family Medicine; Visit Provider Physician Assistant | DX: I87.2 Venous insufficiency (chronic) (peripheral) (principal); I89.0 Lymphedema, not elsewhere classified; E11.40 Type 2 diabetes mellitus with diabetic neuropathy, unspecified; L97.822 Non-pressure chronic ulcer of other part of left lower leg with fat layer exposed; L97.812 Non-pressure chronic ulcer of other part of right lower leg with fat layer exposed; Z79.4 Long term (current) use of insulin | CPT/HCPCS: 97597 ==

== ENCOUNTER 2024-11-08 12:44 | Outpatient (CLI) | payer MEDICARE, OTHER, SELFPAY | END 2024-11-08 12:45 | disposition home or self-care (01) | PROVIDERS: PCP Family Medicine; Visit Provider Nurse Practitioner Family | DX: I87.2 Venous insufficiency (chronic) (peripheral) (principal); I89.0 Lymphedema, not elsewhere classified; L97.212 Non-pressure chronic ulcer of right calf with fat layer exposed; L97.222 Non-pressure chronic ulcer of left calf with fat layer exposed; L97.812 Non-pressure chronic ulcer of other part of right lower leg with fat layer exposed; E11.40 Type 2 diabetes mellitus with diabetic neuropathy, unspecified; Z79.4 Long term (current) use of insulin | CPT/HCPCS: 11042 ==

== ENCOUNTER 2024-11-29 11:05 | Outpatient (CLI) | payer MEDICARE, OTHER, SELFPAY | END 2024-11-29 11:06 | disposition home or self-care (01) | LOC: WOUND 11:06 | PROVIDERS: PCP Family Medicine; Visit Provider Nurse Practitioner Family | DX: I87.2 Venous insufficiency (chronic) (peripheral) (principal); I89.0 Lymphedema, not elsewhere classified; E11.40 Type 2 diabetes mellitus with diabetic neuropathy, unspecified; L97.822 Non-pressure chronic ulcer of other part of left lower leg with fat layer exposed; L97.812 Non-pressure chronic ulcer of other part of right lower leg with fat layer exposed; S81.802A Unspecified open wound, left lower leg, initial encounter; Z79.4 Long term (current) use of insulin | CPT/HCPCS: 97597; 97598; G0463 ==

== ENCOUNTER 2024-12-13 11:02 | Outpatient (CLI) | payer MEDICARE, OTHER, SELFPAY | END 2024-12-13 11:03 | disposition home or self-care (01) | LOC: WOUND 11:02 | PROVIDERS: PCP Family Medicine; Visit Provider Family Medicine | DX: I87.2 Venous insufficiency (chronic) (peripheral) (principal); I89.0 Lymphedema, not elsewhere classified; E11.40 Type 2 diabetes mellitus with diabetic neuropathy, unspecified; L97.212 Non-pressure chronic ulcer of right calf with fat layer exposed; L97.222 Non-pressure chronic ulcer of left calf with fat layer exposed; L97.822 Non-pressure chronic ulcer of other part of left lower leg with fat layer exposed; S81.802A Unspecified open wound, left lower leg, initial encounter; Z79.4 Long term (current) use of insulin | CPT/HCPCS: 11042; 11045; G0463 ==

== ENCOUNTER 2025-02-03 10:26 | Outpatient (CLI) | payer MEDICARE, OTHER, SELFPAY | END 2025-02-03 10:27 | disposition home or self-care (01) | PROVIDERS: PCP Nurse Practitioner Family; Visit Provider Nurse Practitioner Family | DX: E78.5 Hyperlipidemia, unspecified (principal); I10 Essential (primary) hypertension; I50.32 Chronic diastolic (congestive) heart failure; R20.2 Paresthesia of skin | CPT/HCPCS: 80053; 80061; 82607; 82728; 84443 ==

== ENCOUNTER 2025-02-06 10:26 | Outpatient (CLI) | payer MEDICARE, OTHER, SELFPAY | END 2025-02-06 10:27 | disposition home or self-care (01) | LOC: KYNREF 10:36 | PROVIDERS: PCP Nurse Practitioner Family; Visit Provider Nurse Practitioner Family | DX: E11.9 Type 2 diabetes mellitus without complications (principal); Z79.4 Long term (current) use of insulin | CPT/HCPCS: 82043; 82570 ==